=== PATIENT | male | born 1945 ===

== ENCOUNTER 2020-05-27 11:47 | Emergency (ER) | payer MEDICARE, SELFPAY ==
--- NOTE | 2020-05-27 | ECG_ITS ---
Test Reason : HEART PALPS Blood Pressure : / mmHG Vent. Rate : 062 BPM Atrial Rate : 062 BPM P-R Int : 156 ms QRS Dur : 086 ms QT Int : 406 ms P-R-T Axes : 056 -16 055 degrees QTc Int : 412 ms Normal sinus rhythm Normal ECG When compared with ECG of 31-JAN-2019 21:21, ST no longer depressed in Inferior leads Non-specific change in ST segment in Lateral leads Referred By: Eduardo Clifton Electronically Signed By:Erick Stallworth
--- NOTE | ~2020-05-27 | US_ITS ---
EXAMINATION: US VENOUS ULTRASOUND WITH DOPPLER LOWER EXTREMITY, BILATERAL CLINICAL INFORMATION: Bilateral lower extremity swelling COMPARISON: None TECHNIQUE: Ultrasound of the deep veins is performed from the hip to the calf with compression sonography and color and pulse Doppler assessment. Spectral analysis with color-flow imaging is performed. FINDINGS: RIGHT: There is normal venous compression and respiratory variation and augmented flow. The visualized common femoral vein, superficial femoral vein, profunda femoral vein, popliteal vein, and the trifurcation region shows no evidence of deep venous thrombosis. There is no significant popliteal fossa cyst. LEFT: There is normal venous compression and respiratory variation and augmented flow. The visualized common femoral vein, superficial femoral vein, profunda femoral vein, popliteal vein, and the trifurcation region shows no evidence of deep venous thrombosis. There is no significant popliteal fossa cyst. If the patient's symptoms persist, followup ultrasound in 5 days 7 days might be of value to exclude proximal propagation from a non-visualized calf vein. US/US venous duplex LE BI IMPRESSION: No DVT demonstrated in the bilateral lower extremity.
--- NOTE | ~2020-05-27 | XR_ITS ---
EXAMINATION: XR CHEST CLINICAL INFORMATION: Dyspnea COMPARISON: Previous chest x-ray January 2016 TECHNIQUE: 2 views of the chest were obtained. FINDINGS: The cardiac and mediastinal contours are stable. The lungs are clear. There is no pleural effusion or pneumothorax. There are degenerative changes of the spine. XR/XR chest 2V IMPRESSION: No evidence for acute disease in the chest.
[2020-05-27 11:50] VITALS: BP 218/101; PULSE 64; RESP 16; TEMP 36.5; O2SAT 98; BMI 37.8
[2020-05-27 11:53] VITALS: BP 213/98
--- NOTE | 2020-05-27 11:54 | PC.NURSE ---
pt has hypertension denies chest pain , has palpitations, took normal AM htn meds
[2020-05-27 12:41] VITALS: BP 172/87; PULSE 60; RESP 16; O2SAT 96
[2020-05-27 12:54] LABS: MANUAL DIFF FLAG NO
[2020-05-27 12:55] LABS: Basophils Percent Auto 0.5 % (0-2); Eosinophils Absolute Auto 0.3 X10*3/uL (0.0-0.4); Eosinophils Percent Auto 3.6 % (0-4); Hematocrit 38.8 % (42-52); Hemoglobin 12.8 g/dl (14.0-18.0); Imm Gran Abs Auto 0.04 X10*3/uL (0.00-0.03); Imm Gran Pct Auto 0.5 % (0.0-0.4); Lymphocytes Absolute Auto 2.4 X10*3/uL (1.2-4.9); Lymphocytes Percent Auto 27.7 % (20-40); Mean Corpuscular Hemoglobin 29.6 pg (27.0-33.0); Mean Corpuscular Volume 89.6 fL (80-98); Mean Platelet Volume 10.4 fL (9.4-12.4); Monocytes Absolute Auto 0.7 X10*3/uL (0.1-1.2); Monocytes Percent Auto 8.1 % (2-11); Neutrophils Absolute Auto 5.1 X10*3/uL (2.0-8.3); Neutrophils Percent Auto 59.6 % (45-73); Platelet Count 243 X10*3/uL (160-400); Red Blood Count 4.33 X10*6/uL (4.60-5.80); White Blood Count 8.5 X10*3/uL (4.8-10.8)
--- NOTE | 2020-05-27 12:58 | ED_ITS ---
HPI - General Adult General Chief complaint: Arrhythmia/Palpitations Stated complaint: PALPATIONS Time Seen by Provider: 05/27/20 12:06 Source: patient Mode of arrival: ambulatory Limitations: language barrier (Patient speaks Syriac but his 1st language is Greek, in room dining server was used) History of Present Illness HPI narrative: 75-year-old male who presents emergency department for evaluation chest pain, cough and bilateral lower extremity swelling x1 week. Patient states that he has been having intermittent, frequent episodes of right-sided chest pain. He describes the pain as a tight sensation which is worse with breathing and worse with movement. The pain is 6/10 at its worst. He also states he has had a cough which is productive of thin yellow phlegm x1 week. Patient has also noted bilateral lower extremity swelling which is gotten worse over the past week. He denied fever, chills, nausea, vomiting, abdominal pain, frequency, urgency or dysuria. The patient states that he got the [employer] COVID-19 vaccine 3 weeks ago these concerned that his symptoms may be related to the vaccination. Related Data Home Medications Medication Instructions Recorded Confirmed amlodipine 5 mg tablet 5 mg PO DAILY 11/26/19 03/28/20 aspirin 81 mg tablet,delayed 81 mg PO DAILY 11/26/19 03/28/20 release Previous Rx's Medication Instructions Recorded hydrochlorothiazide 25 mg tablet 25 mg PO QAM #90 tab 01/29/20 metformin 1,000 mg tablet 1,000 mg PO BID #180 tab 02/01/20 atenolol 50 mg tablet 50 mg PO DAILY #90 tab 02/03/20 insulin glargine 100 unit/mL (3 45 unit SUBCUT DAILY 30 Days #13.5 03/09/20 mL) subcutaneous pen ml lisinopril 40 mg tablet 40 mg PO DAILY #90 tab 03/10/20 atorvastatin 10 mg tablet 10 mg PO DAILY #90 tab 03/22/20 levothyroxine 88 mcg tablet 88 mcg PO QAM 90 Days #90 tab 04/01/20 furosemide [Lasix] 20 mg PO DAILY #30 tab 05/27/20 Allergies Allergy/AdvReac Type Severity Reaction Status Date / Time No Known Allergies Allergy Verified 03/28/20 13:32 Review of Systems Review of Systems: Yes all other systems are reviewed and are negative PMFSH Past Medical History PMFSH Narrative: The patient denies tobacco, alcohol and drug use. Source: unable to obtain Medical History (Updated 05/27/20 @ 15:18 by Eduardo Clifton MD) Abdominal aortic ectasia Diabetes mellitus High cholesterol Hypertension Hypothyroid Microalbuminuria Surgical History No pertinent past surgical history Family History Family History Father Medical history unknown Mother Diabetes Hypertension Paternal Grandmother Cancer Son No problems noted. Daughter No problems noted. Sister No problems noted. Brother No problems noted. Social History Social History Alcohol intake: never Smoking Status: Former smoker Tobacco Type: Cigarette Use of substances other than those prescribed or required for medical reasons: No Advance Directives: No Advance Directives Information Provided: Yes Physical Exam Vital Signs: Vital Signs: Last Vital Signs Temp 97.7 F 05/27/20 11:50 Pulse 60 05/27/20 12:41 Resp 16 05/27/20 12:41 BP 172/87 H 05/27/20 12:41 Pulse Ox 96 05/27/20 12:41 Body Mass Index 37.8 Const: General: cooperative and healthy appearing Orientation/consciousness: oriented to person and oriented to place Limitations: no limitations HENMT: Head: Yes normal to inspection, Yes normocephalic and Yes atraumatic Ears: external ears normal General nose exam: Normal external nose present Face and sinus: Yes normal facial exam Mouth: Normal oral and palatal mucosa present Throat: Yes posterior oropharynx normal Eyes: Periorbital: periorbital findings normal Eyelids: Yes eyelids normal Conjunctivae: conjunctivae normal Sclerae: sclerae normal Corneas: c orneas normal Pupils: Equal, round and reactive pupils present Direct Ophthalmoscopy: normal light reflex Neck: Neck: Yes full ROM, Yes no lymphadenopathy, Yes no meningeal signs, Yes trachea midline and Yes supple Chest: Chest palpation & inspection: normal inspection of the chest and tenderness (Right anterior chest) Resp: Effort & Inspection: normal respiratory effort and able to speak in complete sentences Auscultation: clear to auscultation bilaterally Cardio: Rate: regular rate Rhythm: regular rhythm Heart sounds: S1 normal heart sound present, S2 normal heart sound present and no murmurs GI: Inspection: Yes normal to inspection Palpation (GI): Soft to palpation, nontender, no guarding, not rigid and No hepatosplenomegaly present : General: Yes no CVA tenderness Back/Spine/Pelvis: Back: no CVA tenderness Cervical Spine: normal cervical lordosis Thoracic/Lumbar Spine: thoracic and lumbar spine normal to inspection Skin: Lesions: no lesions Rashes: no rashes Wounds: no wounds Neuro: General: oriented to person, oriented to place and no meningeal signs Cranial nerves: Yes Equal, round and reactive pupils present Cognition (Neuro): normal cognition Motor exam (neuro): 5/5 motor strength present throughout Extrem: General: Yes normal to inspection, Yes full ROM and Yes other (Bilaterally symmetric, trace to 1+ pitting edema) Psych: Appearance: well kempt Mental Status: mental status grossly normal Speech and movement: Normal speech and movement present Affect: normal affect Attitude: cooperative Thought process: Normal thought process present Thought content: Normal thought content present Course Course Course Narrative: 75-year-old male who presents emergency department for evaluation of intermittent chest pain, cough and leg swelling x1 week. Physical examination did reveal trace to 1+ pitting edema of his lower extremity which was symmetric. At this time I do not think this is related to the [employer] COVID-19 vaccine. I did order a cardiac workup on the patient, D-dimer and bilateral lower extremity ultrasounds. 1513: The patient's laboratory evaluation revealed a slight elevation in his potassium of 5.5. Patient does have an elevation is D-dimer 394 however age adjusted D-dimer would be normal. The patient's troponin was detectable at 6.9 but not elevated, I do not think that the patient has acute coronary syndrome is the cause of his symptoms. The patient's Doppler ultrasounds of his lower extremities were negative for DVT. The patient's chest x-ray revealed no evide nce of congestive heart failure pneumonia. Twelve EKG was unremarkable. The patient may be fluid overloaded this may explain his symptoms. The patient was started on Lasix 20 mg once a day for 1 week. I discussed the use of diuretics with the patient and the need to get into a negative fluid balance. Patient will need to follow-up with his PCP and return if he is worse in any way. Medical Decision Making Lab Data Result diagrams: 05/27/20 12:45 04/16/21 12:45 Labs: Lab Results 05/27/20 05/27/20 05/27/20 Range/Units 12:45 12:45 12:45 WBC 8.5 (4.8-10.8) X10*3/uL RBC 4.33 L (4.60-5.80) X10*6/uL Hgb 12.8 L (14.0-18.0) g/dl Hct 38.8 L (42-52) % MCV 89.6 (80-98) fL MCH 29.6 (27.0-33.0) pg MCHC 33.0 (31.0-36.0) g/dl RDW 13.0 (11.0-16.0) % Plt Count 243 (160-400) X10*3/uL MPV 10.4 (9.4-12.4) fL Immature Gran % (Auto) 0.5 H (0.0-0.4) % Neut % (Auto) 59.6 (45-73) % Lymph % (Auto) 27.7 (20-40) % [place] % (Auto) 8.1 (2-11) % Eos % (Auto) 3.6 (0-4) % Baso % (Auto) 0.5 (0-2) % Lymph # (Auto) 2.4 (1.2-4.9) X10*3/uL [place] # (Auto) 0.7 (0.1-1.2) X10*3/uL Eos # (Auto) 0.3 (0.0-0.4) X10*3/uL Baso # (Auto) 0.0 (0.0-0.2) X10*3/uL Abs Immat Gran (auto) 0.04 H (0.00-0.03) X10*3/uL Absolute Neuts (auto) 5.1 (2.0-8.3) X10*3/uL Absolute Nucleated RBC 0.000 (0.0-0.012) X10*3/uL Nucleated RBC % (auto) 0.0 (0.0-0.2) /100WBC PT (10.8-13.0) SEC INR (0.9-1.1) APTT 26.9 (24.1-38.0) SEC D-Dimer NG/ML Sodium 136 (135-145) mmol/L Potassium 5.5 H (3.3-5.1) mmol/L Chloride 104 (96-108) mmol/L Carbon Dioxide 21 L (22-29) mmol/L Anion Gap 17 (12-20) BUN 19 H (9-16) mg/dL Creatinine 1.52 H (0.5-1.4) mg/dL Estim Creat Clear Calc 46.1 Estimated GFR 45 Random Glucose 282 H (60-115) mg/dL Calcium 9.2 (8.4-10.2) mg/dL Total Bilirubin 0.4 (0.0-1.0) mg/dL AST 19 (5-37) U/L ALT 17 (0-40) U/L Alkaline Phosphatase 149 H (39-117) U/L Troponin I High Sens (<3.5-35.0) ng/L Total Protein 7.6 (6.5-8.0) g/dL Albumin 4.0 (3.5-5.0) g/dL COVID-19 ([facility]) (Negative) COVID-19 Clin Com 05/27/20 05/27/20 05/27/20 Range/Units 12:45 12:45 12:45 WBC (4.8-10.8) X10*3/uL RBC (4.60-5.80) X10*6/uL Hgb (14.0-18.0) g/dl Hct (42-52) % MCV (80-98) fL MCH (27.0-33.0) pg MCHC (31.0-36.0) g/dl RDW (11.0-16.0) % Plt Count (160-400) X10*3/uL MPV (9.4-12.4) fL Immature Gran % (Auto) (0.0-0.4) % Neut % (Auto) (45-73) % Lymph % (Auto) (20-40) % [place] % (Auto) (2-11) % Eos % (Auto) (0-4) % Baso % (Auto) (0-2) % Lymph # (Auto) (1.2-4.9) X10*3/uL [place] # (Auto) (0.1-1.2) X10*3/uL Eos # (Auto) (0.0-0.4) X10*3/uL Baso # (Auto) (0.0-0.2) X10*3/uL Abs Immat Gran (auto) (0.00-0.03) X10*3/uL Absolute Neuts (auto) (2.0-8.3) X10*3/uL Absolute Nucleated RBC (0.0-0.012) X10*3/uL Nucleated RBC % (auto) (0.0-0.2) /100WBC PT 12.1 (10.8-13.0) SEC INR 1.0 (0.9-1.1) APTT (24.1-38.0) SEC D-Dimer 394 NG/ML Sodium (135-145) mmol/L Potassium (3.3-5.1) mmol/L Chloride (96-108) mmol/L Carbon Dioxide (22-29) mmol/L Anion Gap (12-20) BUN (9-16) mg/dL Creatinine (0.5-1.4) mg/dL Estim Creat Clear Calc Estimated GFR Random Glucose (60-115) mg/dL Calcium (8.4-10.2) mg/dL Total Bilirubin (0.0-1.0) mg/dL AST (5-37) U/L ALT (0-40) U/L Alkaline Phosphatase (39-117) U/L Troponin I High Sens 6.9 (<3.5-35.0) ng/L Total Protein (6.5-8.0) g/dL Albumin (3.5-5.0) g/dL COVID-19 ([facility]) Negative (Negative) COVID-19 Clin Com See Note ECG Data Interpretation: 1208: Normal sinus rhythm the rate of 62, normal SD, QRS and QTC intervals, no ST segment elevation or depression, no T-wave abnormalities, t his is a normal EKG. Discharge Plan Discharge Clinical Impression: Edema, peripheral Chest pain Qualifiers: Chest pain type: unspecified Qualified Code(s): R07.9 - Chest pain, unspecified Patient Disposition: Home, Self-Care Instructions: Leg Edema (ED) Additional Instructions: Your blood work was unremarkable. Your chest x-ray was normal. EKG was unremarkable. I believe that you symptoms are caused by too much fluid in your body. I am starting you on a diuretic/water pill to help you urinate and get rid of the fluid in your body. Take Lasix 20 (furosemide) mg once a day in the morning. This medication will make you pee/urinary for 6-8 hours. While you are taking the Lasix (furosemide) you need to reduce the amount of fluid that you take to get into a negative fluid balance-you want pee more fluid out then you drink in. Follow-up with your doctor in 2 days. Please return to the emergency department if your symptoms get worse or if you develop any symptoms that are concerning to you. Prescriptions: New furosemide [Lasix] 20 mg tablet 20 mg PO DAILY Qty: 30 RF: 0 No Action hydrochlorothiazide 25 mg tablet 25 mg PO QAM Qty: 90 RF: 1 metformin 1,000 mg tablet 1,000 mg PO BID Qty: 180 RF: 5 atenolol 50 mg tablet 50 mg PO DAILY Qty: 90 RF: 1 insulin glargine 100 unit/mL (3 mL) insulin pen 45 unit subcut DAILY 30 Days Qty: 13.5 RF: 6 lisinopril 40 mg tablet 40 mg PO DAILY Qty: 90 RF: 1 atorvastatin 10 mg tablet 10 mg PO DAILY Qty: 90 RF: 3 levothyroxine 88 mcg tablet 88 mcg PO QAM 90 Days Qty: 90 RF: 1 flu vacc [id number] 6mos up(PF) 60 mcg (15 mcg x 4)/0.5 mL syringe 0.5 ml IM ONCE Qty: 0.5 RF: 0 amlodipine 5 mg tablet 5 mg PO DAILY RF: 0 aspirin 81 mg tablet,delayed release (DR/EC) 81 mg PO DAILY RF: 0
[2020-05-27 13:01] LABS: Prothrombin Time 12.1 SEC (10.8-13.0)
[2020-05-27 13:04] LABS: D Dimer 394 NG/ML; Partial Thromboplastin Time 26.9 SEC (24.1-38.0)
[2020-05-27 13:12] LABS: COVID-19 Test Negative (Negative); IDNOW Serial# 9DD0AD1C
[2020-05-27 13:18] LABS: Alanine Aminotransferase 17 U/L (0-40); Alkaline Phosphatase 149 U/L (39-117); Anion Gap 17 (12-20); Aspartate Amino Transferase 19 U/L (5-37); Bilirubin Total 0.4 mg/dL (0.0-1.0); Blood Urea Nitrogen 19 mg/dL (9-16); Calcium 9.2 mg/dL (8.4-10.2); Carbon Dioxide 21 mmol/L (22-29); Chloride 104 mmol/L (96-108); Creatinine Clr Calc Pharmacy 46.1; Estimated Glomerular Filt Rate 45; Glucose Random 282 mg/dL (60-115); Potassium 5.5 mmol/L (3.3-5.1); Sodium 136 mmol/L (135-145); Total Protein 7.6 g/dL (6.5-8.0)
[2020-05-27 13:24] LABS: Troponin-I High Sensitivity 6.9 ng/L (<3.5-35.0)
[2020-05-27 15:34] VITALS: BP 157/74; PULSE 80; RESP 16; O2SAT 98
== END 2020-05-27 15:36 | disposition home or self-care (01) ==
PROVIDERS: Emergency Provider Emergency Medicine Emergency Medical Services; PCP Internal Medicine
DX: R07.9 Chest pain, unspecified (principal); R60.0 Localized edema; R00.2 Palpitations; Z20.822 Contact with and (suspected) exposure to COVID-19; I10 Essential (primary) hypertension; E11.9 Type 2 diabetes mellitus without complications; Z87.891 Personal history of nicotine dependence
CPT/HCPCS: 36415; 71046; 80053; 84484; 85025; 85379; 85610; 85730; 87635; 93005; 93970; 99284; 99285

== ENCOUNTER 2020-09-09 08:43 | Outpatient (REF) | payer MEDICARE, SELFPAY ==
[2020-09-09 10:33] LABS: Creatinine Urine 160.67 mg/dL; Microalbum/Creatinine Ratio Ur 228.4 ug/mg cr
[2020-09-09 10:46] LABS: Anion Gap 16 (12-20); Blood Urea Nitrogen 24 mg/dL (9-16); Calcium 9.8 mg/dL (8.4-10.2); Carbon Dioxide 20 mmol/L (22-29); Chloride 108 mmol/L (96-108); Estimated Glomerular Filt Rate 50; Potassium 5.7 mmol/L (3.3-5.1); Sodium 138 mmol/L (135-145)
== END 2020-09-09 08:44 | disposition home or self-care (01) ==
LOC: HO.LAB 08:43
PROVIDERS: PCP Internal Medicine; Visit Provider Internal Medicine Hypertension Specialist
DX: I10 Essential (primary) hypertension (principal); E11.9 Type 2 diabetes mellitus without complications; R80.9 Proteinuria, unspecified
CPT/HCPCS: 36415; 80051; 82043; 82310; 82565; 84520

== ENCOUNTER 2020-10-14 07:28 | Outpatient (REF) | payer MEDICARE, SELFPAY ==
--- NOTE | ~2020-10-14 | US_ITS ---
EXAMINATION: US RETROPERITONEAL LIMITED (RENAL ONLY) CLINICAL INFORMATION: Chronic kidney disease stage 3. COMPARISON: Renals only ultrasound dated 07/16/2017. TECHNIQUE: Real-time imaging of the kidneys. FINDINGS: RIGHT KIDNEY: 10.6 x 6.0 x 5.3 cm (SAG x AP x TRV). The kidney is normal in size, contour, and echogenicity. Renal cortical thickness is normal. No calculi or focal parenchymal lesions. No hydronephrosis. LEFT KIDNEY: 10.7 x 5.4 x 5.5 cm (SAG x AP x TRV). The kidney is normal in size, contour, and echogenicity. Renal cortical thickness is normal. There is a 1.5 x 1.6 x 1.5 cm cyst in the midpole. This measured 1.5 x 1.6 x 1.3 cm on July 2017 exam. No renal calculi or hydronephrosis. US/US renal BI IMPRESSION: Small left renal cyst otherwise unremarkable exam.
== END 2020-10-14 07:29 | disposition home or self-care (01) ==
LOC: HO.US 07:28
PROVIDERS: Visit Provider Internal Medicine Hypertension Specialist
DX: N18.31 Chronic kidney disease, stage 3a (principal)
CPT/HCPCS: 76775

== ENCOUNTER 2020-10-28 07:58 | Outpatient (REF) | payer MEDICARE, SELFPAY ==
[2020-10-28 09:36] LABS: Creatinine Urine 72.62 mg/dL; Protein/Creatinine Ratio, Ur 1.24 (<0.2); Total Protein Urine Random 90 mg/dL (<12)
[2020-10-28 10:00] LABS: Anion Gap 12 (12-20); Blood Urea Nitrogen 14 mg/dL (9-16); Calcium 9.6 mg/dL (8.4-10.2); Carbon Dioxide 25 mmol/L (22-29); Chloride 106 mmol/L (96-108); Estimated Glomerular Filt Rate > 60; Potassium 4.3 mmol/L (3.3-5.1); Sodium 139 mmol/L (135-145)
== END 2020-10-28 07:59 | disposition home or self-care (01) ==
LOC: HO.LAB 07:58
PROVIDERS: PCP Internal Medicine; Visit Provider Internal Medicine Hypertension Specialist
DX: E11.22 Type 2 diabetes mellitus with diabetic chronic kidney disease (principal); N18.31 Chronic kidney disease, stage 3a; E11.21 Type 2 diabetes mellitus with diabetic nephropathy
CPT/HCPCS: 36415; 80051; 82310; 82565; 84156; 84520

== ENCOUNTER 2020-11-16 08:15 | Outpatient (REF) | payer MEDICARE, SELFPAY ==
[2020-11-16 08:40] LABS: MANUAL DIFF FLAG NO
[2020-11-16 09:25] LABS: Basophils Absolute Auto 0.1 X10*3/uL (0.0-0.2); Basophils Percent Auto 0.8 % (0-2); Eosinophils Absolute Auto 1.1 X10*3/uL (0.0-0.4); Eosinophils Percent Auto 12.4 % (0-4); Hematocrit 39.3 % (42-52); Imm Gran Abs Auto 0.03 X10*3/uL (0.00-0.03); Imm Gran Pct Auto 0.3 % (0.0-0.4); Lymphocytes Absolute Auto 2.8 X10*3/uL (1.2-4.9); Lymphocytes Percent Auto 30.1 % (20-40); Mean Corpuscular HGB Conc 33.1 g/dl (31.0-36.0); Mean Corpuscular Volume 87.7 fL (80-98); Mean Platelet Volume 10.8 fL (9.4-12.4); Monocytes Absolute Auto 0.9 X10*3/uL (0.1-1.2); Monocytes Percent Auto 9.3 % (2-11); Neutrophils Absolute Auto 4.3 X10*3/uL (2.0-8.3); Neutrophils Percent Auto 47.1 % (45-73); Platelet Count 289 X10*3/uL (160-400); Red Blood Count 4.48 X10*6/uL (4.60-5.80); Red Cell Distribution Width 13.6 % (11.0-16.0); White Blood Count 9.1 X10*3/uL (4.8-10.8)
[2020-11-16 09:52] LABS: Cholesterol 122 mg/dL; HDL Cholesterol 58 mg/dL; LDL Cholesterol Calculated 51 mg/dl; Triglycerides 65 mg/dL
[2020-11-16 10:39] LABS: Creatinine Urine 167.19 mg/dL
[2020-11-16 10:54] LABS: Microalbum/Creatinine Ratio Ur 909.7 ug/mg cr
[2020-11-21 13:02] LABS: Vitamin D 25-OH, D2 <4 ng/mL; Vitamin D 25-OH, D3 20 ng/mL; Vitamin D 25-OH, Total 20 ng/mL (30-100)
== END 2020-11-16 08:16 | disposition home or self-care (01) ==
LOC: HO.LAB 08:15
PROVIDERS: PCP Internal Medicine; Visit Provider Internal Medicine
DX: D64.9 Anemia, unspecified (principal); E78.5 Hyperlipidemia, unspecified; E11.9 Type 2 diabetes mellitus without complications; E55.9 Vitamin D deficiency, unspecified
CPT/HCPCS: 36415; 80061; 82043; 82306; 85025

== ENCOUNTER 2020-12-05 08:48 | Emergency (ER) | payer MEDICARE, SELFPAY ==
--- NOTE | ~2020-12-05 | US_ITS ---
EXAMINATION: US SCROTUM CLINICAL INFORMATION: Left-sided swelling. COMPARISON: None. TECHNIQUE: A sonogram of the scrotum was performed assessing rdoney-scale appearance and color Doppler flow. Spectral Doppler analysis of the arterial and venous flow were performed in the testes bilaterally. FINDINGS: RIGHT: Right testicle measures 4.3 x 2 x 3 cm, volume 13.5 mL. No focal testicular parenchymal lesions are visualized. Spectral Doppler analysis of the arterial and venous flow is normal in the right testis. There is a small right epididymal head cyst measuring 3 x 2 x 2 mm. There is a small right hydrocele. Right epididymal head is normal in size. No right varicocele is seen. Right epididymal Doppler flow is normal. LEFT: Left testicle measures 4.6 x 2.6 x 2.6 cm, volume 21 mL. No focal testicular parenchymal lesions are visualized. Spectral Doppler analysis of the arterial and venous flow is normal in the left testis. There is a large left hydrocele. The left epididymis is not well visualized. No left varicocele is seen. US/US scrotum doppler IMPRESSION: Large left hydrocele. The left epididymis is not well visualized. The left testicle is larger than the right. Small right hydrocele. Small right epididymal head cyst.
--- NOTE | ~2020-12-05 | US_ITS ---
EXAMINATION: US SCROTUM CLINICAL INFORMATION: Left-sided swelling. COMPARISON: None. TECHNIQUE: A sonogram of the scrotum was performed assessing rodney-scale appearance and color Doppler flow. Spectral Doppler analysis of the arterial and venous flow were performed in the testes bilaterally. FINDINGS: RIGHT: Right testicle measures 4.3 x 2 x 3 cm, volume 13.5 mL. No focal testicular parenchymal lesions are visualized. Spectral Doppler analysis of the arterial and venous flow is normal in the right testis. There is a small right epididymal head cyst measuring 3 x 2 x 2 mm. There is a small right hydrocele. Right epididymal head is normal in size. No right varicocele is seen. Right epididymal Doppler flow is normal. LEFT: Left testicle measures 4.6 x 2.6 x 2.6 cm, volume 21 mL. No focal testicular parenchymal lesions are visualized. Spectral Doppler analysis of the arterial and venous flow is normal in the left testis. There is a large left hydrocele. The left epididymis is not well visualized. No left varicocele is seen. US/US scrotum IMPRESSION: Large left hydrocele. The left epididymis is not well visualized. The left testicle is larger than the right. Small right hydrocele. Small right epididymal head cyst.
[2020-12-05 08:52] VITALS: BP 185/74; PULSE 75; RESP 18; TEMP 36.6; O2SAT 99; BMI 33.0
--- NOTE | 2020-12-05 09:27 | ED_ITS ---
HPI - Male Genitourinary General Chief complaint: Urogenital-Male Stated complaint: Genital pain Time Seen by Provider: 12/05/20 08:59 Source: patient Mode of arrival: ambulatory History of Present Illness HPI Narrative: 75-year-old male with a past medical history DM, HLD, HTN, hypothyroid, microalbuminuria, diabetic neuropathy, presenting to the ED complaining of left scrotal edema/swelling and pain x1 week. Denies fever, chills, dysuria, hematuria, flank pain, abdominal pain, nausea, vomiting MD Complaint: testicle pain and testicle swelling Related Data Previous Rx's Medication Instructions Recorded metformin 1,000 mg tablet 1,000 mg PO BID #180 tab 02/01/20 atorvastatin 10 mg tablet 10 mg PO DAILY #90 tab 03/22/20 aspirin 81 mg tablet,delayed 81 mg PO DAILY #90 tab 06/07/20 release pen needle, diabetic 31 gauge x #100 ea 06/22/2006/26 (BD Ultra-Fine Short Pen Needle) hydrochlorothiazide 25 mg tablet 25 mg PO QAM #90 tab 07/20/20 atenolol 50 mg tablet 50 mg PO DAILY 90 Days #90 tab 07/21/20 hydralazine 25 mg tablet 25 mg PO TID 90 Days #270 tab 07/21/20 levothyroxine 88 mcg tablet 88 mcg PO QAM 90 Days #90 tab 09/26/20 cholecalciferol (vitamin D3) 25 25 mcg PO DAILY 90 Days #90 cap 11/22/20 mcg (1,000 unit) capsule gabapentin 100 mg capsule 100 mg PO BEDTIME 90 Days #90 cap 11/22/20 insulin glargine 100 unit/mL (3 50 unit SUBCUT DAILY 30 Days #15 ml 11/22/20 mL) subcutaneous pen Allergies Allergy/AdvReac Type Severity Reaction Status Date / Time No Known Allergies Allergy Verified 11/22/20 08:48 Review of Systems Review of Systems: Constitutional: No Fever, No Chills, No Fatigue, No Malaise ENT/Mouth: No sore throat, No Rhinorrhea, No Swallowing Difficulty Eyes: No Eye Pain, No Redness, No Discharge Cardiovascular: No Chest Pain, No SOB, No Palpitations Respiratory: No Cough, No Dyspnea Gastrointestinal: No Nausea, No Vomiting, No Abdominal pain Genitourinary: No irregular bleeding, No Dysuria, No Urinary Frequency, No Hematuria, No Urgency, No Flank Pain, No Hesitancy, + scrotal pain and swelling Musculoskeletal: No joint pain, No Myalgias, No Joint Swelling Skin: No Skin Lesions, No rash Neuro: No Weakness, No Numbness, No Dizziness, No Headache Yes all other systems are reviewed and are negative [facility] Past Medical History Attestation statement: The following information was validated with the patient. Medical History (Updated 12/05/20 @ 12:47 by JOHN Dumont) Abdominal aortic ectasia Diabetes mellitus Diabetic neuropathy High cholesterol Hypertension Hypothyroid Microalbuminuria Surgical History No pertinent past surgical history Family History Family History Father Medical history unknown Mother Diabetes Hypertension Paternal Grandmother Cancer Son No problems noted. Daughter No problems noted. Sister No problems noted. Brother No problems noted. Social History Social History Housing: Apartment Alcohol intake: never Patient Tobacco Use Status: Former Tobacco user Tobacco use type: Cigarette e-Cigarette/Vaping Use: Never Used Second Hand Smoke Exposure: No Use of substances other than those prescribed or required for medical reasons: No Advance Directives: No Advance Directives Information Provided: No service: No Current occupational status: disabled Physical Exam Vital Signs: Vital Signs: Last Vital Signs Temp 98 F 12/05/20 08:52 Pulse 75 12/05/20 08:52 Resp 18 12/05/20 08:52 BP 185/74 H 12/05/20 08:52 Pulse Ox 99 12/05/20 08:52 Body Mass Index 33.0 Const: General: cooperative, healthy appearing and no acute distress Orientation/consciousness: patient oriented x3 Limitations: no limitations HENMT: Head: Yes normal to inspection Ears: hearing grossly normal bilaterally General nose exam: Normal external nose present Face and sinus: Yes normal facial exam Eyes: General: appearance normal, both eyes and all related structures EOM: EOMs intact bilaterally Neck: Neck: Yes normal visual inspection and Yes no meningeal signs Resp: Effort & Inspection: normal respiratory effort and no respiratory distress Cardio: Rate: regular rate Heart sounds: S1 normal heart sound present and S2 normal heart sound present GI: Inspection: Yes normal to inspection Palpation (GI): Soft to palpation, nontender, no guarding and not rigid : General: Yes no CVA tenderness Penis: normal penis Scrotum: edematous (Firm. No fluctuance/induration) on the left, not erythematous, no inguinal hernias and scrotal swelling (With tenderness) on the left Back/Spine/Pelvis: Back: no CVA tenderness Skin: Rashes: no rashes Wounds: no wounds Neuro: General: patient oriented x3 and no meningeal signs Gait exam (Neuro): Normal gait present Extrem: General: Yes normal to inspection Course Course Course Narrative: -no leukocytosis. H&H stable. Labs otherwise unremarkable. -UA with wbc's, patient does report urinary frequency > will treat with antibiotics US scrotum doppler IMPRESSION: Large left hydrocele. The left epididymis is not well visualized. The left testicle is larger than the right. Small right hydrocele. Small right epididymal head cyst. >> results discussed with patient with principal secretary including worrisome signs and symptoms, recommended scrotal support and Urology follow-up, he verbalized understanding feel safe for discharge home at this time MDM - Male Genitourinary MDM Narrative Medical decision making narrative: 75-year-old male with a past medical history DM, HLD, HTN, hypothyroid, microalbuminuria, diabetic neuropathy, presenting to the ED complaining of left scrotal edema/swelling and pain x1 week. On exam vital signs stable, and NAD, physical exam as above with notable left-sided scrotal edema and tenderness. Abdomen soft/nontender. Concern for hydrocele vs varicocele vs torsion. Lower concern for underlying abscess/cellulitis Plan: Labs, UA, CTNG, ultrasound Medical Records Attestation: I reviewed the patient's medical records. Lab Data Attestation: I reviewed the patient's lab results. Result diagrams: 12/05/20 09:34 12/05/20 09:34 Labs: Lab Results 12/05/20 12/05/20 12/05/20 Range/Units 09:34 09:34 09:34 WBC 9.0 (4.8-10.8) X10*3/uL RBC 4.11 L (4.60-5.80) X10*6/uL Hgb 12.2 L (14.0-18.0) g/dl Hct 37.1 L (42-52) % MCV 90.3 (80-98) fL MCH 29.7 (27.0-33.0) pg MCHC 32.9 (31.0-36.0) g/dl RDW 13.8 (11.0-16.0) % Plt Count 223 (160-400) X10*3/uL MPV 10.3 (9.4-12.4) fL Immature Gran % (Auto) 0.4 (0.0-0.4) % Neut % (Auto) 65.2 (45-73) % Lymph % (Auto) 20.3 (20-40) % [place] % (Auto) 8.1 (2-11) % Eos % (Auto) 5.2 H (0-4) % Baso % (Auto) 0.8 (0-2) % Lymph # (Auto) 1.8 (1.2-4.9) X10*3/uL [place] # (Auto) 0.7 (0.1-1.2) X10*3/uL Eos # (Auto) 0.5 H (0.0-0.4) X10*3/uL Baso # (Auto) 0.1 (0.0-0.2) X10*3/uL Abs Immat Gran (auto) 0.04 H (0.00-0.03) X10*3/uL Absolute Neuts (auto) 5.8 (2.0-8.3) X10*3/uL Absolute Nucleated RBC 0.000 (0.0-0.012) X10*3/uL Nucleated RBC % (auto) 0.0 (0.0-0.2) /100WBC Sodium 137 (135-145) mmol/L Potassium 4.2 (3.3-5.1) mmol/L Chloride 104 (96-108) mmol/L Carbon Dioxide 22 (22-29) mmol/L Anion Gap 15 (12-20) BUN 15 (9-16) mg/dL Creatinine 1.17 (0.5-1.4) mg/dL Estim Creat Clear Calc 48.2 Estimated GFR > 60 Random Glucose 208 H (60-115) mg/dL Calcium 9.7 (8.4-10.2) mg/dL Total Bilirubin 0.4 (0.0-1.0) mg/dL Direct Bilirubin 0.2 (0.0-0.5) mg/dL AST 20 (5-37) U/L ALT 18 (0-40) U/L Alkaline Phosphatase 118 H D (39-117) U/L Total Protein 7.5 (6.5-8.0) g/dL Albumin 4.0 (3.5-5.0) g/dL Urine Color YELLOW Urine Appearance HAZY Urine pH 5.5 (5.0-8.0) Ur Specific [place] >= 1.030 H (1.005-1.025) Urine Protein 3+ H (NEG-TRACE) MG/DL Urine Glucose (UA) NEG (NEG) MG/DL Urine Ketones 5 (NEG) MG/DL Urine Blood NEG (NEG) Urine Nitrite NEG (NEG) Ur Leukocyte Esterase NEG (NEG) Urine RBC 0-2 (0) /HPF Urine WBC 5-9 H (0-4) /HPF Ur Squamous Epith Cells 1+ /LPF Urine Bacteria TRACE /LPF Urine Mucus 1+ /LPF Ur Oval Fat Bodies NOTED (NONE) Discharge Plan Discharge Clinical Impression: Acute hydrocele Patient Disposition: Home, Self-Care Instructions: Hydrocele (ED) Additional Instructions: You have a large hydrocele, which is fluid around her testicle Practice scrotal support You need to follow-up with a urologist, this may need surgical intervention If scrotum keeps swelling, pain becomes unbearable, you have nausea/vomiting, or abdominal pain, or area begins to look infected, is red, or you have penile drainage return to the ED immediately Tiene un hidrocele raven, que es l?quido alrededor de wiley test?culo. Practica el soporte escrotal Debe hacer un seguimiento con un ur?logo, esto puede requerir colt intervenci?n quir?rgica. Si el escroto sigue hinch?ndose, el dolor se vuelve insoportable, tiene n?useas / v?mitos o dolor abdominal, o el ?mayur comienza a verse infectada, est? enrojecida o tiene drenaje del pene, regrese al servicio de urgencias de inmediato Prescriptions: No Action metformin 1,000 mg tablet 1,000 mg PO BID Qty: 180 RF: 5 atorvastatin 10 mg tablet 10 mg PO DAILY Qty: 90 RF: 3 aspirin 81 mg tablet,delayed release (DR/EC) 81 mg PO DAILY Qty: 90 RF: 3 (DME) pen needle, diabetic [BD Ultra-Fine Short Pen Needle] 31 gauge x 5/16 needle See Rx Instructions .ROUTE .MEDSUPPLY Qty: 100 RF: 3 hydrochlorothiazide 25 mg tablet 25 mg PO QAM Qty: 90 RF: 3 levothyroxine 88 mcg tablet 88 mcg PO QAM 90 Days Qty: 90 RF: 1 flu vacc [id number] 6mos up(PF) 60 mcg (15 mcg x 4)/0.5 mL syringe 0.5 ml IM ONCE Qty: 0.5 RF: 0 gabapentin 100 mg capsule 100 mg PO BEDTIME 90 Days Qty: 90 RF: 0 insulin glargine 100 unit/mL (3 mL) insulin pen 50 unit subcut DAILY 30 Days Qty: 15 RF: 6 cholecalciferol (vitamin D3) 25 mcg (1,000 unit) capsule 25 mcg PO DAILY 90 Days Qty: 90 RF: 2 hydralazine 25 mg tablet 25 mg PO TID 90 Days Qty: 270 RF: 3 atenolol 50 mg tablet 50 mg PO DAILY 90 Days Qty: 90 RF: 3 Referrals: Homer Tucker MD [Physician] - 2 days Print Language: Swedish
[2020-12-05 09:39] LABS: MANUAL DIFF FLAG NO
[2020-12-05 09:41] LABS: Basophils Absolute Auto 0.1 X10*3/uL (0.0-0.2); Basophils Percent Auto 0.8 % (0-2); Eosinophils Absolute Auto 0.5 X10*3/uL (0.0-0.4); Eosinophils Percent Auto 5.2 % (0-4); Hematocrit 37.1 % (42-52); Hemoglobin 12.2 g/dl (14.0-18.0); Imm Gran Abs Auto 0.04 X10*3/uL (0.00-0.03); Imm Gran Pct Auto 0.4 % (0.0-0.4); Lymphocytes Absolute Auto 1.8 X10*3/uL (1.2-4.9); Lymphocytes Percent Auto 20.3 % (20-40); Mean Corpuscular HGB Conc 32.9 g/dl (31.0-36.0); Mean Corpuscular Hemoglobin 29.7 pg (27.0-33.0); Mean Corpuscular Volume 90.3 fL (80-98); Mean Platelet Volume 10.3 fL (9.4-12.4); Monocytes Absolute Auto 0.7 X10*3/uL (0.1-1.2); Monocytes Percent Auto 8.1 % (2-11); Neutrophils Absolute Auto 5.8 X10*3/uL (2.0-8.3); Neutrophils Percent Auto 65.2 % (45-73); Platelet Count 223 X10*3/uL (160-400); Red Blood Count 4.11 X10*6/uL (4.60-5.80); Red Cell Distribution Width 13.8 % (11.0-16.0)
[2020-12-05 09:48] LABS: Appearance Urine HAZY; Color Urine YELLOW; Glucose Urine UA NEG (NEG); Leukocyte Esterase Urine NEG (NEG); Nitrite Urine NEG (NEG); PH 5.5 (5.0-8.0); Specific Gravity - Urine >= 1.030 (1.005-1.025); UACC Culture Trigger NO; Urine Blood NEG (NEG); Urine Ketones 5 MG/DL (NEG); Urine Protein 3+ MG/DL (NEG-TRACE)
[2020-12-05 09:59] LABS: Bacteria Urine TRACE /LPF; Mucus Urine 1+ /LPF; Oval Fat Bodies Urine NOTED; RBC Urine 0-2 /HPF (0); Squamous Epithelial Cell Urine 1+ /LPF; UACC CULT YES
[2020-12-05 10:08] LABS: Alanine Aminotransferase 18 U/L (0-40); Alkaline Phosphatase 118 U/L (39-117); Anion Gap 15 (12-20); Aspartate Amino Transferase 20 U/L (5-37); Bilirubin Direct 0.2 mg/dL (0.0-0.5); Bilirubin Total 0.4 mg/dL (0.0-1.0); Blood Urea Nitrogen 15 mg/dL (9-16); Calcium 9.7 mg/dL (8.4-10.2); Carbon Dioxide 22 mmol/L (22-29); Chloride 104 mmol/L (96-108); Creatinine Clr Calc Pharmacy 48.2; Estimated Glomerular Filt Rate > 60; Glucose Random 208 mg/dL (60-115); Potassium 4.2 mmol/L (3.3-5.1); Sodium 137 mmol/L (135-145); Total Protein 7.5 g/dL (6.5-8.0)
== END 2020-12-05 13:19 | disposition home or self-care (01) ==
PROVIDERS: Physician Assistant; Emergency Provider Emergency Medicine; PCP Internal Medicine
DX: N43.3 Hydrocele, unspecified (principal); I10 Essential (primary) hypertension; E11.9 Type 2 diabetes mellitus without complications
CPT/HCPCS: 36415; 76870; 80048; 80076; 81001; 85025; 87086; 93975; 99284

== ENCOUNTER → 2021-02-28 10:43 | Outpatient (BNVA) | payer OTHER, SELFPAY | PROVIDERS: PCP Internal Medicine; Visit Provider Urology | DX: N43.3 Hydrocele, unspecified (principal) | CPT/HCPCS: 99202 ==

== ENCOUNTER 2021-03-15 07:14 | Outpatient (REF) | payer OTHER, SELFPAY ==
[2021-03-15 08:35] LABS: Alanine Aminotransferase 20 U/L (0-40); Albumin Level 4.2 g/dL (3.5-5.0); Alkaline Phosphatase 102 U/L (39-117); Anion Gap 12 (12-20); Aspartate Amino Transferase 22 U/L (5-37); Bilirubin Total 0.6 mg/dL (0.0-1.0); Blood Urea Nitrogen 11 mg/dL (9-16); Calcium 9.7 mg/dL (8.4-10.2); Carbon Dioxide 28 mmol/L (22-29); Chloride 104 mmol/L (96-108); Cholesterol 137 mg/dL; Estimated Glomerular Filt Rate > 60; Glucose Fasting 95 mg/dL (60-99); HDL Cholesterol 65 mg/dL; LDL Cholesterol Calculated 59 mg/dl; Potassium 3.8 mmol/L (3.3-5.1); Sodium 140 mmol/L (135-145); Total Protein 7.7 g/dL (6.5-8.0); Triglycerides 69 mg/dL
[2021-03-15 08:59] LABS: Thyroid Stimulating Hormone 71.57 uIU/mL (0.32-4.0)
[2021-03-15 09:00] LABS: Creatinine Urine 133.16 mg/dL
[2021-03-15 09:55] LABS: Microalbum/Creatinine Ratio Ur 1186.5 ug/mg cr
[2021-03-19 16:06] LABS: Vitamin D 25-OH, D2 <4 ng/mL; Vitamin D 25-OH, D3 36 ng/mL; Vitamin D 25-OH, Total 36 ng/mL (30-100)
== END 2021-03-15 07:15 | disposition home or self-care (01) ==
LOC: HO.LAB 07:14
PROVIDERS: Absent Provider Internal Medicine Hypertension Specialist; PCP Internal Medicine; Visit Provider Internal Medicine
DX: I10 Essential (primary) hypertension (principal); E55.9 Vitamin D deficiency, unspecified; E03.9 Hypothyroidism, unspecified; E78.5 Hyperlipidemia, unspecified; E11.9 Type 2 diabetes mellitus without complications; Z79.4 Long term (current) use of insulin
CPT/HCPCS: 36415; 80053; 80061; 82043; 82306; 84443

== ENCOUNTER 2021-04-14 06:56 | Outpatient (REF) | payer MEDICARE, SELFPAY ==
[2021-04-14 07:52] LABS: Alanine Aminotransferase 15 U/L (0-40); Alkaline Phosphatase 92 U/L (39-117); Anion Gap 13 (12-20); Aspartate Amino Transferase 17 U/L (5-37); Bilirubin Total 0.7 mg/dL (0.0-1.0); Blood Urea Nitrogen 22 mg/dL (9-16); Calcium 10.3 mg/dL (8.4-10.2); Carbon Dioxide 28 mmol/L (22-29); Chloride 102 mmol/L (96-108); Cholesterol 106 mg/dL; Estimated Glomerular Filt Rate > 60; Glucose Fasting 175 mg/dL (60-99); HDL Cholesterol 46 mg/dL; LDL Cholesterol Calculated 39 mg/dl; Potassium 4.5 mmol/L (3.3-5.1); Sodium 138 mmol/L (135-145); Total Protein 7.5 g/dL (6.5-8.0); Triglycerides 107 mg/dL
[2021-04-14 08:15] LABS: TSH reflex Free T4 1.87 uIU/mL (0.32-4.0)
[2021-04-14 08:32] LABS: Creatinine Urine 97.13 mg/dL
[2021-04-14 08:51] LABS: Microalbum/Creatinine Ratio Ur 935.8 ug/mg cr
== END 2021-04-14 06:57 | disposition home or self-care (01) ==
LOC: HO.LAB 06:56
PROVIDERS: PCP Internal Medicine; Visit Provider Internal Medicine
DX: E03.9 Hypothyroidism, unspecified (principal); E11.9 Type 2 diabetes mellitus without complications; E78.00 Pure hypercholesterolemia, unspecified; E78.5 Hyperlipidemia, unspecified; Z79.4 Long term (current) use of insulin
CPT/HCPCS: 36415; 80053; 80061; 82043; 84443

== ENCOUNTER 2021-04-24 11:49 | Day surgery (SDC) | payer MEDICARE, SELFPAY ==
[2021-04-18 13:29] VITALS: BMI 33.4
--- NOTE | 2021-04-21 11:36 | P.CONAN_ITS ---
Documented by User: Madeleine Ruiz NP 04/21/21 11:37 HPI - Anesthesia Eval Consult details Narrative: 76yo M for Left Hydrocele Repair PMFSH Active Problems Active Problems: All Active Problems (Updated 04/20/21 @ 09:59 by Homer Tucker MD) Hydrocele in adult (Acute) Hyperlipidemia LDL goal <100 (Acute) Diabetic neuropathy (Acute) Microalbuminuria (Acute) Abdominal aortic ectasia (Acute) High cholesterol (Acute) Hypothyroid (Acute) Hypertension (Acute) Diabetes mellitus (Acute) Past Medical History Medical History (Updated 04/20/21 @ 09:59 by Homer Tucker MD) Abdominal aortic ectasia Diabetes mellitus Diabetic neuropathy Gout High cholesterol Hyperlipidemia LDL goal <100 Hypertension Hypothyroid Microalbuminuria DEVON (obstructive sleep apnea) Family History Family History Father Medical history unknown Mother Diabetes Hypertension Paternal Grandmother Cancer Son No problems noted. Daughter No problems noted. Sister No problems noted. Brother No problems noted. Surgical History Surgical History (Updated 04/18/21 @ 12:52 by Ana Morse RN) Hx of colonoscopy No pertinent past surgical history Social History Social History Housing: Apartment Are you a primary healthcare business analyst to a significant other at home: No Do you presently have visiting nurse or other home services: No Alcohol intake: never Patient Tobacco Use Status: Former Tobacco user Tobacco use type: Cigarette e-Cigarette/Vaping Use: Never Used Second Hand Smoke Exposure: No Use of substances other than those prescribed or required for medical reasons: No Are you DNR?: No Advance Directives: No Advance Directives Information Provided: No Advance Directives on File: No Recently lost weight without trying: No Eating poorly because of decreased appetite: No Nutrition Risks: No Nutritional Risk service: No Current occupational status: disabled Meds Allergies Allergy/AdvReac Type Severity Reaction Status Date / Time No Known Allergies Allergy Verified 04/24/21 13:17 Home Medications Medication Instructions Recorded Confirmed Last Taken Type cholecalciferol (vitamin D3) 25 25 mcg PO DAILY 02/28/21 04/18/21 Unknown History mcg (1,000 unit) tablet hydralazine 50 mg tablet 50 mg PO TID 02/28/21 04/18/21 Unknown History travoprost 0.004 % eye drops 0 drp OPHTHALMIC (EYE) 02/28/21 04/04/21 Unknown History insulin glargine 100 unit/mL (3 48 unit SUBCUT DAILY 04/18/21 04/18/21 Unknown History mL) subcutaneous pen (Lantus Solostar U-100 Insulin) Exam Exam Date and Time: April 21, 2021 1136 Height,Weight and Vital Signs: Height 5 ft Weight 77.564 kg Pertinent Lab Results Pertinent Lab Results: Laboratory Tests 12/05/20 04/14/21 09:34 07:14 WBC 9.0 Hgb 12.2 L Hct 37.1 L Plt Count 223 Sodium 138 Potassium 4.5 Chloride 102 Carbon Dioxide 28 BUN 22 H D Creatinine 1.12 Narrative Narrative: EKG 05/2020 Vent. Rate : 062 BPM ? ? Atrial Rate : 062 BPM ?? P-R Int : 156 ms? QRS Dur : 086 ms ? ? QT Int : 406 ms ? ? ? P-R-T Axes : 056 -16 055 degrees ?? QTc Int : 412 ms ? Normal sinus rhythm Normal ECG When compared with ECG of 31-JAN-2019 21:21, ST no longer depressed in Inferior leads Non-specific change in ST segment in Lateral leads Assessment and Plan Assessment Anesthesia Assessment: Chart Reviewed Documented by User: Kin Lockhart MD 04/24/21 14:44 [facility] Past Medical History Medical History (Updated 04/20/21 @ 09:59 by Homer Tucker MD) Abdominal aortic ectasia Diabetes mellitus Diabetic neuropathy Gout High cholesterol Hyperlipidemia LDL goal <100 Hypertension Hypothyroid Microalbuminuria DEVON (obstructive sleep apnea) Family History Family History Father Medical history unknown Mother Diabetes Hypertension Paternal Grandmother Cancer Son No problems noted. Daughter No problems noted. Sister No problems noted. Brother No problems noted. Family history of problems with anesthesia: No Surgical History Surgical History (Updated 04/18/21 @ 12:52 by Ana Morse RN) Hx of colonoscopy No pertinent past surgical history History of Problems with Anesthesia: No Social History Social History Housing: Apartment Are you a primary healthcare business analyst to a significant other at home: No Do you presently have visiting nurse or other home services: No Alcohol intake: never Patient Tobacco Use Status: Former Tobacco user Tobacco use type: Cigarette e-Cigarette/Vaping Use: Never Used Second Hand Smoke Exposure: No Use of substances other than those prescribed or required for medical reasons: No Are you DNR?: No Advance Directives: No Advance Directives Information Provided: No Advance Directives on File: No Recently lost weight without trying: No Eating poorly because of decreased appetite: No Nutrition Risks: No Nutritional Risk service: No Current occupational status: disabled Meds Allergies Allergy/AdvReac Type Severity Reaction Status Date / Time No Known Allergies Allergy Verified 04/24/21 13:17 Home Medications Medication Instructions Recorded Confirmed Last Taken Type cholecalciferol (vitamin D3) 25 25 mcg PO DAILY 02/28/21 04/18/21 Unknown History mcg (1,000 unit) tablet hydralazine 50 mg tablet 50 mg PO TID 02/28/21 04/18/21 Unknown History travoprost 0.004 % eye drops 0 drp OPHTHALMIC (EYE) 02/28/21 04/04/21 Unknown History insulin glargine 100 unit/mL (3 48 unit SUBCUT DAILY 04/18/21 04/18/21 Unknown History mL) subcutaneous pen (Lantus Solostar U-100 Insulin) Exam Airway Mallampati Class: III TM Dist: >3cm Neck ROM: Full Loose/Missing/Broken Teeth: Yes, Upper and Lower Assessment and Plan Assessment Anesthesia Assessment: Anesthesia Plan Discussed Final Anesthetic Review Family History of Problems with Anesthesia: No History of Problems with Anesthesia: No NPO: Yes ASA Class: III Final Preanesthetic Review: No Changes in Pt Med Stat, Meds/Allgs Chart Reviewed, Consent Obtained/Reviewed and Anes Risks/Benef Reviewed Patient Risk: Intermediate Procedure Risk: Low Anesthetic Plan Anesthetic Plan: GA Disposition: Standard PACU
[2021-04-24] VITALS (7 sets, daily range): BP systolic 140–170; BP diastolic 71–82; PULSE 58–68; RESP 14–18; TEMP 36.2–36.6; O2SAT 98–100
[2021-04-24 13:22] LABS: Glucose, Whole Blood 115 mg/dL (60-115)
[2021-04-24] MEDS: Lactated Ringers 1,000 ML 100 ML IVCONT (13:34)
--- NOTE | 2021-04-24 14:20 | MHC.SHP ---
Pre-Procedural Eval Section A Date of Service: 04/24/21 The patient is an INPATIENT: No Changes since office visit: No Cold of Flu in the past 2 weeks, No New Medical Problems, No Changes in Medication and No Patient answered all questions The History & Physical has been completed within 30 days and I have reviewed it.: No Section B Chief Complaint: hydrocele Details of Present Illness: left hydrocelectomy Relevant Family History (Specify if Yes): No Relevant Social History: None Present Medications: see Short Stay Collaborative assessment Medical History: No relevant PMH History of Previous Operations: No relevant previous surgery Allergies: Allergies Allergy/AdvReac Type Severity Reaction Status Date / Time No Known Allergies Allergy Verified 04/24/21 13:17 Review of Systems Sugical H&P ROS: Negative: Constitution, Cardiovascular, Respiratory, Neurological, Psychiatric, Hem-Onc, Allergic/Immunologic, Gastrointestinal, Genitourinary, Musculoskeletal, Integumentary, Endocrine and Eyes/Ears/Nose/Throat Exam Surgical H&P Exam: Normal: HEENT, Normal: Heart, Normal: Lungs, Normal: Extremities, Normal: Abdomen, Normal: Skin and Normal: Neurological Plan Diagnosis/Plan: Unchanged ( left hydrocelectomy) I have reviewed the history and physical and performed a pertinent physical examination on my patient. No changes have occurred unless specified.
--- NOTE | 2021-04-24 15:46 | W.PM.OPN ---
Operative Note Operative Note Date of Service: 04/24/21 Narrative: PreOperative Diagnosis: large left hydrocele hydrocele Post Operative Diagnosis: large left hydrocele Procedure: Hydrocelectomy Surgeon: Dr Homer Tucker Anesthesia: General Indications for procedure: large left hydrocele with persistent discomfort Procedure: After informed consent was verified the patient was brought to the operating room and placed in a supine position. Anesthesia was administered per protocol. Patient was appropriately shaved and genitals were prepped and draped in sterile fashion. Safety pause time-out was performed. Antibiotics being given. Local anesthetic was infiltrated under the skin in a horizontal fashion on the scrotum. Skin incision was made using a blade through the subdermal layer. The tunica around the testicle was elevated and dissected free from surrounding tissue. The testicle was delivered out of the scrotum and opened. Fluid was removed - over 250 cc The testicle sac was inverted and a bottle neck procedure was performed using a running 3-0 Vicryl suture. Skin edges of the tunica were cauterized carefully in order to try to minimize postprocedure hematoma. Small accessory appendices were removed from the head of epididymis. due to the size of the hydrocele a [place] drain was placed through the dependent skin of the scrotum and stone on to a fluff after excess skin had been trimmed on the edges and oozing fully controlled the testicle was placed back into a dependent portion of the scrotum. Overlying tissue layer was closed with a running 3-0 Vicryl suture. Skin was closed with interrupted 4-0 chromic sutures. Patient tolerated procedure well was extubated in operating room transferred in stable condition to the recovery area Pathology: Hydrocele sac Drains: Randee drain
== END 2021-04-24 16:55 | disposition home or self-care (01) ==
PROVIDERS: PCP Internal Medicine; Visit Provider Urology
PROC: (CPT 55060; principal; 2021-04-24 14:00)
DX: N43.3 Hydrocele, unspecified (principal); G47.33 Obstructive sleep apnea (adult) (pediatric); I10 Essential (primary) hypertension; E78.00 Pure hypercholesterolemia, unspecified; E03.9 Hypothyroidism, unspecified; E11.40 Type 2 diabetes mellitus with diabetic neuropathy, unspecified; Z79.4 Long term (current) use of insulin; Z87.891 Personal history of nicotine dependence; Z79.899 Other long term (current) drug therapy
CPT/HCPCS: 55040; 82947; 88302; J0690; J1100; J2250; J2405; J3010

== ENCOUNTER → 2021-05-23 10:37 | Outpatient (BNVA) | payer OTHER, SELFPAY | PROVIDERS: PCP Internal Medicine; Visit Provider Urology | DX: N43.3 Hydrocele, unspecified (principal) | CPT/HCPCS: 99212 ==

== ENCOUNTER 2021-08-21 07:09 | Outpatient (REF) | payer OTHER, SELFPAY ==
[2021-08-21 08:40] LABS: Alanine Aminotransferase 20 U/L (0-40); Albumin Level 4.3 g/dL (3.5-5.0); Alkaline Phosphatase 117 U/L (39-117); Anion Gap 12 (12-20); Aspartate Amino Transferase 19 U/L (5-37); Bilirubin Total 0.5 mg/dL (0.0-1.0); Blood Urea Nitrogen 24 mg/dL (9-16); Calcium 9.8 mg/dL (8.4-10.2); Carbon Dioxide 26 mmol/L (22-29); Chloride 104 mmol/L (96-108); Cholesterol 116 mg/dL; Estimated Glomerular Filt Rate > 60; Glucose Fasting 86 mg/dL (60-99); HDL Cholesterol 57 mg/dL; LDL Cholesterol Calculated 49 mg/dl; Potassium 4.2 mmol/L (3.3-5.1); Sodium 138 mmol/L (135-145); Total Protein 7.8 g/dL (6.5-8.0); Triglycerides 50 mg/dL
[2021-08-21 08:47] LABS: Thyroid Stimulating Hormone 0.22 uIU/mL (0.32-4.0)
[2021-08-21 09:02] LABS: Creatinine Urine 94.76 mg/dL
[2021-08-21 09:19] LABS: Microalbum/Creatinine Ratio Ur 545.5 ug/mg cr
== END 2021-08-21 07:10 | disposition home or self-care (01) ==
LOC: HO.LAB 07:09
PROVIDERS: PCP Internal Medicine; Visit Provider Internal Medicine
DX: E78.5 Hyperlipidemia, unspecified (principal); E11.9 Type 2 diabetes mellitus without complications; E03.9 Hypothyroidism, unspecified; Z79.4 Long term (current) use of insulin
CPT/HCPCS: 36415; 80053; 80061; 82043; 84443

== ENCOUNTER → 2021-08-29 12:08 | Outpatient (REF) | payer OTHER, SELFPAY ==
--- NOTE | 2021-08-29 12:14 | ECG_ITS ---
Test Reason : PRE OP Blood Pressure : / mmHG Vent. Rate : 061 BPM Atrial Rate : 061 BPM P-R Int : 170 ms QRS Dur : 092 ms QT Int : 402 ms P-R-T Axes : 051 -18 030 degrees QTc Int : 404 ms Normal sinus rhythm Normal ECG When compared to the previous EKG of No significant changes seen Referred By: Madeleine Alston Electronically Signed By:Erick Stallworth
== END ==
LOC: HO.CARD 12:08
PROVIDERS: PCP Internal Medicine; Visit Provider Nurse Practitioner Family
DX: Z01.818 Encounter for other preprocedural examination (principal)
CPT/HCPCS: 93005

== ENCOUNTER 2021-09-04 07:37 | Day surgery (SDC) | payer OTHER, SELFPAY ==
[2021-08-30 13:49] VITALS: BMI 32.0
--- NOTE | 2021-08-31 10:34 | MHC.SHP ---
Pre-Procedural Eval Section A Date of Service: 08/31/21 The patient is an INPATIENT: No Changes since office visit: No Cold of Flu in the past 2 weeks, No New Medical Problems, No Changes in Medication and No Patient answered all questions The History & Physical has been completed within 30 days and I have reviewed it.: Yes Section B Chief Complaint: Age-related nuclear cataract, left eye Allergies: Allergies Allergy/AdvReac Type Severity Reaction Status Date / Time No Known Allergies Allergy Verified 08/29/21 11:34 Plan Diagnosis/Plan: Unchanged I have reviewed the history and physical and performed a pertinent physical examination on my patient. No changes have occurred unless specified.
[2021-08-31 14:34] VITALS: BMI 32.0
--- NOTE | 2021-09-01 09:07 | P.CONAN_ITS ---
Documented by User: Madeleine Ruiz NP 09/01/21 09:08 HPI - Anesthesia Eval Consult details Narrative: 76yo M for Left Cataract Extraction IOL Insertion PCP cleared No prev cataract on record [facility] Active Problems Active Problems: All Active Problems (Updated 08/31/21 @ 14:34 by Jennifer Gerardo, JONO) Hydrocele in adult (Acute) Hyperlipidemia LDL goal <70 (Acute) Preoperative clearance (Acute) Cataract (Acute) Obesity (BMI 30.0-34.9) (Acute) Hyperlipidemia LDL goal <100 (Acute) Diabetic neuropathy (Acute) Microalbuminuria (Acute) Abdominal aortic ectasia (Acute) High cholesterol (Acute) Hypothyroid (Acute) Hypertension (Acute) Diabetes mellitus (Acute) Past Medical History Medical History Abdominal aortic ectasia Diabetes mellitus Diabetic neuropathy Gout High cholesterol Hyperlipidemia LDL goal <100 Hypertension Hypothyroid Microalbuminuria DEVON (obstructive sleep apnea) Family History Family History Father Medical history unknown Mother Diabetes Hypertension Paternal Grandmother Cancer Son No problems noted. Daughter No problems noted. Sister No problems noted. Brother No problems noted. Family history of problems with anesthesia: No Surgical History Surgical History History of hydrocelectomy Hx of colonoscopy History of Problems with Anesthesia: No Social History Social History Housing: Apartment Are you a primary chiropractic care to a significant other at home: No Do you presently have visiting nurse or other home services: No Alcohol intake: never Patient Tobacco Use Status: Never used Tobacco Tobacco use type: Cigarette e-Cigarette/Vaping Use: Never Used Second Hand Smoke Exposure: No Are you DNR?: No Advance Directives: No Advance Directives Information Provided: Yes Advance Directives on File: No Poor oral hygiene: No (no teeth) service: No Current occupational status: disabled Cognitive needs: Yes Hearing needs: No Vision needs: Yes Meds Allergies Allergy/AdvReac Type Severity Reaction Status Date / Time No Known Allergies Allergy Verified 08/29/21 11:34 Home Medications Medication Instructions Recorded Confirmed Last Taken Type cholecalciferol (vitamin D3) 25 25 mcg PO DAILY 02/28/21 08/29/21 Unknown History mcg (1,000 unit) tablet hydralazine 50 mg tablet 50 mg PO TID 02/28/21 08/29/21 09/04/21 History travoprost 0.004 % eye drops 0 drp ophthalmic (eye) 02/28/21 08/29/21 Unknown History insulin glargine 100 unit/mL (3 54 unit subcut DAILY 08/29/21 08/29/21 Unknown History mL) subcutaneous pen (Lantus Solostar U-100 Insulin) levothyroxine 112 mcg tablet 112 mcg PO DAILY 08/29/21 08/29/21 09/04/21 History Exam Exam Date and Time: September 01, 2021 0907 Height,Weight and Vital Signs: Height 5 ft Weight 74.389 kg Pertinent Lab Results Pertinent Lab Results: Laboratory Tests 12/05/20 08/21/21 09:34 07:27 WBC 9.0 Hgb 12.2 L Hct 37.1 L Plt Count 223 Sodium 138 Potassium 4.2 Chloride 104 Carbon Dioxide 26 BUN 24 H Creatinine 1.16 Assessment and Plan Assessment Anesthesia Assessment: Chart Reviewed Final Anesthetic Review Family History of Problems with Anesthesia: No History of Problems with Anesthesia: No Documented by User: Amara Lopez MD 09/04/21 08:34 [facility] Active Problems Active Problems: All Active Problems (Updated 08/31/21 @ 14:34 by Jennifer Gerardo, JONO) Hydrocele in adult (Acute) Hyperlipidemia LDL goal <70 (Acute) Preoperative clearance (Acute) Cataract (Acute) Obesity (BMI 30.0-34.9) (Acute) Hyperlipidemia LDL goal <100 (Acute) Diabetic neuropathy (Acute) Microalbuminuria (Acute) Abdominal aortic ectasia (Acute) High cholesterol (Acute) Hypothyroid (Acute) Hypertension (Acute) Diabetes mellitus (Acute) Remote h/o DEVON. Not using CPAP machine Past Medical History Medical History Abdominal aortic ectasia Diabetes mellitus Diabetic neuropathy Gout High cholesterol Hyperlipidemia LDL goal <100 Hypertension Hypothyroid Microalbuminuria DEVON (obstructive sleep apnea) Family History Family History Father Medical history unknown Mother Diabetes Hypertension Paternal Grandmother Cancer Son No problems noted. Daughter No problems noted. Sister No problems noted. Brother No problems noted. Surgical History Surgical History History of hydrocelectomy Hx of colonoscopy Social History Social History Housing: Apartment Are you a primary chiropractic care to a significant other at home: No Do you presently have visiting nurse or other home services: No Alcohol intake: never Patient Tobacco Use Status: Never used Tobacco Tobacco use type: Cigarette e-Cigarette/Vaping Use: Never Used Second Hand Smoke Exposure: No Are you DNR?: No Advance Directives: No Advance Directives Information Provided: Yes Advance Directives on File: No Poor oral hygiene: No (no teeth) service: No Current occupational status: disabled Cognitive needs: Yes Hearing needs: No Vision needs: Yes Meds Allergies Allergy/AdvReac Type Severity Reaction Status Date / Time No Known Allergies Allergy Verified 08/29/21 11:34 Home Medications Medication Instructions Recorded Confirmed Last Taken Type cholecalciferol (vitamin D3) 25 25 mcg PO DAILY 02/28/21 08/29/21 Unknown History mcg (1,000 unit) tablet hydralazine 50 mg tablet 50 mg PO TID 02/28/21 08/29/21 09/04/21 History travoprost 0.004 % eye drops 0 drp ophthalmic (eye) 02/28/21 08/29/21 Unknown History insulin glargine 100 unit/mL (3 54 unit subcut DAILY 08/29/21 08/29/21 Unknown History mL) subcutaneous pen (Lantus Solostar U-100 Insulin) levothyroxine 112 mcg tablet 112 mcg PO DAILY 08/29/21 08/29/21 09/04/21 History Exam Height,Weight and Vital Signs: Height 5 ft Weight 74.389 kg Vital Signs Temp Pulse Resp BP Pulse Ox O2 Del Method 09/04/21 08:17 96.6 F L 63 16 179/88 H 98 Room Air Pertinent Lab Results Pertinent Lab Results: Laboratory Tests 12/05/20 08/21/21 09:34 07:27 WBC 9.0 Hgb 12.2 L Hct 37.1 L Plt Count 223 Sodium 138 Potassium 4.2 Chloride 104 Carbon Dioxide 26 BUN 24 H Creatinine 1.16 Lab Results 09/04/21 Range/Units 08:20 POC Glucose 126 H (60-115) mg/dL Airway Mallampati Class: II TM Dist: >3cm Neck ROM: Full Loose/Missing/Broken Teeth: Yes (Edentulous) Heart: RRR Lungs: CTAB Assessment and Plan Assessment Anesthesia Assessment: Anesthesia Plan Discussed Final Anesthetic Review NPO: Yes ASA Class: III Final Preanesthetic Review: No Changes in Pt Med Stat, Meds/Allgs Chart Reviewed, Consent Obtained/Reviewed and Anes Risks/Benef Reviewed Patient Risk: Intermediate Procedure Risk: Low Assessment/Block/Sedation in SS: Assess/Block/Sedation-SS Anesthetic Plan Anesthetic Plan: MAC: Disposition: Standard PACU
[2021-09-04 08:17] VITALS: BP 179/88; PULSE 63; RESP 16; TEMP 35.9; O2SAT 98
[2021-09-04] MEDS: Lactated Ringers 500 ML 50 ML IV (08:22)
[2021-09-04 08:24] LABS: Glucose, Whole Blood 126 mg/dL (60-115)
[2021-09-04] MEDS: Tetracaine HCl/PF 0.5% Oph Sol 4 ML DROPS 1 DROP EYE-LEFT (08:27)
[2021-09-04] MEDS: Tropicamide 1 % Ophth Sol 3 ML BTL 1 DROP EYE-LEFT ×3 (08:28→08:38)
[2021-09-04] MEDS: Cyclopentolate 1 % Ophth Sol 2 ML DRPBTL 1 DROP EYE-LEFT ×3 (08:30→08:39)
[2021-09-04] MEDS: Phenylephrine HCL 2.5% Oph SoL 2 ML BOTTLE 1 DROP EYE-LEFT ×2 (08:32→08:37)
--- NOTE | 2021-09-04 09:34 | HO.PNOPHT ---
Ophthalmology Procedure Procedure Date of Service: 09/04/21 Ophthalmology Viscoelastic: Healon Duet Dual Pack Pro Ophthalmology Lenses: TECNIS [id number] (18.5) Procedure Notes: PREOPERATIVE DIAGNOSIS: Decreased visual acuity left eye secondary to cataract POSTOPERATIVE DIAGNOSIS: Same PROCEDURE: Left cataract extraction with intraocular lens insertion SURGEON: Raul Chan M.D. ANESTHESIA: Topical/MAC ESTIMATED BLOOD LOSS: None COMPLICATIONS: None After obtaining informed consent, the patient was brought to the operation room suite and placed in the supine position. After adequate sedation per anesthesia, topical drops of Tetracaine were given to the left eye. The eye was then prepped and draped in the usual sterile fashion. The operating room microscope was then positioned over the operative eye and a lid speculum placed. A paracentesis was created. Viscoelastic was then instilled into the anterior chamber. A three plane incision was then created temporally, utilizing a 2.85 mm keratome. Capsulotomy forceps were then utilized to create a circular tear capsulotomy. Hydrodissection and hydrodelineation were carried out until adequate mobilization of the nucleus occurred. Phacoemulsification was then utilized to remove the dense central nucleus followed by removal of the cortical material utilizing the automated aspiration irrigation unit. Viscoat elastic was instilled into the posterior capsular bag followed by placement of a posterior chamber intraocular lens without difficulty. The residual Viscoat elastic was then removed utilizing the automated IA machine. The wound was check and found to be watertight. The patient tolerated the procedure well and the lid speculum was removed. Intracameral injection of Vigamox 0.1 mL followed by a subtenon injection of Kenalog-40 0.2 mL were administered. The patient will be seen in the a.m.
[2021-09-04 10:01] VITALS: BP 165/81; PULSE 60; RESP 16; TEMP 36.6; O2SAT 97
== END 2021-09-04 10:11 | disposition home or self-care (01) ==
PROVIDERS: PCP Internal Medicine; Visit Provider Ophthalmology
PROC: (CPT 66985; principal; 2021-09-04 09:30)
DX: H25.12 Age-related nuclear cataract, left eye (principal); H54.7 Unspecified visual loss; H40.1132 Primary open-angle glaucoma, bilateral, moderate stage; Z83.511 Family history of glaucoma; I10 Essential (primary) hypertension; E03.9 Hypothyroidism, unspecified; G47.33 Obstructive sleep apnea (adult) (pediatric); J45.909 Unspecified asthma, uncomplicated; E11.9 Type 2 diabetes mellitus without complications; Z79.4 Long term (current) use of insulin; Z79.82 Long term (current) use of aspirin; Z79.899 Other long term (current) drug therapy; Z87.891 Personal history of nicotine dependence
CPT/HCPCS: 66984; 82947; J2250; J3010; J3300; V2632

== ENCOUNTER 2021-09-11 07:54 | Day surgery (SDC) | payer OTHER, SELFPAY ==
[2021-08-31 14:40] VITALS: BMI 32.0
--- NOTE | 2021-09-07 08:50 | MHC.SHP ---
Pre-Procedural Eval Section A Date of Service: 09/07/21 The patient is an INPATIENT: No Changes since office visit: No Cold of Flu in the past 2 weeks, No New Medical Problems, No Changes in Medication and No Patient answered all questions The History & Physical has been completed within 30 days and I have reviewed it.: Yes Section B Chief Complaint: Age-related nuclear cataract, right eye Allergies: Allergies Allergy/AdvReac Type Severity Reaction Status Date / Time No Known Allergies Allergy Verified 08/29/21 11:34 Plan Diagnosis/Plan: Unchanged I have reviewed the history and physical and performed a pertinent physical examination on my patient. No changes have occurred unless specified.
--- NOTE | 2021-09-08 10:03 | HO.ANESPROP2 ---
Documented by User: Madeleine Ruiz NP 09/08/21 10:04 HPI - Anesthesia Eval Consult details Narrative: Right Cataract Extraction IOL Insertion PCP cleared Left eye 09/04/21 with GA: Fent 50, Midaz 1 PMFSH Active Problems Active Problems: All Active Problems (Updated 08/31/21 @ 14:34 by Jennifer Gerardo RN) Hydrocele in adult (Acute) Hyperlipidemia LDL goal <70 (Acute) Preoperative clearance (Acute) Cataract (Acute) Obesity (BMI 30.0-34.9) (Acute) Hyperlipidemia LDL goal <100 (Acute) Diabetic neuropathy (Acute) Microalbuminuria (Acute) Abdominal aortic ectasia (Acute) High cholesterol (Acute) Hypothyroid (Acute) Hypertension (Acute) Diabetes mellitus (Acute) Past Medical History Medical History Abdominal aortic ectasia Diabetes mellitus Diabetic neuropathy Gout High cholesterol Hyperlipidemia LDL goal <100 Hypertension Hypothyroid Microalbuminuria DEVON (obstructive sleep apnea) Family History Family History Father Medical history unknown Mother Diabetes Hypertension Paternal Grandmother Cancer Son No problems noted. Daughter No problems noted. Sister No problems noted. Brother No problems noted. Family history of problems with anesthesia: No Surgical History Surgical History History of hydrocelectomy Hx of colonoscopy History of Problems with Anesthesia: No Social History Social History Housing: Apartment Are you a primary respiratory care technician to a significant other at home: No Do you presently have visiting nurse or other home services: No Alcohol intake: never Patient Tobacco Use Status: Never used Tobacco Tobacco use type: Cigarette e-Cigarette/Vaping Use: Never Used Second Hand Smoke Exposure: No Are you DNR?: No Advance Directives: No Advance Directives Information Provided: Yes Advance Directives on File: No Nutrition Risks: Difficulty chewing Poor oral hygiene: No (no teeth) service: No Current occupational status: disabled Cognitive needs: Yes Hearing needs: No Vision needs: Yes Meds Allergies Allergy/AdvReac Type Severity Reaction Status Date / Time No Known Allergies Allergy Verified 08/29/21 11:34 Home Medications Medication Instructions Recorded Confirmed Last Taken Type cholecalciferol (vitamin D3) 25 25 mcg PO DAILY 02/28/21 08/29/21 Unknown History mcg (1,000 unit) tablet hydralazine 50 mg tablet 50 mg PO TID 02/28/21 08/29/21 09/04/21 History travoprost 0.004 % eye drops 0 drp ophthalmic (eye) 02/28/21 08/29/21 Unknown History insulin glargine 100 unit/mL (3 54 unit subcut DAILY 08/29/21 08/29/21 Unknown History mL) subcutaneous pen (Lantus Solostar U-100 Insulin) levothyroxine 112 mcg tablet 112 mcg PO DAILY 08/29/21 08/29/21 09/04/21 History Exam Exam Date and Time: September 08, 2021 1003 Height,Weight and Vital Signs: Height 5 ft Weight 74.389 kg Assessment and Plan Assessment Anesthesia Assessment: Chart Reviewed Final Anesthetic Review Family History of Problems with Anesthesia: No History of Problems with Anesthesia: No Documented by User: Amara Lopez MD 09/11/21 10:06 HPI - Anesthesia Eval Consult details Narrative: Right Cataract Extraction IOL Insertion PCP cleared Left eye 09/04/21 with MAC: Fent 50, Midaz 1 PMFSH Past Medical History Medical History Abdominal aortic ectasia Diabetes mellitus Diabetic neuropathy Gout High cholesterol Hyperlipidemia LDL goal <100 Hypertension Hypothyroid Microalbuminuria DEVON (obstructive sleep apnea) Family History Family History Father Medical history unknown Mother Diabetes Hypertension Paternal Grandmother Cancer Son No problems noted. Daughter No problems noted. Sister No problems noted. Brother No problems noted. Surgical History Surgical History History of hydrocelectomy Hx of colonoscopy Social History Social History Housing: Apartment Are you a primary respiratory care technician to a significant other at home: No Do you presently have visiting nurse or other home services: No Alcohol intake: never Patient Tobacco Use Status: Never used Tobacco Tobacco use type: Cigarette e-Cigarette/Vaping Use: Never Used Second Hand Smoke Exposure: No Are you DNR?: No Advance Directives: No Advance Directives Information Provided: Yes Advance Directives on File: No Nutrition Risks: Difficulty chewing Poor oral hygiene: No (no teeth) service: No Current occupational status: disabled Cognitive needs: Yes Hearing needs: No Vision needs: Yes Meds Allergies Allergy/AdvReac Type Severity Reaction Status Date / Time No Known Allergies Allergy Verified 08/29/21 11:34 Home Medications Medication Instructions Recorded Confirmed Last Taken Type cholecalciferol (vitamin D3) 25 25 mcg PO DAILY 02/28/21 08/29/21 Unknown History mcg (1,000 unit) tablet hydralazine 50 mg tablet 50 mg PO TID 02/28/21 08/29/21 09/04/21 History travoprost 0.004 % eye drops 0 drp ophthalmic (eye) 02/28/21 08/29/21 Unknown History insulin glargine 100 unit/mL (3 54 unit subcut DAILY 08/29/21 08/29/21 Unknown History mL) subcutaneous pen (Lantus Solostar U-100 Insulin) levothyroxine 112 mcg tablet 112 mcg PO DAILY 08/29/21 08/29/21 09/04/21 History Exam Height,Weight and Vital Signs: Height 5 ft Weight 74.389 kg Vital Signs Temp Pulse Resp BP Pulse Ox O2 Del Method 09/11/21 08:47 54 150/87 H 09/11/21 08:34 97.0 F 63 16 203/89 H 99 Room Air Pertinent Lab Results Pertinent Lab Results: Lab Results 09/11/21 Range/Units 08:24 POC Glucose 67 (60-115) mg/dL Airway Mallampati Class: II TM Dist: >3cm Neck ROM: Full Loose/Missing/Broken Teeth: Yes (Edentulous) Heart: RRR Lungs: CTAB Assessment and Plan Assessment Anesthesia Assessment: Anesthesia Plan Discussed Final Anesthetic Review NPO: Yes ASA Class: III Final Preanesthetic Review: No Changes in Pt Med Stat, Meds/Allgs Chart Reviewed, Consent Obtained/Reviewed and Anes Risks/Benef Reviewed Patient Risk: Intermediate Procedure Risk: Low Assessment/Block/Sedation in SS: Assess/Block/Sedation-SS Anesthetic Plan Anesthetic Plan: MAC: Disposition: Standard PACU
[2021-09-11 08:28] LABS: Glucose, Whole Blood 67 mg/dL (60-115)
[2021-09-11 08:34] VITALS: BP 203/89; PULSE 63; RESP 16; TEMP 36.1; O2SAT 99
--- NOTE | 2021-09-11 08:35 | PC.NURSE ---
Anesthesia Dr Lopez aware of high BP - did not take any medications this morning.
[2021-09-11 08:47] VITALS: BP 150/87; PULSE 54
[2021-09-11] MEDS: Tetracaine HCl/PF 0.5% Oph Sol 4 ML DROPS 1 DROP EYE-RIGHT (08:48)
[2021-09-11] MEDS: Cyclopentolate 1 % Ophth Sol 2 ML DRPBTL 1 DROP EYE-RIGHT ×3 (08:49→09:00)
[2021-09-11] MEDS: Tropicamide 1 % Ophth Sol 3 ML BTL 1 DROP EYE-RIGHT ×3 (08:50→09:01)
[2021-09-11] MEDS: Phenylephrine HCL 2.5% Oph SoL 2 ML BOTTLE 1 DROP EYE-RIGHT ×3 (08:52→09:03)
[2021-09-11] MEDS: Lactated Ringers 500 ML 50 ML IV (09:10)
--- NOTE | 2021-09-11 10:22 | HO.PNOPHT ---
Ophthalmology Procedure Procedure Date of Service: 09/11/21 Ophthalmology Viscoelastic: Healcris Underwoodt Dual Pack Pro Ophthalmology Lenses: TECNIS [id number] (17.5) Procedure Notes: PREOPERATIVE DIAGNOSIS: Decreased visual acuity right eye secondary to cataract POSTOPERATIVE DIAGNOSIS: Same PROCEDURE: Right cataract extraction with intraocular lens insertion SURGEON: Raul Chan M.D. ANESTHESIA: Topical/MAC ESTIMATED BLOOD LOSS: None COMPLICATIONS: None After obtaining informed consent, the patient was brought to the operating room suite and placed in the supine position. After adequate sedation per anesthesia, topical drops of Tetracaine were given to the right eye. The eye was then prepped and draped in the usual sterile fashion. The operating room microscope was then positioned over the operative eye and a lid speculum placed. A paracentesis was created. Viscoelastic was then instilled into the anterior chamber. A three plane incision was then created temporally, utilizing a 2.85 mm keratome. Capsulotomy forceps were then utilized to create a circular tear capsulotomy. Hydrodissection and hydrodelineation were carried out until adequate mobilization of the nucleus occurred. Phacoemulsification was then utilized to remove the dense central nucleus followed by removal of the cortical material utilizing the automated aspiration irrigation unit. Viscoelastic was instilled into the posterior capsular bag followed by placement of a posterior chamber intraocular lens without difficulty. The residual Viscoelastic was then removed utilizing the automated IA machine. The wound was checked and found to be watertight. The patient tolerated the procedure well and the lid speculum was removed. Intracameral injection of Vigamox 0.1 mL followed by a subtenon injection of Kenalog-40 0.2 mL were administered. The patient will be seen in the a.m.
[2021-09-11 10:48] VITALS: BP 155/74; PULSE 52; RESP 16; TEMP 36.1; O2SAT 96
== END 2021-09-11 10:51 | disposition home or self-care (01) ==
PROVIDERS: PCP Internal Medicine; Visit Provider Ophthalmology
PROC: (CPT 66985; principal; 2021-09-11 10:10)
DX: H25.11 Age-related nuclear cataract, right eye (principal); H54.7 Unspecified visual loss; H40.1132 Primary open-angle glaucoma, bilateral, moderate stage; Z83.511 Family history of glaucoma; G47.33 Obstructive sleep apnea (adult) (pediatric); I10 Essential (primary) hypertension; M10.9 Gout, unspecified; J45.909 Unspecified asthma, uncomplicated; E03.9 Hypothyroidism, unspecified; E78.00 Pure hypercholesterolemia, unspecified; E11.40 Type 2 diabetes mellitus with diabetic neuropathy, unspecified; Z79.4 Long term (current) use of insulin; Z79.82 Long term (current) use of aspirin; Z79.899 Other long term (current) drug therapy; Z87.891 Personal history of nicotine dependence
CPT/HCPCS: 66984; 82947; J2250; J3010; J3300; V2632

== ENCOUNTER → 2021-11-16 15:31 | Outpatient (BNVA) | payer OTHER, SELFPAY | PROVIDERS: PCP Internal Medicine; Visit Provider Urology | DX: N43.3 Hydrocele, unspecified (principal) | CPT/HCPCS: 99212 ==

== ENCOUNTER 2021-12-28 07:32 | Outpatient (REF) | payer OTHER, SELFPAY ==
[2021-12-28 09:07] LABS: Thyroid Stimulating Hormone 0.88 uIU/mL (0.32-4.0)
== END 2021-12-28 07:33 | disposition home or self-care (01) ==
LOC: HO.LAB 07:32
PROVIDERS: PCP Internal Medicine; Visit Provider Internal Medicine
DX: E03.9 Hypothyroidism, unspecified (principal)
CPT/HCPCS: 36415; 84443

== ENCOUNTER 2022-05-02 07:25 | Outpatient (REF) | payer OTHER, SELFPAY ==
[2022-05-02 08:31] LABS: Thyroid Stimulating Hormone 0.59 uIU/mL (0.32-4.0); Vitamin D 25-OH Total 45.7 ng/mL (>30)
[2022-05-02 09:36] LABS: Alanine Aminotransferase 15 U/L (0-40); Alkaline Phosphatase 95 U/L (39-117); Anion Gap 12 (12-20); Aspartate Amino Transferase 18 U/L (5-37); Bilirubin Total 0.6 mg/dL (0.0-1.0); Blood Urea Nitrogen 18 mg/dL (9-16); Calcium 9.6 mg/dL (8.4-10.2); Carbon Dioxide 27 mmol/L (22-29); Chloride 108 mmol/L (96-108); Cholesterol 113 mg/dL; Estimated Glomerular Filt Rate > 60; Glucose Fasting 59 mg/dL (60-99); HDL Cholesterol 52 mg/dL; LDL Cholesterol Calculated 49 mg/dl; Potassium 4.2 mmol/L (3.3-5.1); Sodium 143 mmol/L (135-145); Total Protein 7.3 g/dL (6.5-8.0); Triglycerides 63 mg/dL
[2022-05-02 10:33] LABS: Creatinine Urine 69.41 mg/dL; Microalbum/Creatinine Ratio Ur 924.9 ug/mg cr
== END 2022-05-02 07:26 | disposition home or self-care (01) ==
LOC: HO.LAB 07:25
PROVIDERS: PCP Internal Medicine; Visit Provider Internal Medicine
DX: E03.9 Hypothyroidism, unspecified (principal); E11.9 Type 2 diabetes mellitus without complications; E78.5 Hyperlipidemia, unspecified; E55.9 Vitamin D deficiency, unspecified
CPT/HCPCS: 36415; 80053; 80061; 82043; 82306; 84443

== ENCOUNTER 2022-09-10 07:17 | Outpatient (REF) | payer OTHER, SELFPAY ==
[2022-09-10 07:35] LABS: MANUAL DIFF FLAG NO
[2022-09-10 08:11] LABS: Basophils Absolute Auto 0.1 X10*3/uL (0.0-0.2); Basophils Percent Auto 0.6 % (0-2); Eosinophils Absolute Auto 0.3 X10*3/uL (0.0-0.4); Eosinophils Percent Auto 3.2 % (0-4); Hematocrit 37.6 % (42.0-52.0); Hemoglobin 12.5 g/dl (14.0-18.0); Imm Gran Abs Auto 0.02 X10*3/uL (0.00-0.03); Imm Gran Pct Auto 0.2 % (0.0-0.4); Lymphocytes Absolute Auto 2.4 X10*3/uL (1.2-4.9); Lymphocytes Percent Auto 29.4 % (20-40); Mean Corpuscular HGB Conc 33.2 g/dl (31.0-36.0); Mean Corpuscular Hemoglobin 29.8 pg (27.0-33.0); Mean Corpuscular Volume 89.7 fL (80.0-98.0); Monocytes Absolute Auto 0.7 X10*3/uL (0.1-1.2); Monocytes Percent Auto 8.9 % (2-11); Neutrophils Absolute Auto 4.6 x10*3/uL (2.0-8.3); Neutrophils Percent Auto 57.7 % (45-73); Platelet Count 226 X10*3/uL (160-400); Red Blood Count 4.19 X10*6/uL (4.60-5.80); Red Cell Distribution Width 12.9 % (11.0-16.0); White Blood Count 8.1 X10*3/uL (4.8-10.8)
[2022-09-10 08:47] LABS: Alanine Aminotransferase 16 U/L (0-40); Albumin Level 4.1 g/dL (3.5-5.0); Alkaline Phosphatase 121 U/L (39-117); Anion Gap 17 (12-20); Aspartate Amino Transferase 14 U/L (5-37); Bilirubin Total 0.6 mg/dL (0.0-1.0); Blood Urea Nitrogen 22 mg/dL (9-16); Carbon Dioxide 23 mmol/L (22-29); Chloride 103 mmol/L (96-108); Cholesterol 100 mg/dL; Estimated Glomerular Filt Rate > 60; Glucose Fasting 261 mg/dL (60-99); HDL Cholesterol 46 mg/dL; Iron 91 mcg/dL (45-160); LDL Cholesterol Calculated 39 mg/dl; Percent Iron Saturation 37 % (15-50); Potassium 4.5 mmol/L (3.3-5.1); Sodium 138 mmol/L (135-145); Total Iron Binding Capacity 246 mcg/dL (228-428); Total Protein 7.8 g/dL (6.5-8.0); Triglycerides 78 mg/dL; Unsaturated Iron Binding 155 ug/dL
[2022-09-10 09:05] LABS: Thyroid Stimulating Hormone 0.19 uIU/mL (0.32-4.0); Vitamin D 25-OH Total 40.8 ng/mL (>30)
[2022-09-10 09:10] LABS: Folate 16.1 ng/mL (> or = 4.0); Vitamin B12 245 pg/mL (200-900)
[2022-09-10 09:30] LABS: Creatinine Urine 106.64 mg/dL
== END 2022-09-10 07:18 | disposition home or self-care (01) ==
LOC: HO.LAB 07:17
PROVIDERS: PCP Internal Medicine; Visit Provider Internal Medicine
DX: Z00.00 Encounter for general adult medical examination without abnormal findings (principal); E78.5 Hyperlipidemia, unspecified; D64.9 Anemia, unspecified; E11.9 Type 2 diabetes mellitus without complications; E03.9 Hypothyroidism, unspecified; E53.8 Deficiency of other specified B group vitamins; E55.9 Vitamin D deficiency, unspecified
CPT/HCPCS: 36415; 80053; 80061; 82043; 82306; 82607; 82746; 83540; 84443; 85025

== ENCOUNTER 2022-09-11 07:34 | Outpatient (AMB) | payer OTHER, SELFPAY ==
--- NOTE | 2022-09-11 07:50 | A.OFFPC_ITS ---
Vital Signs 09/11/22 07:51 09/11/22 08:59 Height 5 ft Weight 162 lb BMI 31.6 BP 162/70 H 160/70 H Blood Pressure Location Lt brachial Lt brachial Position Sitting Sitting Intake Visit Reasons: 4m FOLLOW UP Intake Note: Patient here for a 4 month follow up DM Key Ringer Required: No Accompanied by: Self / Same As Patient Allergies No Known Allergies Allergy (Verified 09/11/22 08:08) Medication List - Last Reconciled 09/11/22 by Hannah Goff MD acetaminophen (Pain Relief (acetaminophen)) 500 mg PO Q6H PRN 30 days aspirin 81 mg PO DAILY atenolol 50 mg PO DAILY 90 days atorvastatin 10 mg PO BEDTIME 90 days chlorthalidone 25 mg PO DAILY 90 days cholecalciferol (vitamin D3) 25 mcg PO DAILY 90 days gabapentin 100 mg PO BEDTIME 90 days hydralazine 50 mg PO TID 90 days insulin glargine (Lantus Solostar U-100 Insulin) 57 units (0.57 mL) subcut DAILY 90 days levothyroxine 112 mcg PO DAILY 90 days metformin 1,000 mg PO BID pen needle, diabetic, safety (True Comfort Safety Pen Needle) once at bedtime As directed travoprost 0.004% 0 drps ophthalmic (eye) Tobacco use date assessed: 05/08/22 Fall risk assessment: No Falls in past year Last assessed Fall Risk: 09/11/22 Dental Screening Dental Screen Date: 09/11/22 Did you have a dental visit in the last 12 months?: No Did you have a dental problem in the last 6 months where you did not have access to dental care?: No Was dental information given to patient?: Patient has dentist HPI HPI Comments History of Present Illness Details This is a 77-year-old male with diabetes mellitus type 2 on long-term current use of insulin, hypertension, hyperlipidemia and hypothyroidism that comes today for follow-up on his conditions. Blood glucose elevated and I will increase insulin. Blood pressure elevated and I will increase chlorthalidone. Blood pressure will be recheck by nurse navigator in 3 weeks. LDL within goal. TSH is low and this is why I will decrease levothyroxine from 112 mcg to 100 mcg. TSH will be repeated in 6 weeks. Denies any chest pain or shortness of breath. [facility] Medical History Abdominal aortic ectasia Diabetes mellitus Diabetic neuropathy Gout High cholesterol Hyperlipidemia LDL goal <100 Hypertension Hypothyroid Microalbuminuria DEVON (obstructive sleep apnea) Surgical History History of hydrocelectomy Hx of colonoscopy Family History Father Medical history unknown Mother Diabetes Hypertension Paternal Grandmother Cancer Son No problems noted. Daughter No problems noted. Sister No problems noted. Brother No problems noted. Social History Housing: Apartment Are you a primary critical care unit nurse to a significant other at home: No Do you presently have visiting nurse or other home services: Yes (AMBULATORY CARE COORDINATOR 2 x week) Alcohol intake: never Patient Tobacco Use Status: Never used Tobacco e-Cigarette/Vaping Use: Never Used Second Hand Smoke Exposure: No service: No Current occupational status: disabled Cognitive needs: Yes Hearing needs: No Vision needs: Yes Questionnaire Thrive Questionnaire Date Thrive assessed: 05/08/22 JACE-7 AMB Questionnaire JACE-7 Date JACE - 7 assessed: 05/08/22 Source: Developed by Drs. Dallin Talley, Fatimah Luke, Mango Self and colleagues, with an educational jeny from [employer]. Review of Systems Const All systems reviewed & are unremarkable except as noted in HPI and below Eyes Reports no additional complaints, Denies change in vision and Denies other visual disturbances Card Denies chest pain at rest, Denies chest pain with activity, Denies edema, Denies irregular heart rhythm, Denies claudication, Denies dyspnea, Denies dyspnea on exertion, Denies orthopnea, Denies paroxysmal nocturnal dyspnea and Denies slow heart rate Resp Denies cough, Denies dyspnea and Denies dyspnea on exertion GI Denies abdominal pain, Denies change in bowel habits, Denies excessive flatus, Denies nausea and Denies vomiting Denies urinary hesitancy, Denies urinary incontinence and Denies urinary urgency Musc Denies abnormal gait, Denies atrophy, Denies deformity and Denies limited range of motion Skin/Breast Denies bleeding lesions, Denies changing lesions and Denies rash Neuro Denies abnormal gait and Denies lack of coordination Physical exam (Primary Care) Vital Signs: Last Vital Signs BP 162/70 H 09/11/22 07:51 BMI result Body Mass Index 31.6 Tobacco/Smoking Status: Tobacco use Status Tobacco use date assessed 05/08/22 09/11/22 07:53 Patient Tobacco Use Status Never used Tobacco 09/11/22 07:53 Tobacco use type 05/08/22 08:01 e-Cigarette/Vaping Use Never Used 09/11/22 07:53 Thrive Assessment: Date of Thrive Assessment Date Thrive assessed 05/08/22 09/11/22 07:53 Eyes General: appearance normal, both eyes and all related structures Eyelids: Yes eyelids normal Conjunctivae: conjunctivae normal Neck Neck: Yes normal visual inspection and Yes supple Resp Effort & Inspection: normal respiratory effort Auscultation: clear to auscultation bilaterally Cardio Jugular venous distension: no JVD Rate: regular rate Rhythm: regular rhythm Heart sounds: S1 normal heart sound present and S2 normal heart sound present Extrem General: Yes full ROM Results AMB Hemoglobin A1c AMB Hemoglobin A1c 7.3 % Last Edit by IVONNE Carrasco on 09/11/22 08:0 7 Results Reviewed Results Reviewed: Laboratory Last Values Hgb A1c (Clinic) 7.3 % (4.0-6.0) H 09/11/22 08:06 Assessment and Plan Assessment & Plan (1) Diabetes mellitus: Code(s): E11.9 - Type 2 diabetes mellitus without complications Qualifiers: Diabetes mellitus type: type 2 Diabetes mellitus continuous churn buttermaker insulin use: with continuous churn buttermaker use Diabetes mellitus complication status: without complication Qualified Code(s): E11.9 - Type 2 diabetes mellitus without complications; Z79.4 - senior living (current) use of insulin Plan: Continue metformin. Increase insulin from 57 units once a day to 58 units once a day. A1c goal is equal or less than 7%. (2) Hypertension: Code(s): I10 - Essential (primary) hypertension Qualifiers: Hypertension type: renovascular hypertension Qualified Code(s): I15.0 - Renovascular hypertension Plan: Continue atenolol and hydralazine. Increase chlorthalidone to 50 mg once a day. Blood pressure goal is equal or less than 130/80. Recheck blood pressure with nurse navigator in 3 weeks. (3) Hypothyroid: Code(s): E03.9 - Hypothyroidism, unspecified Qualifiers: Hypothyroidism type: acquired Qualified Code(s): E03.9 - Hypothyroidism, unspecified Plan: Decrease levothyroxine from 112 mcg to 100 mcg. Repeat TSH in 6 weeks. (4) Hyperlipidemia LDL goal <70: Code(s): E78.5 - Hyperlipidemia, unspecified Plan: Continue atorvastatin. LDL goal is less than 70. Orders: Orders Comprehensive [place]. Panel Fast 4 Months E78.5 - Hyperlipidemia, unspecified Lipid Panel 4 Months E78.5 - Hyperlipidemia, unspecified Microalbumin, Random (w Creat) 4 Months E11.9 - Type 2 diabetes mellitus without complications Thyroid Stimulating Hormone 6 Weeks E03.9 - Hypothyroidism, unspecified Vitamin D 25-OH Total 4 Months E55.9 - Vitamin D deficiency, unspecified AMB Hemoglobin A1c Today E11.9 - Type 2 diabetes mellitus without complications Medications: New pen needle, diabetic, safety (True Comfort Safety Pen Needle) once at bedtime As directed 100 ea 3RF E11.9 - Type 2 diabetes mellitus without complications chlorthalidone 50 mg PO DAILY 90 tabs 1RF 90 days levothyroxine 100 mcg PO DAILY 90 tabs 1RF 90 days E03.9 - Hypothyroidism, unspecified Changed From insulin glargine (Lantus Solostar U-100 Insulin) 57 units (0.57 mL) subcut DAILY 90 days 51.3 mL 1RF E11.9 - Type 2 diabetes mellitus without complications To insulin glargine (Lantus Solostar U-100 Insulin) 58 units (0.58 mL) subcut DAILY 52.2 mL 1RF 90 days E11.9 - Type 2 diabetes mellitus without complications Discontinued chlorthalidone Discontinued Reason: Patient Completed Course 25 mg PO DAILY 90 days 90 tabs 1RF I10 - Essential (primary) hypertension levothyroxine Discontinued Reason: Patient Completed Course 112 mcg PO DAILY 90 days 90 tabs 1RF Coding Level of Care Code Est Pt Level 4 (24338) Diagnoses Diabetes mellitus E11.9; Z79.4 Diabetes mellitus type: type 2 Diabetes mellitus detention insulin use: with detention use Diabetes mellitus complication status: without complication Hypertension I15.0 Hypertension type: renovascular hypertension Hypothyroid E03.9 Hypothyroidism type: acquired Hyperlipidemia LDL goal <70 E78.5 Time Spent (min) 22
[2022-09-11 07:51] VITALS: BP 162/70; BMI 31.6
[2022-09-11 08:59] VITALS: BP 160/70
== END 2022-09-11 18:09 | disposition home or self-care (01) ==
PROVIDERS: Visit Provider Internal Medicine
DX: E11.9 Type 2 diabetes mellitus without complications (principal); Z79.4 Long term (current) use of insulin; I15.0 Renovascular hypertension; E03.9 Hypothyroidism, unspecified; E78.5 Hyperlipidemia, unspecified
CPT/HCPCS: 83036; 99214

== ENCOUNTER 2023-01-21 10:55 | Outpatient (AMB) | payer OTHER, SELFPAY ==
[2023-01-21 10:56] VITALS: BP 136/64; PULSE 61; O2SAT 98; BMI 32.4
--- NOTE | 2023-01-21 10:56 | HO.NEPHOV_ITS ---
HPI HPI Comments History of Present Illness Details Elderly man with a history of hypertension and diabetes mellitus with CKD. He is here for semiannual follow-up. Cell Phone Repair Technician service was used. Today has no specific complaints. Blood sugar seems to be better controlled. [facility] Medical History (Updated 01/21/23 @ 11:14 by Star Luis MD) CKD (chronic kidney disease) stage 3, GFR 30-59 ml/min DEVON (obstructive sleep apnea) Gout Hyperlipidemia LDL goal <100 Diabetic neuropathy Microalbuminuria Abdominal aortic ectasia High cholesterol Hypothyroid Hypertension Diabetes mellitus Surgical History History of hydrocelectomy Hx of colonoscopy Family History Father Medical history unknown Mother Diabetes Hypertension Paternal Grandmother Cancer Son No problems noted. Daughter No problems noted. Sister No problems noted. Brother No problems noted. Social History Housing: Apartment Are you a primary critical care specialist to a significant other at home: No Do you presently have visiting nurse or other home services: Yes (HEALTH UNIT SUPERVISOR 2 x week) Alcohol intake: never Patient Tobacco Use Status: Never used Tobacco e-Cigarette/Vaping Use: Never Used Second Hand Smoke Exposure: No service: No Current occupational status: disabled Cognitive needs: Yes Hearing needs: No Vision needs: Yes Vital Signs 01/21/23 10:56 Height 5 ft Weight 166 lb BMI 32.4 BP 136/64 Blood Pressure Location Lt brachial Position Sitting Pulse 61 Pulse Source Pulse Oximeter Pulse Oximetry (%) 98 Oxygen Delivery Method Room Air Physical Exam Vital Signs: Last Vital Signs Pulse 61 01/21/23 10:56 BP 136/64 01/21/23 10:56 Pulse Ox 98 01/21/23 10:56 Oxygen Delivery Method Room Air 01/21/23 10:56 BMI result Body Mass Index 32.4 Const General: comfortable Nutritional Appearance: well nourished Orientation/consciousness: patient oriented x3 HEENT Head: No normal to inspection Mouth: moist mucous membranes Neck Neck: Yes supple and Yes no JVD Resp Auscultation: clear to auscultation bilaterally, no rales and rub present Cardio Jugular venous distension: no JVD Palpation: no palpable S3 and no palpable S4 Heart sounds: no rubs GI Palpation (GI): Soft to palpation and nontender Percussion: No Fluid wave present General: Yes no CVA tenderness Back/Spine/Pelvis Back: no CVA tenderness Skin General skin exam: no rashes or lesions noted Neuro General: patient oriented x3 Extrem General: No clubbing and Yes edema (Trace edema) Assessment & Plan Assessment & Plan (1) CKD (chronic kidney disease) stage 2, GFR 60-89 ml/min: Code(s): N18.2 - Chronic kidney disease, stage 2 (mild) (2) Microalbuminuria: Code(s): R80.9 - Proteinuria, unspecified (3) Hypertension: Code(s): I10 - Essential (primary) hypertension Qualifiers: Hypertension type: renovascular hypertension Qualified Code(s): I15.0 - Renovascular hypertension Plan Elderly man with mild CKD in a setting of longstanding hypertension diabetes mellitus. Hypertension blood pressure is well controlled at this time. Discussed low-salt diet. No changes were made to his antihypertensive regimen. Diabetes mellitus goes maintain a hemoglobin A1c less than 7%. He will benefit from SGLT 2 inhibitor. As well renal insufficiency I will recheck his renal panel today. Recent creatinine is 1.14 with EGFR of more than 60 mL/minutes Encourage to increase fluid intake and to avoid nephrotoxic agents including NSAIDs. Will continue monitor renal function periodically. Orders: Orders Electrolytes Today N18.30 - Chronic kidney disease, stage 3 unspecified Blood Urea Nitrogen Today N18.30 - Chronic kidney disease, stage 3 unspecified Calcium Today N18.30 - Chronic kidney disease, stage 3 unspecified Creatinine Urine Today N18.30 - Chronic kidney disease, stage 3 unspecified UA and rflx microscopic Today N18.30 - Chronic kidney disease, stage 3 unspecified Creatinine Today N18.30 - Chronic kidney disease, stage 3 unspecified Total Protein Urine Random Today N18.30 - Chronic kidney disease, stage 3 unspecified Coding Level of Care Code Est Pt Level 3 (44822) Diagnoses CKD (chronic kidney disease) stage 2, GFR 60-89 ml/min N18.2 Microalbuminuria R80.9 Renovascular hypertension I15.0 Hypertension type: renovascular hypertension Results Reviewed Nephrology Results: Hgb 12.5 g/dl (14.0-18.0) L 09/10/22 WBC 8.1 X10*3/uL (4.8-10.8) 09/10/22 Plt Count 226 X10*3/uL (160-400) 09/10/22 Sodium 138 mmol/L (135-145) 09/10/22 Potassium 4.5 mmol/L (3.3-5.1) 09/10/22 Chloride 103 mmol/L (96-108) 09/10/22 Carbon Dioxide 23 mmol/L (22-29) 09/10/22 BUN 22 mg/dL (9-16) H 09/10/22 Creatinine 1.14 mg/dL (0.5-1.4) 09/10/22 Calcium 10.0 mg/dL (8.4-10.2) 09/10/22 Urine Creatinine 106.64 mg/dL 09/10/22
== END 2023-01-21 11:15 | disposition home or self-care (01) ==
PROVIDERS: PCP Internal Medicine; Visit Provider Internal Medicine Hypertension Specialist
DX: N18.2 Chronic kidney disease, stage 2 (mild) (principal); R80.9 Proteinuria, unspecified; I15.0 Renovascular hypertension
CPT/HCPCS: 99213

== ENCOUNTER → 2023-01-21 10:55 | Outpatient (BNVA) | payer OTHER, SELFPAY | PROVIDERS: PCP Internal Medicine; Visit Provider Internal Medicine Hypertension Specialist | DX: I15.0 Renovascular hypertension (principal); N18.2 Chronic kidney disease, stage 2 (mild); R80.9 Proteinuria, unspecified | CPT/HCPCS: 99212 ==

== ENCOUNTER 2023-05-08 07:24 | Outpatient (REF) | payer OTHER, SELFPAY ==
[2023-05-08 08:24] LABS: Albumin Level 4.1 g/dL (3.5-5.0); Alkaline Phosphatase 111 U/L (39-117); Anion Gap 12 (12-20); Aspartate Amino Transferase 16 U/L (5-37); Bilirubin Total 0.6 mg/dL (0.0-1.0); Blood Urea Nitrogen 20 mg/dL (9-16); Calcium 9.7 mg/dL (8.4-10.2); Carbon Dioxide 23 mmol/L (22-29); Chloride 109 mmol/L (96-108); Cholesterol 112 mg/dL (<200); Estimated Glomerular Filt Rate > 60; Glucose Fasting 83 mg/dL (60-99); HDL Cholesterol 60 mg/dL (>40); LDL Cholesterol Calculated 40 mg/dL (<100); Potassium 3.8 mmol/L (3.3-5.1); Sodium 140 mmol/L (135-145); Total Protein 7.6 g/dL (6.5-8.0); Triglycerides 60 mg/dL (<150)
[2023-05-08 08:36] LABS: Alanine Aminotransferase 15 U/L (0-40); Thyroid Stimulating Hormone 0.44 uIU/mL (0.32-4.0)
[2023-05-08 08:51] LABS: Appearance Urine Clear; Color Urine Yellow; Glucose Urine UA Negative (Negative); Leukocyte Esterase Urine Negative (Negative); Nitrite Urine Negative (Negative); UMIC TRIGGER UA YES; Urine Blood Negative (Negative); Urine Ketones Negative (Negative); Urine Protein 100 (2+) mg/dL (Neg-Trace)
[2023-05-08 08:53] LABS: Bacteria Urine None Seen (None Seen); Hyaline Casts Urine 0-2 /LPF (0-2); RBC Urine 0-2 /HPF (0-2); Squamous Epithelial Cell Urine 0-2 /HPF (0-2); WBC Urine 0-5 /HPF (0-5)
[2023-05-08 09:41] LABS: Creatinine Urine 125.18 mg/dL; Microalbum/Creatinine Ratio Ur 347.4 ug/mg cr (<30)
[2023-05-08 09:42] LABS: Creatinine Urine 123.49 mg/dL; Total Protein Urine Random 67 mg/dL (<12)
== END 2023-05-08 07:25 | disposition home or self-care (01) ==
LOC: HO.LAB 07:24
PROVIDERS: Absent Provider Internal Medicine; PCP Internal Medicine; Visit Provider Internal Medicine Hypertension Specialist
DX: N18.30 Chronic kidney disease, stage 3 unspecified (principal); E03.9 Hypothyroidism, unspecified; E11.9 Type 2 diabetes mellitus without complications; E78.5 Hyperlipidemia, unspecified
CPT/HCPCS: 36415; 80053; 80061; 81001; 82043; 82306; 82570; 84156; 84443

== ENCOUNTER 2023-05-13 07:12 | Outpatient (AMB) | payer OTHER, SELFPAY ==
--- NOTE | 2023-05-13 07:35 | MHC.PC.OV ---
Vital Signs 05/13/23 07:37 Height 5 ft Weight 166 lb BMI 32.4 BP 132/70 Blood Pressure Location Lt brachial Position Sitting Intake Visit Reasons: PE Intake Note: Patient here for a physical exam Access Control Specialist Required: No Accompanied by: Self / Same As Patient Allergies No Known Allergies Allergy (Verified 05/13/23 07:50) Medication List - Last Reconciled 05/13/23 by Hannah Goff MD acetaminophen (Pain Relief (acetaminophen)) 500 mg PO Q6H PRN 30 days aspirin 81 mg PO DAILY atenolol 50 mg PO DAILY 90 days atorvastatin 10 mg PO BEDTIME 90 days chlorthalidone 50 mg PO DAILY 90 days cholecalciferol (vitamin D3) 25 mcg PO DAILY 90 days gabapentin 100 mg PO BEDTIME 90 days hydralazine 50 mg PO TID 90 days insulin glargine (Lantus Solostar U-100 Insulin) 58 units (0.58 mL) subcut DAILY 90 days levothyroxine 100 mcg PO DAILY 90 days metformin 1,000 mg PO BID pen needle, diabetic, safety (True Comfort Safety Pen Needle) once at bedtime As directed travoprost 0.004% 0 drps ophthalmic (eye) Tobacco use date assessed: 05/13/23 Fall risk assessment: No Falls in past year Last assessed Fall Risk: 05/13/23 Dental Screening Dental Screen Date: 05/13/23 Did you have a dental visit in the last 12 months?: No Did you have a dental problem in the last 6 months where you did not have access to dental care?: No Was dental information given to patient?: Patient has dentist HPI HPI Comments History of Present Illness Details This is a 78-year-old male with diabetes mellitus type 2 that comes for his physical exam. A1c within goal. LDL within goal. Diabetic eye exam done yearly. Last colonoscopy was 2019 showing tubular adenoma and will be refer through open access. No chest pain or shortness of breath. [facility] Medical History (Updated 05/13/23 @ 08:03 by Hannah Goff MD) CKD (chronic kidney disease) stage 3, GFR 30-59 ml/min DEVON (obstructive sleep apnea) Gout Hyperlipidemia LDL goal <100 Diabetic neuropathy Microalbuminuria Abdominal aortic ectasia High cholesterol Hypothyroid Hypertension Diabetes mellitus Surgical History (Updated 05/13/23 @ 07:56 by Hannah Goff MD) History of cataract extraction History of hydrocelectomy Hx of colonoscopy Family History Father Medical history unknown Mother Diabetes Hypertension Paternal Grandmother Cancer Son No problems noted. Daughter No problems noted. Sister No problems noted. Brother No problems noted. Social History Housing: Apartment Are you a primary healthcare recruiter to a significant other at home: No Do you presently have visiting nurse or other home services: Yes (SECURITY GUARD 2 x week) Alcohol intake: never Patient Tobacco Use Status: Never used Tobacco e-Cigarette/Vaping Use: Never Used Second Hand Smoke Exposure: No service: No Current occupational status: disabled Cognitive needs: Yes Hearing needs: No Vision needs: Yes Questionnaire PHQ-9 Over the last 2 weeks, how often have you been bothered by any of the following problems? 1. Little interest or pleasure in doing things: not at all 2. Feeling down, depressed, or hopeless: not at all 3. Trouble falling or staying asleep, or sleeping too much: not at all 4. Feeling tired or having little energy: not at all 5. Poor appetite or overeating: not at all 6. Feeling bad about yourself - or that you are a failure or have let yourself or your family down: not at all 7. Trouble concentrating on things, such as reading the newspaper or watching television: not at all 8. Moving or speaking so slowly that other people could have noticed. Or the opposite - being so fidgety or restless that you have been moving around a lot more than usual: not at all 9. Thoughts that you would be better off or of hurting yourself in some way: not at all Total score: 0 Depression Screening Interpretation: Negative Depression Screening Done: Yes 43257 - PHQ-9 Billing: Yes Source: Developed by Drs. Dallin Talley, Fatimah Luke, Mango Self and colleagues, with an educational jeny from [employer]. Thrive Questionnaire Date Thrive assessed: 05/13/23 I am a: Patient What is your living situation today?: I have a steady place to live Within the past 12 months, did the food you bought not last and you didn't have the money to get more?: Never true Within the past 12 months, did you worry whether your food would run out before you got money to buy more?: Never true Do you have trouble paying for medicines?: No Do you have trouble getting transportation to medical appointments?: No Do you have trouble paying your heating and electricity bill?: No Do you have trouble taking care of your child, family member or friend?: No Do you have trouble with day-to-day activities such as bathing, preparing meals, shopping, managing finances, etc.?: No Are you currently unemployed and looking for a job?: No Are you interested in more education?: No Please select the resources that you would like help with: None Currently or been in a relationship where the following occur: no concerns reported THRIVE Score: 0 AUDIT C Alcohol Use Questionnaire (AUDIT-C) 1. How often do you have a drink containing alcohol?: Never Total Score: 0 Score Reviewed/Action Taken: No JACE-7 AMB Questionnaire JACE-7 Date JACE - 7 assessed: 05/13/23 Feeling nervous, anxious, or on edge: 0 = Not at all Not being able to stop or control worryin = Not at all Worrying too much about different things: 0 = Not at all Trouble relaxin = Not at all Being so restless that it is hard to sit still: 0 = Not at all Becoming easily annoyed or irritable: 0 = Not at all Feeling afraid as if something awful might happen: 0 = Not at all Total JACE-7 score (0-4 normal; 5-9 mild; 10-14 moderate; 15-21 severe): 0 Source: Developed by Drs. Dallni Talley, Fatimah Luke, Mango Self and colleagues, with an educational jeny from [employer]. JACE-7 Assessment Billing JACE-7 Assessment Tool: JACE-7 Assessment 86062 Review of Systems Const All systems reviewed & are unremarkable except as noted in HPI and below Eyes Reports no additional complaints, Denies change in vision and Denies other visual disturbances Card Denies chest pain at rest, Denies chest pain with activity, Denies edema, Denies irregular heart rhythm, Denies claudication, Denies dyspnea, Denies dyspnea on exertion, Denies orthopnea, Denies paroxysmal nocturnal dyspnea and Denies slow heart rate Resp Denies cough, Denies dyspnea and Denies dyspnea on exertion GI Denies abdominal pain, Denies change in bowel habits, Denies excessive flatus, Denies nausea and Denies vomiting Denies urinary hesitancy, Denies urinary incontinence and Denies urinary urgency Physical exam (Primary Care) Vital Signs: Last Vital Signs BP 132/70 05/13/23 07:37 BMI result Body Mass Index 32.4 Tobacco/Smoking Status: Tobacco use Status Tobacco use date assessed 05/13/23 05/13/23 07:46 Patient Tobacco Use Status Never used Tobacco 05/13/23 07:46 Tobacco use type 05/08/22 08:01 e-Cigarette/Vaping Use Never Used 05/13/23 07:46 PHQ-9: PHQ-9 Score PHQ-9: Total score 0 05/13/23 07:46 Depression Screening Interpretation: Negative Thrive Assessment: Date of Thrive Assessment Date Thrive assessed 05/13/23 05/13/23 07:46 Currently or been in a relationship where the following occur: no concerns reported Const Orientation/consciousness: patient oriented x3 [facility] Head: Yes normal to inspection, Yes normocephalic and Yes atraumatic Ears: external ears normal Eyes General: appearance normal, both eyes and all related structures Eyelids: Yes eyelids normal Conjunctivae: conjunctivae normal Neck Neck: Yes normal visual inspection and Yes supple Resp Effort & Inspection: normal respiratory effort Auscultation: clear to auscultation bilaterally Cardio Jugular venous distension: no JVD Rate: regular rate Rhythm: regular rhythm Heart sounds: S1 normal heart sound present and S2 normal heart sound present GI Inspection: Yes normal to inspection Palpation (GI): Soft to palpation and nontender Auscultation: normal bowel sounds Skin General skin exam: no rashes or lesions noted Neuro General: patient oriented x3 and no focal motor deficits Extrem General: Yes full ROM Psych Appearance: grossly normal Results AMB Hemoglobin A1c AMB Hemoglobin A1c 6.6 % Last Edit by IVONNE Carrasco on 05/13/23 07:50 Assessment and Plan Assessment & Plan (1) Physical exam: Code(s): Z00.00 - Encounter for general adult medical examination without abnormal findings Plan: Repeat in a year. (2) Diabetes mellitus: Code(s): E11.9 - Type 2 diabetes mellitus without complications Qualifiers: Diabetes mellitus type: type 2 Diabetes mellitus superintendent terminal insulin use: with superintendent terminal use Diabetes mellitus complication status: without complication Qualified Code(s): E11.9 - Type 2 diabetes mellitus without complications; Z79.4 - terminologist (current) use of insulin Plan: Continue insulin. A1c goal is equal or less than 7 %. Orders: Orders Complete Blood Count Auto Diff 4 Months D64.9 - Anemia, unspecified Vitamin B12 and Folate 4 Months E53.8 - Deficiency of other specified B group vitamins Comprehensive [place]. Panel Fast 4 Months N18.2 - Chronic kidney disease, stage 2 (mild) AMB Hemoglobin A1c Today E11.9 - Type 2 diabetes mellitus without complications Lipid Panel 4 Months E78.5 - Hyperlipidemia, unspecified Microalbumin, Random (w Creat) 4 Months E11.9 - Type 2 diabetes mellitus without complications IRON PROFILE 4 Months D64.9 - Anemia, unspecified Thyroid Stimulating Hormone 4 Months E03.9 - Hypothyroidism, unspecified Referrals Open Access Screening Colonoscopy Referral Z12.11 - Encounter for screening for malignant neoplasm of colon Coding Level of Care Code Est Pt Prev Care >65y(87477) Diagnoses Physical exam Z00.00 Type 2 diabetes mellitus without complication, with long-term current use of insulin E11.9; Z79.4 Diabetes mellitus type: type 2 Diabetes mellitus superintendent terminal insulin use: with usp use Diabetes mellitus complication status: without complication Additional Codes JACE-7 Assessment Billing - JACE-7 Assessment Tool: JACE-7 Assessment [id number] ([id number]) Time Spent (min) 35
[2023-05-13 07:37] VITALS: BP 132/70; BMI 32.4
== END 2023-05-13 08:00 | disposition home or self-care (01) ==
PROVIDERS: Visit Provider Internal Medicine
DX: Z00.00 Encounter for general adult medical examination without abnormal findings (principal); E11.9 Type 2 diabetes mellitus without complications; Z79.4 Long term (current) use of insulin
CPT/HCPCS: 83036; 99397

== ENCOUNTER 2023-05-23 10:45 | Outpatient (AMB) | payer OTHER, SELFPAY ==
[2023-05-23 11:00] VITALS: BP 142/60; PULSE 65; O2SAT 98; BMI 33.0
--- NOTE | 2023-05-23 11:00 | HO.NEPHOV ---
HPI HPI Comments History of Present Illness Details Elderly man with a history of hypertension and diabetes mellitus with CKD. He is here for semiannual follow-up. Software Development Test Engineer service was used. Today has no specific complaints. Blood sugar seems to be better controlled. [facility] Medical History (Updated 05/13/23 @ 08:03 by Hannah Goff MD) CKD (chronic kidney disease) stage 3, GFR 30-59 ml/min DEVON (obstructive sleep apnea) Gout Hyperlipidemia LDL goal <100 Diabetic neuropathy Microalbuminuria Abdominal aortic ectasia High cholesterol Hypothyroid Hypertension Diabetes mellitus Surgical History History of cataract extraction History of hydrocelectomy Hx of colonoscopy Family History Father Medical history unknown Mother Diabetes Hypertension Paternal Grandmother Cancer Son No problems noted. Daughter No problems noted. Sister No problems noted. Brother No problems noted. Social History Housing: Apartment Are you a primary pharmacy care coordinator to a significant other at home: No Do you presently have visiting nurse or other home services: Yes (CHIEF INTERNAL AUDITOR 2 x week) Alcohol intake: never Patient Tobacco Use Status: Never used Tobacco e-Cigarette/Vaping Use: Never Used Second Hand Smoke Exposure: No service: No Current occupational status: disabled Cognitive needs: Yes Hearing needs: No Vision needs: Yes Vital Signs 05/23/23 11:00 Height 5 ft Weight 169 lb BMI 33.0 BP 142/60 H Blood Pressure Location Lt brachial Position Sitting Pulse 65 Pulse Source Pulse Oximeter Pulse Oximetry (%) 98 Oxygen Delivery Method Room Air Physical Exam Vital Signs: Last Vital Signs Pulse 65 05/23/23 11:00 BP 142/60 H 05/23/23 11:00 Pulse Ox 98 05/23/23 11:00 Oxygen Delivery Method Room Air 05/23/23 11:00 BMI result Body Mass Index 33.0 Const General: comfortable Nutritional Appearance: well nourished Orientation/consciousness: patient oriented x3 HEENT Head: No normal to inspection Mouth: moist mucous membranes Neck Neck: Yes supple and Yes no JVD Resp Auscultation: clear to auscultation bilaterally, no rales and rub present Cardio Jugular venous distension: no JVD Palpation: no palpable S3 and no palpable S4 Heart sounds: no rubs GI Palpation (GI): Soft to palpation and nontender Percussion: No Fluid wave present General: Yes no CVA tenderness Back/Spine/Pelvis Back: no CVA tenderness Skin General skin exam: no rashes or lesions noted Neuro General: patient oriented x3 Extrem General: No clubbing and Yes edema (Trace edema) Assessment & Plan Assessment & Plan (1) CKD (chronic kidney disease) stage 2, GFR 60-89 ml/min: Code(s): N18.2 - Chronic kidney disease, stage 2 (mild) (2) Microalbuminuria: Code(s): R80.9 - Proteinuria, unspecified (3) Hypertension: Code(s): I10 - Essential (primary) hypertension Qualifiers: Hypertension type: renovascular hypertension Qualified Code(s): I15.0 - Renovascular hypertension Plan Elderly man with mild CKD in a setting of longstanding hypertension diabetes mellitus. Hypertension blood pressure is suboptimal Shall ADD LOSARTAN 50 mg daily . Discussed low-salt diet. Diabetes mellitus goes maintain a hemoglobin A1c less than 7%. He will benefit from SGLT 2 inhibitor. Recent creatinine is 1.14 with EGFR of more than 60 mL/minutes Encourage to increase fluid intake and to avoid nephrotoxic agents including NSAIDs. Will continue monitor renal function periodically. Orders: Orders Basic Metabolic Panel 2 Months N18.2 - Chronic kidney disease, stage 2 (mild) Medications: New losartan 50 mg PO DAILY 30 tabs 4RF Coding Level of Care Code Est Pt Level 4 (95246) Diagnoses CKD (chronic kidney disease) stage 2, GFR 60-89 ml/min N18.2 Microalbuminuria R80.9 Renovascular hypertension I15.0 Hypertension type: renovascular hypertension Results Reviewed Nephrology Results: Hgb 12.5 g/dl (14.0-18.0) L 09/10/22 WBC 8.1 X10*3/uL (4.8-10.8) 09/10/22 Plt Count 226 X10*3/uL (160-400) 09/10/22 Sodium 140 mmol/L (135-145) 05/08/23 Potassium 3.8 mmol/L (3.3-5.1) 05/08/23 Chloride 109 mmol/L (96-108) H 05/08/23 Carbon Dioxide 23 mmol/L (22-29) 05/08/23 BUN 20 mg/dL (9-16) H 05/08/23 Creatinine 0.93 mg/dL (0.5-1.4) 05/08/23 Calcium 9.7 mg/dL (8.4-10.2) 05/08/23 Urine Protein 100 (2+) mg/dL (Neg-Trace) H 05/08/23 Urine Creatinine 123.49 mg/dL 05/08/23
== END 2023-05-23 11:16 | disposition home or self-care (01) ==
PROVIDERS: PCP Internal Medicine; Visit Provider Internal Medicine Hypertension Specialist
DX: N18.2 Chronic kidney disease, stage 2 (mild) (principal); R80.9 Proteinuria, unspecified; I15.0 Renovascular hypertension
CPT/HCPCS: 99214

== ENCOUNTER → 2023-05-23 10:45 | Outpatient (BNVA) | payer OTHER, SELFPAY | PROVIDERS: PCP Internal Medicine; Visit Provider Internal Medicine Hypertension Specialist | DX: I15.0 Renovascular hypertension (principal); N18.2 Chronic kidney disease, stage 2 (mild); R80.9 Proteinuria, unspecified | CPT/HCPCS: 99212 ==

== ENCOUNTER 2023-08-02 07:10 | Outpatient (REF) | payer OTHER, SELFPAY ==
[2023-08-02 08:25] LABS: Anion Gap 13 (12-20); Blood Urea Nitrogen 15 mg/dL (9-16); Calcium 9.8 mg/dL (8.4-10.2); Carbon Dioxide 22 mmol/L (22-29); Chloride 111 mmol/L (96-108); Estimated Glomerular Filt Rate > 60; Glucose Random 60 mg/dL (60-115); Sodium 142 mmol/L (135-145)
[2023-08-02 09:07] LABS: Appearance Urine Clear; Color Urine Yellow; Glucose Urine UA Negative (Negative); Leukocyte Esterase Urine Negative (Negative); Nitrite Urine Negative (Negative); UMIC TRIGGER UA YES; Urine Blood Negative (Negative); Urine Ketones Negative (Negative); Urine Protein 30 (1+) mg/dL (Neg-Trace)
[2023-08-02 09:11] LABS: Bacteria Urine None Seen (None Seen); Hyaline Casts Urine 0-2 /LPF (0-2); RBC Urine 0-2 /HPF (0-2); Squamous Epithelial Cell Urine 0-2 /HPF (0-2); WBC Urine 0-5 /HPF (0-5)
== END 2023-08-02 07:11 | disposition home or self-care (01) ==
LOC: HO.LAB 07:10
PROVIDERS: PCP Internal Medicine; Visit Provider Internal Medicine Hypertension Specialist
DX: N18.30 Chronic kidney disease, stage 3 unspecified (principal)
CPT/HCPCS: 36415; 80048; 81001; 81003

== ENCOUNTER 2023-08-08 10:10 | Outpatient (AMB) | payer OTHER, SELFPAY ==
[2023-08-08 10:13] VITALS: BP 150/62; PULSE 69; O2SAT 98; BMI 32.6
--- NOTE | 2023-08-08 10:13 | HO.NEPHOV_ITS ---
Vital Signs 08/08/23 10:13 08/08/23 10:20 Height 5 ft Weight 167 lb BMI 32.6 BP 150/62 H 140/70 H Blood Pressure Location Lt brachial Lt brachial Position Sitting Sitting Pulse 69 Pulse Source Pulse Oximeter Pulse Oximetry (%) 98 Oxygen Delivery Method Room Air Intake Visit Reasons: CKD/ 8 Weeks FU/ Conf Environmental Remediation Consultant Required: Yes Environmental Remediation Consultant Name: Adilia [id number] Accompanied by: Self / Same As Patient Allergies No Known Allergies Allergy (Verified 08/08/23 10:14) Medication List - Last Reconciled 08/08/23 by Star Luis MD acetaminophen (Pain Relief (acetaminophen)) 500 mg PO Q6H PRN 30 days aspirin 81 mg PO DAILY atenolol 50 mg PO DAILY 90 days atorvastatin 10 mg PO BEDTIME 90 days chlorthalidone 50 mg PO DAILY 90 days cholecalciferol (vitamin D3) 25 mcg PO DAILY 90 days hydralazine 50 mg PO TID 90 days insulin glargine (Lantus Solostar U-100 Insulin) 58 units (0.58 mL) subcut DAILY 90 days levothyroxine 100 mcg PO DAILY 90 days losartan 50 mg PO DAILY metformin 1,000 mg PO BID pen needle, diabetic, safety (True Comfort Safety Pen Needle) once at bedtime As directed travoprost 0.004% 0 drps ophthalmic (eye) HPI Comments Details: Elderly man with a history of hypertension and diabetes mellitus with CKD. He is here for semiannual follow-up. Environmental Remediation Consultant service was used. Today has no specific complaints. Blood sugar seems to be better controlled. [facility] Medical History (Updated 05/13/23 @ 08:03 by Hannah Goff MD) CKD (chronic kidney disease) stage 3, GFR 30-59 ml/min DEVON (obstructive sleep apnea) Gout Hyperlipidemia LDL goal <100 Diabetic neuropathy Microalbuminuria Abdominal aortic ectasia High cholesterol Hypothyroid Hypertension Diabetes mellitus Surgical History History of cataract extraction History of hydrocelectomy Hx of colonoscopy Family History Father Medical history unknown Mother Diabetes Hypertension Paternal Grandmother Cancer Son No problems noted. Daughter No problems noted. Sister No problems noted. Brother No problems noted. Social History Housing: Apartment Are you a primary day care home mother to a significant other at home: No Do you presently have visiting nurse or other home services: Yes (CAREER CONSULTANT 2 x week) Alcohol intake: never Patient Tobacco Use Status: Never used Tobacco e-Cigarette/Vaping Use: Never Used Second Hand Smoke Exposure: No service: No Current occupational status: disabled Cognitive needs: Yes Hearing needs: No Vision needs: Yes Physical Exam Vital Signs: Last Vital Signs Pulse 69 08/08/23 10:13 BP 150/62 H 08/08/23 10:13 Pulse Ox 98 08/08/23 10:13 Oxygen Delivery Method Room Air 08/08/23 10:13 BMI result Body Mass Index 32.6 Const General: comfortable; No acute distress Orientation/consciousness: patient oriented x3 Eyes General: appearance normal, both eyes and all related structures Visual Ponce: normal visual ponce by confrontation Neck Neck: Yes supple and Yes no JVD Resp Effort & Inspection: normal respiratory effort and respiratory effort not decreased Auscultation: rhonchi Cardio Palpation: no palpable S3 and no palpable S4 Heart sounds: no rubs GI Inspection: Yes normal to inspection Palpation (GI): Soft to palpation Percussion: Yes normal to percussion Auscultation: normal bowel sounds General: Yes no CVA tenderness Back/Spine/Pelvis Back: no CVA tenderness Skin General skin exam: no petechiae and no purpura Neuro General: patient oriented x3 and no focal motor deficits Extrem General: No clubbing and No edema Results Reviewed Nephrology Results: Hgb 12.5 g/dl (14.0-18.0) L 09/10/22 WBC 8.1 X10*3/uL (4.8-10.8) 09/10/22 Plt Count 226 X10*3/uL (160-400) 09/10/22 Sodium 142 mmol/L (135-145) 08/02/23 Potassium 4.0 mmol/L (3.3-5.1) 08/02/23 Chloride 111 mmol/L (96-108) H 08/02/23 Carbon Dioxide 22 mmol/L (22-29) 08/02/23 BUN 15 mg/dL (9-16) 08/02/23 Creatinine 0.86 mg/dL (0.5-1.4) 08/02/23 Calcium 9.8 mg/dL (8.4-10.2) 08/02/23 Urine Protein 30 (1+) mg/dL (Neg-Trace) H 08/02/23 Urine Creatinine 123.49 mg/dL 05/08/23 Assessment & Plan Assessment & Plan (1) CKD (chronic kidney disease) stage 2, GFR 60-89 ml/min: Code(s): N18.2 - Chronic kidney disease, stage 2 (mild) Category: Medical (2) Microalbuminuria: Code(s): R80.9 - Proteinuria, unspecified Category: Medical Plan Elderly man with mild CKD in a setting of longstanding hypertension diabetes mellitus. Hypertension blood pressure was suboptimal ADDED LOSARTAN 50 mg daily on 05/26/23 BP is better now . Discussed low-salt diet. Diabetes mellitus goes maintain a hemoglobin A1c less than 7%. He will benefit from SGLT 2 inhibitor. creatinine was 1.14 with EGFR of more than 60 mL/minutes Repeat is 0.86 Encourage to increase fluid intake and to avoid nephrotoxic agents including NSAIDs. Will continue monitor renal function periodically. Coding Level of Care Code Est Pt Level 4 (06497) Diagnoses CKD (chronic kidney disease) stage 2, GFR 60-89 ml/min N18.2 Microalbuminuria R80.9
[2023-08-08 10:20] VITALS: BP 140/70
== END 2023-08-08 10:25 | disposition home or self-care (01) ==
LOC: HO.HKA 10:10
PROVIDERS: PCP Internal Medicine; Visit Provider Internal Medicine Hypertension Specialist
DX: N18.2 Chronic kidney disease, stage 2 (mild) (principal); R80.9 Proteinuria, unspecified
CPT/HCPCS: 99214

== ENCOUNTER → 2023-08-08 10:10 | Outpatient (BNVA) | payer OTHER, SELFPAY | PROVIDERS: PCP Internal Medicine; Visit Provider Internal Medicine Hypertension Specialist | DX: I12.9 Hypertensive chronic kidney disease with stage 1 through stage 4 chronic kidney disease, or unspecified chronic kidney disease (principal); E11.22 Type 2 diabetes mellitus with diabetic chronic kidney disease; N18.2 Chronic kidney disease, stage 2 (mild); R80.9 Proteinuria, unspecified | CPT/HCPCS: 99212 ==

== ENCOUNTER 2023-09-16 15:23 | Outpatient (AMB) | payer OTHER, SELFPAY ==
--- NOTE | 2023-09-16 15:28 | MHC.PC.OV ---
Vital Signs 09/16/23 15:29 Height 5 ft Weight 166 lb BMI 32.4 BP 128/70 Blood Pressure Location Lt brachial Position Sitting Intake Visit Reasons: DM Intake Note: Patient here for a follow up DM Laboratory Assistant Required: No Accompanied by: Self / Same As Patient Allergies No Known Allergies Allergy (Verified 09/16/23 15:39) Medication List - Last Reconciled 09/16/23 by Hannah Goff MD acetaminophen (Pain Relief (acetaminophen)) 500 mg PO Q6H PRN 30 days aspirin 81 mg PO DAILY atenolol 50 mg PO DAILY 90 days atorvastatin 10 mg PO BEDTIME 90 days chlorthalidone 50 mg PO DAILY 90 days cholecalciferol (vitamin D3) 25 mcg PO DAILY 90 days hydralazine 50 mg PO TID 90 days insulin glargine (Lantus Solostar U-100 Insulin) 58 units (0.58 mL) subcut DAILY 90 days levothyroxine 100 mcg PO DAILY 90 days losartan 50 mg PO DAILY metformin 1,000 mg PO BID pen needle, diabetic, safety (True Comfort Safety Pen Needle) once at bedtime As directed travoprost 0.004% 0 drps ophthalmic (eye) Tobacco use date assessed: 05/13/23 Fall risk assessment: No Falls in past year Last assessed Fall Risk: 09/16/23 Dental Screening Dental Screen Date: 05/13/23 HPI HPI Comments History of Present Illness Details This is a 78-year-old male with diabetes mellitus type 2 on long-term current use of insulin, hypertension, hyperlipidemia, hypothyroidism and abdominal aortic ectasia that comes today for follow-up on his conditions. A1c slightly more elevated than last time and I will increase Lantus from 58 units to 63 units. A1c goal is less than 7%. Blood pressure stable. Lipid panel and thyroid function test will be order for next office visit. His LDL goal should be less than 70. Ultrasound will be order to check abdominal aortic ectasia. Denies any chest pain or shortness on breath. [facility] Medical History (Updated 09/16/23 @ 15:48 by Hannah Goff MD) DEVON (obstructive sleep apnea) Gout Hyperlipidemia LDL goal <100 Diabetic neuropathy Microalbuminuria Abdominal aortic ectasia High cholesterol Hypothyroid Hypertension Diabetes mellitus Surgical History History of cataract extraction History of hydrocelectomy Hx of colonoscopy Family History Father Medical history unknown Mother Diabetes Hypertension Paternal Grandmother Cancer Son No problems noted. Daughter No problems noted. Sister No problems noted. Brother No problems noted. Social History (Updated 09/16/23 @ 15:42 by Hannah Goff MD) Housing: Apartment Are you a primary career services representative to a significant other at home: No Do you presently have visiting nurse or other home services: Yes (POLITICAL SCIENCE CHAIR 2 x week) Alcohol intake: never Patient Tobacco Use Status: Former Tobacco user Tobacco use type: Cigarette e-Cigarette/Vaping Use: Never Used Second Hand Smoke Exposure: No service: No Current occupational status: disabled Cognitive needs: Yes Hearing needs: No Vision needs: Yes Questionnaire Thrive Questionnaire Date Thrive assessed: 05/13/23 JACE-7 AMB Questionnaire JACE-7 Date JACE - 7 assessed: 05/13/23 Source: Developed by Drs. Dallin Talley, Fatimah Luke, Mango Self and colleagues, with an educational jeyn from [employer]. Review of Systems Const All systems reviewed & are unremarkable except as noted in HPI and below Card Denies chest pain at rest, Denies chest pain with activity, Denies edema, Denies irregular heart rhythm, Denies claudication, Denies dyspnea, Denies dyspnea on exertion, Denies orthopnea, Denies paroxysmal nocturnal dyspnea and Denies slow heart rate Resp Denies cough, Denies dyspnea and Denies dyspnea on exertion Physical exam (Primary Care) Vital Signs: Last Vital Signs BP 128/70 09/16/23 15:29 BMI result Body Mass Index 32.4 Tobacco/Smoking Status: Tobacco use Status Tobacco use date assessed 05/13/23 09/16/23 15:30 Patient Tobacco Use Status Never used Tobacco 09/16/23 15:30 Tobacco use type 05/08/22 08:01 e-Cigarette/Vaping Use Never Used 09/16/23 15:30 Thrive Assessment: Date of Thrive Assessment Date Thrive assessed 05/13/23 09/16/23 15:30 Resp Effort & Inspection: normal respiratory effort Auscultation: clear to auscultation bilaterally Cardio Jugular venous distension: no JVD Rate: regular rate Rhythm: regular rhythm Heart sounds: S1 normal heart sound present and S2 normal heart sound present Extrem General: Yes full ROM Results AMB Hemoglobin A1c AMB Hemoglobin A1c 7.4 % Last Edit by IVONNE Carrasco on 09/16/23 15:38 Results Reviewed Results Reviewed: Laboratory Last Values Hgb A1c (Clinic) 7.4 % (4.0-6.0) H 09/16/23 15:32 Assessment and Plan Assessment & Plan (1) Diabetes mellitus: Code(s): E11.9 - Type 2 diabetes mellitus without complications Qualifiers: Diabetes mellitus type: type 2 Diabetes mellitus ferry terminal agent insulin use: with ferry terminal agent use Diabetes mellitus complication status: without complication Qualified Code(s): E11.9 - Type 2 diabetes mellitus without complications; Z79.4 - adjunct faculty for medical terminology (current) use of insulin Plan: Continue metformin. Increase insulin to 63 units. A1c goal is equal or less than 7%. (2) Hypertension: Code(s): I10 - Essential (primary) hypertension Qualifiers: Hypertension type: renovascular hypertension Qualified Code(s): I15.0 - Renovascular hypertension Plan: Continue chlorthalidone and losartan. Continue hydralazine. Blood pressure goal is equal or less than 130/80. (3) Hypothyroid: Code(s): E03.9 - Hypothyroidism, unspecified Qualifiers: Hypothyroidism type: acquired Qualified Code(s): E03.9 - Hypothyroidism, unspecified Plan: Continue levothyroxine. Monitor TSH. (4) Hyperlipidemia LDL goal <70: Code(s): E78.5 - Hyperlipidemia, unspecified Plan: Continue statins. Repeat lipid panel. LDL goal is less than 70. (5) Abdominal aortic ectasia: Comment: Needs f/u US in 2022 Code(s): I77.811 - Abdominal aortic ectasia Plan: Ultrasound abdomen order. Orders: Orders IRON PROFILE 4 Months D64.9 - Anemia, unspecified Vitamin D 25-OH Total 4 Months E55.9 - Vitamin D deficiency, unspecified US abdominal aortic aneurysm Today I77.811 - Abdominal aortic ectasia AMB Hemoglobin A1c Today E11.9 - Type 2 diabetes mellitus without complications, Z79.4 - adjunct faculty for medical terminology (current) use of insulin Lipid Panel 4 Months E78.5 - Hyperlipidemia, unspecified Microalbumin, Random (w Creat) 4 Months E11.9 - Type 2 diabetes mellitus without complications Complete Blood Count Auto Diff 4 Months D64.9 - Anemia, unspecified Vitamin B12 and Folate 4 Months E53.8 - Deficiency of other specified B group vitamins Comprehensive [place]. Panel Fast 4 Months N18.2 - Chronic kidney disease, stage 2 (mild) Thyroid Stimulating Hormone 4 Months E03.9 - Hypothyroidism, unspecified Coding Level of Care Code Est Pt Level 4 (60301) Complex EM visit Add On [id number] Diagnoses Type 2 diabetes mellitus without complication, with long-term current use of insulin E11.9; Z79.4 Diabetes mellitus type: type 2 Diabetes mellitus ferry terminal agent insulin use: with chcf use Diabetes mellitus complication status: without complication Renovascular hypertension I15.0 Hypertension type: renovascular hypertension Acquired hypothyroidism E03.9 Hypothyroidism type: acquired Hyperlipidemia LDL goal <70 E78.5 Abdominal aortic ectasia I77.811 Time Spent (min) 21
[2023-09-16 15:29] VITALS: BP 128/70; BMI 32.4
== END 2023-09-16 15:46 | disposition home or self-care (01) ==
PROVIDERS: PCP Internal Medicine; Visit Provider Internal Medicine
DX: E11.9 Type 2 diabetes mellitus without complications (principal); Z79.4 Long term (current) use of insulin; E03.9 Hypothyroidism, unspecified; I77.811 Abdominal aortic ectasia; E78.5 Hyperlipidemia, unspecified
CPT/HCPCS: 83036; 99214; G2211

== ENCOUNTER 2023-11-06 17:31 | Emergency (ER) | payer OTHER, SELFPAY ==
--- NOTE | ~2023-11-06 | CT_ITS ---
EXAMINATION: CT HEAD WITHOUT IV CONTRAST CLINICAL INFORMATION: change in mental status COMPARISON: CT head without contrast 01/31/2019 TECHNIQUE: Contiguous axial imaging was performed from the skull base to vertex without intravenous contrast. Sagittal and coronal reformatted images were obtained. This CT examination was performed using dose optimization techniques as appropriate, variously including the following: * Automated exposure control * Adjustment of mA and/or kV according to patient size (this includes techniques or standardized protocols for targeted exams where dose is matched to indication/reason for exam; i.e. extremities or head) Use of iterative reconstruction technique DLP: 696 mGy-cm FINDINGS: No acute osseous or soft tissue abnormality. Chronic scarring in the right occipital scalp. The mastoid air cells and visualized portions of the paranasal sinuses are well aerated. There is no evidence of acute intracranial hemorrhage or territorial infarction. No abnormal mass effect or midline shift is seen. Eason to white matter differentiation is well preserved. No extra-axial fluid collections are identified. No hydrocephalus. Proportional prominence of the ventricles and sulcal spaces related to volume loss. Patchy periventricular and deep white matter hypoattenuation is consistent with mild small vessel ischemic changes. CT/CT head/brain wo IV con IMPRESSION: No acute intracranial abnormality including hemorrhage, mass effect, hydrocephalus, or acute territorial edematous infarction. Electronically signed by: Ammon Resendiz MD 11/06/2023 07:31 PM EDT
[2023-11-06 17:44] VITALS: BP 192/81; PULSE 70; O2SAT 97
[2023-11-06 17:44] LABS: Glucose, Whole Blood 89 mg/dL (60-115)
[2023-11-06 17:47] VITALS: BP 195/87; PULSE 66; RESP 18; TEMP 36.9; O2SAT 99
[2023-11-06 17:49] VITALS: BP 195/87; PULSE 66; RESP 18; TEMP 36.9; O2SAT 99; BMI 33.3
--- NOTE | 2023-11-06 17:53 | PC.NURSE ---
Pt KEYUR from home, EMS reports sister went to his house when he wasn't answering phone, fire had to break entry. Pt found to be altered and BGL 44, EMS gave IM glucagon and oral glucose, improved to 69. Pt is now alert and oriented, breathing even and unlabored. automotive parts interpreter utilized. Reports he is unsure if he took his meds today
--- NOTE | 2023-11-06 18:31 | ED.GENADULT ---
HPI - General Adult General Chief complaint: General Medical Stated complaint: ams, bgl of 44, 1mg glucagon given w/ improvement Time Seen by Provider: 11/06/23 18:29 Source: patient Mode of arrival: EMS Limitations: no limitations History of Present Illness HPI narrative: This is a 78-year-old man with a past medical history of insulin-dependent diabetes mellitus, hypertension, hyperlipidemia, hypothyroidism, abdominal aortic ectasia who is brought in by EMS for evaluation of hypoglycemia. Patient's ex- and daughter are present at the bedside. The patient is offered formal/professional [place]ian interpretation, but patient declines and requests that his daughter provides interpretation. Daughter states that he received his COVID-19 influenza vaccine yesterday. She states that he went to bed last night and slept most of the day today. She states that he was found incontinent of urine. He states that he did not eat or drink today. He states they he does not recall taking his insulin today and he is unsure whether or not he took it last night. He states he did not fall or hit his head. He states that he was lying in bed most of the day. They state that he takes insulin and metformin for diabetes medications. EMS reports hyperglycemia with blood glucose of 44 and providing IM glucagon and oral glucose. He states no headache, neck pain, cough, congestion chest pain, difficulty breathing, back pain, extremity weakness, paresthesias, abdominal pain, nausea, vomiting, diarrhea, dysuria or urinary frequency/urgency. Related Data Home Medications ?Medication ?Instructions ?Recorded ?Confirmed travoprost 0.004 % eye drops 0 drp ophthalmic (eye) 02/28/21 09/16/23 Previous Rx's ?Medication ?Instructions ?Recorded acetaminophen 500 mg tablet (Pain 500 mg PO Q6H PRN fever 30 days 02/26/22 Relief (acetaminophen)) #120 tabs pen needle, diabetic, safety 31 #100 ea 09/11/22 gauge x 1/4 (True Comfort Safety Pen Needle) hydralazine 50 mg tablet 50 mg PO TID 90 days #270 tabs 12/28/22 levothyroxine 100 mcg tablet 100 mcg PO DAILY 90 days #90 tabs 03/23/23 losartan 50 mg tablet 50 mg PO DAILY #30 tabs 05/23/23 aspirin 81 mg tablet,delayed 81 mg PO DAILY #90 tabs 09/06/23 release atenolol 50 mg tablet 50 mg PO DAILY 90 days #90 tabs 09/06/23 atorvastatin 10 mg tablet 10 mg PO BEDTIME 90 days #90 tabs 09/06/23 chlorthalidone 50 mg tablet 50 mg PO DAILY 90 days #90 tabs 09/06/23 insulin glargine 100 unit/mL (3 63 unit (0.63 mL) subcut DAILY 90 09/16/23 mL) subcutaneous pen (Lantus days #56.7 mL Solostar U-100 Insulin) cholecalciferol (vitamin D3) 25 25 mcg PO DAILY 90 days #90 tabs 10/02/23 mcg (1,000 unit) tablet metformin 1,000 mg tablet 1,000 mg PO BID #180 tabs 10/31/23 Allergies Allergy/AdvReac Type Severity Reaction Status Date / Time No Known Allergies Allergy Verified 11/06/23 17:51 Review of Systems Review of Systems: ROS as per HPI [facility] Past Medical History Medical History (Updated 11/06/23 @ 20:30 by Markie Oconnell MD) DEVON (obstructive sleep apnea) Gout Hyperlipidemia LDL goal <100 Diabetic neuropathy Microalbuminuria Abdominal aortic ectasia High cholesterol Hypothyroid Hypertension Diabetes mellitus Surgical History History of cataract extraction History of hydrocelectomy Hx of colonoscopy Family History Family History Father Medical history unknown Mother Diabetes Hypertension Paternal Grandmother Cancer Son No problems noted. Daughter No problems noted. Sister No problems noted. Brother No problems noted. Social History Social History (Updated 09/16/23 @ 15:42 by Hannah Goff MD) Housing: Apartment Are you a primary pharmacist critical care to a significant other at home: No Do you presently have visiting nurse or other home services: Yes ([employer] 2 x week) Alcohol intake: never Patient Tobacco Use Status: Former Tobacco user Tobacco use type: Cigarette Smoked in Last 30 Days: No e-Cigarette/Vaping Use: Never Used Second Hand Smoke Exposure: No Use of substances other than those prescribed or required for medical reasons: No Advance Directives: No Advance Directives Information Provided: No service: No Current occupational status: disabled Cognitive needs: Yes Hearing needs: No Vision needs: Yes Physical Exam ED Vital Signs: Vital Signs - 24 hr 11/06/23 17:47 11/06/23 17:49 Temperature 98.4 F 98.4 F Pulse Rate 66 66 Respiratory Rate 18 18 Blood Pressure 195/87 H 195/87 H Pulse Oximetry 99 99 Oxygen Delivery Method Room Air Room Air BMI result Body Mass Index 33.3 Gen: NAD, AOx3 HEENT: NCAT, EOMI, normal conjunctiva, no postauricular or periorbital ecchymosis CV: RRR Pulm: CTAB, no increased work of breathing GI: Soft, NTND, no rebound, guarding or rigidity MSK: No extremity deformity, no midline vertebral tenderness to palpation, full active range of motion with neck flexion/extension and lateral 45 degree rotation Neuro: Grossly non focal, sensation intact to light touch in bilateral upper extremity dermatomes C6-C8, 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 Patient is afebrile and hemodynamically stable on room air. Exam is benign and reassuring. I considered CT imaging of the cervical spine, but there is no clear history of trauma to suggest a severe mechanism of injury, patient is sitting, patient states no neck pain, he has no midline vertebral tenderness to palpation and he has active range motion with neck flexion/extension and lateral 45 degree rotation. For these reasons, although CT imaging of the cervical spine is considered it is not obtained given very low clinical suspicion for any clinically significant cervical spine fracture/dislocation. Exam otherwise as above is very reassuring the patient has no neurological deficits. I reviewed and interpreted labs as below Diagnostic imaging studies are unremarkable for any acute findings. On re-examination, patient is well-appearing and in no acute distress. ?Patient states symptoms have resolved. He is tolerating po intake and his blood glucose is 160 prior to discharge. Patient is not on any sulfonylurea that woud otherwise require prolonged perior of observation for refractory hypoglycemia. I have discussed importance of regular meals and checking his blood glucose at least three times daily with the patient and his family.?There is no indication for further emergent evaluation in this otherwise well-appearing patient as above. ?Patient is provided written and verbal instructions, educational materials, recommendations for outpatient follow-up, strict return precautions and teach back is performed. ?Patient and family state understanding and agreement with plan of care. ?Patient is discharged home in stable and improved condition. Admission/Observation Consideration of admission/observation: Escalation of care including admission/observation considered Lab Data MDM Lab Attestation statement: I reviewed the patient's lab results. I independently reviewed and interpreted patient's labs, which demonstrates leukocytosis at 12.3 (likely reactive secondary to episode of hypoglycemia), stable chronic anemia with hemoglobin of 12.0, metabolic panel is notable for mild hypomagnesemia of 1.5 (which is repleted), urinalysis unremarkable. Patient has negative for COVID-19, influenza and RSV. 11/06/23 18:37 11/06/23 18:37 Labs: Lab Results 11/06/23 11/06/23 11/06/23 Range/Units 17:40 18:37 19:10 WBC 12.3 H (4.8-10.8) X10*3/uL RBC 3.95 L (4.60-5.80) X10*6/uL Hgb 12.0 L (14.0-18.0) g/dl Hct 35.2 L (42.0-52.0) % MCV 89.1 (80.0-98.0) fL MCH 30.4 (27.0-33.0) pg MCHC 34.1 (31.0-36.0) g/dl RDW 13.2 (11.0-16.0) % Plt Count 216 (160-400) X10*3/uL MPV 10.3 (9.4-12.4) fL Immature Gran % (Auto) 0.4 (0.0-0.4) % Neut % (Auto) 87.1 H (45-73) % Lymph % (Auto) 5.6 L (20-40) % [place] % (Auto) 6.5 (2-11) % Eos % (Auto) 0.2 (0-4) % Baso % (Auto) 0.2 (0-2) % Lymph # (Auto) 0.7 L (1.2-4.9) X10*3/uL [place] # (Auto) 0.8 (0.1-1.2) X10*3/uL Eos # (Auto) 0.0 (0.0-0.4) X10*3/uL Baso # (Auto) 0.0 (0.0-0.2) X10*3/uL Abs Immat Gran (auto) 0.05 H (0.00-0.03) X10*3/uL Absolute Neuts (auto) 10.7 H (2.0-8.3) x10*3/uL Absolute Nucleated RBC 0.000 (0.0-0.012) X10*3/uL Nucleated RBC % (auto) 0.0 (0.0-0.2) /100WBC Sodium 138 (135-145) mmol/L Potassium 4.4 (3.3-5.1) mmol/L Chloride 104 (96-108) mmol/L Carbon Dioxide 24 (22-29) mmol/L Anion Gap 14 (12-20) BUN 20 H (9-16) mg/dL Creatinine 1.14 (0.5-1.4) mg/dL Estim Creat Clear Calc 47.5 Estimated GFR > 60 POC Glucose 89 (60-115) mg/dL Random Glucose 138 H (60-115) mg/dL Calcium 10.3 H (8.4-10.2) mg/dL Magnesium 1.5 L (1.6-2.6) mg/dL Total Bilirubin 0.7 (0.0-1.0) mg/dL AST 20 (5-37) U/L ALT 15 (0-40) U/L Alkaline Phosphatase 115 (39-117) U/L Total Protein 7.8 (6.5-8.0) g/dL Albumin 4.1 (3.5-5.0) g/dL Urine Color Yellow Urine Appearance Clear Urine pH 7.5 (5.0-9.0) Ur Specific [place] 1.015 (1.005-1.025) Urine Protein 300 (3+) H (Neg-Trace) mg/dL Urine Glucose (UA) Negative (Negative) mg/dL Urine Ketones Negative (Negative) mg/dL Urine Blood Negative (Negative) Urine Nitrite Negative (Negative) Ur Leukocyte Esterase Negative (Negative) Urine RBC 0-2 (0-2) /HPF Urine WBC 0-5 (0-5) /HPF Ur Squamous Epith Cells 0-2 (0-2) /HPF Urine Bacteria None Seen (None Seen) Hyaline Casts 0-2 (0-2) /LPF Influenza Type A (PCR) NEGATIVE (Negative) Influenza Type B (PCR) NEGATIVE (Negative) RSV RNA Qual (PCR) NEGATIVE (Negative) SARS-CoV-2 RNA (RT-PCR) NEGATIVE (Negative) Independent Interpretation I performed an independent interpretation of an: CT Scan Interpretation: I independently reviewed and interpreted patient's CT scan of the head, which demonstrated no acute intracranial hemorrhage Independent Historian Clinical information obtained from an independent historian. History obtained from or confirmed by: Other (Family) Discharge Plan Discharge Clinical Impression: Hypoglycemia, Hypomagnesemia Patient Disposition: Home, Self-Care Instructions: Hypomagnesemia (ED), What to Do if Your Blood Sugar is Low (ED) Additional Instructions: Ariel was evaluated in the emergency for low blood sugar. His sugar level returned to normal and he was eating. His blood work otherwise showed mildly low magnesium for which he was given a magnesium pill. Please call his primary care doctor tomorrow to schedule a follow up appointment and repeat blood work in the next 5-7 days. His blood pressure was high in the emergency and he should also discuss this with his primary care doctor. The computerized tomography scan of his head was normal. Please return to the emergency room with any new concerning symptoms including, elevated to change in mental status, vomiting, chest pain, inability to eat/drink or vomiting. Ariel fue evaluado de emergencia por bajo nivel de az?car en joaquin. Osman nivel de az?car volvi? a la normalidad y estaba comiendo. Por lo dem?s, gato an?lisis de joaquin mostraron niveles levemente bajos de magnesio, por lo que le dieron colt pastilla de magnesio. Llame a osman m?dico de atenci?n primaria ma?hannah para programar colt hugh de seguimiento y repetir los an?lisis de joaquin en los pr?ximos 5 a 7 d?as. Osman presi?n arterial estaba emanuel en la emergencia y tambi?n deber?a comentarlo con osman m?dico de atenci?n primaria. La tomograf?a computarizada de osman hesham fue normal. Regrese a la anand de emergencias si presenta cualquier s?ntoma nuevo que le preocupe, incluidos cambios elevados en el estado mental, v?mitos, dolor en el pecho, incapacidad para comer/beber o v?mitos. Prescriptions: No Action acetaminophen [Pain Relief (acetaminophen)] 500 mg tablet 500 mg PO Q6H PRN (Reason: fever) 30 Days Qty: 120 1RF hydralazine 50 mg tablet 50 mg PO TID 90 Days Qty: 270 3RF levothyroxine 100 mcg tablet 100 mcg PO DAILY 90 Days Qty: 90 1RF aspirin 81 mg tablet,delayed release (DR/EC) 81 mg PO DAILY Qty: 90 0RF atenolol 50 mg tablet 50 mg PO DAILY 90 Days Qty: 90 0RF chlorthalidone 50 mg tablet 50 mg PO DAILY 90 Days Qty: 90 0RF atorvastatin 10 mg tablet 10 mg PO BEDTIME 90 Days Qty: 90 0RF cholecalciferol (vitamin D3) 25 mcg (1,000 unit) tablet 25 mcg PO DAILY 90 Days Qty: 90 0RF metformin 1,000 mg tablet 1,000 mg PO BID Qty: 180 3RF insulin glargine [Lantus Solostar U-100 Insulin] 100 unit/mL (3 mL) insulin pen 63 unit subcut DAILY 90 Days Qty: 56.7 1RF (DME) True Comfort Safety Pen Needle 31 gauge x 1/4 needle See Rx Instructions .Route Qty: 100 3RF Rx Instructions: once at bedtime As directed travoprost 0.004 % drops 0 drp ophthalmic (eye) losartan 50 mg tablet 50 mg PO DAILY Qty: 30 4RF Print Language: Ghanaian
--- NOTE | 2023-11-06 18:41 | PC.NURSE ---
Pt given food per provider order.
[2023-11-06 18:42] LABS: MANUAL DIFF FLAG NO
[2023-11-06 18:43] LABS: Basophils Percent Auto 0.2 % (0-2); Eosinophils Percent Auto 0.2 % (0-4); Hematocrit 35.2 % (42.0-52.0); Imm Gran Abs Auto 0.05 X10*3/uL (0.00-0.03); Imm Gran Pct Auto 0.4 % (0.0-0.4); Lymphocytes Absolute Auto 0.7 X10*3/uL (1.2-4.9); Lymphocytes Percent Auto 5.6 % (20-40); Mean Corpuscular HGB Conc 34.1 g/dl (31.0-36.0); Mean Corpuscular Hemoglobin 30.4 pg (27.0-33.0); Mean Corpuscular Volume 89.1 fL (80.0-98.0); Mean Platelet Volume 10.3 fL (9.4-12.4); Monocytes Absolute Auto 0.8 X10*3/uL (0.1-1.2); Monocytes Percent Auto 6.5 % (2-11); Neutrophils Absolute Auto 10.7 x10*3/uL (2.0-8.3); Neutrophils Percent Auto 87.1 % (45-73); Platelet Count 216 X10*3/uL (160-400); Red Blood Count 3.95 X10*6/uL (4.60-5.80); Red Cell Distribution Width 13.2 % (11.0-16.0); White Blood Count 12.3 X10*3/uL (4.8-10.8)
[2023-11-06 19:00] LABS: Alanine Aminotransferase 15 U/L (0-40); Albumin Level 4.1 g/dL (3.5-5.0); Alkaline Phosphatase 115 U/L (39-117); Anion Gap 14 (12-20); Aspartate Amino Transferase 20 U/L (5-37); Bilirubin Total 0.7 mg/dL (0.0-1.0); Blood Urea Nitrogen 20 mg/dL (9-16); Calcium 10.3 mg/dL (8.4-10.2); Carbon Dioxide 24 mmol/L (22-29); Chloride 104 mmol/L (96-108); Creatinine Clr Calc Pharmacy 47.5; Estimated Glomerular Filt Rate > 60; Glucose Random 138 mg/dL (60-115); Magnesium 1.5 mg/dL (1.6-2.6); Potassium 4.4 mmol/L (3.3-5.1); Sodium 138 mmol/L (135-145); Total Protein 7.8 g/dL (6.5-8.0)
[2023-11-06 19:23] LABS: Appearance Urine Clear; Color Urine Yellow; Glucose Urine UA Negative (Negative); Leukocyte Esterase Urine Negative (Negative); Nitrite Urine Negative (Negative); PH 7.5 (5.0-9.0); Specific Gravity - Urine 1.015 (1.005-1.025); UMIC TRIGGER UACC YES; Urine Blood Negative (Negative); Urine Ketones Negative (Negative); Urine Protein 300 (3+) mg/dL (Neg-Trace)
[2023-11-06 19:29] LABS: Bacteria Urine None Seen (None Seen); Hyaline Casts Urine 0-2 /LPF (0-2); RBC Urine 0-2 /HPF (0-2); Squamous Epithelial Cell Urine 0-2 /HPF (0-2); WBC Urine 0-5 /HPF (0-5)
[2023-11-06 19:30] LABS: Influenza A PCR NEGATIVE (Negative); Influenza B PCR NEGATIVE (Negative); Resp Syncy Virus RNA Qual PCR NEGATIVE (Negative); SARS COV2 PCR INHOUSE NEGATIVE (Negative)
[2023-11-06 20:23] LABS: Glucose, Whole Blood 160 mg/dL (60-115)
[2023-11-06 20:24] VITALS: BP 195/83; PULSE 67; RESP 18; TEMP 37.2; O2SAT 98
[2023-11-06] MEDS: Magnesium Oxide 400 MG TABLET PO (21:06)
[2023-11-06 21:29] VITALS: BP 195/83; PULSE 67; RESP 18; TEMP 37.2; O2SAT 98
== END 2023-11-06 21:15 | disposition home or self-care (01) ==
PROVIDERS: Physician Assistant Medical; Emergency Provider Emergency Medicine
DX: E11.649 Type 2 diabetes mellitus with hypoglycemia without coma (principal); E83.42 Hypomagnesemia; Z03.818 Encounter for observation for suspected exposure to other biological agents ruled out; I10 Essential (primary) hypertension; E78.5 Hyperlipidemia, unspecified; E03.9 Hypothyroidism, unspecified; Z87.891 Personal history of nicotine dependence; Z79.4 Long term (current) use of insulin; Z79.84 Long term (current) use of oral hypoglycemic drugs; Z79.02 Long term (current) use of antithrombotics/antiplatelets; Z79.899 Other long term (current) drug therapy
CPT/HCPCS: 0241U; 70450; 80053; 81001; 82947; 83735; 85025; 99284

== ENCOUNTER 2023-11-07 14:46 | Emergency (ER) | payer OTHER, SELFPAY ==
[2023-11-07 15:03] VITALS: BP 166/72; PULSE 58; O2SAT 99
[2023-11-07 15:40] VITALS: BP 186/71; PULSE 49; RESP 16; TEMP 37; O2SAT 98; BMI 31.6
--- NOTE | 2023-11-07 15:56 | ECG_ITS ---
Test Reason : BRADYCARDIA Blood Pressure : / mmHG Vent. Rate : 048 BPM Atrial Rate : 048 BPM P-R Int : 154 ms QRS Dur : 086 ms QT Int : 436 ms P-R-T Axes : -11 -16 025 degrees QTc Int : 389 ms Sinus bradycardia Otherwise normal ECG When compared with ECG of 29-AUG-2021 12:16, Heart rate has decreased Referred By: Nicanor Juan Electronically Signed By:SEBASTIEN HEWITT
--- NOTE | 2023-11-07 15:58 | ED.GENADULT ---
HPI - General Adult General Chief complaint: Recheck/Abnormal Lab/Rx Stated complaint: LOW BS T-1,HIGH BP 166/75,SEEN RECENTLY PER EMS Time Seen by Provider: 11/07/23 20:03 Source: patient Limitations: language barrier History of Present Illness ED Provider: Qi Schwartz PA-C HPI narrative: 78-year-old male with history of hypertension, hyperlipidemia, diabetes and hypothyroidism presents for repeat labs. Patient states he was seen in the emergency department yesterday, for hypoglycemia. He was medically cleared and sent home. Patient returns today because he did not have supplies at home; the patient states he has a pharmacy that delivers his medications and supplies, he should have the ability to check his point of care sugar by tomorrow. Related Data Home Medications ?Medication ?Instructions ?Recorded ?Confirmed travoprost 0.004 % eye drops 0 drp ophthalmic (eye) 02/28/21 09/16/23 Previous Rx's ?Medication ?Instructions ?Recorded acetaminophen 500 mg tablet (Pain 500 mg PO Q6H PRN fever 30 days 02/26/22 Relief (acetaminophen)) #120 tabs pen needle, diabetic, safety 31 #100 ea 09/11/22 gauge x 1/4 (True Comfort Safety Pen Needle) hydralazine 50 mg tablet 50 mg PO TID 90 days #270 tabs 12/28/22 levothyroxine 100 mcg tablet 100 mcg PO DAILY 90 days #90 tabs 03/23/23 losartan 50 mg tablet 50 mg PO DAILY #30 tabs 05/23/23 aspirin 81 mg tablet,delayed 81 mg PO DAILY #90 tabs 09/06/23 release atenolol 50 mg tablet 50 mg PO DAILY 90 days #90 tabs 09/06/23 atorvastatin 10 mg tablet 10 mg PO BEDTIME 90 days #90 tabs 09/06/23 chlorthalidone 50 mg tablet 50 mg PO DAILY 90 days #90 tabs 09/06/23 cholecalciferol (vitamin D3) 25 25 mcg PO DAILY 90 days #90 tabs 10/02/23 mcg (1,000 unit) tablet metformin 1,000 mg tablet 1,000 mg PO BID #180 tabs 10/31/23 blood sugar diagnostic (FreeStyle #100 ea 11/07/23 Test strips) blood-glucose meter (FreeStyle #1 ea 11/07/23 Lite Meter kit) insulin glargine 100 unit/mL (3 55 unit (0.55 mL) subcut DAILY 90 11/07/23 mL) subcutaneous pen (Lantus days #49.5 mL Solostar U-100 Insulin) lancets 28 gauge (FreeStyle #100 ea 11/07/23 Lancets) Allergies Allergy/AdvReac Type Severity Reaction Status Date / Time No Known Allergies Allergy Verified 11/07/23 15:41 Review of Systems Review of Systems: Yes all other systems are reviewed and are negative Constitutional: Constitutional: Denies fatigue, Denies fever(s) and Denies weakness ENT: Denies dizziness Cardiovascular: Cardiovascular: Denies chest pain, Denies syncope and Denies dyspnea Respiratory: Respiratory: Denies dyspnea Neurologic: Denies dizziness, Denies syncope and Denies weakness Endocrine: Endocrine: Denies fatigue PMFSH Past Medical History Attestation statement: The following information was validated with the patient. Medical History (Updated 11/08/23 @ 00:00 by Paty Damarquis) DEVON (obstructive sleep apnea) Gout Hyperlipidemia LDL goal <100 Diabetic neuropathy Microalbuminuria Abdominal aortic ectasia High cholesterol Hypothyroid Hypertension Diabetes mellitus Surgical History History of cataract extraction History of hydrocelectomy Hx of colonoscopy Family History Family History Father Medical history unknown Mother Diabetes Hypertension Paternal Grandmother Cancer Son No problems noted. Daughter No problems noted. Sister No problems noted. Brother No problems noted. Social History Social History (Updated 09/16/23 @ 15:42 by Hannah Goff MD) Housing: Apartment Are you a primary child care worker to a significant other at home: No Do you presently have visiting nurse or other home services: Yes ([employer] SUPERINTENDENT 2 x week) Alcohol intake: never Patient Tobacco Use Status: Former Tobacco user Tobacco use type: Cigarette Smoked in Last 30 Days: No e-Cigarette/Vaping Use: Never Used Second Hand Smoke Exposure: No Use of substances other than those prescribed or required for medical reasons: No Advance Directives: No Advance Directives Information Provided: No Do you have a plan to hurt others: No Plan service: No Current occupational status: disabled Cognitive needs: Yes Hearing needs: No Vision needs: Yes Physical Exam ED Vital Signs: Vital Signs - 24 hr 11/07/23 15:40 11/07/23 20:37 11/07/23 21:10 Temperature 98.6 F 97.6 F 97.6 F Pulse Rate 49 L 57 57 Respiratory Rate 16 16 16 Blood Pressure 186/71 H 171/71 H 171/71 H Pulse Oximetry 98 99 99 Oxygen Delivery Method Room Air Room Air Room Air BMI result Body Mass Index 31.6 Const Other: Alert well in appearance Orientation/consciousness: patient oriented x3 Resp Effort & Inspection: normal respiratory effort Cardio Other: Normal peripheral perfusion Skin Other: Warm dry no rash Neuro General: patient oriented x3, no focal motor deficits and CN's II-XI intact bilaterally Extrem Other: Strength 5/5 bilateral upper and lower extremities, patient walks with a normal steady gait Psych Other: Calm cooperative Course Course Course Narrative: RME: DOne by JOHN Juan. 78-year-old male sent to the ED for re-evaluation of labs. Patient was seen here yesterday for hypoglycemia with glucose of 40. Today EMS states glucose 188. Patient came to ED to be evaluated his glucose. Patient is asymptomatic. Patient heart rate 49. Will order EKG make sure just sinus. Labs ordered. Reevaluation(s) Time: 20:31 Medical Decision Making Medical Decision Making MDM Narrative: 78-year-old male with history of hypertension, hyperlipidemia, diabetes and hypothyroidism presents for repeat labs. Patient states he was seen in the emergency department yesterday, for hypoglycemia. He was medically cleared and sent home. Patient returns today because he did not have supplies at home; the patient states he has a pharmacy that delivers his medications and supplies, he should have the ability to check his point of care sugar by tomorrow. Problem: Diabetes History: Per patient I have considered the following differential diagnoses: Insulin reaction, hypoglycemia, beta-leon toxicity Plan: The patient is simply here because he did not have adequate supplies at home. His sugars have been stable, we have repeated again prior to discharge. He should have supplies by tomorrow. He can follow up with primary care. To note , the patient is assessment began out inRME I have independently reviewed the following tests: Labs: No leukocytosis, not anemic, no electrolyte abnormality, 1st sugar 126, the 2nd 195 the time of discharge Lab Data 11/07/23 16:15 11/07/23 16:15 Labs: Lab Results 11/07/23 11/07/23 11/07/23 Range/Units 16:15 17:50 20:32 WBC 6.7 (4.8-10.8) X10*3/uL RBC 3.93 L (4.60-5.80) X10*6/uL Hgb 11.9 L (14.0-18.0) g/dl Hct 35.2 L (42.0-52.0) % MCV 89.6 (80.0-98.0) fL MCH 30.3 (27.0-33.0) pg MCHC 33.8 (31.0-36.0) g/dl RDW 13.1 (11.0-16.0) % Plt Count 217 (160-400) X10*3/uL MPV 10.5 (9.4-12.4) fL Immature Gran % (Auto) 0.3 (0.0-0.4) % Neut % (Auto) 52.5 (45-73) % Lymph % (Auto) 30.2 (20-40) % [place] % (Auto) 13.8 H (2-11) % Eos % (Auto) 2.4 (0-4) % Baso % (Auto) 0.8 (0-2) % Lymph # (Auto) 2.0 (1.2-4.9) X10*3/uL [place] # (Auto) 0.9 (0.1-1.2) X10*3/uL Eos # (Auto) 0.2 (0.0-0.4) X10*3/uL Baso # (Auto) 0.1 (0.0-0.2) X10*3/uL Abs Immat Gran (auto) 0.02 (0.00-0.03) X10*3/uL Absolute Neuts (auto) 3.5 (2.0-8.3) x10*3/uL Absolute Nucleated RBC 0.000 (0.0-0.012) X10*3/uL Nucleated RBC % (auto) 0.0 (0.0-0.2) /100WBC PT 11.4 (10.9-12.4) SEC INR 1.0 (0.9-1.1) APTT 31.1 (26.0-36.8) SEC Sodium 137 (135-145) mmol/L Potassium 4.4 (3.3-5.1) mmol/L Chloride 105 (96-108) mmol/L Carbon Dioxide 24 (22-29) mmol/L Anion Gap 12 (12-20) BUN 23 H (9-16) mg/dL Creatinine 1.38 (0.5-1.4) mg/dL Estim Creat Clear Calc 38.2 Estimated GFR 50 POC Glucose 195 H (60-115) mg/dL Random Glucose 126 H (60-115) mg/dL Calcium 10.3 H (8.4-10.2) mg/dL Total Bilirubin 0.5 (0.0-1.0) mg/dL AST 19 (5-37) U/L ALT 16 (0-40) U/L Alkaline Phosphatase 113 (39-117) U/L Troponin I High Sens 24.2 (<3.5-35.0) ng/L Total Protein 7.9 (6.5-8.0) g/dL Albumin 4.3 (3.5-5.0) g/dL Discharge Plan Discharge Clinical Impression: Abnormal laboratory test, Hypoglycemia associated with diabetes Patient Disposition: Home, Self-Care Instructions: What to Do if Your Blood Sugar is Low (ED) Additional Instructions: All of your labs were normal today, the last blood sugar that we checked was 195. See home care instructions if your sugar becomes low at home. Follow up with your primary care provider, call tomorrow for a follow up appointment. Be sure to monitor your blood sugar at home, checking between meals and before bedtime. Prescriptions: No Action acetaminophen [Pain Relief (acetaminophen)] 500 mg tablet 500 mg PO Q6H PRN (Reason: fever) 30 Days Qty: 120 1RF hydralazine 50 mg tablet 50 mg PO TID 90 Days Qty: 270 3RF levothyroxine 100 mcg tablet 100 mcg PO DAILY 90 Days Qty: 90 1RF aspirin 81 mg tablet,delayed release (DR/EC) 81 mg PO DAILY Qty: 90 0RF atenolol 50 mg tablet 50 mg PO DAILY 90 Days Qty: 90 0RF chlorthalidone 50 mg tablet 50 mg PO DAILY 90 Days Qty: 90 0RF atorvastatin 10 mg tablet 10 mg PO BEDTIME 90 Days Qty: 90 0RF cholecalciferol (vitamin D3) 25 mcg (1,000 unit) tablet 25 mcg PO DAILY 90 Days Qty: 90 0RF metformin 1,000 mg tablet 1,000 mg PO BID Qty: 180 3RF insulin glargine [Lantus Solostar U-100 Insulin] 100 unit/mL (3 mL) insulin pen 55 unit subcut DAILY 90 Days Qty: 49.5 1RF (DME) blood-glucose meter [FreeStyle Lite Meter] Kit See Rx Instructions .Route Qty: 1 0RF Rx Instructions: As directed (DME) lancets [FreeStyle Lancets] 28 gauge misc See Rx Instructions .Route Qty: 100 2RF Rx Instructions: As directed three times per day (DME) FreeStyle Test Strip See Rx Instructions .Route Qty: 100 2RF Rx Instructions: As directed 3 times per day (DME) True Comfort Safety Pen Needle 31 gauge x 1/4 needle See Rx Instructions .Route Qty: 100 3RF Rx Instructions: once at bedtime As directed travoprost 0.004 % drops 0 drp ophthalmic (eye) losartan 50 mg tablet 50 mg PO DAILY Qty: 30 4RF Interventions: ED Discharge Assessment Last Done: 11/07/23 21:10 Discharge Date/Time: 11/07/23 21:11 Print Language: Slovenian
[2023-11-07 16:25] LABS: MANUAL DIFF FLAG NO
[2023-11-07 16:29] LABS: Basophils Absolute Auto 0.1 X10*3/uL (0.0-0.2); Basophils Percent Auto 0.8 % (0-2); Eosinophils Absolute Auto 0.2 X10*3/uL (0.0-0.4); Eosinophils Percent Auto 2.4 % (0-4); Hematocrit 35.2 % (42.0-52.0); Hemoglobin 11.9 g/dl (14.0-18.0); Imm Gran Abs Auto 0.02 X10*3/uL (0.00-0.03); Imm Gran Pct Auto 0.3 % (0.0-0.4); Lymphocytes Percent Auto 30.2 % (20-40); Mean Corpuscular HGB Conc 33.8 g/dl (31.0-36.0); Mean Corpuscular Hemoglobin 30.3 pg (27.0-33.0); Mean Corpuscular Volume 89.6 fL (80.0-98.0); Mean Platelet Volume 10.5 fL (9.4-12.4); Monocytes Absolute Auto 0.9 X10*3/uL (0.1-1.2); Monocytes Percent Auto 13.8 % (2-11); Neutrophils Absolute Auto 3.5 x10*3/uL (2.0-8.3); Neutrophils Percent Auto 52.5 % (45-73); Platelet Count 217 X10*3/uL (160-400); Red Blood Count 3.93 X10*6/uL (4.60-5.80); Red Cell Distribution Width 13.1 % (11.0-16.0); White Blood Count 6.7 X10*3/uL (4.8-10.8)
[2023-11-07 16:45] LABS: Alanine Aminotransferase 16 U/L (0-40); Albumin Level 4.3 g/dL (3.5-5.0); Alkaline Phosphatase 113 U/L (39-117); Anion Gap 12 (12-20); Aspartate Amino Transferase 19 U/L (5-37); Bilirubin Total 0.5 mg/dL (0.0-1.0); Blood Urea Nitrogen 23 mg/dL (9-16); Calcium 10.3 mg/dL (8.4-10.2); Carbon Dioxide 24 mmol/L (22-29); Chloride 105 mmol/L (96-108); Creatinine Clr Calc Pharmacy 38.2; Estimated Glomerular Filt Rate 50; Glucose Random 126 mg/dL (60-115); Potassium 4.4 mmol/L (3.3-5.1); Sodium 137 mmol/L (135-145); Total Protein 7.9 g/dL (6.5-8.0)
[2023-11-07 16:52] LABS: Troponin-I High Sensitivity 24.2 ng/L (<3.5-35.0)
[2023-11-07 18:11] LABS: Prothrombin Time 11.4 SEC (10.9-12.4)
[2023-11-07 18:14] LABS: Partial Thromboplastin Time 31.1 SEC (26.0-36.8)
--- NOTE | 2023-11-07 20:03 | PC.NURSE ---
pt from lobby, assume care of pt at this time
[2023-11-07 20:37] VITALS: BP 171/71; PULSE 57; RESP 16; TEMP 36.4; O2SAT 99
[2023-11-07 20:50] LABS: Glucose, Whole Blood 195 mg/dL (60-115)
[2023-11-07 21:10] VITALS: BP 171/71; PULSE 57; RESP 16; TEMP 36.4; O2SAT 99
== END 2023-11-07 21:11 | disposition home or self-care (01) ==
PROVIDERS: Physician Assistant; Emergency Provider Internal Medicine
DX: E11.649 Type 2 diabetes mellitus with hypoglycemia without coma (principal); R00.1 Bradycardia, unspecified; I10 Essential (primary) hypertension; Z87.891 Personal history of nicotine dependence; Z79.899 Other long term (current) drug therapy; Z51.81 Encounter for therapeutic drug level monitoring; Z79.4 Long term (current) use of insulin
CPT/HCPCS: 36415; 80053; 82947; 84484; 85025; 85610; 85730; 93005; 99283; 99284

== ENCOUNTER 2023-12-06 06:59 | Outpatient (REF) | payer OTHER, SELFPAY ==
[2023-12-06 07:22] LABS: MANUAL DIFF FLAG NO
[2023-12-06 07:47] LABS: Appearance Urine Clear; Color Urine Yellow; Glucose Urine UA 100 mg/dL (Negative); Leukocyte Esterase Urine Negative (Negative); Nitrite Urine Negative (Negative); Specific Gravity - Urine 1.015 (1.005-1.025); UMIC TRIGGER UA YES; Urine Blood Negative (Negative); Urine Ketones Negative (Negative); Urine Protein 300 (3+) mg/dL (Neg-Trace)
[2023-12-06 07:52] LABS: Bacteria Urine None Seen (None Seen); Hyaline Casts Urine 0-2 /LPF (0-2); RBC Urine 0-2 /HPF (0-2); Squamous Epithelial Cell Urine 0-2 /HPF (0-2); WBC Urine 0-5 /HPF (0-5)
[2023-12-06 07:52] LABS: Basophils Absolute Auto 0.1 X10*3/uL (0.0-0.2); Basophils Percent Auto 0.8 % (0-2); Eosinophils Absolute Auto 0.4 X10*3/uL (0.0-0.4); Eosinophils Percent Auto 4.9 % (0-4); Hematocrit 34.2 % (42.0-52.0); Hemoglobin 11.6 g/dl (14.0-18.0); Imm Gran Abs Auto 0.02 X10*3/uL (0.00-0.03); Imm Gran Pct Auto 0.3 % (0.0-0.4); Lymphocytes Absolute Auto 2.4 X10*3/uL (1.2-4.9); Lymphocytes Percent Auto 30.2 % (20-40); Mean Corpuscular HGB Conc 33.9 g/dl (31.0-36.0); Mean Corpuscular Hemoglobin 29.9 pg (27.0-33.0); Mean Corpuscular Volume 88.1 fL (80.0-98.0); Mean Platelet Volume 10.7 fL (9.4-12.4); Monocytes Absolute Auto 0.7 X10*3/uL (0.1-1.2); Monocytes Percent Auto 8.9 % (2-11); Neutrophils Absolute Auto 4.4 x10*3/uL (2.0-8.3); Neutrophils Percent Auto 54.9 % (45-73); Platelet Count 208 X10*3/uL (160-400); Red Blood Count 3.88 X10*6/uL (4.60-5.80); Red Cell Distribution Width 12.7 % (11.0-16.0); White Blood Count 7.9 X10*3/uL (4.8-10.8)
[2023-12-06 08:17] LABS: Alanine Aminotransferase 13 U/L (0-40); Alkaline Phosphatase 117 U/L (39-117); Anion Gap 13 (12-20); Aspartate Amino Transferase 20 U/L (5-37); Bilirubin Total 0.5 mg/dL (0.0-1.0); Blood Urea Nitrogen 20 mg/dL (9-16); Calcium 10.2 mg/dL (8.4-10.2); Carbon Dioxide 25 mmol/L (22-29); Chloride 105 mmol/L (96-108); Cholesterol 107 mg/dL (<200); Estimated Glomerular Filt Rate 53; Glucose Fasting 263 mg/dL (60-99); HDL Cholesterol 48 mg/dL (>40); Iron 41 mcg/dL (45-160); LDL Cholesterol Calculated 40 mg/dL (<100); Percent Iron Saturation 19 % (15-50); Potassium 4.1 mmol/L (3.3-5.1); Sodium 139 mmol/L (135-145); Total Iron Binding Capacity 215 mcg/dL (228-428); Total Protein 7.5 g/dL (6.5-8.0); Triglycerides 97 mg/dL (<150); Unsaturated Iron Binding 174 ug/dL
[2023-12-06 08:18] LABS: Creatinine Urine 107.83 mg/dL
[2023-12-06 08:27] LABS: Microalbum/Creatinine Ratio Ur 1554.2 ug/mg cr (<30)
[2023-12-06 08:39] LABS: Thyroid Stimulating Hormone 1.47 uIU/mL (0.32-4.0)
[2023-12-06 08:52] LABS: Folate 11.4 ng/mL (> or = 4.0)
[2023-12-06 09:38] LABS: Vitamin B12 232 pg/mL (200-900)
== END 2023-12-06 07:00 | disposition home or self-care (01) ==
LOC: HO.LAB 06:59
PROVIDERS: Internal Medicine; PCP Family Medicine; Visit Provider Internal Medicine Hypertension Specialist
DX: D64.9 Anemia, unspecified (principal); N18.2 Chronic kidney disease, stage 2 (mild); E53.8 Deficiency of other specified B group vitamins; E11.22 Type 2 diabetes mellitus with diabetic chronic kidney disease; E78.5 Hyperlipidemia, unspecified; E03.9 Hypothyroidism, unspecified
CPT/HCPCS: 36415; 80053; 80061; 81001; 82043; 82570; 82607; 82746; 83540; 84443; 85025

== ENCOUNTER 2023-12-10 09:30 | Outpatient (AMB) | payer OTHER, SELFPAY ==
[2023-12-10 09:32] VITALS: BP 140/60; PULSE 57; O2SAT 97; BMI 31.8
--- NOTE | 2023-12-10 09:32 | HO.NEPHOV_ITS ---
Vital Signs 12/10/23 09:32 Height 5 ft Weight 163 lb BMI 31.8 BP 140/60 H Blood Pressure Location Rt brachial Position Sitting Pulse 57 Pulse Source Pulse Oximeter Pulse Oximetry (%) 97 Oxygen Delivery Method Room Air Intake Visit Reasons: CKD/ Conf Intake Note: Frieda [id number] System Development Engineer Required: Yes Accompanied by: Self / Same As Patient Allergies No Known Allergies Allergy (Verified 12/10/23 09:34) HPI Comments Details: Elderly man with a history of hypertension and diabetes mellitus with CKD. He is here for semiannual follow-up. System Development Engineer service was used. Today has no specific complaints. Blood sugar seems to be better controlled. [facility], [facility] Medical History (Updated 11/08/23 @ 00:00 by PresenceLearningmarquis) DEVON (obstructive sleep apnea) Gout Hyperlipidemia LDL goal <100 Diabetic neuropathy Microalbuminuria Abdominal aortic ectasia High cholesterol Hypothyroid Hypertension Diabetes mellitus Surgical History History of cataract extraction History of hydrocelectomy Hx of colonoscopy Family History Father Medical history unknown Mother Diabetes Hypertension Paternal Grandmother Cancer Son No problems noted. Daughter No problems noted. Sister No problems noted. Brother No problems noted. Social History Housing: Apartment Are you a primary care manager to a significant other at home: No Do you presently have visiting nurse or other home services: Yes ([employer] AUT[employer] 2 x week) Alcohol intake: never Patient Tobacco Use Status: Former Tobacco user Tobacco use type: Cigarette e-Cigarette/Vaping Use: Never Used Second Hand Smoke Exposure: No service: No Current occupational status: disabled Cognitive needs: Yes Hearing needs: No Vision needs: Yes Physical Exam Vital Signs: BMI result Body Mass Index 31.8 Const General: comfortable; No acute distress Orientation/consciousness: patient oriented x3 Eyes General: appearance normal, both eyes and all related structures Visual Bush: normal visual bush by confrontation Neck Neck: Yes supple and Yes no JVD Resp Effort & Inspection: normal respiratory effort and respiratory effort not decreased Auscultation: rhonchi Cardio Palpation: no palpable S3 and no palpable S4 Heart sounds: no rubs GI Inspection: Yes normal to inspection Palpation (GI): Soft to palpation Percussion: Yes normal to percussion Auscultation: normal bowel sounds General: Yes no CVA tenderness Back/Spine/Pelvis Back: no CVA tenderness Skin General skin exam: no petechiae and no purpura Neuro General: patient oriented x3 and no focal motor deficits Extrem General: No clubbing and No edema Results Reviewed Nephrology Results: Hgb 11.6 g/dl (14.0-18.0) L 12/06/23 WBC 7.9 X10*3/uL (4.8-10.8) 12/06/23 Plt Count 208 X10*3/uL (160-400) 12/06/23 Sodium 139 mmol/L (135-145) 12/06/23 Potassium 4.1 mmol/L (3.3-5.1) 12/06/23 Chloride 105 mmol/L (96-108) 12/06/23 Carbon Dioxide 25 mmol/L (22-29) 12/06/23 BUN 20 mg/dL (9-16) H 12/06/23 Creatinine 1.32 mg/dL (0.5-1.4) 12/06/23 Calcium 10.2 mg/dL (8.4-10.2) 12/06/23 Urine Protein 300 (3+) mg/dL (Neg-Trace) H 12/06/23 Urine Creatinine 107.83 mg/dL 12/06/23 Assessment & Plan Assessment & Plan (1) CKD (chronic kidney disease) stage 2, GFR 60-89 ml/min: Code(s): N18.2 - Chronic kidney disease, stage 2 (mild) Category: Medical (2) Microalbuminuria: Code(s): R80.9 - Proteinuria, unspecified Category: Medical (3) Hypertension: Code(s): I10 - Essential (primary) hypertension Category: Medical Qualifiers: Hypertension type: renovascular hypertension Qualified Code(s): I15.0 - Renovascular hypertension Plan Elderly man with mild CKD in a setting of longstanding hypertension diabetes mellitus. Hypertension blood pressure was suboptimal ADDED LOSARTAN 50 mg daily on 05/26/23 BP is better now . Discussed low-salt diet. Diabetes mellitus goes maintain a hemoglobin A1c less than 7%. He will benefit from SGLT 2 inhibitor. creatinine was 1.3 with EGFR of more than 53 mL/minutes Probably new baseline Encourage to increase fluid intake and to avoid nephrotoxic agents including NSAIDs. Will continue monitor renal function periodically. Orders: Orders Complete Blood Count no Diff 6 Months I15.0 - Renovascular hypertension, R80.9 - Proteinuria, unspecified Basic Metabolic Panel 6 Months I15.0 - Renovascular hypertension, R80.9 - Proteinuria, unspecified Coding Level of Care Code Est Pt Level 4 (03748) Diagnoses CKD (chronic kidney disease) stage 2, GFR 60-89 ml/min N18.2 Microalbuminuria R80.9 Renovascular hypertension I15.0 Hypertension type: renovascular hypertension
== END 2023-12-10 09:44 | disposition home or self-care (01) ==
LOC: HO.HKA 09:31
PROVIDERS: PCP Internal Medicine; Visit Provider Internal Medicine Hypertension Specialist
DX: I12.9 Hypertensive chronic kidney disease with stage 1 through stage 4 chronic kidney disease, or unspecified chronic kidney disease (principal); E11.22 Type 2 diabetes mellitus with diabetic chronic kidney disease; N18.2 Chronic kidney disease, stage 2 (mild); R80.9 Proteinuria, unspecified
CPT/HCPCS: 99214

== ENCOUNTER → 2023-12-10 09:30 | Outpatient (BNVA) | payer OTHER, SELFPAY | PROVIDERS: PCP Internal Medicine; Visit Provider Internal Medicine Hypertension Specialist | DX: I15.0 Renovascular hypertension (principal); N18.2 Chronic kidney disease, stage 2 (mild); R80.9 Proteinuria, unspecified | CPT/HCPCS: 99212 ==

== ENCOUNTER 2024-03-10 09:40 | Outpatient (AMB) | payer OTHER, SELFPAY ==
[2024-03-10 09:39] VITALS: BP 116/60; PULSE 73; O2SAT 96; BMI 28.9
--- NOTE | 2024-03-10 09:39 | HO.NEPHOV_ITS ---
Vital Signs 03/10/24 09:39 Height 5 ft Weight 148 lb BMI 28.9 BP 116/60 Blood Pressure Location Rt brachial Position Sitting Pulse 73 Pulse Source Pulse Oximeter Pulse Oximetry (%) 96 Oxygen Delivery Method Room Air Intake Visit Reasons: Elevated blood pressure/ Conf Composing Room Machinist Apprentice Required: No Composing Room Machinist Apprentice Services: Composing Room Machinist Apprentice Offered & Declined (Daughter will translate) Accompanied by: Daughter Allergies No Known Allergies Allergy (Verified 03/10/24 09:41) Medication List - Last Reconciled 03/10/24 by Star Luis MD acetaminophen (Pain Relief (acetaminophen)) 500 mg PO Q6H PRN 30 days amlodipine 2.5 mg PO DAILY aspirin 81 mg PO DAILY atenolol 50 mg PO DAILY 90 days atorvastatin 10 mg PO BEDTIME 90 days blood sugar diagnostic (FreeStyle Test strips) As directed 3 times per day blood-glucose meter (FreeStyle Lite Meter kit) As directed cholecalciferol (vitamin D3) 25 mcg PO DAILY 90 days hydralazine 50 mg PO TID 90 days insulin glargine (Lantus Solostar U-100 Insulin) 12 units subcut DAILY lancets (FreeStyle Lancets) As directed three times per day levothyroxine 100 mcg PO DAILY 90 days losartan 100 mg PO DAILY mirtazapine 7.5 mg PO DAILY mirtazapine 15 mg PO DAILY pen needle, diabetic, safety (True Comfort Safety Pen Needle) once at bedtime As directed tirzepatide (Mounjaro) 7.5 mg subcut QWEEK travoprost 0.004% 0 drps ophthalmic (eye) HPI Comments Details: Elderly man with a history of hypertension and diabetes mellitus with CKD. He is here for semiannual follow-up. Composing Room Machinist Apprentice service was used. Today has no specific complaints. Blood sugar seems to be better controlled. 03/10/24 Accompanied by daughter Lost about 20 lbs Mounjaro has been added Losartan increased to 100 mg a month ago Amlodipine added few days ago because previous sBP was in 140s PENDING SALE TO [facility] Medical History (Updated 03/10/24 @ 10:04 by Star Luis MD) DEVON (obstructive sleep apnea) Gout Hyperlipidemia LDL goal <100 Diabetic neuropathy Microalbuminuria Abdominal aortic ectasia High cholesterol Hypothyroid Hypertension Diabetes mellitus Surgical History History of cataract extraction History of hydrocelectomy Hx of colonoscopy Family History Father Medical history unknown Mother Diabetes Hypertension Paternal Grandmother Cancer Son No problems noted. Daughter No problems noted. Sister No problems noted. Brother No problems noted. Social History Housing: Apartment Are you a primary neurocritical care physician to a significant other at home: No Do you presently have visiting nurse or other home services: Yes (RN CLINICIAN 2 x week) Alcohol intake: never Patient Tobacco Use Status: Former Tobacco user Tobacco use type: Cigarette e-Cigarette/Vaping Use: Never Used Second Hand Smoke Exposure: No service: No Current occupational status: disabled Cognitive needs: Yes Hearing needs: No Vision needs: Yes Physical Exam Vital Signs: Last Vital Signs Pulse 73 03/10/24 09:39 BP 116/60 03/10/24 09:39 Pulse Ox 96 03/10/24 09:39 Oxygen Delivery Method Room Air 03/10/24 09:39 BMI result Body Mass Index 28.9 Comfortable Neck supple no JVD. Lungs entry equal no rales. Heart S1-S2 heard no gallop or rub. Abdomen soft nontender. Neuro alert awake oriented. No asterixis. Extremities no edema. Results Reviewed Results Reviewed: BUN 21 Cr 1.51 on 01/22/24 Nephrology Results: Hgb 11.6 g/dl (14.0-18.0) L 12/06/23 WBC 7.9 X10*3/uL (4.8-10.8) 12/06/23 Plt Count 208 X10*3/uL (160-400) 12/06/23 Sodium 139 mmol/L (135-145) 12/06/23 Potassium 4.1 mmol/L (3.3-5.1) 12/06/23 Chloride 105 mmol/L (96-108) 12/06/23 Carbon Dioxide 25 mmol/L (22-29) 12/06/23 BUN 20 mg/dL (9-16) H 12/06/23 Creatinine 1.32 mg/dL (0.5-1.4) 12/06/23 Calcium 10.2 mg/dL (8.4-10.2) 12/06/23 Urine Protein 300 (3+) mg/dL (Neg-Trace) H 12/06/23 Urine Creatinine 107.83 mg/dL 12/06/23 Assessment & Plan Assessment & Plan (1) CKD (chronic kidney disease) stage 2, GFR 60-89 ml/min: Code(s): N18.2 - Chronic kidney disease, stage 2 (mild) Category: Medical (2) Microalbuminuria: Code(s): R80.9 - Proteinuria, unspecified Category: Medical (3) Hypertension: Code(s): I10 - Essential (primary) hypertension Category: Medical Qualifiers: Hypertension type: renovascular hypertension Qualified Code(s): I15.0 - Renovascular hypertension Plan Elderly man with mild CKD in a setting of longstanding hypertension diabetes mellitus. Hypertension blood pressure is better controlled Infact few readings are low With expected weight loss with Mounjaro, BP might drop further Watcgth BP at home . Discussed low-salt diet. Diabetes mellitus Goal is to maintain a hemoglobin A1c less than 7%. creatinine was 1.3 with EGFR of more than 53 mL/minutes Bumped up to 1.51 DDX- hypoperfusion/Vol depletion vs natural progression REcheck in 4 weeks IF cr increases further or if SBP < 110, would decrease Losartan by 50% Encourage to increase fluid intake and to avoid nephrotoxic agents including NSAIDs. Will continue monitor renal function periodically. Mild anemia due to CKD Shall watch Orders: Orders Basic Metabolic Panel 4 Weeks Star Luis MD N18.9 - Chronic kidney disease, unspecified Medications: Changed From insulin glargine (Lantus Solostar U-100 Insulin) 60 units (0.6 mL) subcut DAILY 90 days 54 mL 1RF E11.9 - Type 2 diabetes mellitus without complications To insulin glargine (Lantus Solostar U-100 Insulin) 12 units subcut DAILY E11.9 - Type 2 diabetes mellitus without complications Hannah Goff MD Coding Level of Care Code Est Pt Level 4 (71170) Diagnoses CKD (chronic kidney disease) stage 2, GFR 60-89 ml/min N18.2 Microalbuminuria R80.9 Renovascular hypertension I15.0 Hypertension type: renovascular hypertension
--- OUTSIDE RECORDS SUMMARY | 2024-03-10 10:16 | XMS_ITS | Data Portability ---
Author Organization [facility], Main Office Address [address] [place] [address] Care Team Providers Care Chuck Wagon Cook Name Role Phone MITUL CLIFTON Primary Care Provider FABI TRINH Referring Provider STEFANY RICHARD Factory Focus Technician [facility] Factory Focus Technician [phone] CORAL RG Dry Curer KATHRYN RUIZ Performance Improvement Analyst [facility] Trouble Clerk [phone] Assessment Encounter Date Assessment Date Assessment LastModified by Organization Details LastModified Time 12/04/2023 12/04/2023 I have spent 45 minutes on this encounter. The time documented represents time spent on the day of the encounter preparing for and completing the visit. Time spent performing a physical exam, obtaining history from the patient, counseling/edu cating the patient in possible diagnosis and treatment options. This time is independent of any additional procedures/shameka gnostic testing/interp retations. damari Not available 12/04/2023 07:56:39 Plan of Treatment Reminders Order Date Submit Date Provider Last Modified By Organization Details Last Modified Time Details Appointments Follow Up DM 30 2024 01:00P Chriss Clifton MD Not available Not available Not available AWV30 2024 10:00A Chriss Clifton MD Not available Not available Not available Lab magnes ium, serum or plasma 2023 024 JENNY [facility], [address], [place], [address], 02/03/2024 14:06:03 vitami n B12, serum 2023 [facility], [address] [place], [address], 12/04/2023 11:54:44 trepon sheron pallid um IgG + IgM Ab, QL, IA, serum 2023 [facility], [address] [address], [place], [address], 02/03/2024 14:06:03 CBC w/ auto diff 2023 [facility], [address] [place], [address], 02/03/2024 14:05:55 CMP, serum or plasma 2023 JENNY [facility], [address], [address] [address], [place], [address], 02/03/2024 14:05:56 PSA, serum or plasma 2023 024 [facility], [address], [address] [address], [place], [address], 02/03/2024 14:06:01 urinal ysis comple te, reflex cultur e 2023 [place] [facility], [address], [address] [address], [place], [address], 02/03/2024 14:05:57 inflam mation panel, serum or plasma 2023 024 [place] [facility], [address] , [facility] [address], [place], [address], 02/03/2024 14:06:00 vitami n B12 + folate , serum or blood 2023 024 [facility], [address], [facility] [address], [place], [address], 02/03/2024 14:05:54 lipid panel, serum 2023 024 [facility], [address], [place], [address], 02/03/2024 14:05:58 hemogl obin A1C, finger stick 2023 024 JENNY In-Office Order, Internal Use Only DO Not Attach Compendium DO Not Attach Compendium, Do Not Delete/merge, [id number] 12/04/2023 12:13:48 microa lbumin /creat inine, mass ratio, urine 2023 024 JENNY [facility], [address], [address] [address], [place], [address], 02/03/2024 14:05:59 vitami n D, 25-hyd josé miguel, total, serum 2023 024 JENNY [facility], [address], [address] [address], [place], [address], 02/03/2024 14:06:02 Hepati tis C IgG Ab, qual, serum 2023 024 JENNY [facility], [address], [address] [address], [place], [address], 02/03/2024 14:06:00 TSH + free T4, serum 2023 024 JENNY [facility], [address], [address] [address], [place], [address], 02/03/2024 14:05:54 BMP, serum or plasma 2024 025 JENNY [facility], [address], [address] [address], [place], [address], 03/03/2024 16:59:47 hemogl obin A1C, finger stick 2024 025 [facility] Order, Internal Use Only DO Not Attach Compendium DO Not Attach Compendium, Do Not Delete/merge, [id number] 03/03/2024 16:59:41 microa lbumin /creat inine, mass ratio, urine 2024 [place] [facility], [address], [facility] [address], [place], [address], 03/03/2024 16:59:47 Referral sleep medici ne referr al 2023 024 [facility], [address] [place], [address], 01/01/2024 09:46:46 dermat ologis t referr al - SPANIS H-SPEA KING joe t; jeb s [facility] locati on 2023 [facility], [address], [place], [address], 12/11/2023 14:07:26 Procedures None record ed. Surgeries None record ed. Imaging US, abdomi nal aorta 2023 [facility] (Ultrasound), [address], [place], [address], 02/06/2024 09:39:26 Medication Orders Mounja ro 2.5 mg/0.5 mL subcut aneous pen inject or 2023 024 [facility], [address], [facility] [address], [place], [id number], 01/07/2024 17:07:46 losart an 100 mg tablet 2023 025 bolivar [facility], [address], [facility] [address], [place], [id number], 02/13/2024 20:50:54 mirtaz apine 7.5 mg tablet 2023 025 [facility], [address], [facility] [address], [place], [id number], 03/04/2024 07:58:13 amlodi pine 2.5 mg tablet 2024 025 [facility], [address], [id number], 03/03/2024 17:02:57 mirtaz apine 15 mg tablet 2024 025 [facility], [address], [id number], 03/09/2024 14:54:13 Patient TargetsNo targets recorded. Patient Instructions Encounter Date Encounter Id Patient Instructions Last Modified By Organization Details Last Modified Time 12/04/2023 [id number] Cuando desea bajar de peso: Instrucciones de cuidado - [When You Want to Lose Weight: Care Instructions] damari Not available 12/04/2023 11:55:03 apnea del stevo? ? ?o: instrucciones de cuidado - [sleep apnea: care instructions] damari Not available 12/04/2023 11:54:21 high cholesterol: care instructions devkar Not available 12/04/2023 11:54:20 hypothyroidism: care instructions [facility] 12/04/2023 11:54:21 starting a weight loss plan: care instructions [facility] 12/04/2023 11:55:03 lesiones cut? ? ?neas: instrucciones de cuidado - [skin lesions: care instructions] [facility] available 12/04/2023 11:54:20 01/27/2024 [id number] C? ? ?mo evitar la recurrencia de la depresi? ? ?n: Instrucciones de cuidado - [Preventing Depression From Coming Back: Care Instructions] damari Not available 01/27/2024 11:05:50 decisi? ? ?n sobre suspender wiley antidepresivo - [deciding about stopping your antidepressant] devkar Not available 01/27/2024 11:05:50 la depresi? ? ?n y las enfermedades cr? ? ?nicas: instrucciones de cuidado - [depression and chronic disease: care instructions] damari Not available 01/27/2024 11:05:49 pensamientos suicidas en un miembro de la nelli: instrucciones de cuidado - [suicidal thoughts in a family member: care instructions] ckokar Not available 01/27/2024 11:05:50 recuperaci? ? ?n de la depresi? ? ?n: instrucciones de cuidado - [recovering from depression: care instructions] ckokar Not available 01/27/2024 11:05:50 trastorno afectivo estacional: instrucciones de cuidado - [seasonal affective disorder: care instructions] ckokar Not available 01/27/2024 11:05:50 tratamiento para la depresi? ? ?n: instrucciones de cuidado - [depression treatment: care instructions] ckokar Not available 01/27/2024 11:05:50 anorexia: instrucciones de cuidado - [anorexia: care instructions] ckokar Not available 01/27/2024 11:05:50 apnea del stevo? ? ?o: instrucciones de cuidado - [sleep apnea: care instructions] ckokar Not available 01/27/2024 11:05:50 03/03/2024 [id number] C? ? ?mo evitar la recurrencia de la depresi? ? ?n: Instrucciones de cuidado - [Preventing Depression From Coming Back: Care Instructions] ckokar Not available 03/03/2024 16:59:42 decisi? ? ?n sobre suspender wiley antidepresivo - [deciding about stopping your antidepressant] ckokar Not available 03/03/2024 16:59:42 la depresi? ? ?n y las enfermedades cr? ? ?nicas: instrucciones de cuidado - [depression and chronic disease: care instructions] ckokar Not available 03/03/2024 16:59:42 pensamientos suicidas en un miembro de la nelli: instrucciones de cuidado - [suicidal thoughts in a family member: care instructions] ckokar Not available 03/03/2024 16:59:42 recuperaci? ? ?n de la depresi? ? ?n: instrucciones de cuidado - [recovering from depression: care instructions] ckokar Not available 03/03/2024 16:59:42 trastorno afectivo estacional: instrucciones de cuidado - [seasonal affective disorder: care instructions] ckokar Not available 03/03/2024 16:59:42 tratamiento para la depresi? ? ?n: instrucciones de cuidado - [depression treatment: care instructions] ckokar Not available 03/03/2024 16:59:42 hipotiroidismo: instrucciones de cuidado - [hypothyroidism: care instructions] ckokar Not available 03/03/2024 16:59:42 Medications (OTC, herbal therapies, supplements) reviewed and reconciled with patient and or caregiver, including potential side effects, drug interactions, instructions, and the consequences of not taking medication. Reviewed potential barriers to medication adherence, such as side effects from medication or cost of medication. [email or web address] Not available 03/03/2024 16:00:20 Reason for Referral Trouble Clerk Referral for S kin lesion skin lesions on right cheek PASHTO-SPEAKING patient; prefers [place] location Referring Physician: Mitul Clifton [facility], Encounter Date: 12/04/2023 Sleep Medicine Referral for Obstructive sleep apnea syndrome Referring Physician: Mitul Clifton [facility], Encounter Date: 12/04/2023 Results Created Date Observation Date Name Description Value Unit Range Abnormal Flag Note LastModifiedBy Organization Detail LastModifiedTime 12/04/19 24 12/04/2023 hemog lobin A1C, finge rstic k A1C 7.9 % 4-6 abnormal Not Available In-Office Order Internal Use Only DO Not Attach Compendium DO Not Attach Compendium, Do Not Delete/merge, [id number] 12/04/2023 07:52:59 01/22/2001/25/2024 MITOC HONDR IAL (M2) ANTIB KURT mitochondria l (M2) antibody <20.0 units 0.0-20 .0 Negat jhonny 0.0 - 20.0 Equiv ocal 20.1 - 24.9 Posit jhonny >24.9 Mitoc hondr ial (M2) Antib odies are found in 90-96 % of patie nts with prima ry bilia ry cirrh osis. Not Available [facility] ([facility]) [address], [place], [address], 01/25/2024 20:06:01 01/22/20 24 01/25/2024 GGT GGT 34 IU/L 0-65 normal Not Available [facility] ([facility]) [address], [place], [address], 01/25/2024 20:06:02 01/22/20 24 01/24/2024 WRITT EN AUTHO RIZAT ION written authorizatio n Amada t Neris en Autho rizat ion Recei luiza. Autho rizat ion recei luiza from [facility] CHARLIE CLITFON for Link Reque st on 01-23 Logge d by Gay Garnett Not Available [facility] ([facility]) [address], [place], [address], 01/25/2024 20:06:02 01/22/20 24 01/24/2024 VITAM IN B12+F OLATE vitamin B12 304 pg/mL 232-12 45 normal Not Available [facility] ([facility]) [address], [place], [address], 02/03/2024 14:05:54 01/22/20 24 01/24/2024 VITAM IN B12+F OLATE folate (folic acid), serum 15.1 NG/mL >3.0 normal A serum folat e spike ntrat ion of less than 3.1 ng/mL is consi dered to repre sent clini ravi defic iency . Not Available [facility] ([facility]) [address], [place], [address], 02/03/2024 14:05:54 01/22/20 24 01/27/2024 VITAM IN B12+F OLATE homocyst(E)i ne 39.5 umol/ L 0.0-19 .2 above high normal Not Available [facility] ([facility]) [address], [place], [address], 02/03/2024 14:05:54 01/22/20 24 02/03/2024 VITAM IN B12+F OLATE methylmaloni c acid, serum 795 nmol/ L 0-378 above high normal Not Available [facility] ([facility]) [address], [place], [address], 02/03/2024 14:05:54 01/22/20 24 01/23/2024 TSH+F REE T4 TSH 0.398 uIU/m L 0.450- 4.500 below low normal Not Available [facility] ([facility]) [address] [place], [address], 02/03/2024 14:05:54 01/22/20 24 01/23/2024 TSH+F REE T4 T4,free(dire ct) 1.69 NG/dL 0.82-1 .77 normal Not Available [facility] ([facility]) [address] [place], [address], 02/03/2024 14:05:54 01/22/20 24 01/22/2024 CBC WITH DIFFE RENTI AL/PL ATELE T WBC 8.8 x10e3 /uL 3.4-10 .8 normal Not Available [facility] ([facility]) [address] [place], [address], 02/03/2024 14:05:55 01/22/20 24 01/22/2024 CBC WITH DIFFE RENTI AL/PL ATELE T RBC 4.17 x10e6 /uL 4.14-5 .80 normal Not Available [facility] ([facility]) [address] [place], [address], 02/03/2024 14:05:55 01/22/20 24 01/22/2024 CBC WITH DIFFE RENTI AL/PL ATELE T hemoglobin 12.4 g/dL 13.0-1 7.7 below low normal Not Available [facility] ([facility]) [address], [place], [address], 02/03/2024 14:05:55 01/22/20 24 01/22/2024 CBC WITH DIFFE RENTI AL/PL ATELE T hematocrit 38.2 % 37.5-5 1.0 normal Not Available [facility] ([facility]) [address], [place], [address], 02/03/2024 14:05:55 01/22/20 24 01/22/2024 CBC WITH DIFFE RENTI AL/PL ATELE T MCV 92 fL 79-97 normal Not Available [facility] ([facility]) [address], [place], [address], 02/03/2024 14:05:55 01/22/20 24 01/22/2024 CBC WITH DIFFE RENTI AL/PL ATELE T MCH 29.7 pg 26.6-3 3.0 normal Not Available [facility] ([facility]) [address] [place], [address], 02/03/2024 14:05:55 01/22/20 24 01/22/2024 CBC WITH DIFFE RENTI AL/PL ATELE T MCHC 32.5 g/dL 31.5-3 5.7 normal Not Available [facility] ([facility]) [address] [place], [address], 02/03/2024 14:05:55 01/22/20 24 01/22/2024 CBC WITH DIFFE RENTI AL/PL ATELE T RDW 12.4 % 11.6-1 5.4 Not Available [facility] ([facility]) [address] [place], [address], 02/03/2024 14:05:55 01/22/20 24 01/22/2024 CBC WITH DIFFE RENTI AL/PL ATELE T platelets 277 x10e3 /uL 150-45 0 normal Not Available [facility] ([facility]) [address], [place], [address], 02/03/2024 14:05:55 01/22/20 24 01/22/2024 CBC WITH DIFFE RENTI AL/PL ATELE T neutrophils 61 % not estab. normal Not Available [facility] ([facility]) [address], [place], [address], 02/03/2024 14:05:55 01/22/20 24 01/22/2024 CBC WITH DIFFE RENTI AL/PL ATELE T lymphs 25 % not estab. normal Not Available [facility] ([facility]) [address], [place], [address], 02/03/2024 14:05:55 01/22/20 24 01/22/2024 CBC WITH DIFFE RENTI AL/PL ATELE T monocytes 9 % not estab. normal Not Available [facility] ([facility]) [address], [place], [address], 02/03/2024 14:05:55 01/22/20 24 01/22/2024 CBC WITH DIFFE RENTI AL/PL ATELE T eos 4 % not estab. normal Not Available [facility] ([facility]) [address], [place], [address], 02/03/2024 14:05:55 01/22/20 24 01/22/2024 CBC WITH DIFFE RENTI AL/PL ATELE T basos 1 % not estab. normal Not Available [facility] ([facility]) [address], [place], [address], 02/03/2024 14:05:55 01/22/20 24 01/22/2024 CBC WITH DIFFE RENTI AL/PL ATELE T immature cells TARIFF COMPILER Not Available [facility] ([facility]) [address], [place], [address], 02/03/2024 14:05:55 01/22/20 24 01/22/2024 CBC WITH DIFFE RENTI AL/PL ATELE T neutrophils (absolute) 5.4 x10e3 /uL 1.4-7. 0 normal Not Available [facility] ([facility]) [address], [place], [address], 02/03/2024 14:05:55 01/22/20 24 01/22/2024 CBC WITH DIFFE RENTI AL/PL ATELE T lymphs (absolute) 2.2 x10e3 /uL 0.7-3. 1 normal Not Available [facility] ([facility]) [address] [place], [address], 02/03/2024 14:05:55 01/22/20 24 01/22/2024 CBC WITH DIFFE RENTI AL/PL ATELE T monocytes(ab solute) 0.8 x10e3 /uL 0.1-0. 9 normal Not Available [facility] ([facility]) [address] [place], [address], 02/03/2024 14:05:55 01/22/20 24 01/22/2024 CBC WITH DIFFE RENTI AL/PL ATELE T eos (absolute) 0.4 x10e3 /uL 0.0-0. 4 normal Not Available [facility] ([facility]) [address] [place], [address], 02/03/2024 14:05:55 01/22/20 24 01/22/2024 CBC WITH DIFFE RENTI AL/PL ATELE T baso (absolute) 0.1 x10e3 /uL 0.0-0. 2 normal Not Available [facility] ([facility]) [address] [place], [address], 02/03/2024 14:05:55 01/22/20 24 01/22/2024 CBC WITH DIFFE RENTI AL/PL ATELE T immature granulocytes 0 % not estab. Not Available [facility] ([facility]) [address], [place], [address], 02/03/2024 14:05:55 01/22/20 24 01/22/2024 CBC WITH DIFFE RENTI AL/PL ATELE T immature grans (abs) 0.0 x10e3 /uL 0.0-0. 1 Not Available [facility] ([facility]) [address], [place], [address], 02/03/2024 14:05:55 01/22/20 24 01/22/2024 CBC WITH DIFFE RENTI AL/PL ATELE T NRBC TARIFF COMPILER Not Available [facility] ([facility]) [address], [place], [address], 02/03/2024 14:05:55 01/22/20 24 01/22/2024 CBC WITH DIFFE RENTI AL/PL ATELE T hematology comments: TARIFF COMPILER Not Available [facility] ([facility]) [address], [place], [address], 02/03/2024 14:05:55 01/22/20 24 01/23/2024 COMP. METAB OLIC PANEL (14) glucose 361 mg/dL 70-99 above high normal Not Available [facility] ([facility]) [address], [place], [address], 02/03/2024 14:05:56 01/22/20 24 01/23/2024 COMP. METAB OLIC PANEL (14) BUN 27 mg/dL 8-27 normal Not Available [facility] ([facility]) [address], [place], [address], 02/03/2024 14:05:56 01/22/20 24 01/23/2024 COMP. METAB OLIC PANEL (14) creatinine 1.51 mg/dL 0.76-1 .27 above high normal Not Available [facility] ([facility]) [address], [place], [address], 02/03/2024 14:05:56 01/22/20 24 01/23/2024 COMP. METAB OLIC PANEL (14) eGFR 47 mL/mi n/1.7 3 >59 below low normal Not Available [facility] ([facility]) [address], [place], [address], 02/03/2024 14:05:56 01/22/20 24 01/23/2024 COMP. METAB OLIC PANEL (14) BUN/creatini ne ratio 18 10-24 normal Not Available [facility] ([facility]) [address], [place], [address], 02/03/2024 14:05:56 01/22/20 24 01/23/2024 COMP. METAB OLIC PANEL (14) sodium 133 mmol/ L 134-14 4 below low normal Not Available [facility] ([facility]) [address], [place], [address], 02/03/2024 14:05:56 01/22/20 24 01/23/2024 COMP. METAB OLIC PANEL (14) potassium 4.3 mmol/ L 3.5-5. 2 normal Not Available [facility] ([facility]) [address], [place], [address], 02/03/2024 14:05:56 01/22/20 24 01/23/2024 COMP. METAB OLIC PANEL (14) chloride 97 mmol/ L 96-106 normal Not Available [facility] ([facility]) [address], [place], [address], 02/03/2024 14:05:56 01/22/20 24 01/23/2024 COMP. METAB OLIC PANEL (14) carbon dioxide, total 19 mmol/ L 20-29 below low normal Not Available [facility] ([facility]) [address], [place], [address], 02/03/2024 14:05:56 01/22/20 24 01/23/2024 COMP. METAB OLIC PANEL (14) calcium 9.9 mg/dL 8.6-10 .2 normal Not Available [facility] ([facility]) [address], [place], [address], 02/03/2024 14:05:56 01/22/20 24 01/23/2024 COMP. METAB OLIC PANEL (14) protein, total 7.7 g/dL 6.0-8. 5 normal Not Available [facility] ([facility]) [address], [place], [address], 02/03/2024 14:05:56 01/22/20 24 01/23/2024 COMP. METAB OLIC PANEL (14) albumin 4.3 g/dL 3.8-4. 8 normal Not Available [facility] ([facility]) [address], [place], [address], 02/03/2024 14:05:56 01/22/20 24 01/23/2024 COMP. METAB OLIC PANEL (14) globulin, total 3.4 g/dL 1.5-4. 5 Not Available [facility] ([facility]) [address], [place], [address], 02/03/2024 14:05:56 01/22/20 24 01/23/2024 COMP. METAB OLIC PANEL (14) bilirubin, total 0.5 mg/dL 0.0-1. 2 normal Not Available [facility] ([facility]) [address], [place], [address], 02/03/2024 14:05:56 01/22/20 24 01/23/2024 COMP. METAB OLIC PANEL (14) alkaline phosphatase 152 IU/L 44-121 above high normal Not Available [facility] ([facility]) [address], [place], [address], 02/03/2024 14:05:56 01/22/20 24 01/23/2024 COMP. METAB OLIC PANEL (14) AST (SGOT) 18 IU/L 0-40 normal Not Available [facility] ([facility]) [address], [place], [address], 02/03/2024 14:05:56 01/22/20 24 01/23/2024 COMP. METAB OLIC PANEL (14) ALT (SGPT) 16 IU/L 0-44 normal Not Available [facility] ([facility]) [address], [place], [address], 02/03/2024 14:05:56 01/22/20 24 01/23/2024 UA/M W/RFL X CULTU RE, COMP specific gravity 1.024 1.005- 1.030 normal Not Available [facility] ([facility]) [address], [place], [address], 02/03/2024 14:05:57 01/22/20 24 01/23/2024 UA/M W/RFL X CULTU RE, COMP pH 5.5 5.0-7. 5 normal Not Available [facility] ([facility]) [address], [place], [address], 02/03/2024 14:05:57 01/22/20 24 01/23/2024 UA/M W/RFL X CULTU RE, COMP urine-color Yellow yellow Not Available [facility] ([facility]) [address], [place], [address], 02/03/2024 14:05:57 01/22/20 24 01/23/2024 UA/M W/RFL X CULTU RE, COMP appearance Cloudy clear abnormal Not Available [facility] ([facility]) [address], [place], [address], 02/03/2024 14:05:57 01/22/20 24 01/23/2024 UA/M W/RFL X CULTU RE, COMP WBC esterase 1+ negati ve abnormal Not Available [facility] ([facility]) [address], [place], [address], 02/03/2024 14:05:57 01/22/20 24 01/23/2024 UA/M W/RFL X CULTU RE, COMP protein 3+ negati ve/tra ce abnormal Not Available [facility] ([facility]) [address], [place], [address], 02/03/2024 14:05:57 01/22/20 24 01/23/2024 UA/M W/RFL X CULTU RE, COMP glucose 2+ negati ve abnormal Not Available [facility] ([facility]) [address], [place], [address], 02/03/2024 14:05:57 01/22/20 24 01/23/2024 UA/M W/RFL X CULTU RE, COMP ketones Trace negati ve abnormal Not Available [facility] ([facility]) [address], [place], [address], 02/03/2024 14:05:57 01/22/20 24 01/23/2024 UA/M W/RFL X CULTU RE, COMP occult blood Negati ve negati ve Not Available [facility] ([facility]) [address] [facility], [place], [address], 02/03/2024 14:05:57 01/22/20 24 01/23/2024 UA/M W/RFL X CULTU RE, COMP bilirubin Negati ve negati ve Not Available [facility] ([facility]) [address] [place], [address], 02/03/2024 14:05:57 01/22/20 24 01/23/2024 UA/M W/RFL X CULTU RE, COMP urobilinogen ,semi-qn 1.0 mg/dL 0.2-1. 0 normal Not Available [facility] ([facility]) [address] [place], [address], 02/03/2024 14:05:57 01/22/20 24 01/23/2024 UA/M W/RFL X CULTU RE, COMP nitrite, urine Negati ve negati ve Not Available [facility] ([facility]) [address] [facility], [place], [address], 02/03/2024 14:05:57 01/22/20 24 01/23/2024 UA/M W/RFL X CULTU RE, COMP microscopic examination See below: Micro scopi c was indic ated and was perfo rmed. Not Available [facility] ([facility]) [address] [facility], [place], [address], 02/03/2024 14:05:57 01/22/20 24 01/23/2024 UA/M W/RFL X CULTU RE, COMP WBC 6-10 /hpf 0 - 5 abnormal Not Available [facility] ([facility]) [address] [facility], [place], [address], 02/03/2024 14:05:57 01/22/20 24 01/23/2024 UA/M W/RFL X CULTU RE, COMP RBC None seen /hpf 0 - 2 Not Available [facility] ([facility]) [address] [facility], [place], [address], 02/03/2024 14:05:57 01/22/20 24 01/23/2024 UA/M W/RFL X CULTU RE, COMP epithelial cells (non renal) 0-10 /hpf 0 - 10 Not Available [facility] ([facility]) [address] [place], [address], 02/03/2024 14:05:57 01/22/20 24 01/23/2024 UA/M W/RFL X CULTU RE, COMP epithelial cells (renal) TARIFF COMPILER Not Available [facility] ([facility]) [address] [place], [address], 02/03/2024 14:05:57 01/22/20 24 01/23/2024 UA/M W/RFL X CULTU RE, COMP casts None seen /lpf none seen Not Available [facility] ([facility]) [address], [place], [address], 02/03/2024 14:05:57 01/22/20 24 01/23/2024 UA/M W/RFL X CULTU RE, COMP cast type TARIFF COMPILER Not Available [facility] ([facility]) [address], [place], [address], 02/03/2024 14:05:57 01/22/20 24 01/23/2024 UA/M W/RFL X CULTU RE, COMP crystals TARIFF COMPILER Not Available [facility] ([facility]) [address] [facility], [place], [address], 02/03/2024 14:05:57 01/22/20 24 01/23/2024 UA/M W/RFL X CULTU RE, COMP crystal type TARIFF COMPILER Not Available [facility] ([facility]) [address], [place], [address], 02/03/2024 14:05:57 01/22/20 24 01/23/2024 UA/M W/RFL X CULTU RE, COMP mucus threads TARIFF COMPILER Not Available [facility] ([facility]) [address] [facility], [place], [address], 02/03/2024 14:05:57 01/22/20 24 01/23/2024 UA/M W/RFL X CULTU RE, COMP bacteria None seen none seen/f ew Not Available [facility] ([facility]) [address] [facility], [place], [address], 02/03/2024 14:05:57 01/22/20 24 01/23/2024 UA/M W/RFL X CULTU RE, COMP yeast TARIFF COMPILER Not Available [facility] ([facility]) [address] [facility], [place], [address], 02/03/2024 14:05:57 01/22/20 24 01/23/2024 UA/M W/RFL X CULTU RE, COMP trichomonas TARIFF COMPILER Not Available [facility] ([facility]) [address] [facility], [place], [address], 02/03/2024 14:05:57 01/22/20 24 01/23/2024 UA/M W/RFL X CULTU RE, COMP comment TARIFF COMPILER Not Available [facility] ([facility]) [address] [facility], [place], [address], 02/03/2024 14:05:57 01/22/20 24 01/23/2024 UA/M W/RFL X CULTU RE, COMP microscopic examination TARIFF COMPILER Not Available [facility] ([facility]) [address] [facility], [place], [address], 02/03/2024 14:05:57 01/22/20 24 01/23/2024 UA/M W/RFL X CULTU RE, COMP urinalysis reflex Commen t This speci men has refle xed to a Urine Cultu re. Not Available [facility] ([facility]) [address] [facility], [place], [address], 02/03/2024 14:05:57 01/22/20 24 01/25/2024 UA/M W/RFL X CULTU RE, COMP urine culture,comp rehensive Final report Not Available [facility] ([facility]) [address] [facility], [place], [address], 02/03/2024 14:05:57 01/22/20 24 01/25/2024 UA/M W/RFL X CULTU RE, COMP result 1 COMMEN T Mixed uroge nital dhruv 25,00 0-50, 000 colon y formi ng units per mL Not Available [facility] ([facility]) [address] [facility], [place], [address], 02/03/2024 14:05:57 01/22/20 24 01/23/2024 LIPID PANEL cholesterol, total 86 mg/dL 100-19 9 below low normal Not Available [facility] ([facility]) [address] [facility], [place], [address], 02/03/2024 14:05:58 01/22/20 24 01/23/2024 LIPID PANEL triglyceride s 107 mg/dL 0-149 normal Not Available [facility] ([facility]) [address] [place], [address], 02/03/2024 14:05:58 01/22/20 24 01/23/2024 LIPID PANEL HDL cholesterol 43 mg/dL >39 normal Not Available [facility] ([facility]) [address] [place], [address], 02/03/2024 14:05:58 01/22/20 24 01/23/2024 LIPID PANEL VLDL cholesterol ravi 20 mg/dL 5-40 Not Available [facility] ([facility]) [address] [place], [address], 02/03/2024 14:05:58 01/22/20 24 01/23/2024 LIPID PANEL LDL chol calc ([facility]) 23 mg/dL 0-99 Not Available [facility] ([facility]) [address] [place], [address], 02/03/2024 14:05:58 01/22/20 24 01/23/2024 LIPID PANEL LDL calc comment: TARIFF COMPILER Not Available [facility] ([facility]) [address] [place], [address], 02/03/2024 14:05:58 01/22/20 24 01/23/2024 ALBUM IN/CR EAT RATIO , RANDO M UR creatinine, urine 291.5 mg/dL not estab. normal Not Available [facility] ([facility]) [address] [facility] [place], [address], 02/03/2024 14:05:59 01/22/20 24 01/23/2024 ALBUM IN/CR EAT RATIO , RANDO M UR albumin, urine 1189.5 ug/mL not estab. Resul ts confi rmed on dilut ion. Not Available [facility] ([facility]) [address] [facility], [place], [address], 02/03/2024 14:05:59 01/22/20 24 01/23/2024 ALBUM IN/CR EAT RATIO , RANDO M UR alb/creat ratio 408 mg/g_ creat 0-29 above high normal Trudy l: 0 - 29 Moder ately incre ased: 30 - 300 Sever phoebe incre ased: >300 Not Available [facility] ([facility]) [address] [facility], [place], [address], 02/03/2024 14:05:59 01/22/20 24 01/23/2024 HCV ANTIB KURT RFX TO QUANT PCR HCV Ab Non Reacti ve non reacti ve Not Available [facility] ([facility]) [address] [facility], [place], [address], 02/03/2024 14:05:59 01/22/20 24 01/23/2024 HCV ANTIB KURT RFX TO QUANT PCR interpretati on: Commen t Not infec janna with HCV unles s early or acute infec tion is suspe cted (whic h may be delay ed in an immun ocomp romis ed indiv idual ), or other evide nce exist s to indic ate HCV infec tion. Not Available [facility] ([facility]) [address] [facility], [place], [address], 02/03/2024 14:05:59 01/22/20 24 01/23/2024 ESR-W ES+CR P sedimentatio n rate-westerg anne 66 mm/HR 0-30 above high normal Not Available [facility] ([facility]) [address] [facility], [place], [address], 02/03/2024 14:06:00 01/22/20 24 01/23/2024 ESR-W ES+CR P C-reactive protein, quant 2 mg/L 0-10 normal Not Available [facility] ([facility]) [address] [facility], [place], [address], 02/03/2024 14:06:00 01/22/20 24 01/22/2024 PSA TOTAL (REFL EX TO FREE) reflex criteria Commen t The perce nt free PSA is perfo rmed on a refle x basis only when the total PSA is betwe en 4.0 and 10.0 ng/mL . Not Available [facility] ([facility]) [address] [facility], [place], [address], 02/03/2024 14:06:01 01/22/20 24 01/23/2024 PSA TOTAL (REFL EX TO FREE) prostate specific Ag 0.4 NG/mL 0.0-4. 0 normal Melissa ECLIA metho dolog y. Accor ding to the Ameri can Urolo gical Assoc iatio n, Serum PSA shoul d decre ase and remai n at undet ectab le level s after radic al prost atect charlene. The AUA defin es bioch emica l recur rence as an initi al PSA value 0.2 ng/mL or great er follo wed by a subse quent confi rmato ry PSA value 0.2 ng/mL or great er. Value s obtai humaira with diffe rent assay metho ds or kits canno t be used inter pedroza eably . Resul ts canno t be inter prete d as absol johanne evide nce of the prese nce or absen ce of greg carrasquillo se. Not Available [facility] ([facility]) [address] [facility], [place], [address], 02/03/2024 14:06:01 01/22/20 24 01/23/2024 VITAM IN D, 25-HY DROXY vitamin D, 25-hydroxy 47.3 NG/mL 30.0-1 00.0 Vitam in D defic iency has been defin ed by the Insti tute of Medic ine and an Endoc rine Socie ty pract ice guide line as a level of serum 25-OH vitam in D less than 20 ng/mL (1,2) . The Endoc rine Socie ty went on to furth er defin e vitam in D insuf ficie ncy as a level betwe en 21 and 29 ng/mL (2). 1. IOM (Inst itute of Medic ine). 2010. Dieta ry refer ence intak es for calci um and D. Kimmie celestin [place]: The [facility] . 2. Cyndy fraser MF, Delfina pastrana [place], Ross off-F veronique i LUNSFORD, et al. Evalu ation , treat ment, and preve ntion of vitam in D defic iency : an Endoc rine Socie ty clini ravi pract ice guide line. JCEM. 2010; 96(7) :1911 -30. Not Available [facility] ([facility]) [address] [place], [address], 02/03/2024 14:06:02 01/22/20 24 01/23/2024 T PALLI DUM SCREE MATTHEW CASCA DE T pallidum antibodies Non Reacti ve non reacti ve Not Available [facility] ([facility]) [address] [place], [address], 02/03/2024 14:06:03 01/22/20 24 01/23/2024 MAGNE SIUM magnesium 2.0 mg/dL 1.6-2. 3 normal Not Available [facility] ([facility]) [address] [place], [address], 02/03/2024 14:06:03 03/03/19 25 03/03/2024 hemog lobin A1C, finge rstic k A1C 8.3 % 4-6 abnormal Not Available In-Office Order Internal Use Only DO Not Attach Compendium DO Not Attach Compendium, Do Not Delete/merge, [id number] 02/28/2024 12:53:49 01/07/20 24 01/07/2024 US abdom en aorti c aneur yschriss ugarte See Note [facility] , a member of [employer] [facility] t Name: ARIEL MOSQUEDA Date of : 1944 Reason for Exam: AAA Exam Date: 2023 [id number] EST Report Status : Final Orderi ng Provid er: ELIZABETH CLIFTON PCP: ELIZABETH CLIFTON Histor y: Screen ing for abdomi nal aortic aneury sm. Compar mirtha: No compar mirtha imagin g at this instit ution. Findin gs: High resolu tion real-t nelli imagin g of the abdome n, limite d to the aorta, was perfor med. The aorta is normal in calibe r, measur ing 2.2 cm AP proxim ally, 2.1 cm in the midpor tion, and 1.8 cm distal ly. The aortic lumen is patent . No periao rtic fluid collec tions are seen. The aortic bifurc ation is normal . Mild ectasi a of the common iliac arteri es is seen, measur ing up to 1.2 cm in diamet er on the right and 1.1 cm on the left. IMPRES GULSHAN: Impres gulshan: No abdomi nal aortic aneury sm is identi fied. ------ -- FINAL REPORT ------ -- Dictat ed By: Anuj Muir Dictat ed Date: 2023 12:35 ET Assign ed Physic sivan: Anuj Muir Review ed and Electr onical ly Signed By: Anuj Muir Signed Date: 2023 12:37 ET [facility]st [id number] Transc ribed By: Self Edit Transc ribed Date: 2023 12:[address], [address], 01/07/2024 17:00:06 Result Notes None recorded. Problems Name Problem SNOMED Code Status Onset Date Resolution Date Notes Provider Name and Address Organization Details Recorded Time Prieto l hyperten gulshan 07310968 Completed 202312/04/2023 Mitul Clifton MD [address] [facility] [address], [place], [address], [facility] 4 07:41:23 Hypothyr oidism 37968563 Active 2023 Mitul Clifton MD [address] [facility] [address], [place], [address], [facility] 4 07:37:39 Renal disorder due to type 2 diabetes mellitus 081956677 Active 2023 Mitul Clifton MD [address] [facility] [address], [place], [address], [facility] 4 07:41:01 Chronic kidney disease stage 3A 276823220 Active 2023 Mitul Clifton MD [address] [facility] [address], [place], [address], [facility] 4 07:44:02 Microalb uminuric diabetic nephropa thy 302091161 Active 2023 Mitul Clifton MD [address] [facility] [address], [place], [address], [facility] 4 07:44:25 Hyperlip idemia 40740151 Active 2023 Mitul Clifton MD [address] [facility] [address], [place], [address], [facility] 4 07:47:26 Abdomina l aortic ectasia 00463976034 9101 Active 2023 Mitul Clifton MD [address] [facility] [address], [place], [address], [facility] 4 07:47:41 Vitamin D deficien cy 97583788 Completed 202302/28/2024 Mitul Clifton MD [address], [place], [address], [facility] 5 12:54:14 Ex-smoke r 0585679 Active 2023 Mitul Clifton MD [address], [place], [address], [facility] 4 11:30:41 Obstruct jhonny sleep apnea syndrome 26871103 Active 2023 Mitul Clifton MD [address], [place], [address], [facility] 4 11:37:02 Obesity 501589254 Active 2023 Mitul Clifton MD [address], [place], [address], [facility] 4 11:54:49 Neuropat hy due to diabetes mellitus 063233965 Active 2023 Mitul Clifton MD [address], [place], [address], [facility] 4 11:57:37 Gout 24509994 Active SHENG Berg, [facility] 4 17:54:10 Glaucoma 63986610 Active SHENG Berg, [facility] 4 17:54:18 Loss of appetite 63096860 Active 2023 since hypoglyc emic episode caused loss of consciou sness Suri cardozo [place] null, [facility] 4 16:49:59 Generali zed anxiety disorder 22886503 Active 2023 Mitul Clifton MD [address], [place], [address], [facility] 4 11:06:38 Moderate recurren t major depressi on 58977420 Active 2023 Mitul Clifton MD [address], [place], [address], [facility] 4 11:06:40 Memory impairme nt 628075919 Active 2023 Mitul Clifton MD [address], [place], [address], [facility] 4 11:07:56 Hyperten sive renal disease 22894856 Active 2024 Mitul Clifton MD [address], [place], [address], [facility] 5 12:53:25 Problem Notes None recorded. Procedures Surgical History Date Name Laterality Status Provider Name and Address Organization Details Recorded Time Diabetic Foot Exam (Monofilament) completed Mitul Clifton MD [address], [place], [address], [facility] 12/04/2023 11:50:41 excision of hydrocele completed Little Farley MA [facility] 12/04/2023 11:21:18 Imaging Results Imaging Date Name Status LastModified by Organiz ation Details LastModified Time 01/07/2024 US abdomen aortic aneurysm screening completed [address], [address], 01/07/2024 17:00:06 Procedure Notes None recorded. Medical Equipment None Reported. Allergies Allergen ID Allergen Name Allergen Category Reaction Reaction Severity Criticality Documentation Date Start Date Code Code System Note Provider Name and Address Organization Details Recorded Time 80023 allopurin ol medicatio n other Not available Not available 12/04/2023 519 RxNorm cause d [facility] 17:[facility]42 Medications Name Sig Start Date Stop Date Status Note LastModified by Organization Details LastModified Time comfrt touch pad alc prep active Not Available Not Available Not Available losartan 50 mg tablet Take 1 tablet every day by oral route. 03/03 completed Not Available Not Available Not Available Colace 100 mg capsule Take 2 capsules every day by oral route at bedtime for 28 days, for constipa tion. 2024 active 03/05/24 if this doesn't help, add senna or change to senna-do c Not Available Not Available Not Available atorvasta tin 10 mg tablet Take 1 tablet every day by oral route. active Not Available Not Available No t Available travopros t 0.004 % eye drops INSTILL 1 DROP INTO AFFECTED EYE(S) BY OPHTHALM IC ROUTE ONCE DAILY INTHE EVENING active Not Available Not Available No t Available amlodipin e 2.5 mg tablet Take 1 tablet every day by oral route for 84 days. 2024 active Not Available Not Available Not Avai lable chlorthal idone 50 mg tablet Take 1 tablet every day by oral route. active Not Available Not Available No t Available aspirin 81 mg tablet,de layed release Take 1 tablet every day by oral route. active Not Available Not Available No t Available levothyro xine 100 mcg tablet Take 1 tablet every day by oral route. active Not Available Not Available No t Available metformin 1,000 mg tablet Take 1 tablet twice a day by oral route. 01/29 completed 01/27/24 patient will resume this medicati on until [facility] is delivere d to his home. Not Available Not Available Not Available hydralazi ne 50 mg tablet Take 1 tablet 3 times a day by oral route as directed for 28 days, for blood pressure . active Not Available Not Available No t Available mirtazapi ne 15 mg tablet Take 1 tablet every day by oral route at bedtime for 84 days. 2024 active Not Available Not Available Not Avai lable ferrous sulfate 325 mg (65 mg iron) tablet,de layed release active on hold Not Available Not Available Not Available losartan 100 mg tablet Take 1 tablet every day by oral route for 90 days. active Not Available Not Available No t Available atenolol 50 mg tablet Take 1 tablet every day by oral route. active Not Available Not Available No t Available mirtazapi ne 7.5 mg tablet Take 1 tablet every day by oral route at bedtime for 90 days. 03/04 completed Not Available Not Available Not Available cholecalc iferol (vitamin D3) 25 mcg (1,000 unit) tablet Take 1 tablet every day by oral route. active Not Available Not Available No t Available FreeStyle Lite Meter kit active Not Available Not Available No t Available FreeStyle Lite Strips Take 1 strip 3 times a day by miscell. route before meal(s) for 25 days. active use this if CGM sensor not working or not availabl e Not Available Not Available Not Available Lantus Solostar U-100 Insulin 100 unit/mL (3 mL) subcutane ous pen Inject 55 units every day by subcutan eous route in the evening. 12/19 completed Not Available Not Available Not Available Easy Touch Alcohol Prep Pads active Not Available Not Available No t Available Glucerna Advance oral liquid Take 240 mL twice a day by oral route as directed for 30 days, for decrease d appetite in diabetic . 2023 active Not Available Not Available Not Avai lable Tresiba FlexTouch U-100 insulin 100 unit/mL (3 mL) subcutane ous pen Inject 10 units every day by subcutan eous route in the morning for 28 days, for DM2. active 03/06/24 increase by 2 units due to hypergly cemia (12 units daily) Not Available Not Available Not Available Pure Comfort Safety Lancets 30 gauge active Not Available Not Available Not Available Comfort Touch Pen Needle 31 gauge x 3/16 active Not Available Not Available Not Available Mounjaro 7.5 mg/0.5 mL subcutane ous pen injector Inject 0.5 mL every week by subcutan eous route as directed for 28 days, for DM2. active Not Available Not Available No t Available Mounjaro 5 mg/0.5 mL subcutane ous pen injector Inject 0.5 mL every week by subcutan eous route as directed for 28 days, for DM2. 02/10 completed Not Available Not Available Not Available Mounjaro 2.5 mg/0.5 mL subcutane ous pen injector Inject 2.5 mg every week by subcutan eous route for 28 days. 01/06 completed started this on 12/19/23 ; next fill go to 5 mg weekly Not Available Not Available Not Available FreeStyle Fozia 3 Sensor device active Not Available Not Available Not Available Vitals Date Recorded Body height Body mass index (BMI) Body weight Body weight Heart rate Oxygen saturation Oxygen saturation in Arterial blood by Pulse oximetry Body temperature Systolic blood pressure Diastolic blood pressure Provider Name and Address Organization Details Last Updated DateTime 4 152.4 cm 31.8 kg/m2 26910.5 6 g 30314.3 7 g 75 /min 97 % 97 % 97.8 [degF] 162 mm[Hg] 64 mm[Hg] Little fairbanks [place] [facility] 4 11:10:49 Date Recorded Systolic blood pressure Diastolic blood pressure Provider Name and Address Organization Details Last Updated DateTime 12/04/2023 166 mm[Hg] 60 mm[Hg] Mitul Clifton MD [address], [address], [facility] 12/04/2023 11:59:49 Date Recorded Body height Body mass index (BMI) Body weight Heart rate Oxygen saturation Oxygen saturation in Arterial blood by Pulse oximetry Body temperature Systolic blood pressure Diastolic blood pressure Provider Name and Address Organization Details Last Updated DateTime 4 152.4 cm 29.5 kg/m2 09469.4 5 g 68 /min 98 % 98 % 97.7 [degF] 156 mm[Hg] 76 mm[Hg] Suri cardozo MA [facility] 4 10:34:16 Date Recorded Body height Body mass index (BMI) Body weight Heart rate Oxygen saturation Oxygen saturation in Arterial blood by Pulse oximetry Body temperature Systolic blood pressure Diastolic blood pressure Provider Name and Address Organization Details Last Updated DateTime 5 152.4 cm 28.3 kg/m2 43677.8 9 g 62 /min 98 % 98 % 97.4 [degF] 158 mm[Hg] 74 mm[Hg] Suri cardozo MA [facility] 5 16:01:16 Date Recorded Systolic blood pressure Diastolic blood pressure Provider Name and Address Organization Details Last Updated DateTime 01/30/2024 147 mm[Hg] 76 mm[Hg] Suri patel MA [facility] 01/30/2024 17:07:19 Social History Question Answer Notes LastModified by Organizat ion Details LastModified Time Tobacco Smoking Status Former Smoker SHENG Gurrola [facility] 12/04/2023 11:03:01 Do You Have An Advance Directive? No Information not available 03/03/2024 What Is Your Level Of Alcohol Consumption? None Information not available 12/04/2023 Is Blood Transfusion Acceptable In An Emergency? Yes Information not available 03/03/2024 Are You Currently Employed? Yes Retired Information not available 12/04/2023 What Type Of Diet Are You Following? REGULAR Information not available 12/04/2023 What Is Your Occupation? Former [employer] Information not available 12/04/2023 When Did You Quit Smoking? 16+yearssin celastciraysa ette Information not available 12/04/2023 Do You Take Precautions To Prevent Distracted Driving? Yes Information not available 03/03/2024 How Often Do You Need To Have Someone Help You When You Read Instructions, Pamphlets, Or Other Written Material From Your Doctor Or Pharmacy? Always Due To Language Barrier Information not available 03/03/2024 Have You Served In The ? No Information not available 03/03/2024 *[facility] ONLY* Are You Presently Prescribed Opioid Medication By PCP Or Specialist? If YES -Provider Assess The Benefit For Other, Non-opioid Pain Therapies Instead, Even If The Patient Does Not Have OUD But Is Possibly At Risk. No Information not available 03/03/2024 How Many Children Do You Have? 2 Dylan And Suri Information not available 12/04/2023 What Is Your Current Pack Years? 20-31paantonia sepulveda Information not available 03/03/2024 Are You Sexually Active? No Information not available 03/03/2024 At What Age Did You Start Smoking Tobacco? 19 Quit At 42 Information not available 03/03/2024 Are You Passively Exposed To Smoke? No Information not available 12/04/2023 How Much Tobacco Do You Smoke? 1 PPD Up To 1-1/2 PPD Information not available 12/04/2023 Do You Use Any Illicit Or Recreational Drugs? No Information not available 12/04/2023 How Many Years Have You Smoked Tobacco? 23 Information not available 12/04/2023 Do You Or Have You Ever Used Any Other Forms Of Tobacco Or Nicotine? No Information not available 12/04/2023 Sex: Unknown Functional Status Question Answer Note LastModified by Organizat ion Details LastModified Time Are you able to walk? YESASSIST cane on occasion Information not available 12/04/2023 What is your exercise level? Occasional walking Information not available 12/04/2023 Mental Status None recorded. Family History Relationship Description Onset Age of this Age Resolved Age Notes LastModified by Organization Details LastModified Time Mother Type 2 diabetes mellitus [email or web address] Not available 2023 11:30:03 Daughter Type 2 diabetes mellitus [email or web address] Not available 2023 11:30:13 Son Type 2 diabetes mellitus [email or web address] Not available 2023 11:30:24 Medical History No medical history recorded. Immunizations Vaccine Type Date Status Note Provider Nam e and Address Organization Details Recorded Time influenza, unspecified formulation 0 completed Marleny jones, [facility] 11/18/2023 13:25:22 influenza, unspecified formulation 7 completed Marleny Obregon null, [facility] 11/18/2023 13:25:34 influenza, unspecified formulation 8 completed Marleny Obregon null, [facility] 11/18/2023 13:26:00 influenza, unspecified formulation 9 completed Marleny jones, [facility] 11/18/2023 13:26:09 pneumococcal, unspecified formulation 4 completed Marleny jones [facility] 11/18/2023 13:26:44 Tdap 2 completed Marleny jones, [facility] 11/18/2023 13:26:50 Influenza, high-dose, quadrivalent, PF 2 completed SHENG Gurrola, [facility] 12/04/2023 10:52:42 Influenza, adjuvanted, quadrivalent, PF 3 completed SHENG Gurrola, [facility] 12/04/2023 10:52:42 COVID-19, mRNA, LNP-S, bivalent, PF, 30 mcg/0.3 mL dose 2 completed SHENG Gurrola, [facility] 12/04/2023 10:52:42 Tdap 4 completed Aby jones, [facility] 01/27/2024 15:22:21 influenza, unspecified formulation 4 completed Abynando jones, [facility] 01/27/2024 15:21:40 SARS-COV-2 (COVID-19) vaccine, UNSPECIFIED 4 completed Aby jones, [facility] 01/27/2024 15:22:01 Tdap 4 completed SHENG Mcgee, [facility] 03/03/2024 16:00:52 Td (adult), 2 Lf tetanus toxoid, preservative free, adsorbed 6 completed Not Available [facility] 08/25/2013 13:59:04 pneumococcal polysaccharide PPV23 6 completed Not Available [facility] 08/25/2013 13:59:05 Past Encounters Encounter ID Performer Location Encounter Start Date Encounter Closed Date Diagnosis/Indication Diagnosis SNOMED-CT Code Diagnosis ICD10 Code Diagnosis Note [id number] Mitul Clifton MD Main Office [address] [facility] [place] [id number] 12/04/2023 10:35:20 12/04/2023 12:10:15 Renal disorder due to type 2 diabetes mellitus 003373332 E11.21 HBA1C [id number] done/ labs orderedOn ARBCont metformin for now, will start mounjaro he was on insulin his sugars are very labile and was admitted for hypoglycem ia. With his age this is not safe so I think mounjaro is best for him. Side effects discussed. For the same reason and compliance I think CGM will be best for him. Fozia ordered.He also bares metformin but notes to GI discomfort .Cont. Aspirin EC 81 mg po qdailyFeet examined today, advised to use own clippers. Follows operator supply .Yearly Ophthalmol ogy advised.John chow renalLipid profile ordered, on statin.Cou nselled about regular physical activityCo unselled on dietVaccin es discussedD ental exam discussed. Microalbum inuric diabetic nephropathy 112058493 E11.21 Hypertensi ve nephrosclerosis 028781092 N18.31 bp elevated, he is otherwise asymptomat ic, He follows renal for this and advised close follow up. My MA will call pharm to see if he has ever tried CCB. Chronic ki dney disease stage 3A 164817005 N18.31 Hyperlipidemia 82749835 E78.5 Abdominal aortic ectasia [id number] 79488 I77.811 Patient ne w to provider [id number] 40742 Z76.89 Patient was counseled on healthy diet, exercise and nutrition due to Body mass index is ... kg/m? ? ?. Last PSADate:Re sult:Plan: past age for screening Last Colonoscop y:Date:Res ult:Plan: past age for screening Vaccines:T dAP: script givenZoste r rec: script [id number] : script givenInflu rosa: 11/05/23RSV : Script givenCovid : 11/05/23Adv ised to seperate each vaccine every 2 weeks. Routine labs today Immunizati on status reviewed. Will screen based on risk factors. Regular dental and ophtho care advised as well as seat belt and sunscreen use. Distracted driving discussed. Medication reconciled . Advance directives discussed. Varicella vaccination 68 776715 Z23 Administra tion of viral vaccine 40267929 Z29.11 Fatigue 59229126 R53.83 Z00.00 Hypothyroidism 39617574 E03.9 Administra tion of diphtheria, pertussis, and tetanus vaccine 636837509 Z23 Administra tion of pneumococcal vaccine 94287183 Z23 Long-term drug therapy 308463652 Z79.84 Metformin Use Memory impairment 258825 006 R41.3 Venereal d isease screening 562561225 Z11.3 Z72.89 F03.90 Vitamin D deficiency 347 97733 E55.9 Skin lesion 54852492 L98 .9 Right side of cheeks. Hepatitis C screening 41 7110647 Z11.59 Obstructiv e sleep apnea syndrome 28449068 G47.33 Urinary incontinence 165 664672 R32 Will get urine test first and PSA, then refer to urologist. Body mass index 30+ - obesity 586598537 Z68.30 E66.9 - Diet and exercise discussed- Patient made aware of risks of obesity- Encouraged to loose weight.- Avoid starchy and fatty food- Encouraged use of green vegetables and fruits Obesity 628935187 E66.9 [id number] Lilliam Patterson Main Office [address] [facility] [address] [facility] [id number] 01/27/2024 10:09:24 01/27/2024 11:19:21 Loss of appetite 03083601 R63.0 Likely related to depression .Will start remeron follow up 1 mo. Obstructiv e sleep apnea syndrome 98882792 G47.33 Could not tolerate cpap.Decli chas further sleep eval. understand s risk. Chronic ki dney disease stage 3A 978776991 N18.31 Moderate r ecurrent major depression 48591374 F33.1 He is depressed, has low apatite will start remeron qhs.Follow up in 6 weeks.Esequiel es thoughts of self harm or harming others.Psy chotherapy encouragem ind fullness encouraged . Generalize d anxiety disorder 05447350 F41.1 Memory impairment 207757 006 R41.3 likely pseudodeme ntia will tx depression first. Hypertensi ve renal disease 30676298 I12.9 bp elevated, he is otherwise asymptomat ic, He follows renal for this and advised close follow up.BP still elevated will increase losartan 100mg follow up 1 mo to get bmp. [id number] Mitul Clifton MD Main Office [address] [facility] [address] [facility] [address] 03/03/2024 15:22:56 03/03/2024 17:09:12 Hypothyroidism 78211507 E03.9 Will repeat TSH Renal diso rder due to type 2 diabetes mellitus 650813397 E11.21 E11.65 HBA1C [id number] doneOn ARBCont. mounabdirashid 7.5, insulin was added Tresiba for better glucose control and he has not had lows with better glucose control.Co nt. CGM.Cont. Aspirin EC 81 mg po qdailyRegu lar self feet exam advised. Also advised to use own clippers. 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 Advised regarding risks/sign s/symptoms of hypoglycem ia. Counseled to carry a snack in case of emergencie s Microalbum inuric diabetic nephropathy 167599783 E11.21 Chronic ki dney disease stage 3A 509144728 N18.31 advised regular follow up with renal. Generalize d anxiety disorder 11015383 F41.1 Hypertensi ve renal disease 45007466 I12.9 bp still elevated, will add amlodipine , advised close follow up with renal. Abdominal aortic ectasia [id number] 65984 I77.811 will consider monitoring in 2-3 yrs as it is mild.BP control enforced and glucose control.Re gular exercise encouraged . Memory impairment 143665 006 R41.3 likely pseudodeme ntia will tx depression first. Moderate r ecurrent major depression 74780218 F33.1 He is depressed, has low apatite will start increase remeron qhs.Follow up in 3 mo.Denies thoughts of self harm or harming others.Psy chotherapy encouragem ind fullness encouraged . Health Concerns Section Related Observation LastModified by Organization Detai ls LastModified Time None Recorded Concern Status LastModified by Organization Details LastModified Time None Recorded Advance Directives Directive N: Payers Encounter Date Sequence Insurance Name Policy Number Policy Lyle Covered Member ID Lyle Member ID Guarantor Name 12/04/2023 1 [facility] - DOS ON OR AFTER 2022 - ONE CARE (MEDICARE REPLACEMENT/AD VANTAGE - HMO) Ariel Koromaillo [id number] Ariel Alanisquillo 01/27/2024 1 [facility] - DOS ON OR AFTER 2022 - ONE CARE (MEDICARE REPLACEMENT/AD VANTAGE - HMO) Ariel Gupta [id number] Ariel Alanisquillo 03/03/2024 1 [facility] - DOS ON OR AFTER 2022 - ONE CARE (MEDICARE REPLACEMENT/AD VANTAGE - HMO) Ariel Alanisquillo [id number] Ariel Alanisquillo Notes Date Note Type Note Provider Name and Address Organization Details Recorded Time 12/04/2023 text/html Diabetes F/URepo rted bypatient.Context:see[facility] regularly; checking feet regularly; taking aspirin daily;home blood sugar range high Associated Symptoms:no dizziness; no sweats; no headaches; no confusion; no increased thirst; no increased appetite; no increased urination; no blurred vision; no numbness of feet; no calluses on feetHypertension F/UReported bypatient.Associated Symptoms:no dizziness; no lightheadedness; no chest pain; no shortness of breath; no palpitations; no edema; no calf pain with exertion Lifestyle:limiting/avoi ding salt;not exercising regularly Medications:taking medications as directed; no side effects from medicationNotes:Follows renal for BP.ThyroidReported bypatient.Onset/Timing: still present Context:normal thyroid levels; no history of head or neck radiation during childhood; no history of hyperthyroidism; no excess iron exposure;history of thyroid disease;history of hypothyroidism Exerciseno exercise Associated Symptoms:no cold intolerance; no heat intolerance; no double vision; no difficulty swallowing; no neck masses; no fast heart rate; no increased blood pressure; no palpitations; no chest pain; no chest tightess or pressure; no constipation; no diarrhea; no vomiting; no decreased appetite; no loose stools; no tremorNotes:Stable with thyroid replacement. Patient present for new adult visit Is using ASA. OTC/Herbal supplements use: Vit D, MV Sex hx: DeniesSTI: DeniesDrug use: DeniesEtoh use: Not drinking.tobacco use: ex smoker stopped age 42, started 19yo, 1.5 ppd.spf/derm: Encourage spf use, Notes new mole. Dental: Follows every 6mo up to date.Eye: Follows regularly, up to date.Diet: No restrictions.Activity: 2x week, walking. Mitul Clifton MD [address], [phone], [facility] 12/04/2023 12:02:05 01/27/2024 text/html AnemiaReported bypatient.Severity:Norm ocytic 80Associated Symptoms:no shortness of breath; no chest pain; no abdominal pain; no nausea; no vomiting; no melena; no blood in stool; no excessive sweating; normal nails; tolerant of cold; no nonfood cravings; no symptoms of peripheral neuropathy; normal balance; no jaundice; no pallor;fatigue;palpitat ions(with anxiety.);behavioral problems;involuntary weight loss lbs.Anxiety/DepressionR eported bypatient.Quality:mood worse Severity:denies suicidal ideations; able to maintain relationships; does not interfere with activities of daily living Duration:> 6 weeks. Context:major life stressors(triggered to hospital experiance.) Associated Symptoms:weight loss ( lbs);eating less;emotional lability;high irritability;depression ;loneliness;restlessnes s/agitation;sleep disturbances;anhedonia; feeling guilty;sleeping more (hypersomnia);low self-esteem;pessimism;d espair/hopelessness;soc ial withdrawal;trembling or shaking (tremor);urinary frequency;shortness of breathHypertension F/UReported bypatient.Associated Symptoms:no dizziness; no lightheadedness; no chest pain; no shortness of breath; no palpitations; no edema; no calf pain with exertion Lifestyle:limiting/avoi ding salt;not exercising regularly Lilliam jones [facility] 02/13/2024 20:50:57 03/03/2024 text/html The patient pres ents today with his daughter to review multiple chronic health issues, including diabetes, hypertension, and mental health concerns. Since starting mirtazapine, he reports some improvement in his symptoms, though he feels there is still room for further progress with regards to his mental health. He continues to lose weight, attributed to Mounjaro use, but notes that his blood sugar levels have significantly improved? f rom being consistently in the 300-400 mg/dL range to now averaging in the 100s. We also discussed his thyroid medication regimen. It was noted that he had not been taking it on an empty stomach first thing in the morning, as recommended. Instead, he had been taking it with his other medications and meals. Proper administration was reviewed with the patient and his daughter. He has pending lab work scheduled for March, which will include a complete blood count to monitor his anemia, thyroid function tests, sedimentation rate (previously low), FABI, renal function, and an whfgxdy-ib-lbvnnybuzt ratio. Additionally, he was due for an A1c test today, as it had been three months since his last test. His A1c showed a slight increase, likely due to recent medication adjustments. I explained to the patient and his family that this is expected to improve in the coming months as his blood sugar levels continue to stabilize with recent improvements. Mitul Clifton MD [address], [phone], [facility] 03/04/2024 08:02:05 03/03/2024 text/html AnemiaReported bypatient.Severity:Norm ocytic 80Associated Symptoms:no shortness of breath; no chest pain; no abdominal pain; no nausea; no vomiting; no melena; no blood in stool; no excessive sweating; normal nails; tolerant of cold; no nonfood cravings; no symptoms of peripheral neuropathy; normal balance; no jaundice; no pallor;fatigue;palpitat ions(with anxiety.);behavioral problems;involuntary weight loss lbs.Anxiety/DepressionR eported bypatient.Quality:sympt oms improved Severity:denies suicidal ideations; able to maintain relationships; does not interfere with activities of daily living Duration:> 6 weeks. Context:major life stressors(triggered to hospital experiance.) Associated Symptoms:weight loss ( lbs);eating less;emotional lability;high irritability;depression ;loneliness;restlessnes s/agitation;sleep disturbances;anhedonia; feeling guilty;sleeping more (hypersomnia);low self-esteem;pessimism;d espair/hopelessness;soc ial withdrawal;trembling or shaking (tremor);urinary frequency;shortness of breathDiabetes F/UReported bypatient.Context:seein g eye doctor regularly; checking feet regularly; taking aspirin daily;home blood sugar range high Associated Symptoms:no dizziness; no sweats; no headaches; no confusion; no increased thirst; no increased appetite; no increased urination; no blurred vision; no numbness of feet; no calluses on feetHypertension F/UReported bypatient.Associated Symptoms:no dizziness; no lightheadedness; no chest pain; no shortness of breath; no palpitations; no edema; no calf pain with exertion Lifestyle:limiting/avoi ding salt;not exercising regularly Medications:taking medications as directed; no side effects from medicationNotes:Follows renal for BP.Psych Medication ManagementReported bypatient.Medications:t aking medications as directed; no side effects from medication Associated Symptoms:no dizziness; no rash; no chest pain; no shortness of breath; no edema; no lightheadedness; no sensory disturbances; no palpitations; no motor disturbances Lifestyle habits:no regular exercise Mitul Clifton MD [address], [phone], [facility] 03/04/2024 08:02:05
--- OUTSIDE RECORDS SUMMARY | 2024-03-10 10:16 | XMS_ITS | Continuity of Care Document ---
Author Organization [facility], Main Office Address [address] [place] [address] Care Team Providers Care Instrumental Musician Name Role Phone BASIL CLIFTON Primary Care Provider FABI TRINH Referring Provider STEFANY RICHARD Ed Special Education Teacher [facility] Ed Special Education Teacher CORAL RG Windows 7 Deployment Lead KATHRYN RUIZ Transmitter Operator [phone] [facility] Rf Microwave Engineer [phone] Assessment No assessment recorded. Plan of Treatment Reminders Order Date Submit Date Provider Last Modified By Organization Details Last Modified Time Details Appointments Follow Up DM 30 2024 01:00P Carrol Clifton MD Not available Not available Not available AWV30 2024 10:00A Carrol Clifton MD Not available Not available Not available Lab BMP, serum or plasma 2024 025 JENNY [facility], [address] [facility] [facility] [address], [place], [address], 03/03/2024 16:59:47 hemoglobi n A1C, fingersti ck 2024 025 damari In-Office Order, Internal Use Only DO Not Attach Compendium DO Not Attach Compendium, Do Not Delete/merge, [id number] 03/03/2024 16:59:41 microalbu min/creat inine, mass ratio, urine 2024 025 JENNY [facility], [address] [facility] [address], [place], [address], 03/03/2024 16:59:47 Referral None recorded. Procedures None recorded. Surgeries None recorded. Imaging None recorded. Medication Orders amlodipin e 2.5 mg tablet 2024 025 [facility], [address] [facility], [facility] [address], [place], [place], [id number], 03/03/2024 17:02:57 mirtazapi ne 15 mg tablet 2024 025 [facility], [address] [facility] [address], [place], [place], [id number], 03/09/2024 14:54:13 Patient TargetsNo targets recorded. Patient Instructions Encounter Date Encounter Id Patient Instructions Last Modified By Organization Details Last Modified Time 03/03/2024 [id number] C? ? ?mo evitar la recurrencia de [...] de cuidado - [depression treatment: care instructions] damari Not available 03/03/2024 16:59:42 hipotiroidismo: instrucciones de cuidado - [hypothyroidism: care instructions] damari Not available 03/03/2024 16:59:42 Medications (OTC, herbal therapies, supplements) reviewed and reconciled with patient and or caregiver, including potential side effects, drug interactions, instructions, and the consequences of not taking medication. Reviewed potential barriers to medication adherence, such as side effects from medication or cost of medication. [email or web address] Not available 03/03/2024 16:00:20 Reason for Referral None Reported. Results Created Date Observation Date Name Description Value Unit Range Abnormal Flag Note LastModifiedBy Organization Detail LastModifiedTime 03/03/1903/03/2024 hemog lobin A1C, finge rstic k A1C 8.3 % 4-6 abnormal Not Available In-Office Order Internal Use Only DO Not Attach Compendium DO Not Attach Compendium, Do Not Delete/merge, [id number] 02/28/2024 12:53:49 Result Notes None recorded. Problems Name Problem SNOMED Code Status Onset Date Resolution Date Notes Provider Name and Address Organization Details Recorded Time Prieto parker hyperten gulshan 77782323 Completed 202312/04/2023 Basil Clifton MD [address] [address], [place], [address], [facility] 4 07:41:23 Hypothyr oidism 59246572 Active 2023 Basil Clifton MD [address] [address], [place], [address], [facility] 4 07:37:39 Renal disorder due to type 2 diabetes mellitus 722884761 Active 2023 Basil Clifton MD [address] [address], [place], [address], [facility] 4 07:41:01 Chronic kidney disease stage 3A 479962252 Active 2023 Basil Clifton MD [address], [place], [address], [facility] 4 07:44:02 Microalb uminuric diabetic nephropa thy 381207926 Active 2023 Basil Clifton MD [address], [place], [address], [facility] 4 07:44:25 Hyperlip idemia 74435559 Active 2023 Basil Clifton MD [address], [place], [address], [facility] 4 07:47:26 Abdomina l aortic ectasia 99545928685 9101 Active 2023 Basil Clifton MD [address], [place], [address], [facility] 4 07:47:41 Vitamin D deficien cy 14891476 Completed 202302/28/2024 Basil Clifton MD [address], [place], [address], [facility] 5 12:54:14 Ex-smoke r 2293712 Active 2023 Basil Clifton MD [address], [place], [address], [facility] 4 11:30:41 Obstruct jhonny sleep apnea syndrome 81075792 Active 2023 Basil Clifton MD [address], [place], [address], [facility] 4 11:37:02 Obesity 127130398 Active 2023 Basil Clifton MD [address], [place], [address], [facility] 4 11:54:49 Neuropat hy due to diabetes mellitus 778809427 Active 2023 Basil Clifton MD [address] [facility] [address], [place], [address], [facility] 4 11:57:37 Gout 12058079 Active SHENG Berg, [facility] 4 17:54:10 Glaucoma 96083271 Active SHENG Berg, [facility] 4 17:54:18 Loss of appetite 90350473 Active 2023 since hypoglyc emic episode caused loss of consciou sness SHENG Berg, [facility] 4 16:49:59 Generali zed anxiety disorder 97279606 Active 2023 Basil Clifton MD [address] [address], [place], [address], [facility] 4 11:06:38 Moderate recurren t major depressi on 71768850 Active 2023 Basil Clifton MD [address] [address], [place], [address], [facility] 4 11:06:40 Memory impairme nt 696694249 Active 2023 Basil Clifton MD [address] [address], [place], [address], [facility] 4 11:07:56 Hyperten sive renal disease 39290939 Active 2024 Basil Clifton MD [address] [address], [place], [address], [facility] 5 12:53:25 Problem Notes None recorded. Procedures Surgical History Date Name Laterality Status Provider Name and Address Organization Details Recorded Time 4 Diabetic Foot Exam (Monofilament) completed Basil Clifton MD [address] [address], [place], [address], [facility] 12/04/2023 11:50:41 excision of hydrocele completed Little Far[place] [facility] 12/04/2023 11:21:18 Imaging Results None recorded. Procedure Notes None recorded. Medical Equipment None Reported. Allergies Allergen ID Allergen Name Allergen Category Reaction Reaction Severity Criticality Documentation Date Start Date Code Code System Note Provider Name and Address Organization Details Recorded Time 38102 allopurin ol medicatio n other Not available Not available 12/04/2023 519 RxNorm cause d pancr eatit is SHENG Berg, [facility] 17:54:42 Medications Name Sig Start Date Stop [...] patient will resume this medicati on until [facility] pen is delivere d to his home. 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 16+yearssin lit garber Information not available 12/04/2023 Do You Take [...] 12/04/2023 What Is Your Current Pack Years? 20-29packye ars Information not available 03/03/2024 Are You Sexually [...] Time influenza, unspecified formulation 0 completed Marleny Obregon null, [facility] 11/18/2023 13:25:22 influenza, unspecified formulation 7 completed Marleny Obregon null, [facility] 11/18/2023 13:25:34 influenza, unspecified formulation 8 completed Marleny jones, [facility] 11/18/2023 13:26:00 influenza, unspecified formulation 9 completed Marleny Obregon null, [facility] 11/18/2023 13:26:09 pneumococcal, unspecified formulation 4 completed Marleny jones, [facility] 11/18/2023 13:26:44 Tdap 2 completed Marleny jones, [facility] 11/18/2023 13:26:50 Influenza, high-dose, quadrivalent, PF 2 completed SHENG Gurrola, [facility] 12/04/2023 10:52:42 Influenza, adjuvanted, quadrivalent, PF 3 completed SHENG Gurrola, [facility] 12/04/2023 10:52:42 COVID-19, mRNA, LNP-S, bivalent, PF, 30 mcg/0.3 mL dose 2 completed SHENG Gurrola, [facility] 12/04/2023 10:52:42 Tdap 4 completed Aby jones, [facility] 01/27/2024 15:22:21 influenza, unspecified formulation 4 completed Aby jones, [facility] 01/27/2024 15:21:40 SARS-COV-2 (COVID-19) vaccine, UNSPECIFIED 4 completed Aby jones, [facility] 01/27/2024 15:22:01 Tdap 4 completed SHENG Mcgee, [facility] 03/03/2024 16:00:52 Td (adult), 2 Lf tetanus toxoid, preservative free, adsorbed 6 completed Not Available [facility] 08/25/2013 13:59:04 pneumococcal polysaccharide PPV23 6 completed Not Available [facility] 08/25/2013 13:59:05 Past Encounters Encounter ID Performer Location Encounter Start Date Encounter Closed Date Diagnosis/Indication Diagnosis SNOMED-CT Code Diagnosis ICD10 Code Diagnosis Note [id number] Basil Clifton MD Main Office [address] [place] [address] 03/03/2024 15:22:56 03/03/2024 17:09:12 Hypothyroidism 74244342 E03.9 Will repeat TSH Renal diso rder due to type 2 diabetes mellitus 533640983 E11.21 E11.65 HBA1C w0spdtyu doneOn ARBCont. mounjaro 7.5, insulin was added Tresiba for better glucose control and he has not had lows with better glucose control.Co nt. CGM.Cont. Aspirin EC 81 mg po qdailyRegu lar self feet exam advised. Also advised to use own clippers. 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 Advised regarding risks/sign s/symptoms of hypoglycem ia. Counseled to carry a snack in case of emergencie s Microalbum inuric diabetic nephropathy 847781550 E11.21 Chronic ki dney disease stage 3A 419891261 N18.31 advised regular follow up with renal. Generalize d anxiety disorder 10123585 F41.1 Hypertensi ve renal disease 32685066 I12.9 bp still elevated, will add amlodipine , advised close follow up with renal. Abdominal aortic ectasia 1648153005 65606 I77.811 will consider monitoring in 2-3 yrs as it is mild.BP control enforced and glucose control.Re gular exercise encouraged . Memory impairment 439360 006 R41.3 likely pseudodeme ntia will tx depression first. Moderate r ecurrent major depression 51605990 F33.1 He is depressed, has low apatite will start increase remeron qhs.Follow up in 3 mo.Denies thoughts of self harm or harming others.Psy chotherapy encouragem ind fullness encouraged . Health Concerns Section Related Observation LastModified by Organization Detai ls LastModified Time None Recorded Concern Status LastModified by Organization Details LastModified Time None Recorded Payers Encounter Date Sequence Insurance Name Policy Number Policy Lyle Covered Member ID Lyle Member ID Guarantor Name 03/03/2024 1 [facility] - DOS ON OR AFTER 2022 - ONE CARE (MEDICARE REPLACEMENT/AD VANTAGE - HMO) Ariel Gupta [id number] Ariel Gupta Notes Date Note Type Note Provider Name and Address Organization Details Recorded Time 03/03/2024 text/html The patient pres ents today [...] (previously low), FABI, renal function, and an ihdtnde-ku-jobrqyyuyb ratio. Additionally, he was due for an A1c test today, as it had been three months since his last test. His A1c showed a slight increase, likely due to recent medication adjustments. I explained to the patient and his family that this is expected to improve in the coming months as his blood sugar levels continue to stabilize with recent improvements. Basil Clifton MD [address], [address], [facility] 03/04/2024 08:02:05 03/03/2024 text/html AnemiaReported bypatient.Severity:Norm ocytic [...] shaking (tremor);urinary frequency;shortness of breathDiabetes F/UReported bypatient.Context:seein [facility] regularly; checking feet [...] no motor disturbances Lifestyle habits:no regular exercise Basil Clifton MD [address], [address], [facility] 03/04/2024 08:02:05
--- OUTSIDE RECORDS SUMMARY | 2024-03-10 10:17 | XMS_ITS | Clinical Summary ---
Author Organization [facility] Address [address] [place] [address] Phone Care Team Providers Care Occupational Therapist Rehab Manager Name Role Phone Basil Najera MD Primary Care Provider [phone] Encounters Date Type Department Care Team Description 01/07/2024 8:35 AM EST - 01/07/2024 11:59 PM EST Hospital Encounter [facility] Ultrasound [address] [place] [address] Abdominal aortic ectasia (CMS/HCC) Discharge Disposition: Home or Self Care from Last 3 Months Social History Tobacco Use Types Packs/Day Years Used Date Smoking Tobacco: Never Assessed Sex and Gender Information Value Date Recorded Sex Assigned at Not on file Gender Identity Not on file Sexual Orientation Not on file Job Start Date Occupation Industry Not on file Not on file Not on file Plan of Treatment Health Maintenance Due Date Last Done Comments Diabetes: Annual GFR (Glomerular Filtration Rate) 1947 Diabetes: Annual Foot Exam 1957 Diabetes: Annual Retina Eye Exam 1957 Zoster Vaccines (1 of 2) 1997 RSV Immunization Patients 60 + Years Old (1 - 1-dose 75+ series) 2022 COVID-19 Vaccine (2023-2 5 season) 2023 Influenza Vaccine (#1) 2023 2, 10/17/2016, 11/14/2015 Cholesterol Screening (Lipid Panel) 12/27/2023 Depression Screening 12/27/2023 Diabetes: Annual Urine Albumin-Creatinine Ratio (uACR) 12/27/2023 Diabetes: Blood Sugar Contro l Test (HGBA1C) 12/27/2023 Falls Risk Assessment 12/27/2023 Hepatitis C Screening 12/27/2023 Hypertension/CHF/CAD Annual BMP Blood Test 12/27/2023 Social Influencers of Health Screening 12/27/2023 DTaP,Tdap,and Td Vaccines (2 - Td or Tdap) 07/04/2025 07/05/2015 Pneumococcal Vaccine: 65+ Years Completed 02/17/2016, 02/17/2015 HIB Vaccines Aged Out No longer eligi ble based on patient's age to complete this topic HPV Vaccines Aged Out No longer eligi ble based on patient's age to complete this topic Hepatitis A Vaccines Aged Out No long er eligible based on patient's age to complete this topic Hepatitis B Vaccines Aged Out No long er eligible based on patient's age to complete this topic IPV Vaccines Aged Out No longer eligi ble based on patient's age to complete this topic MMR Vaccines Aged Out No longer eligi ble based on patient's age to complete this topic Meningococcal ACWY Vaccine Aged Out N o longer eligible based on patient's age to complete this topic RSV Immunization Patients Under 20 months Aged Out No longer eligible b ased on patient's age to complete this topic Varicella Vaccines Aged Out No longer eligible based on patient's age to complete this topic Procedures Procedure Name Priority Date/Time Associated Diagnosis Comments US ABDOMEN AORTIC ANEURYSM SCREENING Routine 01/07/2024 9:05 AM EST Abdominal aortic ectasia (CMS/HCC) from Last 3 Months Results * US Abdomen Aortic Aneurysm Screening (01/07/2024 9:05 AM EST) Anatomical Region Laterality Modality Abdominal aorta Ultrasound 01/07/2024 12:3 5 PM EST Impressions 01/07/2024 12:37 PM EST Impression: No abdominal aortic aneurysm is identified. -------- FINAL REPORT -------- Dictated By: Janice Luke Dictated Date: 01/07/2024 12:35 ET Assigned Physician: Janice Luke Reviewed and Electronically Signed By: Janice Luke Signed Date: 01/07/2024 12:37 ET Workstation ID: [id number] Transcribed By: Self Edit Transcribed Date: 01/07/2024 12:35 ET Narrative 01/07/2024 12:37 PM EST History: Screening for abdominal aortic aneurysm. Comparison: No comparison imaging at this institution. Findings: High resolution real-time imaging of the abdomen, limited to the aorta, was performed. The aorta is normal in caliber, measuring 2.2 cm AP proximally, 2.1 cm in the midportion, and 1.8 cm distally. The aortic lumen is patent. No periaortic fluid collections are seen. The aortic bifurcation is normal. 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 Procedure Note Janice Luke MD - 01/07/2024 History: Screening for abdominal aortic aneurysm. Comparison: No comparison imaging at this institution. Findings: High resolution real-time imaging of the abdomen, limited to the aorta,was performed. The aorta is normal in caliber, measuring 2.2 cm AP proximally, 2.1 cm inthe midportion, and 1.8 cm distally. The aortic lumen is patent. Noperiaortic fluid collections are seen. The aortic bifurcation is normal. Mild ectasia of the common iliacarteries is seen, measuring up to 1.2 cm in diameter on the right and 1.1cm on the left. IMPRESSION: Impression: No abdominal aortic aneurysm is identified. -------- FINAL REPORT -------- Dictated By: Janice Luke Dictated Date: 01/07/2024 12:35 ET Assigned Physician: Janice Luke Reviewed and Electronically Signed By: Janice Luke Signed Date: 01/07/2024 12:37 ET Workstation ID: [id number] Transcribed By: Self Edit Transcribed Date: 01/07/2024 12:35 ET Basil Najera MD IMG US PROCEDURES from Last 3 Months Care Teams Occupational Therapist Rehab Manager Relationship Specialty Start Date End Date Basil Najera MD [address] [facility] [address] [place] [address] PCP - General Family Medicine 12/27/23
--- OUTSIDE RECORDS SUMMARY | 2024-03-10 10:17 | XMS_ITS | Clinical Summary ---
Author Organization [facility] Address [address] [place] [address] Phone Care Team Providers Care Secret Service Agent Name Role Phone Hannah Patten MD Primary Care Provider [phone] Allergies Active Allergy Reactions Criticality Noted Date Comments Losartan 02/17/2015 Hyperkalemia Medications aspirin (ST LEIDY) 81 MG EC tablet Take 81 mg by mouth 1 (one) time each day 8 Active atenolol (TENORMIN) 50 MG tablet Take 1 tablet by mouth 1 (one) time each day 8 Active atorvastatin (LIPITOR) 10 MG tablet Take 10 mg by mouth 1 (one) time each day 1 Active hydroCHLOROthia zide 25 MG tablet Take 25 mg by mouth 1 (one) time each day 1 Active insulin glargine (Lantus SoloStar) 100 UNIT/ML injection Inject 50 Units under the skin every night 8 Active metFORMIN (FORTAMET) 1000 MG 24 hr tablet Take 1 tablet by mouth 2 (two) times a day Active Travoprost, ANDRA Free, 0.004 % solution Administer into affected eye(s) Active gabapentin (NEURONTIN) 100 MG capsule Take 100 mg by mouth at bed time 1 Active cholecalciferol (VITAMIN D-3) 25 MCG (1000 UT) tablet 1 Active levothyroxine sodium (TIROSINT) 125 MCG capsule Take 125 mcg by mouth 1 (one) time each day Active hydrALAZINE 50 MG tablet Take 1 tablet (50 mg total) by mouth in the morning and 1 tablet (50 mg total) in the evening and 1 tablet (50 mg total) before bedtime. 90 tablet 2 2 Active Active Problems Problem Noted Date Diagnosed Date Microalbuminuria 08/25/2014 Hypertensive disorder 08/13/2014 Resolved Problems Problem Noted Date Diagnosed Date Resolved Date Obesity 05/18/2016 10/31/2020 Glaucoma 08/25/2014 10/31/2020 Gout 08/25/2014 10/31/2020 Overview (10/31/2020): Episode acute pancreatitis thought to be caused by Allopurinol Episode acute pancreatitis thought to be caused by Allopurinol Hypercholesterolemia 08/25/2014 021 Hypothyroidism 08/13/2014 10/31/2020 Type 2 diabetes mellitus 08/13/2014 Immunizations Name Administration Dates Next Due Influenza Split High Dose Preservative Free IM 0 10/17/2016,11/14/2015 Pneumococcal Conjugate 13-Valent 02/17/2016 Pneumococcal Polysaccharide 02/17/2015 Tdap 07/05/2015 Family History Medical History Relation Comments Cancer Mother grandmother Diabetes Mother Heart disease Mother Hypertension Mother Relation Status Comments Father Unknown Mother Unknown Social History Tobacco Use Types Packs/Day Years Used Date Smoking Tobacco: Former Smokeless Tobacco: Former Tobacco Cessation:Counseling Given: Not Answered Comments:Smoking History Info:Every day Alcohol Use Standard Drinks/Week Comments No 0 (1 standard drink = 0.6 oz pur e alcohol) Sex and Gender Information Value Date Recorded Sex Assigned at Not on file Legal Sex Male 4:51 PM EST Gender Identity Not on file Sexual Orientation Not on file Last Filed Vital Signs Vital Sign Reading Time Taken Comments Blood Pressure 180/70 12/14/2021 3:27 PM EDT Pulse 62 12/14/2021 3:27 PM EDT Temperature - - Respiratory Rate - - Oxygen Saturation 96% 12/14/2021 3:27 PM EDT Inhaled Oxygen Concentration - - Weight 76.8 kg (169 lb 6.4 oz) 12/14/2021 3:27 P M EDT Height 152.4 cm (5') 03/17/2020 12:00 PM EST Body Mass Index 33.08 03/17/2020 12:00 PM EST Plan of Treatment Health Maintenance Due Date Last Done Comments Influenza Vaccine (#1) 2023 7, 11/14/2015 Pneumococcal Vaccine: 65+ Years Completed 02/17/2016, 02/17/2015 Hepatitis B Vaccine Aged Out No longe r eligible based on patient's age to complete this topic Insurance (A2793) (A2793) Care Teams Secret Service Agent Relationship Specialty Start Date End Date Hannah Patten MD [address] [place] [address] PCP - General 02/22/20
== END 2024-03-10 10:09 | disposition home or self-care (01) ==
PROVIDERS: PCP Family Medicine; Visit Provider Internal Medicine Hypertension Specialist
DX: I12.9 Hypertensive chronic kidney disease with stage 1 through stage 4 chronic kidney disease, or unspecified chronic kidney disease (principal); E11.22 Type 2 diabetes mellitus with diabetic chronic kidney disease; N18.2 Chronic kidney disease, stage 2 (mild); R80.9 Proteinuria, unspecified
CPT/HCPCS: 99214

== ENCOUNTER → 2024-03-10 09:40 | Outpatient (BNVA) | payer OTHER, SELFPAY | PROVIDERS: PCP Family Medicine; Visit Provider Internal Medicine Hypertension Specialist | DX: I15.0 Renovascular hypertension (principal); N18.2 Chronic kidney disease, stage 2 (mild); R80.9 Proteinuria, unspecified | CPT/HCPCS: 99212 ==

== ENCOUNTER 2024-04-17 08:42 | Outpatient (REF) | payer OTHER, SELFPAY ==
--- OUTSIDE RECORDS SUMMARY | 2024-04-17 09:18 | XMS_ITS | Clinical Summary ---
Author Organization [facility] Address [address] [place] [address] Phone Care Team Providers Care Lone Lead Lineman Name Role Phone Hannah Patten MD Primary Care Provider [phone] Allergies Active Allergy Reactions Criticality Noted Date [...] this topic Insurance (A2793) ([id number]) Care Teams Lone Lead Lineman Relationship Specialty Start Date End Date Hannah Patten MD [address] [place] [address] PCP - General 02/22/20
--- OUTSIDE RECORDS SUMMARY | 2024-04-17 09:18 | XMS_ITS | Clinical Summary ---
Author Organization [facility] Address [address] [place] [address] Phone Care Team Providers Care Government Documents Librarian Name Role Phone Basil Najera MD Primary Care Provider [phone] Social History Tobacco Use Types Packs/Day Years Used Date Smoking Tobacco: Never Assessed Sex and Gender Information Value Date Recorded Sex Assigned at Not on file Legal Sex Male 7:02 AM EST Gender Identity Not on file Sexual Orientation Not on file Plan of Treatment Health Maintenance Due Date Last Done Comments Diabetes: Annual GFR (Glomerular Filtration Rate) 1947 Diabetes: Annual Foot Exam 1957 Diabetes: Annual Retina Eye Exam 1957 Zoster Vaccines (1 of 2) 1997 RSV Immunization Patients 60 + Years Old (1 - 1-dose 75+ series) 2022 COVID-19 Vaccine ( - 2023-2 5 season) 2023 Influenza Vaccine (#1) 2023 , 10/17/2016, 11/14/2015 Cholesterol Screening (Lipid Panel) 12/27/2023 Depression Screening 12/27/2023 Diabetes: Annual Urine Albumin-Creatinine Ratio (uACR) 12/27/2023 Diabetes: Blood Sugar Contro l Test (HGBA1C) 12/27/2023 Falls Risk Assessment 12/27/2023 Hepatitis C Screening 12/27/2023 Hypertension/CHF/CAD Annual BMP Blood Test 12/27/2023 Social Influencers of Health Screening 12/27/2023 DTaP,Tdap,and Td Vaccines (2 - Td or Tdap) 07/04/2025 07/05/2015 Pneumococcal Vaccine: 50+ Years Completed 02/17/2016, 02/17/2015 HIB Vaccines Aged [...] patient's age to complete this topic Meningococcal B Vacine Aged Out No lo nger eligible based on patient's age to complete this topic RSV Immunization Patients Under 20 months Aged Out No longer eligible b ased on patient's age to complete this topic Varicella Vaccines Aged Out No longer eligible based on patient's age to complete this topic Insurance [address] [place] [address] [facility] Member Subscriber Plan / Payer (Ef fective 2019-Present) Name:Ariel Gupta Relation to Subscriber:Self Name:Ariel Gupta Payer ID:[id number] Group ID:[id number] Type:Not on file Address: [place] [address] [address] [phone] Care Teams Government Documents Librarian Relationship Specialty Start Date End Date Basil Najera MD [address] [phone] PCP - General Family Medicine 12/27/23
--- OUTSIDE RECORDS SUMMARY | 2024-04-17 09:18 | XMS_ITS | Data Portability ---
Author Organization [facility] [employer] [place] [facility] Address [address] [place] [id number] Care Team Providers Care Washing Machine Loader Name Role Phone HIM CCA OTHER Assessment No assessment recorded. Plan of Treatment Reminders Order Date Submit Date Provider Last Modified By Organization Details Last Modified Time Details Appointments None recorded. Lab None recorded. Referral None recorded. Procedures None recorded. Surgeries None recorded. [facility] i[facility] [address] [place] [address], [id number], 14:24:13 Medication Orders None recorded. Patient TargetsNo targets recorded. Patient Instructions Encounter Date Encounter Id Patient Instructions Last Modified By Organization Details Last Modified Time 11/07/2023 [id number] orthostatic vitals* gbaci Not available 11/07/2023 13:54:45 Reason for Referral None Reported. Results Created Date Observation Date Name Description Value Unit Range Abnormal Flag Note LastModifiedBy Organization Detail LastModifiedTime 11/07/1911/07/2023 elect tao veegr am No observ ation record ed. [employer] [address], [phone], 11/07/2023 14:24:11 Result Notes None recorded. Procedures Surgical History None recorded. Imaging Results Imaging Date Name Status LastModified by Organization Details LastModified Time 11/07/2023 electrocardiogram completed [facility], [id number], 11/07/2023 14:24:11 Procedure Notes None recorded. Medical Equipment None Reported. Allergies No known drug allergies Medications Name Sig Start Date Stop Date Status Note LastModified by Organization Details LastModified Time med sync [place] active Not Available Not Available Not Available losartan 50 mg tablet active Not Available Not Available Not Available atorvastatin 10 mg tablet active Not Available Not Available No t Available travoprost 0.004 % eye drops active Not Available Not Available Not Available chlorthalidone 50 mg tablet active Not Available Not Available No t Available aspirin 81 mg tablet,delayed release active Not Available Not Available Not Available levothyroxine 100 mcg tablet active Not Available Not Available N ot Available metformin 1,000 mg tablet active Not Available Not Available No t Available hydralazine 50 mg tablet active Not Available Not Available Not Available atenolol 50 mg tablet active Not Available Not Available Not Available levothyroxine 112 mcg tablet active Not Available Not Available N ot Available cholecalciferol (vitamin D3) 25 mcg (1,000 unit) tablet active Not Available Not Available Not Available Lantus Solostar U-100 Insulin 100 unit/mL (3 mL) subcutaneous pen active Not Available Not Avail able Not Available Comfort Touch Pen Needle 31 gauge x 3/16 active Not Available Not Available Not Available Vitals Date Recorded Oxygen saturation Oxygen saturation in Arterial blood by Pulse oximetry Heart rate Respiratory rate Body temperature Respiratory rate Heart rate Oxygen saturation Oxygen saturation in Arterial blood by Pulse oximetry Systolic blood pressure Diastolic blood pressure Systolic blood pressure Diastolic blood pressure Provider Name and Address Organization Details Last Updated DateTime 4 97 % 97 % 65 /min 18 /min 98.2 [degF] 18 /min 58 /min 97 % 97 % 130 mm[Hg] 78 mm[Hg] 106 mm[Hg] 66 mm[Hg] Not Available [facility] - production 4 13:49:31 Social History None recorded. Functional Status None recorded. Mental Status None recorded. Family History Nothing Reported. Medical History No medical history recorded. Past Encounters Encounter ID Performer Location Encounter Start Date Encounter Closed Date Diagnosis/Indication Diagnosis SNOMED-CT Code Diagnosis ICD10 Code Diagnosis Note [id number] NINA ELLIOTT MD [facility] - [facility] [address] [place] [address] 11/07/2023 13:41:42 11/07/2023 23:19:52 Lightheadedness [id number] R42 Evaluation in the field was performed by my forward air controller/air officer colleague, as noted above, I provided real-time direction and supervisio n for this visit. The evaluation revealed a 78-year-ol d male with a history of Type 2 diabetes mellitus who was found unresponsi ve on the floor with a blood sugar of 40 yesterday by the paramedics . He was taken to the ED, where he was treated and subsequent ly released from the hospital. Today, the patient reports dizziness when standing from a sitting position. He is compliant with his medication s He was advised in the ED to decrease lantus dose from 63 Ui to 55 UI daily and follow up with his PCP , but he has been unable to reach him. The patient denies any other symptoms, including chest pain, shortness of breath, fever, nausea, vomiting, or diarrhea but feels more sleepy than usual . His blood glucose was 219 when checked by the forward air controller/air officer. Family was given him sugary drink and lollipop since he looked sleepyMedi cations: ASA,. Atenolol 50 mg daily, Chlorthali done 25 mg qd, Hydralazin e 50 mg TID, losartan 50 mg daily, Levothyrox ine, Metformin 1000 mg BID, Lantus 63 UI daily qHS Vital signs with mildly soft BP 106/66, HR 58BG 219Positiv e orthostati c VS with SBP drop by 20 points with standing.E CG with sinus bradicardi a, no AV block, no acute ST-T changes.Pa ramedic unable to establish an IV or draw labsPt lethargic . Impression :Orthostat ic hypotensio n, lethargy Plan:Pt lethargic, orthostati c. Unable to receive IVF from us due to lack of IV access. Family agrees for him to go back to ER for IVF and further eval. Expect was called at [facility], considerpr escribing glucometer since he doesn't have one while taking large dose of lantus. His lantus dose should be divided in BID dosing if >50 UI. Please consider decreasing dose of antihypert ensive meds given his age Dispositio n: [facility] ED . Expect was called. Health Concerns Section Related Observation LastModified by Organization Detai ls LastModified Time None Recorded Concern Status LastModified by Organization Details LastModified Time None Recorded Advance Directives Directive None Recorded Payers Encounter Date Sequence Insurance Name Policy Number Policy Lyle Covered Member ID Lyle Member ID Guarantor Name 11/07/2023 1 [facility] - DOS ON OR AFTER 2022 - DUAL ELIGIBLE - [employer] OPT[employer] AND ONE C[employer] (MEDICARE REPLACEMENT/AD VANTAGE - HMO) Ariel Koromaillo [id number] Ariel MarinoCandy Notes Date Note Type Note Provider Name and Address Organization Details Recorded Time 11/07/2023 text/html E Casting Machine Operator [employer] Organization Information for [facility] Business Legal Name: [employer]? Address: [address] [place] [address], Package Sorter: Neil KLINE No.: [id number] Casting Machine Operator [employer] POC Test Results from [facility] EKG (13:53:44) EKG test performed. Attachments uploaded as part of this test result can be found under Documents section. .................. .................. .................. .................. .................. .................. .................. ............... Casting Machine Operator Automatic Note From [facility]: Dispatched to above address for dizziness. On arrival patient 78 y/o M, found sitting on chair, AOX4, airway patent, speaking in full sentences, good color, in no apparent distress, lethargic poor affect, Maori speaking only. Patients sister on scene translating. Patients sister reports he was LKW Saturday afternoon, had a welfare check yesterday and found unresponsive hypoglycemic, seen in the ER and discharged yesterday, today is feeling dizzy. Patients vital signs checked. Patients BGL checked, 219mg/dl. Secondary assessment, pupils PERRL, airway patent, no JVD, trachea midline, equal chest rise and fall, lungs clear all bush, abdomen soft non tender, no signs of trauma, good radial pulse, skin pink warm and dry. [facility] contacted, spoke with Dr. Elliott, advised of patient complaints and exam findings. [facility] ordered 12 lead EKG, orthostatic vital signs, IV and ISTAT check. 12 lead EKG showed sinus bradycardia. Orthostatic vital signs checked, positive. IV access attempted but unsuccessful. [facility] contacted, advised of test results. [facility] recommends transport to ER for further evaluation. Patient agrees with this. 911 contacted. [facility] responded. Verbal report given to [facility] Casting Machine Operator [employer]. [facility] forward air controller/air officer took over patient care, transporting to [facility]. SC8 clear. EOR. .................. .................. .................. .................. .................. .................. .................. ............... Disposition: Fulfilled NINA ELLIOTT MD [address] [place] [address],[address], [place], [address], [employer] - [employer] PrimeMARILEE BENDER 11/07/2023 15:55:13
--- OUTSIDE RECORDS SUMMARY | 2024-04-17 09:18 | XMS_ITS | Data Portability ---
Author Organization [facility], Main Office Address [address] [facility] [address] [place] [address] Care Team Providers Care Shipping Track Supervisor Name Role Phone MITUL CLIFTON Primary Care Provider FABI TRINH Referring Provider STEFANY RICHARD Rn Forensic RONALD REAGAN [facility] Rn Forensic CORAL RG [employer] Controller KATHRYN RUIZ Physicist Nuclear [phone] [facility] Insurance Marketing Rep [phone] Assessment Encounter Date Assessment Date Assessment LastModified [...] Not available Lab BMP, serum or plasma 03/03/2 025 JENNY [facility] (Centralized Electronic Ordering - All Locations), Patient Can Go To The Location Of Their Choice, [id number] 03/19/2024 16:06:36 hemogl obin A1C, finger stick 2024 025 [facility] In-Office Order, Internal Use Only DO Not Attach Compendium DO Not Attach Compendium, Do Not Delete/merge, [id number] 03/03/2024 16:59:41 microa lbumin /creat inine, mass ratio, urine 2024 025 JENNY [facility] (Centralized Electronic Ordering - All Locations), Patient Can Go To The Location Of Their Choice, 03/19/2024 16:06:37 magnes ium, serum or plasma 2023 024 JENNY [facility] (Centralized Electronic Ordering - All Locations), Patient Can Go To The Location Of Their Choice, 02/03/2024 14:06:03 vitami n B12, serum 2023 JENNY [facility], [address] [place], [address], 12/04/2023 11:54:44 trepon sheron pallid um IgG + IgM Ab, QL, IA, serum 2023 024 JENNY [facility] (Centralized Electronic Ordering - All Locations), Patient Can Go To The Location Of Their Choice, 02/03/2024 14:06:03 CBC w/ auto diff 2023 JENNY [facility], [address] [facility], [place], [address], 02/03/2024 14:05:55 CMP, serum or plasma 2023 024 JENNY [facility] (Centralized Electronic Ordering - All Locations), Patient Can Go To The Location Of Their Choice, 02/03/2024 14:05:56 PSA, serum or plasma 2023 024 JENNY [facility] (Centralized Electronic Ordering - All Locations), Patient Can Go To The Location Of Their Choice, 02/03/2024 14:06:01 urinal ysis comple te, reflex cultur e 2023 024 JENNY [facility] (Centralized Electronic Ordering - All Locations), Patient Can Go To The Location Of Their Choice, 02/03/2024 14:05:57 inflam mation panel, serum or plasma 2023 JENNY [facility] (Centralized Electronic Ordering - All Locations), Patient Can Go To The Location Of Their Choice, 02/03/2024 14:06:00 vitami n B12 + folate , serum or blood 2023 JENNY [facility] (Centralized Electronic Ordering - All Locations), Patient Can Go To The Location Of Their Choice, 02/03/2024 14:05:54 lipid panel, serum 2023 JENNY [facility], [address], [place], [address], 02/03/2024 14:05:58 hemogl obin A1C, finger stick 2023 JENNY In-Office Order, Internal Use Only DO Not Attach Compendium DO Not Attach Compendium, Do Not Delete/merge, [id number] 12/04/2023 12:13:48 microa lbumin /creat inine, mass ratio, urine 2023 JENNY [facility] (Centralized Electronic Ordering - All Locations), Patient Can Go To The Location Of Their Choice, 02/03/2024 14:05:59 vitami n D, 25-hyd josé miguel, total, serum 2023 JENNY [facility] (Centralized Electronic Ordering - All Locations), Patient Can Go To The Location Of Their Choice, 02/03/2024 14:06:02 Hepati tis C IgG Ab, qual, serum 2023 JENNY [facility] (Centralized Electronic Ordering - All Locations), Patient Can Go To The Location Of Their Choice, 02/03/2024 14:06:00 TSH + free T4, serum 2023 JNENY [facility] (Centralized Electronic Ordering - All Locations), Patient Can Go To The Location Of Their Choice, 02/03/2024 14:05:54 Referral sleep medici ne referr al 2023 024 [facility], [address] [place], [address], 01/01/2024 09:46:46 dermat ologis t referr papo Oh-JOSEF diaz t; jeb s [facility] locati on 2023 024 [facility], [address], [address], [place], [address], 12/11/2023 14:07:26 Procedures None record ed. Surgeries None record ed. Imaging US, abdomi nal aorta 2023 024 [facility] (Ultrasound), [address], [place], [address], 02/06/2024 09:39:26 Medication Orders amlodi pine 2.5 mg tablet 2024 025 [facility], [address] [place] [address], [address], [id number], 03/10/2024 14:21:37 mirtaz apine 15 mg tablet 2024 025 [facility], [address] [place] [address], [address], [id number], 04/08/2024 15:46:56 losart an 100 mg tablet 2023 025 [facility], [address] [place] [address], [address], [id number], 04/08/2024 15:46:57 mirtaz apine 7.5 mg tablet 2023 025 [facility], [address] [place] [address], [address], [id number], 03/04/2024 07:58:13 Mounja ro 2.5 mg/0.5 mL subcut aneous pen inject or 2023 024 [facility], [address] [address], [place], [place], [id number], 01/07/2024 17:07:46 Patient TargetsNo targets recorded. Patient Instructions Encounter Date Encounter Id Patient Instructions Last Modified By Organization Details Last Modified Time 12/04/2023 [id number] Cuando desea bajar de peso: Instrucciones de cuidado - [When You Want to Lose Weight: Care Instructions] damari Not available 12/04/2023 11:55:03 apnea del stevo? ? ?o: instrucciones de cuidado - [sleep apnea: care instructions] damari Not available 12/04/2023 11:54:21 high cholesterol: care instructions damari Not available 12/04/2023 11:54:20 hypothyroidism: care instructions damari Not available 12/04/2023 11:54:21 starting a weight loss plan: care instructions damari Not available 12/04/2023 11:55:03 lesiones cut? ? ?neas: instrucciones de cuidado - [skin lesions: care instructions] damari Not available 12/04/2023 11:54:20 01/27/2024 [id number] C? ? ?mo evitar la recurrencia de la depresi? ? ?n: Instrucciones de cuidado - [Preventing Depression From Coming Back: Care Instructions] damari Not available 01/27/2024 11:05:50 decisi? ? ?n sobre suspender wiley antidepresivo - [deciding about stopping your antidepressant] admari Not available 01/27/2024 11:05:50 la depresi? ? ?n y las enfermedades cr? ? ?nicas: instrucciones de cuidado - [depression and chronic disease: care instructions] damari Not available 01/27/2024 11:05:49 pensamientos suicidas en un miembro de la nelli: instrucciones de cuidado - [suicidal thoughts in a family member: care instructions] damari Not available 01/27/2024 11:05:50 recuperaci? ? ?n [...] instructions] ckokar Not available 01/27/2024 11:05:50 03/03/2024 [id number] C? ? ?mo evitar la recurrencia de [...] pensamientos suicidas en un miembro de la nleli: instrucciones de cuidado - [suicidal thoughts in [...] Not available 03/03/2024 16:00:20 Reason for Referral Insurance Marketing Rep Referral for S kin lesion skin lesions on right cheek SYRIAN-SPEAKING patient; prefers [place] location Referring Physician: Mitul Clifton, Family Medicine, Encounter Date: 12/04/2023 Sleep Medicine Referral for Obstructive sleep apnea syndrome Referring Physician: Mitul Clifton Family Medicine, Encounter Date: 12/04/2023 Results Created Date Observation Date Name Description Value Unit Range Abnormal Flag Note LastModifiedBy Organization Detail LastModifiedTime 12/04/19 24 12/04/2023 hemog lobin A1C, finge rstic k A1C 7.9 % 4-6 abnormal Not Available In-Office Order Internal Use Only DO Not Attach Compendium DO Not Attach Compendium, Do Not Delete/merge, [id number] 12/04/2023 07:52:59 01/22/20 24 01/25/2024 MITOC HONDR IAL (M2) ANTIB KURT mitochondria l (M2) antibody <20.0 units 0.0-20 .0 Negat jhonny 0.0 - 20.0 Equiv ocal 20.1 - 24.9 Posit jhonny >24.9 Mitoc hondr ial (M2) Antib odies are found in 90-96 % of patie nts with prima ry bilia ry cirrh osis. Not Available [facility] ([facility]) [address] [facility], [place], [address], 01/25/2024 20:06:01 01/22/20 24 01/25/2024 GGT GGT 34 IU/L 0-65 normal Not Available [facility] ([facility]) [address] [facility], [place], [address], 01/25/2024 20:06:02 01/22/20 24 01/24/2024 LINN EN AUTHO RIZAT ION written authorizatio n Amada t Linn en Autho rizat ion Recei luiza. Autho rizat ion recei luiza from [facility] CHARLIE CLIFTON for Link Reque st on 01-23 Logge d by Gay Garnett Not Available [facility] ([facility]) [address] [facility], [place], [address], 01/25/2024 20:06:02 01/22/20 24 01/24/2024 VITAM IN B12+F OLATE vitamin B12 304 pg/mL 232-12 45 normal Not Available [facility] ([facility]) [address] [facility], [place], [address], 02/03/2024 14:05:54 01/22/20 24 01/24/2024 VITAM IN B12+F OLATE folate (folic acid), serum 15.1 NG/mL >3.0 normal A serum folat e spike ntrat ion of less than 3.1 ng/mL is consi dered to repre sent clini ravi defic iency . Not Available [facility] ([facility]) [address] [facility], [place], [address], 02/03/2024 14:05:54 01/22/20 24 01/27/2024 VITAM IN B12+F OLATE homocyst(E)i ne 39.5 umol/ L 0.0-19 .2 above high normal Not Available [facility] ([facility]) [address] [facility], [place], [address], 02/03/2024 14:05:54 01/22/20 24 02/03/2024 VITAM IN B12+F OLATE methylmaloni c acid, serum 795 nmol/ L 0-378 above high normal Not Available [facility] ([facility]) [address] [place], [address], 02/03/2024 14:05:54 01/22/20 24 01/23/2024 TSH+F REE T4 TSH 0.398 uIU/m L 0.450- 4.500 below low normal Not Available [facility] ([facility]) [address] [place], [address], 02/03/2024 14:05:54 01/22/20 24 01/23/2024 TSH+F REE T4 T4,free(dire ct) 1.69 NG/dL 0.82-1 .77 normal Not Available [facility] ([facility]) [address] [place], [address], 02/03/2024 14:05:54 01/22/20 24 01/22/2024 CBC WITH DIFFE RENTI AL/PL ATELE T WBC 8.8 x10e3 /uL 3.4-10 .8 normal Not Available [facility] ([facility]) [address] [place], [address], 02/03/2024 14:05:55 01/22/20 24 01/22/2024 CBC WITH DIFFE RENTI AL/PL ATELE T RBC 4.17 x10e6 /uL 4.14-5 .80 normal Not Available [facility] ([facility]) [address] [place], [address], 02/03/2024 14:05:55 01/22/20 24 01/22/2024 CBC WITH DIFFE RENTI AL/PL ATELE T hemoglobin 12.4 g/dL 13.0-1 7.7 below low normal Not Available [facility] ([facility]) [address] [place], [address], 02/03/2024 14:05:55 01/22/20 24 01/22/2024 CBC WITH DIFFE RENTI AL/PL ATELE T hematocrit 38.2 % 37.5-5 1.0 normal Not Available [facility] ([facility]) [address] [place], [address], 02/03/2024 14:05:55 01/22/20 24 01/22/2024 CBC WITH DIFFE RENTI AL/PL ATELE T MCV 92 fL 79-97 normal Not Available [facility] ([facility]) [address] [place], [address], 02/03/2024 14:05:55 01/22/20 24 01/22/2024 CBC WITH DIFFE RENTI AL/PL ATELE T MCH 29.7 pg 26.6-3 3.0 normal Not Available [facility] ([facility]) [address] [facility], [place], [address], 02/03/2024 14:05:55 01/22/20 24 01/22/2024 CBC WITH DIFFE RENTI AL/PL ATELE T MCHC 32.5 g/dL 31.5-3 5.7 normal Not Available [facility] ([facility]) [address] [place], [address], 02/03/2024 14:05:55 01/22/20 24 01/22/2024 CBC WITH DIFFE RENTI AL/PL ATELE T RDW 12.4 % 11.6-1 5.4 Not Available [facility] ([facility]) [address] [place], [address], 02/03/2024 14:05:55 01/22/20 24 01/22/2024 CBC WITH DIFFE RENTI AL/PL ATELE T platelets 277 x10e3 /uL 150-45 0 normal Not Available [facility] ([facility]) [address] [place], [address], 02/03/2024 14:05:55 01/22/20 24 01/22/2024 CBC WITH DIFFE RENTI AL/PL ATELE T neutrophils 61 % not estab. normal Not Available [facility] ([facility]) [address] [facility], [place], [address], 02/03/2024 14:05:55 01/22/20 24 01/22/2024 CBC WITH DIFFE RENTI AL/PL ATELE T lymphs 25 % not estab. normal Not Available [facility] ([facility]) [address] [facility], [place], [address], 02/03/2024 14:05:55 01/22/20 24 01/22/2024 CBC WITH DIFFE RENTI AL/PL ATELE T monocytes 9 % not estab. normal Not Available [facility] ([facility]) [address] [facility], [place], [address], 02/03/2024 14:05:55 01/22/20 24 01/22/2024 CBC WITH DIFFE RENTI AL/PL ATELE T eos 4 % not estab. normal Not Available [facility] ([facility]) [address] [facility], [place], [address], 02/03/2024 14:05:55 01/22/20 24 01/22/2024 CBC WITH DIFFE RENTI AL/PL ATELE T basos 1 % not estab. normal Not Available [facility] ([facility]) [address] [place], [address], 02/03/2024 14:05:55 01/22/20 24 01/22/2024 CBC WITH DIFFE RENTI AL/PL ATELE T immature cells SPEECH LANGUAGE THERAPIST Not Available [facility] ([facility]) [address] [place], [address], 02/03/2024 14:05:55 01/22/20 24 01/22/2024 CBC WITH DIFFE RENTI AL/PL ATELE T neutrophils (absolute) 5.4 x10e3 /uL 1.4-7. 0 normal Not Available [facility] ([facility]) [address] [place], [address], 02/03/2024 14:05:55 01/22/20 24 01/22/2024 CBC WITH DIFFE RENTI AL/PL ATELE T lymphs (absolute) 2.2 x10e3 /uL 0.7-3. 1 normal Not Available [facility] ([facility]) [address] [facility], [place], [address], 02/03/2024 14:05:55 01/22/20 24 01/22/2024 CBC WITH DIFFE RENTI AL/PL ATELE T monocytes(ab solute) 0.8 x10e3 /uL 0.1-0. 9 normal Not Available [facility] ([facility]) [address] [facility], [place], [address], 02/03/2024 14:05:55 01/22/20 24 01/22/2024 CBC WITH DIFFE RENTI AL/PL ATELE T eos (absolute) 0.4 x10e3 /uL 0.0-0. 4 normal Not Available [facility] ([facility]) [address] [facility], [place], [address], 02/03/2024 14:05:55 01/22/20 24 01/22/2024 CBC WITH DIFFE RENTI AL/PL ATELE T baso (absolute) 0.1 x10e3 /uL 0.0-0. 2 normal Not Available [facility] ([facility]) [address] [facility], [place], [address], 02/03/2024 14:05:55 01/22/20 24 01/22/2024 CBC WITH DIFFE RENTI AL/PL ATELE T immature granulocytes 0 % not estab. Not Available [facility] ([facility]) [address] [facility], [place], [address], 02/03/2024 14:05:55 01/22/20 24 01/22/2024 CBC WITH DIFFE RENTI AL/PL ATELE T immature grans (abs) 0.0 x10e3 /uL 0.0-0. 1 Not Available [facility] ([facility]) [address] [facility], [place], [address], 02/03/2024 14:05:55 01/22/20 24 01/22/2024 CBC WITH DIFFE RENTI AL/PL ATELE T NRBC SPEECH LANGUAGE THERAPIST Not Available [facility] ([facility]) [address], [place], [address], 02/03/2024 14:05:55 01/22/20 24 01/22/2024 CBC WITH DIFFE RENTI AL/PL ATELE T hematology comments: SPEECH LANGUAGE THERAPIST Not Available [facility] ([facility]) [address] [facility] [place], [address], 02/03/2024 14:05:55 01/22/20 24 01/23/2024 COMP. METAB OLIC PANEL (14) glucose 361 mg/dL 70-99 above high normal Not Available [facility] ([facility]) [address] [facility] [place], [address], 02/03/2024 14:05:56 01/22/20 24 01/23/2024 COMP. METAB OLIC PANEL (14) BUN 27 mg/dL 8-27 normal Not Available [facility] ([facility]) [address] [facility] [place], [address], 02/03/2024 14:05:56 01/22/20 24 01/23/2024 COMP. METAB OLIC PANEL (14) creatinine 1.51 mg/dL 0.76-1 .27 above high normal Not Available [facility] ([facility]) [address] [facility] [place], [address], 02/03/2024 14:05:56 01/22/20 24 01/23/2024 COMP. METAB OLIC PANEL (14) eGFR 47 mL/mi n/1.7 3 >59 below low normal Not Available [facility] ([facility]) [address] [facility] [place], [address], 02/03/2024 14:05:56 01/22/20 24 01/23/2024 COMP. METAB OLIC PANEL (14) BUN/creatini ne ratio 18 10-24 normal Not Available [facility] ([facility]) [address] [place], [address], 02/03/2024 14:05:56 01/22/20 24 01/23/2024 COMP. METAB OLIC PANEL (14) sodium 133 mmol/ L 134-14 4 below low normal Not Available [facility] ([facility]) [address] [facility] [place], [address], 02/03/2024 14:05:56 01/22/20 24 01/23/2024 COMP. METAB OLIC PANEL (14) potassium 4.3 mmol/ L 3.5-5. 2 normal Not Available [facility] ([facility]) [address] [facility] [place], [address], 02/03/2024 14:05:56 01/22/20 24 01/23/2024 COMP. METAB OLIC PANEL (14) chloride 97 mmol/ L 96-106 normal Not Available [facility] ([facility]) [address] [facility] [place], [address], 02/03/2024 14:05:56 01/22/20 24 01/23/2024 COMP. METAB OLIC PANEL (14) carbon dioxide, total 19 mmol/ L 20-29 below low normal Not Available [facility] ([facility]) [address] [facility] [place], [address], 02/03/2024 14:05:56 01/22/20 24 01/23/2024 COMP. METAB OLIC PANEL (14) calcium 9.9 mg/dL 8.6-10 .2 normal Not Available [facility] ([facility]) [address] [facility] [place], [address], 02/03/2024 14:05:56 01/22/20 24 01/23/2024 COMP. METAB OLIC PANEL (14) protein, total 7.7 g/dL 6.0-8. 5 normal Not Available [facility] ([place] [facility]) [address] [facility], [place], [address], 02/03/2024 14:05:56 01/22/20 24 01/23/2024 COMP. METAB OLIC PANEL (14) albumin 4.3 g/dL 3.8-4. 8 normal Not Available [facility] ([facility]) [address] [place], [address], 02/03/2024 14:05:56 01/22/20 24 01/23/2024 COMP. METAB OLIC PANEL (14) globulin, total 3.4 g/dL 1.5-4. 5 Not Available [facility] ([facility]) [address] [facility] [place], [address], 02/03/2024 14:05:56 01/22/20 24 01/23/2024 COMP. METAB OLIC PANEL (14) bilirubin, total 0.5 mg/dL 0.0-1. 2 normal Not Available [facility] ([facility]) [address] [facility], [place], [address], 02/03/2024 14:05:56 01/22/20 24 01/23/2024 COMP. METAB OLIC PANEL (14) alkaline phosphatase 152 IU/L 44-121 above high normal Not Available [facility] ([facility]) [address] [facility] [place], [address], 02/03/2024 14:05:56 01/22/20 24 01/23/2024 COMP. METAB OLIC PANEL (14) AST (SGOT) 18 IU/L 0-40 normal Not Available [facility] ([facility]) [address] [facility] [place], [address], 02/03/2024 14:05:56 01/22/20 24 01/23/2024 COMP. METAB OLIC PANEL (14) ALT (SGPT) 16 IU/L 0-44 normal Not Available [facility] ([facility]) [address] [facility], [place], [address], 02/03/2024 14:05:56 01/22/20 24 01/23/2024 UA/M W/RFL X CULTU RE, COMP specific gravity 1.024 1.005- 1.030 normal Not Available [facility] ([facility]) [address] [facility], [place], [address], 02/03/2024 14:05:57 01/22/20 24 01/23/2024 UA/M W/RFL X CULTU RE, COMP pH 5.5 5.0-7. 5 normal Not Available [facility] ([facility]) [address] [facility], [place], [address], 02/03/2024 14:05:57 01/22/20 24 01/23/2024 UA/M W/RFL X CULTU RE, COMP urine-color Yellow yellow Not Available [facility] ([facility]) [address] [facility], [place], [address], 02/03/2024 14:05:57 01/22/20 24 01/23/2024 UA/M W/RFL X CULTU RE, COMP appearance Cloudy clear abnormal Not Available [facility] ([facility]) [address] [place], [address], 02/03/2024 14:05:57 01/22/20 24 01/23/2024 UA/M W/RFL X CULTU RE, COMP WBC esterase 1+ negati ve abnormal Not Available [facility] ([facility]) [address] [facility], [place], [address], 02/03/2024 14:05:57 01/22/20 24 01/23/2024 UA/M W/RFL X CULTU RE, COMP protein 3+ negati ve/tra ce abnormal Not Available [facility] ([facility]) [address] [facility], [place], [address], 02/03/2024 14:05:57 01/22/20 24 01/23/2024 UA/M W/RFL X CULTU RE, COMP glucose 2+ negati ve abnormal Not Available [facility] ([facility]) [address] [facility], [place], [address], 02/03/2024 14:05:57 01/22/20 24 01/23/2024 UA/M W/RFL X CULTU RE, COMP ketones Trace negati ve abnormal Not Available [facility] ([facility]) [address] [facility], [place], [address], 02/03/2024 14:05:57 01/22/20 24 01/23/2024 UA/M W/RFL X CULTU RE, COMP occult blood Negati ve negati ve Not Available [facility] ([facility]) [address] [facility], [place], [address], 02/03/2024 14:05:57 01/22/20 24 01/23/2024 UA/M W/RFL X CULTU RE, COMP bilirubin Negati ve negati ve Not Available [facility] ([facility]) [address] [facility], [place], [address], 02/03/2024 14:05:57 01/22/20 24 01/23/2024 UA/M W/RFL X CULTU RE, COMP urobilinogen ,semi-qn 1.0 mg/dL 0.2-1. 0 normal Not Available [facility] ([facility]) [address] [place], [address], 02/03/2024 14:05:57 01/22/20 24 01/23/2024 UA/M W/RFL X CULTU RE, COMP nitrite, urine Negati ve negati ve Not Available [facility] ([facility]) [address] [facility], [place], [address], 02/03/2024 14:05:57 01/22/20 24 01/23/2024 UA/M W/RFL X CULTU RE, COMP microscopic examination See below: Micro scopi c was indic ated and was perfo rmed. Not Available [facility] ([facility]) [address] [facility], [place], [address], 02/03/2024 14:05:57 01/22/20 24 01/23/2024 UA/M W/RFL X CULTU RE, COMP WBC 6-10 /hpf 0 - 5 abnormal Not Available [facility] ([facility]) [address] [facility], [place], [address], 02/03/2024 14:05:57 01/22/20 24 01/23/2024 UA/M W/RFL X CULTU RE, COMP RBC None seen /hpf 0 - 2 Not Available [facility] ([facility]) [address] [facility], [place], [address], 02/03/2024 14:05:57 01/22/20 24 01/23/2024 UA/M W/RFL X CULTU RE, COMP epithelial cells (non renal) 0-10 /hpf 0 - 10 Not Available [facility] ([facility]) [address] [facility], [place], [address], 02/03/2024 14:05:57 01/22/20 24 01/23/2024 UA/M W/RFL X CULTU RE, COMP epithelial cells (renal) SPEECH LANGUAGE THERAPIST Not Available [facility] ([facility]) [address] [facility], [place], [address], 02/03/2024 14:05:57 01/22/20 24 01/23/2024 UA/M W/RFL X CULTU RE, COMP casts None seen /lpf none seen Not Available [facility] ([facility]) [address] [facility], [place], [address], 02/03/2024 14:05:57 01/22/20 24 01/23/2024 UA/M W/RFL X CULTU RE, COMP cast type SPEECH LANGUAGE THERAPIST Not Available [facility] ([facility]) [address] [facility], [place], [address], 02/03/2024 14:05:57 01/22/20 24 01/23/2024 UA/M W/RFL X CULTU RE, COMP crystals SPEECH LANGUAGE THERAPIST Not Available [facility] ([facility]) [address] [facility], [place], [address], 02/03/2024 14:05:57 01/22/20 24 01/23/2024 UA/M W/RFL X CULTU RE, COMP crystal type SPEECH LANGUAGE THERAPIST Not Available [facility] ([facility]) [address] [facility], [place], [address], 02/03/2024 14:05:57 01/22/20 24 01/23/2024 UA/M W/RFL X CULTU RE, COMP mucus threads SPEECH LANGUAGE THERAPIST Not Available [facility] ([facility]) [address] [facility], [place], [address], 02/03/2024 14:05:57 01/22/20 24 01/23/2024 UA/M W/RFL X CULTU RE, COMP bacteria None seen none seen/f ew Not Available [facility] ([facility]) [address] [facility], [place], [address], 02/03/2024 14:05:57 01/22/20 24 01/23/2024 UA/M W/RFL X CULTU RE, COMP yeast SPEECH LANGUAGE THERAPIST Not Available [facility] ([facility]) [address] [facility], [place], [address], 02/03/2024 14:05:57 01/22/20 24 01/23/2024 UA/M W/RFL X CULTU RE, COMP trichomonas SPEECH LANGUAGE THERAPIST Not Available [facility] ([facility]) [address] [facility], [place], [address], 02/03/2024 14:05:57 01/22/20 24 01/23/2024 UA/M W/RFL X CULTU RE, COMP comment SPEECH LANGUAGE THERAPIST Not Available [facility] ([facility]) [address] [facility], [place], [address], 02/03/2024 14:05:57 01/22/20 24 01/23/2024 UA/M W/RFL X CULTU RE, COMP microscopic examination SPEECH LANGUAGE THERAPIST Not Available [facility] ([facility]) [address] [facility], [place], [address], 02/03/2024 14:05:57 01/22/20 24 01/23/2024 UA/M W/RFL X CULTU RE, COMP urinalysis reflex Commen t This speci men has refle xed to a Urine Cultu re. Not Available [facility] ([facility]) [address] [facility], [place], [address], 02/03/2024 14:05:57 01/22/20 24 01/25/2024 UA/M W/RFL X CULTU RE, COMP urine culture,comp rehensive Final report Not Available [facility] ([facility]) [address] [facility], [place], [address], 02/03/2024 14:05:57 01/22/20 24 01/25/2024 UA/M W/RFL X CULTU RE, COMP result 1 COMMEN T Mixed uroge nital dhruv 25,00 0-50, 000 colon y formi ng units per mL Not Available [facility] ([facility]) [address] [place], [address], 02/03/2024 14:05:57 01/22/20 24 01/23/2024 LIPID PANEL cholesterol, total 86 mg/dL 100-19 9 below low normal Not Available [facility] ([facility]) [address] [place], [address], 02/03/2024 14:05:58 01/22/20 24 01/23/2024 LIPID PANEL triglyceride s 107 mg/dL 0-149 normal Not Available [facility] ([facility]) [address] [facility], [place], [address], 02/03/2024 14:05:58 01/22/20 24 01/23/2024 LIPID PANEL HDL cholesterol 43 mg/dL >39 normal Not Available [facility] ([facility]) [address] [facility], [place], [address], 02/03/2024 14:05:58 01/22/20 24 01/23/2024 LIPID PANEL VLDL cholesterol ravi 20 mg/dL 5-40 Not Available [facility] ([facility]) [address] [facility], [place], [address], 02/03/2024 14:05:58 01/22/20 24 01/23/2024 LIPID PANEL LDL chol calc ([facility]) 23 mg/dL 0-99 Not Available [facility] ([facility]) [address] [facility], [place], [address], 02/03/2024 14:05:58 01/22/20 24 01/23/2024 LIPID PANEL LDL calc comment: SPEECH 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 normal Not Available [facility] ([facility]) [address] [place], [address], 02/03/2024 14:05:59 01/22/20 24 01/23/2024 ALBUM IN/CR EAT RATIO , RANDO M UR albumin, urine 1189.5 ug/mL not estab. Resul ts confi rmed on dilut ion. Not Available [facility] ([facility]) [address] [facility], [place], [address], 02/03/2024 14:05:59 01/22/20 24 01/23/2024 ALBUM IN/CR EAT RATIO , RANDO M UR alb/creat ratio 408 mg/g_ creat 0-29 above high normal Trudy l: 0 - 29 Moder ately incre ased: 30 - 300 Sever phoebe incre ased: >300 Not Available [facility] ([facility]) [address] [facility], [place], [address], 02/03/2024 14:05:59 01/22/20 24 01/23/2024 HCV ANTIB KURT RFX TO QUANT PCR HCV Ab Non Reacti ve non reacti ve Not Available [facility] ([facility]) [address] [facility], [place], [address], 02/03/2024 14:05:59 01/22/20 24 01/23/2024 HCV ANTIB KURT RFX TO QUANT PCR interpretati on: Commen t Not infec janna with HCV unles s early or acute infec tion is suspe cted (whic h may be delay ed in an immun ocomp romis ed indiv idual ), or other evide nce exist s to indic ate HCV infec tion. Not Available [facility] ([facility]) [address] [facility], [place], [address], 02/03/2024 14:05:59 01/22/20 24 01/23/2024 ESR-W ES+CR P sedimentatio n rate-westerg anne 66 mm/HR 0-30 above high normal Not Available [facility] ([facility]) [address] [facility], [place], [address], 02/03/2024 14:06:00 01/22/20 24 01/23/2024 ESR-W ES+CR P C-reactive protein, quant 2 mg/L 0-10 normal Not Available [facility] ([facility]) [address] [facility], [place], [address], 02/03/2024 14:06:00 01/22/20 24 01/22/2024 PSA TOTAL (REFL EX TO FREE) reflex criteria Commen t The perce nt free PSA is perfo rmed on a refle x basis only when the total PSA is betwe en 4.0 and 10.0 ng/mL . Not Available [facility] ([facility]) [address] [facility], [place], [address], 02/03/2024 14:06:01 01/22/20 24 01/23/2024 PSA TOTAL [...] of greg carrasquillo se. Not Available [facility] ([facility]) [address] [facility], [place], [address], 02/03/2024 14:06:01 01/22/20 24 01/23/2024 VITAM IN [...] um and D. Kimmie celestin [place]: The [facility] . 2. Cyndy fraser MF, Delfina pastrana [place], Ross off-F errar i LUNSFORD, et al. Evalu ation , treat ment, and preve ntion of vitam in D defic iency : an Endoc rine Socie ty clini ravi pract ice guide line. JCEM. 2010; 96(7) :1911 -30. Not Available [facility] ([facility]) [address] [place], [address], 02/03/2024 14:06:02 01/22/20 24 01/23/2024 T PALLI DUM SCREE MATTHEW CASCA DE T pallidum antibodies Non Reacti ve non reacti ve Not Available [facility] ([facility]) [address] [place], [address], 02/03/2024 14:06:03 01/22/20 24 01/23/2024 MAGNE SIUM magnesium 2.0 mg/dL 1.6-2. 3 normal Not Available [facility] ([facility]) [address] [place], [address], 02/03/2024 14:06:03 03/03/19 25 03/03/2024 hemog lobin A1C, finge rstic k A1C 8.3 % 4-6 abnormal Not Available In-Office Order Internal Use Only DO Not Attach Compendium DO Not Attach Compendium, Do Not Delete/merge, [id number] 02/28/2024 12:53:49 03/18/19 25 03/19/2024 TSH+F REE T4 TSH 8.350 uIU/m L 0.450- 4.500 above high normal Not Available [facility] ([facility]) [address] [place], [address], 03/19/2024 06:08:21 03/18/19 25 03/19/2024 TSH+F REE T4 T4,free(dire ct) 0.59 NG/dL 0.82-1 .77 below low normal Not Available [facility] ([facility]) [address] [place], [address], 03/19/2024 06:08:21 03/18/19 25 03/19/2024 BASIC METAB OLIC PANEL (8) glucose 139 mg/dL 70-99 above high normal Not Available [facility] ([facility]) [address] [place], [address], 03/19/2024 16:06:36 03/18/19 25 03/19/2024 BASIC METAB OLIC PANEL (8) BUN 18 mg/dL 8-27 normal Not Available [facility] ([facility]) [address] [place], [address], 03/19/2024 16:06:36 03/18/19 25 03/19/2024 BASIC METAB OLIC PANEL (8) creatinine 1.05 mg/dL 0.76-1 .27 normal Not Available [facility] ([facility]) [address] [place], [address], 03/19/2024 16:06:36 03/18/19 25 03/19/2024 BASIC METAB OLIC PANEL (8) eGFR 73 mL/mi n/1.7 3 >59 normal Not Available [facility] ([facility]) [address] [place], [address], 03/19/2024 16:06:36 03/18/19 25 03/19/2024 BASIC METAB OLIC PANEL (8) BUN/creatini ne ratio 17 10-24 normal Not Available [facility] ([facility]) [address] [place], [address], 03/19/2024 16:06:36 03/18/19 25 03/19/2024 BASIC METAB OLIC PANEL (8) sodium 139 mmol/ L 134-14 4 normal Not Available [facility] ([facility]) [address] [facility] [place], [address], 03/19/2024 16:06:36 03/18/19 25 03/19/2024 BASIC METAB OLIC PANEL (8) potassium 5.4 mmol/ L 3.5-5. 2 above high normal Not Available [facility] ([facility]) [address] [facility] [place], [address], 03/19/2024 16:06:36 03/18/19 25 03/19/2024 BASIC METAB OLIC PANEL (8) chloride 102 mmol/ L 96-106 normal Not Available [facility] ([facility]) [address] [facility] [place], [address], 03/19/2024 16:06:36 03/18/19 25 03/19/2024 BASIC METAB OLIC PANEL (8) carbon dioxide, total 21 mmol/ L 20-29 normal Not Available [facility] ([facility]) [address] [place], [address], 03/19/2024 16:06:36 03/18/19 25 03/19/2024 BASIC METAB OLIC PANEL (8) calcium 10.3 mg/dL 8.6-10 .2 above high normal Not Available [facility] ([facility]) [address] [place], [address], 03/19/2024 16:06:36 03/18/19 25 03/19/2024 ALBUM IN/CR EAT RATIO , RANDO M UR creatinine, urine 115.0 mg/dL not estab. normal Not Available [facility] ([facility]) [address] [place], [address], 03/19/2024 16:06:37 03/18/19 25 03/19/2024 ALBUM IN/CR EAT RATIO , RANDO M UR albumin, urine 463.8 ug/mL not estab. Resul ts confi rmed on dilut ion. Not Available [facility] ([facility]) [address] [place], [address], 03/19/2024 16:06:37 03/18/19 25 03/19/2024 ALBUM IN/CR EAT RATIO , RANDO M UR alb/creat ratio 403 mg/g_ creat 0-29 above high normal Trudy l: 0 - 29 Moder ately incre ased: 30 - 300 Sever phoebe incre ased: >300 Not Available [facility] ([facility]) [address] [place], [address], 03/19/2024 16:06:37 03/18/19 25 03/19/2024 CBC WITH DIFFE RENTI AL/PL ATELE T WBC 7.7 x10e3 /uL 3.4-10 .8 normal Not Available [facility] ([facility]) [address] [place], [address], 03/20/2024 08:07:57 03/18/19 25 03/19/2024 CBC WITH DIFFE RENTI AL/PL ATELE T RBC 4.05 x10e6 /uL 4.14-5 .80 below low normal Not Available [facility] ([facility]) [address] [place], [address], 03/20/2024 08:07:57 03/18/19 25 03/19/2024 CBC WITH DIFFE RENTI AL/PL ATELE T hemoglobin 12.0 g/dL 13.0-1 7.7 below low normal Not Available [facility] ([facility]) [address] [place], [address], 03/20/2024 08:07:57 03/18/19 25 03/19/2024 CBC WITH DIFFE RENTI AL/PL ATELE T hematocrit 37.6 % 37.5-5 1.0 normal Not Available [facility] ([facility]) [address] [place], [address], 03/20/2024 08:07:57 03/18/19 25 03/19/2024 CBC WITH DIFFE RENTI AL/PL ATELE T MCV 93 fL 79-97 normal Not Available [facility] ([facility]) [address] [facility], [place], [address], 03/20/2024 08:07:57 03/18/19 25 03/19/2024 CBC WITH DIFFE RENTI AL/PL ATELE T MCH 29.6 pg 26.6-3 3.0 normal Not Available [facility] ([facility]) [address] [facility], [place], [address], 03/20/2024 08:07:57 03/18/19 25 03/19/2024 CBC WITH DIFFE RENTI AL/PL ATELE T MCHC 31.9 g/dL 31.5-3 5.7 normal Not Available [facility] ([facility]) [address] [place], [address], 03/20/2024 08:07:57 03/18/19 25 03/19/2024 CBC WITH DIFFE RENTI AL/PL ATELE T RDW 12.7 % 11.6-1 5.4 Not Available [facility] ([facility]) [address] [place], [address], 03/20/2024 08:07:57 03/18/19 25 03/19/2024 CBC WITH DIFFE RENTI AL/PL ATELE T platelets 255 x10e3 /uL 150-45 0 normal Not Available [facility] ([facility]) [address] [place], [address], 03/20/2024 08:07:57 03/18/19 25 03/19/2024 CBC WITH DIFFE RENTI AL/PL ATELE T neutrophils 40 % not estab. normal Not Available [facility] ([facility]) [address] [facility], [place], [address], 03/20/2024 08:07:57 03/18/19 25 03/19/2024 CBC WITH DIFFE RENTI AL/PL ATELE T lymphs 44 % not estab. normal Not Available [facility] ([facility]) [address] [place], [address], 03/20/2024 08:07:57 03/18/19 25 03/19/2024 CBC WITH DIFFE RENTI AL/PL ATELE T monocytes 8 % not estab. normal Not Available [facility] ([facility]) [address] [facility], [place], [address], 03/20/2024 08:07:57 03/18/19 25 03/19/2024 CBC WITH DIFFE RENTI AL/PL ATELE T eos 7 % not estab. normal Not Available [facility] ([facility]) [address] [facility], [place], [address], 03/20/2024 08:07:57 03/18/19 25 03/19/2024 CBC WITH DIFFE RENTI AL/PL ATELE T basos 1 % not estab. normal Not Available [facility] ([facility]) [address] [facility], [place], [address], 03/20/2024 08:07:57 03/18/19 25 03/19/2024 CBC WITH DIFFE RENTI AL/PL ATELE T immature cells SPEECH LANGUAGE THERAPIST Not Available [facility] ([facility]) [address] [facility], [place], [address], 03/20/2024 08:07:57 03/18/19 25 03/19/2024 CBC WITH DIFFE RENTI AL/PL ATELE T neutrophils (absolute) 3.1 x10e3 /uL 1.4-7. 0 normal Not Available [facility] ([facility]) [address] [place], [address], 03/20/2024 08:07:57 03/18/19 25 03/19/2024 CBC WITH DIFFE RENTI AL/PL ATELE T lymphs (absolute) 3.4 x10e3 /uL 0.7-3. 1 above high normal Not Available [facility] ([facility]) [address] [facility], [place], [address], 03/20/2024 08:07:57 03/18/19 25 03/19/2024 CBC WITH DIFFE RENTI AL/PL ATELE T monocytes(ab solute) 0.6 x10e3 /uL 0.1-0. 9 normal Not Available [facility] ([facility]) [address] [place], [address], 03/20/2024 08:07:57 03/18/19 25 03/19/2024 CBC WITH DIFFE RENTI AL/PL ATELE T eos (absolute) 0.5 x10e3 /uL 0.0-0. 4 above high normal Not Available [facility] ([facility]) [address] [place], [address], 03/20/2024 08:07:57 03/18/19 25 03/19/2024 CBC WITH DIFFE RENTI AL/PL ATELE T baso (absolute) 0.1 x10e3 /uL 0.0-0. 2 normal Not Available [facility] ([facility]) [address] [place], [address], 03/20/2024 08:07:57 03/18/19 25 03/19/2024 CBC WITH DIFFE RENTI AL/PL ATELE T immature granulocytes 0 % not estab. Not Available [facility] ([facility]) [address] [place], [address], 03/20/2024 08:07:57 03/18/19 25 03/19/2024 CBC WITH DIFFE RENTI AL/PL ATELE T immature grans (abs) 0.0 x10e3 /uL 0.0-0. 1 Not Available [facility] ([facility]) [address] [facility], [place], [address], 03/20/2024 08:07:57 03/18/19 25 03/19/2024 CBC WITH DIFFE RENTI AL/PL ATELE T NRBC SPEECH LANGUAGE THERAPIST Not Available [facility] ([facility]) [address] [facility], [place], [address], 03/20/2024 08:07:57 03/18/19 25 03/19/2024 CBC WITH DIFFE RENTI AL/PL ATELE T hematology comments: SPEECH LANGUAGE THERAPIST Not Available [facility] ([facility]) [address] [facility], [place], [address], 03/20/2024 08:07:57 03/18/19 25 03/19/2024 IRON AND TIBC iron bind.cap.(TI BC) 249 ug/dL 250-45 0 below low normal Not Available [facility] ([facility]) [address] [facility], [place], [address], 03/20/2024 08:07:58 03/18/19 25 03/19/2024 IRON AND TIBC UIBC 137 ug/dL 111-34 3 normal Not Available [facility] ([facility]) [address] [facility], [place], [address], 03/20/2024 08:07:58 03/18/19 25 03/19/2024 IRON AND TIBC iron 112 ug/dL 38-169 normal Not Available [facility] ([facility]) [address] [facility], [place], [address], 03/20/2024 08:07:58 03/18/19 25 03/19/2024 IRON AND TIBC iron saturation 45 % 15-55 normal Not Available [facility] ([facility]) [address] [facility], [place], [address], 03/20/2024 08:07:58 03/18/19 25 03/20/2024 SOLUB LE TRANS YANELY N CARE REP TOR soluble transferrin receptor 12.1 nmol/ L 12.2-2 7.3 below low normal Not Available [facility] ([facility]) [address] [facility], [place], [address], 03/20/2024 08:07:58 03/18/19 25 03/19/2024 SEDIM ENTAT ION RATE- WESTE RGREN sedimentatio n rate-westerg anne 28 mm/HR 0-30 normal Not Available [facility] ([facility]) [address] [facility], [place], [address], 03/20/2024 08:07:59 03/18/19 25 03/19/2024 YANELY TIN ferritin 104 NG/mL 30-400 normal Not Available [facility] ([facility]) [address] [facility], [place], [address], 03/20/2024 08:08:00 03/18/19 25 03/19/2024 RETIC ULOCY TE COUNT reticulocyte count 1.6 % 0.6-2. 6 Not Available [facility] ([facility]) [address] [place], [address], 03/20/2024 08:08:01 03/18/19 25 03/19/2024 FABI BY IFA RFX TITER /ROBERT LETHA FABI by ifa rfx titer/patter n Positi ve abnormal Negat jhonny <1:80 Borde rline 1:80 Posit jhonny >1:80 Not Available [facility] ([facility]) [address] [place], [address], 03/20/2024 08:08:02 03/18/19 25 03/19/2024 FABI BY IFA RFX TITER /ROBERT LETHA homogeneous pattern 1:320 above high normal ICAP nomen pedrotu re: AC-1 Not Available [facility] ([facility]) [address] [place], [address], 03/20/2024 08:08:02 03/18/19 25 03/19/2024 FABI BY IFA RFX TITER /ROBERT LETHA nucleolar pattern SPEECH LANGUAGE THERAPIST Not Available [facility] ([facility]) [address] [place], [address], 03/20/2024 08:08:02 03/18/19 25 03/19/2024 FABI BY IFA RFX TITER /ROBERT LETHA speckled pattern SPEECH LANGUAGE THERAPIST Not Available [facility] ([facility]) [address] [place], [address], 03/20/2024 08:08:02 03/18/19 25 03/19/2024 FABI BY IFA RFX TITER /ROBERT LETHA centromere pattern SPEECH LANGUAGE THERAPIST Not Available [facility] ([facility]) [address] [place], [address], 03/20/2024 08:08:02 03/18/19 25 03/19/2024 FABI BY IFA RFX TITER /ROBERT LETHA spindle apparatus pattern SPEECH LANGUAGE THERAPIST Not Available [facility] ([facility]) [address] [place], [address], 03/20/2024 08:08:02 03/18/19 25 03/19/2024 FABI BY IFA RFX TITER /ROBERT LETHA nuclear membrane pattern SPEECH LANGUAGE THERAPIST Not Available [facility] ([facility]) [address] [place], [address], 03/20/2024 08:08:02 03/18/19 25 03/19/2024 FABI BY IFA RFX TITER /ROBERT LETHA midbody pattern SPEECH LANGUAGE THERAPIST Not Available [facility] ([facility]) [address] [place], [address], 03/20/2024 08:08:02 03/18/19 25 03/19/2024 FABI BY IFA RFX TITER /ROBERT LETHA nuclear dot pattern SPEECH LANGUAGE THERAPIST Not Available [facility] ([facility]) [address] [place], [address], 03/20/2024 08:08:02 03/18/19 25 03/19/2024 FABI BY IFA RFX TITER /ROBERT LETHA pcna pattern SPEECH LANGUAGE THERAPIST Not Available [facility] ([facility]) [address] [facility], [place], [address], 03/20/2024 08:08:02 03/18/19 25 03/19/2024 FABI BY IFA RFX TITER /ROBERT LETHA centriole pattern SPEECH LANGUAGE THERAPIST Not Available [facility] ([facility]) [address] [facility], [place], [address], 03/20/2024 08:08:02 03/18/19 25 03/19/2024 FABI BY IFA RFX TITER /ROBERT LETHA note: Amada gandhi Disea se Assoc iatio n ----- ----- --- ----- ----- ----- ----- ----- ----- ----- ----- ----- Homog eneou s Syste ratna Lupus Eryth emato gato, Drug Induc ed Syste ratna Lupus Eryth emato gato, Chron ic Autoi mmune hepat itis, Armand ile Idiop athic Arthr itis ----- ----- --- ----- ----- ----- ----- ----- ----- ----- ----- ----- Speck led Sjogr en Syndr ome, Syste ratna Lupus Eryth emato gato, Subac johanne Cutan eous Lupus , Neona zara Lupus , Conge nital Heart Block , Mixed Conne ctive Tissu e Disea se, Scler oderm a-dif fuse, Scler oderm a-Aut oimmu ne Myosi tis Overl ap Syndr ome, Syste ratna Lupus Eryth emato gato-S clero derma -Auto immun e Myosi tis Overl ap Syndr ome, Syste ratna Autoi mmune Rheum atic Disea se, Undif kala perez Conne ctive Tissu e Disea se ----- ----- --- ----- ----- ----- ----- ----- ----- ----- ----- ----- Nucle olar Syste ratna Scler osis, Scler oderm a-Aut oimmu ne Myosi tis Overl ap Syndr ome, Sjogr en Syndr ome, Nanette ud pheno claudio , Pulmo nary Arter ial Hyper tensi on, Syste ratna Autoi mmune Rheum atic Disea se, Cance r ----- ----- --- ----- ----- ----- ----- ----- ----- ----- ----- ----- Centr omere Scler oderm a-CRE ST, Limit ed Cutan eous SSc, Nanette ud's Pheno claudio , Prima ry Bilia ry Chola ngiti s ----- ----- --- ----- ----- ----- ----- ----- ----- ----- ----- ----- Nucle ar Dot Prima ry Bilia ry Chola ngiti s ----- ----- --- ----- ----- ----- ----- ----- ----- ----- ----- ----- Nucle ar Prima ry Bilia ry Chola ngiti s, Autoi mmune Membr ane Hepat itis/ Liver disea se, Syste ratna Autoi mmune Rheum atic Disea se, Autoi mmune Cytop enias , Linea r Scler oderm a, Antip hosph olipi d Syndr ome ----- ----- --- ----- ----- ----- ----- ----- ----- ----- ----- ----- Not Available [facility]) [address] [facility], [place], [address], 03/20/2024 08:08:02 03/18/19 25 03/24/2024 ANTIH ISTON E ANTIB ODIES anti-histone abs 1.3 units 0.0-0. 9 above high normal Negat jhonny <1.0 Weak Posit jhonny 1.0 - 1.5 Moder ate Posit jhonny 1.6 - 2.5 Stron g Posit jhonny >2.5 Not Available [facility] ([facility]) [address] [facility], [place], [address], 03/24/2024 14:06:33 03/18/19 25 03/21/2024 ANTIC HROMA TIN ANTIB ODIES antichromati n antibodies <0.2 ai 0.0-0. 9 Not Available [facility] ([facility]) [address] [facility], [place], [address], 03/24/2024 14:06:33 03/18/19 25 03/21/2024 ANTI- DSDNA ANTIB ODIES anti-DNA (ds) Ab qn 1 IU/mL 0-9 Negat jhonny <5 Equiv ocal 5 - 9 Posit jhonny >9 Not Available [facility] ([facility]) [address] [facility], [place], [address], 03/24/2024 14:06:34 03/18/19 25 03/20/2024 LINN EN AUTHO RIZAT ION written authorizatio n Commlinnea t Linn en Autho rizat ion Recei luiza. Autho rizat ion recei luiza from [facility] CHARLIE CLIFTON for Link Reque st on 03-20 Logge d by Pako Palacios Not Available [facility] ([facility]) [address] [facility], [place], [address], 03/24/2024 14:06:34 03/31/19 25 04/01/2024 POTAS SIUM, HEPAR IN PLASM A potassium, heparin plasma 4.6 mmol/ L 3.5-5. 2 Not Available [facility] ([facility]) [address], [place], [address], 04/01/2024 14:06:30 03/31/19 25 04/01/2024 MAGNE SIUM magnesium 1.8 mg/dL 1.6-2. 3 normal Not Available [facility] ([facility]) [address], [place], [address], 04/01/2024 14:06:31 01/07/20 24 01/07/2024 US abdom en aorti c aneur ysm screrolando ugarte See Note [facility] , a member of [employer] [facility] Name: ARIEL MOSQUEDA Date of : 1944 Reason for Exam: AAA Exam Date: 2023 [id number] EST Report Status : Final Orderi ng [facility] er: ELIZABETH CLIFTON PCP: ELIZABETH CLIFTON Histor [...] Date: 2023 12:37 ET Workst ation ID: [id number] Transc ribed By: Self Edit Transc ribed Date: 2023 12:35 ET [address], [address], 01/07/2024 17:00:06 Result Notes None recorded. Problems Name Problem SNOMED Code Status Onset Date Resolution Date Notes Provider Name and Address Organization Details Recorded Time Prieto gaffney 48699145 Completed 202312/04/2023 Mitul Clifton MD [address], [place], [address] 4 07:41:23 Hypothyr oidism 24474464 Active 2023 Mitul Clifton MD [address], [place], [address], [facility] 4 07:37:39 Renal disorder due to type 2 diabetes mellitus 956299937 Active 2023 Mitul Clifton MD [address], [place], [address], [facility] 4 07:41:01 Chronic kidney disease stage 3A 043523858 Active 2023 Mitul Clifton MD [address], [place], [address], [facility] 4 07:44:02 Microalb uminuric diabetic nephropa thy 159017074 Active 2023 Mitul Clifton MD [address], [place], [address], [facility] 4 07:44:25 Hyperlip idemia 45307308 Active 2023 Mitul Clifton MD [address], [place], [address], [facility] 4 07:47:26 Abdomina l aortic ectasia 99279379216 9101 Active 2023 Mitul Clifton MD [address], [place], [address], [facility] 4 07:47:41 Vitamin D deficien cy 97902960 Completed 202302/28/2024 Mitul Clifton MD [address], [place], [address], [facility] 5 12:54:14 Ex-smoke r 4504351 Active 2023 Mitul Clifton MD [address] [facility] [address], [place], [address], [facility] 4 11:30:41 Obstruct jhonny sleep apnea syndrome 39552383 Active 2023 Mitul Clifton MD [address] [facility] [address], [place], [address], [facility] 4 11:37:02 Obesity 227100033 Active 2023 Mitul Clifton MD [address] [facility] [address], [place], [address], [facility] 4 11:54:49 Neuropat hy due to diabetes mellitus 384732896 Active 2023 Mitul Clifton MD [address] [facility] [address], [place], [address], [facility] 4 11:57:37 [facility] 76193456 [facility] Glaucoma 63671325 Active SHENG Berg, [facility] 4 17:54:18 Loss of appetite 73204061 Active 2023 since hypoglyc emic episode caused loss of consciou sness Suri cardozo, [place] null, [facility] 4 16:49:59 Generali zed anxiety disorder 93588411 Active 2023 Mitul Clifton MD [address] [facility] [address], [place], [address], [facility] 4 11:06:38 Moderate recurren t major depressi on [id number] Active 2023 Mitul Clifton MD [address] [facility] [address], [place], [address], [facility] 4 11:06:40 Memory impairme nt 423026356 Active 2023 Mitul Clifton MD [address] [facility] [address], [place], [address], [facility] 4 11:07:56 Hyperten sive renal disease 29541311 Active 2024 Mitul Clifton MD [address] [facility] [address], [place], [address], [facility] 5 12:53:25 Problem Notes None recorded. Procedures Surgical History Date Name Laterality Status Provider Name and Address Organization Details Recorded Time Diabetic Foot Exam (Monofilament) completed Mitul Clifton MD [address] [facility] [address] [facility], [place], [address], [facility] 12/04/2023 11:50:41 excision of hydrocele completed Little Farley [place] [facility] 12/04/2023 11:21:18 Imaging Results Imaging Date Name Status LastModified by Organiz ation Details LastModified Time 01/07/2024 US abdomen aortic aneurysm screening completed [address], [address], 01/07/2024 17:00:06 Procedure Notes None recorded. Medical Equipment None Reported. Allergies Allergen ID Allergen Name Allergen Category Reaction Reaction Severity Criticality Documentation Date Start Date Code Code System Note Provider Name and Address Organization Details Recorded Time 58554 allopurin ol medicatio n other Not available Not available 12/04/2023 519 RxNorm cause d pancr eatit is SHENG Berg [facility] 4 17:54:42 Medications Name Sig Start Date Stop Date Status Note LastModified by Organization Details LastModified Time comfrt touch pad alc prep active Not Available Not Available Not Available losartan 50 mg tablet Take 1 tablet every day by oral route. 03/03 completed Not Available Not Available Not Available atorvasta [...] day by oral route for 84 days. active Not Available Not Available No t Available chlorthal idone 50 mg tablet Take 1 [...] patient will resume this medicati on until [facility] is delivere d to his home. Not Available Not Available Not Available docusate sodium 100 mg capsule Take 2 capsules every day by oral route at bedtime for 28 days, for constipa tion. active Not Available Not Available No t Available hydralazi ne 50 mg tablet Take 1 tablet 3 times a day by oral route as directed for 28 days, for blood pressure . active Not Available Not Available No t Available mirtazapi ne 15 mg tablet Take 1 tablet every day by oral route at bedtime for 84 days. active Not Available Not Available No t Available ferrous sulfate 325 mg (65 mg iron) [...] Not Available No t Available levothyro xine 112 mcg tablet Take 1 tablet every day by oral route in the morning for 28 days. active Not Available Not Available No t Available mirtazapi ne 7.5 mg tablet Take 1 tablet every day by oral route at bedtime for 90 days. 03/04 completed Not Available Not Available Not Available BD Ultra-Fin e Mini Pen Needle 31 gauge x 3/16 active Not Available Not Available Not Available cholecalc iferol (vitamin D3) 25 mcg (1,000 unit) tablet Take 1 tablet every day by oral route. active Not Available Not Available No t Available FreeStyle Lite Meter kit active Not Available Not Available No t Available FreeStyle Lite Strips Take 1 strip 3 times a day by miscell. route before meal(s) for 25 days. active Not Available Not Available No t Available Lantus Solostar U-100 Insulin 100 unit/mL [...] Updated DateTime 4 152.4 cm 31.8 kg/m2 22158.5 6 g 58768.3 7 g 75 /min 97 % 97 % 97.8 [degF] 162 mm[Hg] 64 mm[Hg] Little fairbanks [facility] 4 11:10:49 Date Recorded Systolic blood pressure Diastolic blood pressure Provider Name and Address Organization Details Last Updated DateTime 12/04/2023 166 mm[Hg] 60 mm[Hg] Mitul Clifton MD [address] [facility] [address], [place], [address], [facility] 12/04/2023 11:59:49 Date Recorded Body height Body mass index (BMI) Body weight Heart rate Oxygen saturation Oxygen saturation in Arterial blood by Pulse oximetry Body temperature Systolic blood pressure Diastolic blood pressure Provider Name and Address Organization Details Last Updated DateTime 4 152.4 cm 29.5 kg/m2 46939.4 5 g 68 /min 98 % 98 % 97.7 [degF] 156 mm[Hg] 76 mm[Hg] Suri cardozo [facility] 4 10:34:16 Date Recorded Body height Body mass index (BMI) Body weight Heart rate Oxygen saturation Oxygen saturation in Arterial blood by Pulse oximetry Body temperature Systolic blood pressure Diastolic blood pressure Provider Name and Address Organization Details Last Updated DateTime 5 152.4 cm 28.3 kg/m2 88568.8 9 g 62 /min 98 % 98 % 97.4 [degF] 158 mm[Hg] 74 mm[Hg] Suri cardozo MA [facility] 16:01:16 Date Recorded Systolic blood pressure Diastolic blood pressure Provider Name and Address Organization Details Last Updated DateTime 01/30/2024 147 mm[Hg] 76 mm[Hg] Suri patel MA [facility] 01/30/2024 17:07:19 Social History Question Answer Notes LastModified by Organizat ion Details LastModified Time Tobacco Smoking Status Former Smoker SHENG Gurrola [facility] 12/04/2023 11:03:01 Do You Have An Advance [...] available 12/04/2023 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 Information not available 12/04/2023 When Did You [...] Time influenza, unspecified formulation 0 completed Marleny jones [facility] 11/18/2023 13:25:22 influenza, unspecified formulation 7 completed Marleny jones [facility] 11/18/2023 13:25:34 influenza, unspecified formulation 8 completed [facility] 11/18/2023 13:26:00 influenza, unspecified formulation 9 completed Marleny Obregon null, [facility] 11/18/2023 13:26:09 pneumococcal, unspecified formulation 4 completed Marleny Obregon null, [facility] 11/18/2023 13:26:44 Tdap 2 completed Marleny Obregon null, [facility] 11/18/2023 13:26:50 Influenza, high-dose, quadrivalent, PF 2 completed SHENG Gurrola, [facility] 12/04/2023 10:52:42 Influenza, adjuvanted, quadrivalent, PF 3 completed Little Farley MA null, [facility] 12/04/2023 10:52:42 COVID-19, mRNA, LNP-S, bivalent, PF, 30 mcg/0.3 mL dose 2 completed Little Farley [place] null, [facility] 12/04/2023 10:52:42 Tdap 4 completed Bayronak Russell null, [facility] 01/27/2024 15:22:21 influenza, unspecified formulation 4 completed Abynando Russell null, [facility] 01/27/2024 15:21:40 SARS-COV-2 (COVID-19) vaccine, UNSPECIFIED 4 completed Abynando Russell null, [facility] 01/27/2024 15:22:01 Tdap 4 completed SHENG Mcgee, [facility] 03/03/2024 16:00:52 Td (adult), 2 Lf tetanus toxoid, preservative free, adsorbed 6 completed Not Available [facility] 08/25/2013 13:59:04 pneumococcal polysaccharide PPV23 6 completed Not Available [facility] 08/25/2013 13:59:05 Past Encounters Encounter ID Performer Location Encounter Start Date Encounter Closed Date Diagnosis/Indication Diagnosis SNOMED-CT Code Diagnosis ICD10 Code Diagnosis Note [id number] Mitul Clifton MD Main Office [address] [facility] [address] [facility] [place] [address] 12/04/2023 10:35:20 12/04/2023 12:10:15 Renal disorder due to type 2 diabetes mellitus 568940197 E11.21 HBA1C [id number] done/ labs orderedOn ARBCont metformin for now, [...] today, advised to use own clippers. Follows precision farming coordinator .Yearly Ophthalmol ogy advised.John chow renalLipid profile ordered, on statin.Cou nselled about regular physical activityCo unselled on dietVaccin es discussedD ental exam discussed. Microalbum inuric diabetic nephropathy 850179543 E11.21 Hypertensi ve nephrosclerosis 869186885 N18.31 bp elevated, he is otherwise asymptomat ic, He follows renal for this and advised close follow up. My MA will call pharm to see if he has ever tried CCB. Chronic ki dney disease stage 3A 231297721 N18.31 Hyperlipidemia 72176549 E78.5 Abdominal aortic ectasia 2589699437 71809 I77.811 Patient ne w to provider [id number] 56389 Z76.89 Patient was counseled on healthy diet, exercise and nutrition due to Body mass index is ... kg/m? ? ?. Last PSADate:Re sult:Plan: past age for screening Last Colonoscop y:Date:Res ult:Plan: past age for screening Vaccines:T dAP: script givenZoste r rec: script [id number] : script givenInflu rosa: 11/05/23RSV : Script givenCovid : 11/05/23Adv ised to seperate each vaccine every 2 weeks. Routine labs today Immunizati on status reviewed. Will screen based on risk factors. Regular dental and ophtho care advised as well as seat belt and sunscreen use. Distracted driving discussed. Medication reconciled . Advance directives discussed. Varicella vaccination 68 947813 Z23 Administra tion of viral vaccine 80536303 Z29.11 Fatigue 65218540 R53.83 Z00.00 Hypothyroidism 64976702 E03.9 Administra tion of diphtheria, pertussis, and tetanus vaccine 927274752 Z23 Administra tion of pneumococcal vaccine 74247739 Z23 Long-term drug therapy 956838067 Z79.84 Metformin Use Memory impairment 406055 006 R41.3 Venereal d isease screening 856173060 Z11.3 Z72.89 F03.90 Vitamin D deficiency 347 52786 E55.9 Skin lesion 00950654 L98 .9 Right side of cheeks. Hepatitis C screening 41 4666862 Z11.59 Obstructiv e sleep apnea syndrome 69207532 G47.33 Urinary incontinence 165 124910 R32 Will get urine test first and PSA, then refer to urologist. Body mass index 30+ - obesity 540894285 Z68.30 E66.9 - Diet and exercise discussed- Patient made aware of risks of obesity- Encouraged to loose weight.- Avoid starchy and fatty food- Encouraged use of green vegetables and fruits Obesity 875752183 E66.9 [id number] Lilliam Patterson Main Office [address] [address] 01/27/2024 10:09:24 01/27/2024 11:19:21 Loss of appetite 36202679 R63.0 Likely related to depression .Will start remeron follow up 1 mo. Obstructiv e sleep apnea syndrome 48169829 G47.33 Could not tolerate cpap.Decli chas further sleep eval. understand s risk. Chronic ki dney disease stage 3A 379816866 N18.31 Moderate r ecurrent major depression 00910346 F33.1 He is depressed, has low apatite will start remeron qhs.Follow up in 6 weeks.Esequiel es thoughts of self harm or harming others.Psy chotherapy encouragem ind fullness encouraged . Generalize d anxiety disorder 05223508 F41.1 Memory impairment 804593 006 R41.3 likely pseudodeme ntia will tx depression first. Hypertensi ve renal disease 67450148 I12.9 bp elevated, he is otherwise asymptomat ic, He follows renal for this and advised close follow up.BP still elevated will increase losartan 100mg follow up 1 mo to get bmp. [id number] Mitul Clifton MD Main Office [address] [facility] [address] [facility] [place] [id number] 03/03/2024 15:22:56 03/03/2024 17:09:12 Hypothyroidism 22403826 E03.9 Will repeat TSH Renal diso rder due to type 2 diabetes mellitus 284033778 E11.21 E11.65 HBA1C [id number] doneOn ARBCont. mounjaro 7.5, insulin was added Tresiba for better glucose control and he has not had lows with better glucose control.Co nt. CGM.Cont. Aspirin EC 81 mg po qdailyRegu lar self feet exam advised. Also advised to use own clippers. Follows precision farming coordinator .Yearly Ophthalmol ogy advised.John chow renalLipid profile done, on statin.Cou nselled about regular physical activityCo unselled on dietVaccin es discussedD ental exam discussed. Advised regarding risks/sign s/symptoms of hypoglycem ia. Counseled to carry a snack in case of emergencie s Microalbum inuric diabetic nephropathy 913903459 E11.21 Chronic ki dney disease stage 3A 562653219 N18.31 advised regular follow up with renal. Generalize d anxiety disorder 64322078 F41.1 Hypertensi ve renal disease 27561155 I12.9 bp still elevated, will add amlodipine , advised close follow up with renal. Abdominal aortic ectasia 7924702522 96181 I77.811 will consider monitoring in 2-3 yrs as it is mild.BP control enforced and glucose control.Re gular exercise encouraged . Memory impairment 668754 006 R41.3 likely pseudodeme ntia will tx depression first. Moderate r ecurrent major depression 79933995 F33.1 He is depressed, has low apatite [...] Lyle Member ID Guarantor Name 12/04/2023 1 [facility] - DOS ON OR AFTER 2022 - ONE CARE (MEDICARE REPLACEMENT/AD VANTAGE - HMO) Ariel Gupta [id number] Ariel Gupta 01/27/2024 1 [facility] - DOS ON OR AFTER 2022 - ONE CARE (MEDICARE REPLACEMENT/AD VANTAGE - HMO) Ariel Gupta [id number] Ariel Gupta 03/03/2024 1 [facility] - DOS ON OR AFTER 2022 - ONE CARE (MEDICARE REPLACEMENT/AD VANTAGE - HMO) Ariel Gupta [id number] Ariel Gupta Notes Date Note Type Note Provider Name and Address Organization Details Recorded Time 12/04/2023 text/html Diabetes F/URepo rted bypatient.Context:seein g eye doctor regularly; checking feet [...] restrictions.Activity: 2x week, walking. Mitul Clifton MD [address], [address], [facility] 12/04/2023 12:02:05 01/27/2024 text/html AnemiaReported bypatient.Severity:Norm [...] Lifestyle:limiting/avoi ding salt;not exercising regularly Lilliam jones [facility] 02/13/2024 20:50:57 03/03/2024 text/html The patient [...] (previously low), FABI, renal function, and an frzfqod-ln-spdxwdwzzp ratio. Additionally, he was due for an [...] stabilize with recent improvements. Mitul Clifton MD [address], [address], [facility] 03/04/2024 08:02:05 03/03/2024 text/html AnemiaReported bypatient.Severity:Norm ocytic [...] Lifestyle habits:no regular exercise Mitul Clifton MD [address], [address], [facility] 03/04/2024 08:02:05
[2024-04-17 09:19] LABS: Hematocrit 33.7 % (42.0-52.0); Hemoglobin 11.3 g/dl (14.0-18.0); Mean Corpuscular HGB Conc 33.5 g/dl (31.0-36.0); Mean Corpuscular Hemoglobin 30.1 pg (27.0-33.0); Mean Corpuscular Volume 89.9 fL (80.0-98.0); Mean Platelet Volume 10.4 fL (9.4-12.4); Platelet Count 254 X10*3/uL (160-400); Red Blood Count 3.75 X10*6/uL (4.60-5.80); Red Cell Distribution Width 13.2 % (11.0-16.0); White Blood Count 7.4 X10*3/uL (4.8-10.8)
[2024-04-17 09:25] LABS: Appearance Urine Clear; Color Urine Yellow; Glucose Urine UA Negative (Negative); Leukocyte Esterase Urine Negative (Negative); Nitrite Urine Negative (Negative); PH 5.5 (5.0-9.0); Specific Gravity - Urine 1.015 (1.005-1.025); UMIC TRIGGER UA YES; Urine Blood Negative (Negative); Urine Ketones Negative (Negative); Urine Protein 30 (1+) mg/dL (Neg-Trace)
[2024-04-17 09:30] LABS: Bacteria Urine None Seen (None Seen); Hyaline Casts Urine 0-2 /LPF (0-2); RBC Urine 0-2 /HPF (0-2); Squamous Epithelial Cell Urine 0-2 /HPF (0-2); WBC Urine 0-5 /HPF (0-5)
[2024-04-17 10:07] LABS: Anion Gap 11 (12-20); Blood Urea Nitrogen 36 mg/dL (9-16); Calcium 9.6 mg/dL (8.4-10.2); Carbon Dioxide 23 mmol/L (22-29); Chloride 108 mmol/L (96-108); Estimated Glomerular Filt Rate > 60; Glucose Random 127 mg/dL (60-115); Potassium 3.9 mmol/L (3.3-5.1); Sodium 138 mmol/L (135-145)
== END 2024-04-17 08:43 | disposition home or self-care (01) ==
LOC: HO.LAB 08:42
PROVIDERS: PCP Family Medicine; Visit Provider Internal Medicine Hypertension Specialist
DX: I15.0 Renovascular hypertension (principal); R80.9 Proteinuria, unspecified
CPT/HCPCS: 36415; 80048; 81001; 85027

== ENCOUNTER 2024-04-21 10:24 | Outpatient (AMB) | payer OTHER, SELFPAY ==
--- NOTE | 2024-04-21 10:27 | HO.NEPHOV_ITS ---
Vital Signs 04/21/24 10:28 Height 5 ft Weight 145 lb BMI 28.3 BP 124/52 L Blood Pressure Location Lt brachial Position Sitting Pulse 71 Pulse Source Pulse Oximeter Pulse Oximetry (%) 96 Oxygen Delivery Method Room Air Intake Visit Reasons: CKD/ Conf Project Manager Senior Required: Yes Project Manager Senior Name: Alen [id number] Accompanied by: Self / Same As Patient Allergies No Known Allergies Allergy (Verified 04/21/24 10:31) Medication List - Last Reviewed 04/21/24 by IVONNE Pascual acetaminophen (Pain Relief (acetaminophen)) 500 mg PO Q6H PRN 30 days aspirin 81 mg PO DAILY atenolol 50 mg PO DAILY 90 days atorvastatin 10 mg PO BEDTIME 90 days blood sugar diagnostic (FreeStyle Test strips) As directed 3 times per day blood-glucose meter (FreeStyle Lite Meter kit) As directed cholecalciferol (vitamin D3) 25 mcg PO DAILY 90 days docusate sodium mg PO hydralazine 50 mg PO TID 90 days insulin glargine (Lantus Solostar U-100 Insulin) 12 units subcut DAILY lancets (FreeStyle Lancets) As directed three times per day levothyroxine 112 mcg PO DAILY losartan 100 mg PO DAILY mirtazapine 15 mg PO DAILY pen needle, diabetic, safety (True Comfort Safety Pen Needle) once at bedtime As directed tirzepatide (Mounjaro) 7.5 mg subcut QWEEK travoprost 0.004% 0 drps ophthalmic (eye) HPI Comments Details: Elderly man with a history of hypertension and diabetes mellitus with CKD. He is here for semiannual follow-up. Project Manager Senior service was used. Today has no specific complaints. Blood sugar seems to be better controlled. 03/10/24 Accompanied by daughter Lost about 20 lbs Mounjaro has been added Losartan increased to 100 mg a month ago Amlodipine added few days ago because previous sBP was in 140s [facility] Medical History (Updated 03/10/24 @ 10:04 by Star Luis MD) DEVON (obstructive sleep apnea) Gout Hyperlipidemia LDL goal <100 Diabetic neuropathy Microalbuminuria Abdominal aortic ectasia High cholesterol Hypothyroid Hypertension Diabetes mellitus Surgical History History of cataract extraction History of hydrocelectomy Hx of colonoscopy Family History Father Medical history unknown Mother Diabetes Hypertension Paternal Grandmother Cancer Son No problems noted. Daughter No problems noted. Sister No problems noted. Brother No problems noted. Social History Housing: Apartment Are you a primary respiratory care specialist to a significant other at home: No Do you presently have visiting nurse or other home services: Yes ([employer] 2 x week) Alcohol intake: never Patient Tobacco Use Status: Former Tobacco user Tobacco use type: Cigarette e-Cigarette/Vaping Use: Never Used Second Hand Smoke Exposure: No service: No Current occupational status: disabled Cognitive needs: Yes Hearing needs: No Vision needs: Yes Physical Exam Vital Signs: Last Vital Signs Pulse 71 04/21/24 10:28 BP 124/52 L 04/21/24 10:28 Pulse Ox 96 04/21/24 10:28 Oxygen Delivery Method Room Air 04/21/24 10:28 BMI result Body Mass Index 28.3 Comfortable Neck supple no JVD. Lungs entry equal no rales. Heart S1-S2 heard no gallop or rub. Abdomen soft nontender. Neuro alert awake oriented. No asterixis. Extremities no edema. Results Reviewed Nephrology Results: Hgb 11.3 g/dl (14.0-18.0) L 04/17/24 WBC 7.4 X10*3/uL (4.8-10.8) 04/17/24 Plt Count 254 X10*3/uL (160-400) 04/17/24 Sodium 138 mmol/L (135-145) 04/17/24 Potassium 3.9 mmol/L (3.3-5.1) 04/17/24 Chloride 108 mmol/L (96-108) 04/17/24 Carbon Dioxide 23 mmol/L (22-29) 04/17/24 BUN 36 mg/dL (9-16) H 04/17/24 Creatinine 1.15 mg/dL (0.5-1.4) 04/17/24 Calcium 9.6 mg/dL (8.4-10.2) 04/17/24 Urine Protein 30 (1+) mg/dL (Neg-Trace) H 04/17/24 Urine Creatinine 107.83 mg/dL 12/06/23 Assessment & Plan Assessment & Plan (1) Microalbuminuria: Code(s): R80.9 - Proteinuria, unspecified Category: Medical (2) Hypertension: Code(s): I10 - Essential (primary) hypertension Category: Medical Qualifiers: Hypertension type: renovascular hypertension Qualified Code(s): I15.0 - Renovascular hypertension Plan Elderly man with mild CKD in a setting of longstanding hypertension diabetes mellitus. Hypertension blood pressure is better controlled With expected weight loss with Mounjaro, BP might drop further Watch BP at home . Discussed low-salt diet. Diabetes mellitus Goal is to maintain a hemoglobin A1c less than 7%. creatinine was 1.3 with EGFR of more than 53 mL/minutes Down to 1.15 Encourage to increase fluid intake and to avoid nephrotoxic agents including NSAIDs. Will continue monitor renal function periodically. 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 According to his list, he is on Hydralazine 50 mg TID; Losartan 100mg QD and Atenolol 50 mg QD He is not on Amlodipine 2.5 mg and Chlorthalidone 50mg QD Called pharmacy and verified ( 04/21/24) Orders: Orders Basic Metabolic Panel 2 Months N18.9 - Chronic kidney disease, unspecified Coding Level of Care Code Est Pt Level 4 (22724) Diagnoses Microalbuminuria R80.9 Renovascular hypertension I15.0 Hypertension type: renovascular hypertension
[2024-04-21 10:28] VITALS: BP 124/52; PULSE 71; O2SAT 96; BMI 28.3
--- OUTSIDE RECORDS SUMMARY | 2024-04-21 12:26 | XMS_ITS | Data Portability ---
[facility] Organization [facility], Main Office Address [address] [facility] [address] [place] [address] Care Team Providers Care Construction Project Engineer Name Role Phone MITUL CLIFTON Primary Care Provider FABI TRINH Referring Provider STEFANY RICHARD Handbell Choir Director [facility] Handbell Choir Director CORAL [facility] Dental Ceramist KATHRYN RUIZ Level Vial Inside Grinder [facility] Insurance Sales Associate Assessment Encounter Date Assessment Date Assessment LastModified [...] Go To The Location Of Their Choice, [id number] 03/19/2024 16:06:36 hemogl obin A1C, finger stick 2024 025 devkar In-Office Order, Internal Use Only DO Not Attach Compendium DO Not Attach Compendium, Do Not Delete/merge, [id number] 03/03/2024 16:59:41 microa lbumin /creat inine, mass [...] B12, serum 2023 JENNY [facility], [address] [place], [address], 12/04/2023 11:54:44 trepon sheron pallid um IgG + IgM Ab, QL, IA, serum 2023 024 JENNY [facility] (Centralized Electronic Ordering - All Locations), Patient Can Go To The Location Of Their Choice, 02/03/2024 14:06:03 CBC w/ auto diff 2023 JENNY [facility], [address] [facility], [place], [address], 02/03/2024 14:05:55 CMP, serum or plasma 2023 [...] serum 2023 JENNY [facility], [address], [place], [address], 02/03/2024 14:05:58 hemogl obin A1C, finger stick 2023 JENNY In-Office Order, Internal Use Only DO Not Attach Compendium DO Not Attach Compendium, Do Not Delete/merge, [id number] 12/04/2023 12:13:48 microa lbumin /creat inine, mass [...] 14:06:00 TSH + free T4, serum 2023 JENNY [facility] (Centralized Electronic Ordering - All Locations), Patient Can Go To The Location Of Their Choice, 02/03/2024 14:05:54 Referral sleep medici ne referr al 2023 024 [facility], [address] [place], [address], 01/01/2024 09:46:46 dermat ologis t referr papo diaz t; jeb s [facility] locati on 2023 024 [facility], [address], [address], [place], [address], 12/11/2023 14:07:26 Procedures None record ed. Surgeries None record ed. Imaging US, abdomi nal aorta 2023 024 [facility] (Ultrasound), [address], [place], [address], 02/06/2024 09:39:26 Medication Orders amlodi pine 2.5 mg tablet 2024 025 [facility], [address] [place] [address], [address], [id number], 03/10/2024 14:21:37 mirtaz apine 15 mg tablet 2024 025 power [facility], [address] [place] [address], [address], [id number], 04/20/2024 15:41:57 losart an 100 mg tablet 2023 025 [facility], [address] [place] [address], [address], [id number], 04/08/2024 15:46:57 mirtaz apine 7.5 mg tablet 2023 025 [facility], [address] [place] [address], [address], [id number], 03/04/2024 07:58:13 Mounja ro 2.5 mg/0.5 mL subcut aneous pen inject or 2023 024 [facility], [address] [place] [address], [place], [id number], 01/07/2024 17:07:46 Patient TargetsNo targets recorded. Patient Instructions Encounter Date Encounter Id Patient Instructions Last Modified By Organization Details Last Modified Time 12/04/2023 [id number] Cuando desea bajar de peso: Instrucciones de [...] instructions] damari Not available 12/04/2023 11:54:20 01/27/2024 [id number] C? ? ?mo evitar la recurrencia de la depresi? ? ?n: Instrucciones de cuidado - [Preventing Depression From Coming Back: Care Instructions] damari Not available 01/27/2024 11:05:50 decisi? ? ?n sobre suspender wiley antidepresivo - [deciding about stopping your antidepressant] damari Not available 01/27/2024 11:05:50 la depresi? ? [...] instructions] ckokar Not available 01/27/2024 11:05:50 03/03/2024 [id number] C? ? ?mo evitar la recurrencia de [...] de cuidado - [depression treatment: care instructions] ckobarry Not available 03/03/2024 16:59:42 hipotiroidismo: instrucciones de [...] available 03/03/2024 16:00:20 Reason for Referral Insurance Sales Associate Referral for S kin lesion skin lesions on right cheek BENGALI-SPEAKING patient; prefers [place] location Referring Physician: Mitul Clifton, Family Medicine, [...] DO Not Attach Compendium, Do Not Delete/merge, [id number] 12/04/2023 07:52:59 01/22/20 24 01/25/2024 MITOC HONDR IAL (M2) ANTIB KURT mitochondria l (M2) antibody <20.0 units 0.0-20 .0 Negat jhonny 0.0 - 20.0 Equiv ocal 20.1 - 24.9 Posit jhonny >24.9 Mitoc hondr ial (M2) Antib odies are found in 90-96 % of patie nts with prima ry bilia ry cirrh osis. Not Available [facility] ([facility]) [address] [facility], [place], [address], 01/25/2024 20:06:01 12/11/01/25/2024 GGT GGT 34 IU/L 0-65 normal Not Available [facility] ([facility]) [address] [facility], [place], [address], 01/25/2024 20:06:02 01/22/20 24 01/24/2024 WRITT EN AUTHO RIZAT ION written authorizatio n Commen t Enmanuelitt en Autho rizat ion Recei luiza. Autho rizat ion recei luiza from [facility] CHARLIE ETIENNE for Link Reque st on 01-23 Logge d by Gay Garnett Not Available [facility] ([facility]) [address] [facility], [place], [address], 01/25/2024 20:06:02 01/22/20 24 01/24/2024 VITAM IN B12+F OLATE vitamin B12 304 pg/mL 232-12 45 normal Not Available [facility] ([facility]) [address] [facility], [place], [address], 02/03/2024 14:05:54 01/22/20 24 01/24/2024 VITAM IN B12+F OLATE folate (folic acid), serum 15.1 NG/mL >3.0 normal A serum folat e spike ntrat ion of less than 3.1 ng/mL is consi dered to repre sent clini ravi defic iency . Not Available [facility] ([facility]) [address] [facility], [place], [address], 02/03/2024 14:05:54 01/22/20 24 01/27/2024 VITAM IN B12+F OLATE homocyst(E)i ne 39.5 umol/ L 0.0-19 .2 above high normal Not Available [facility] ([facility]) [address] [facility], [place], [address], 02/03/2024 14:05:54 01/22/20 24 02/03/2024 VITAM IN B12+F OLATE methylmaloni c acid, serum 795 nmol/ L 0-378 above high normal Not Available [facility] ([facility]) [address] [place], [address], 02/03/2024 14:05:54 01/22/20 24 01/23/2024 TSH+F REE T4 TSH 0.398 uIU/m L 0.450- 4.500 below low normal Not Available [facility] ([facility]) [address] [facility], [place], [address], 02/03/2024 14:05:54 01/22/20 24 01/23/2024 TSH+F REE T4 T4,free(dire ct) 1.69 NG/dL 0.82-1 .77 normal Not Available [facility] ([facility]) [address] [facility], [place], [address], 02/03/2024 14:05:54 01/22/20 24 01/22/2024 CBC WITH DIFFE RENTI AL/PL ATELE T WBC 8.8 x10e3 /uL 3.4-10 .8 normal Not Available [facility] ([facility]) [address] [place], [address], 02/03/2024 14:05:55 01/22/20 24 01/22/2024 CBC WITH DIFFE RENTI AL/PL ATELE T RBC 4.17 x10e6 /uL 4.14-5 .80 normal Not Available [facility] ([facility]) [address] [place], [address], 02/03/2024 14:05:55 01/22/20 24 01/22/2024 CBC WITH DIFFE RENTI AL/PL ATELE T hemoglobin 12.4 g/dL 13.0-1 7.7 below low normal Not Available [facility] ([facility]) [address] [place], [address], 02/03/2024 14:05:55 01/22/20 24 01/22/2024 CBC WITH DIFFE RENTI AL/PL ATELE T hematocrit 38.2 % 37.5-5 1.0 normal Not Available [facility] ([facility]) [address] [place], [address], 02/03/2024 14:05:55 01/22/20 24 01/22/2024 CBC WITH DIFFE RENTI AL/PL ATELE T MCV 92 fL 79-97 normal Not Available [facility] ([facility]) [address] [place], [address], 02/03/2024 14:05:55 01/22/20 24 01/22/2024 CBC WITH DIFFE RENTI AL/PL ATELE T MCH 29.7 pg 26.6-3 3.0 normal Not Available [facility] ([facility]) [address] [place], [address], 02/03/2024 14:05:55 01/22/20 24 01/22/2024 CBC WITH DIFFE RENTI AL/PL ATELE T MCHC 32.5 g/dL 31.5-3 5.7 normal Not Available [facility] ([facility]) [address] [place], [address], 02/03/2024 14:05:55 01/22/20 24 01/22/2024 CBC WITH DIFFE RENTI AL/PL ATELE T RDW 12.4 % 11.6-1 5.4 Not Available [facility] ([facility]) [address] [place], [address], 02/03/2024 14:05:55 01/22/20 24 01/22/2024 CBC WITH DIFFE RENTI AL/PL ATELE T platelets 277 x10e3 /uL 150-45 0 normal Not Available [facility] ([facility]) [address] [place], [address], 02/03/2024 14:05:55 01/22/20 24 01/22/2024 CBC WITH DIFFE RENTI AL/PL ATELE T neutrophils 61 % not estab. normal Not Available [facility] ([facility]) [address] [facility], [place], [address], 02/03/2024 14:05:55 01/22/20 24 01/22/2024 CBC WITH DIFFE RENTI AL/PL ATELE T lymphs 25 % not estab. normal Not Available [facility] ([facility]) [address] [facility], [place], [address], 02/03/2024 14:05:55 01/22/20 24 01/22/2024 CBC WITH DIFFE RENTI AL/PL ATELE T monocytes 9 % not estab. normal Not Available [facility] ([facility]) [address] [facility], [place], [address], 02/03/2024 14:05:55 01/22/20 24 01/22/2024 CBC WITH DIFFE RENTI AL/PL ATELE T eos 4 % not estab. normal Not Available [facility] ([facility]) [address] [facility], [place], [address], 02/03/2024 14:05:55 01/22/20 24 01/22/2024 CBC WITH DIFFE RENTI AL/PL ATELE T basos 1 % not estab. normal Not Available [facility] ([facility]) [address] [facility], [place], [address], 02/03/2024 14:05:55 01/22/20 24 01/22/2024 CBC WITH DIFFE RENTI AL/PL ATELE T immature cells CAN STERILIZER Not Available [facility] ([facility]) [address] [facility], [place], [address], 02/03/2024 14:05:55 01/22/20 24 01/22/2024 CBC WITH DIFFE RENTI AL/PL ATELE T neutrophils (absolute) 5.4 x10e3 /uL 1.4-7. 0 normal Not Available [facility] ([facility]) [address] [facility], [place], [address], 02/03/2024 14:05:55 01/22/20 24 01/22/2024 CBC WITH DIFFE RENTI AL/PL ATELE T lymphs (absolute) 2.2 x10e3 /uL 0.7-3. 1 normal Not Available [facility] ([facility]) [address] [facility], [place], [address], 02/03/2024 14:05:55 01/22/20 24 01/22/2024 CBC WITH DIFFE RENTI AL/PL ATELE T monocytes(ab solute) 0.8 x10e3 /uL 0.1-0. 9 normal Not Available [facility] ([facility]) [address] [facility], [place], [address], 02/03/2024 14:05:55 01/22/20 24 01/22/2024 CBC WITH DIFFE RENTI AL/PL ATELE T eos (absolute) 0.4 x10e3 /uL 0.0-0. 4 normal Not Available [facility] ([facility]) [address] [facility], [place], [address], 02/03/2024 14:05:55 01/22/20 24 01/22/2024 CBC WITH DIFFE RENTI AL/PL ATELE T baso (absolute) 0.1 x10e3 /uL 0.0-0. 2 normal Not Available [facility] ([facility]) [address] [place], [address], 02/03/2024 14:05:55 01/22/20 24 01/22/2024 CBC WITH DIFFE RENTI AL/PL ATELE T immature granulocytes 0 % not estab. Not Available [facility] ([facility]) [address] [facility], [place], [address], 02/03/2024 14:05:55 01/22/20 24 01/22/2024 CBC WITH DIFFE RENTI AL/PL ATELE T immature grans (abs) 0.0 x10e3 /uL 0.0-0. 1 Not Available [facility] ([facility]) [address] [facility], [place], [address], 02/03/2024 14:05:55 01/22/20 24 01/22/2024 CBC WITH DIFFE RENTI AL/PL ATELE T NRBC CAN STERILIZER Not Available [facility] ([facility]) [address] [facility], [place], [address], 02/03/2024 14:05:55 01/22/20 24 01/22/2024 CBC WITH DIFFE RENTI AL/PL ATELE T hematology comments: CAN STERILIZER Not Available [facility] ([facility]) [address] [facility], [place], [address], 02/03/2024 14:05:55 01/22/20 24 01/23/2024 COMP. METAB OLIC PANEL (14) glucose 361 mg/dL 70-99 above high normal Not Available [facility] ([facility]) [address] [facility], [place], [address], 02/03/2024 14:05:56 01/22/20 24 01/23/2024 COMP. METAB OLIC PANEL (14) BUN 27 mg/dL 8-27 normal Not Available [facility] ([facility]) [address] [facility] [place], [address], 02/03/2024 14:05:56 01/22/20 24 01/23/2024 COMP. METAB OLIC PANEL (14) creatinine 1.51 mg/dL 0.76-1 .27 above high normal Not Available [facility] ([facility]) [address] [facility] [place], [address], 02/03/2024 14:05:56 01/22/20 24 01/23/2024 COMP. METAB OLIC PANEL (14) eGFR 47 mL/mi n/1.7 3 >59 below low normal Not Available [facility] ([facility]) [address] [place], [address], 02/03/2024 14:05:56 01/22/20 24 01/23/2024 COMP. METAB OLIC PANEL (14) BUN/creatini ne ratio 18 10-24 normal Not Available [facility] ([facility]) [address] [place], [address], 02/03/2024 14:05:56 01/22/20 24 01/23/2024 COMP. METAB OLIC PANEL (14) sodium 133 mmol/ L 134-14 4 below low normal Not Available [facility] ([facility]) [address] [place], [address], 02/03/2024 14:05:56 01/22/20 24 01/23/2024 COMP. METAB OLIC PANEL (14) potassium 4.3 mmol/ L 3.5-5. 2 normal Not Available [facility] ([facility]) [address] [facility], [place], [address], 02/03/2024 14:05:56 01/22/20 24 01/23/2024 COMP. METAB OLIC PANEL (14) chloride 97 mmol/ L 96-106 normal Not Available [facility] ([facility]) [address] [facility], [address], 02/03/2024 14:05:56 01/22/20 24 01/23/2024 COMP. METAB OLIC PANEL (14) carbon dioxide, total 19 mmol/ L 20-29 below low normal Not Available [facility] ([facility]) [address] [facility], [address], 02/03/2024 14:05:56 01/22/20 24 01/23/2024 COMP. METAB OLIC PANEL (14) calcium 9.9 mg/dL 8.6-10 .2 normal Not Available [facility] ([facility]) [address] [facility] [place], [address], 02/03/2024 14:05:56 01/22/20 24 01/23/2024 COMP. METAB OLIC PANEL (14) protein, total 7.7 g/dL 6.0-8. 5 normal Not Available [facility] ([facility]) [address] [place], [address], 02/03/2024 14:05:56 01/22/20 24 01/23/2024 COMP. METAB OLIC PANEL (14) albumin 4.3 g/dL 3.8-4. 8 normal Not Available [facility] ([facility]) [address] [place], [address], 02/03/2024 14:05:56 01/22/20 24 01/23/2024 COMP. METAB OLIC PANEL (14) globulin, total 3.4 g/dL 1.5-4. 5 Not Available [facility] ([facility]) [address] [place], [address], 02/03/2024 14:05:56 01/22/20 24 01/23/2024 COMP. METAB OLIC PANEL (14) bilirubin, total 0.5 mg/dL 0.0-1. 2 normal Not Available [facility] ([facility]) [address] [place], [address], 02/03/2024 14:05:56 01/22/20 24 01/23/2024 COMP. METAB OLIC PANEL (14) alkaline phosphatase 152 IU/L 44-121 above high normal Not Available [facility] ([facility]) [address] [place], [address], 02/03/2024 14:05:56 01/22/20 24 01/23/2024 COMP. METAB OLIC PANEL (14) AST (SGOT) 18 IU/L 0-40 normal Not Available [facility] ([facility]) [address] [place], [address], 02/03/2024 14:05:56 01/22/20 24 01/23/2024 COMP. METAB OLIC PANEL (14) ALT (SGPT) 16 IU/L 0-44 normal Not Available [facility] ([facility]) [address] [facility], [place], [address], 02/03/2024 14:05:56 01/22/20 24 01/23/2024 UA/M W/RFL X CULTU RE, COMP specific gravity 1.024 1.005- 1.030 normal Not Available [facility] ([facility]) [address] [facility], [place], [address], 02/03/2024 14:05:57 01/22/20 24 01/23/2024 UA/M W/RFL X CULTU RE, COMP pH 5.5 5.0-7. 5 normal Not Available [facility] ([facility]) [address] [facility], [place], [address], 02/03/2024 14:05:57 01/22/20 24 01/23/2024 UA/M W/RFL X CULTU RE, COMP urine-color Yellow yellow Not Available [facility] ([facility]) [address] [facility], [place], [address], 02/03/2024 14:05:57 01/22/20 24 01/23/2024 UA/M W/RFL X CULTU RE, COMP appearance Cloudy clear abnormal Not Available [facility] ([facility]) [address] [place], [address], 02/03/2024 14:05:57 01/22/20 24 01/23/2024 UA/M W/RFL X CULTU RE, COMP WBC esterase 1+ negati ve abnormal Not Available [facility] ([facility]) [address] [place], [address], 02/03/2024 14:05:57 01/22/20 24 01/23/2024 UA/M W/RFL X CULTU RE, COMP protein 3+ negati ve/tra ce abnormal Not Available [facility] ([facility]) [address] [facility], [place], [address], 02/03/2024 14:05:57 01/22/20 24 01/23/2024 UA/M W/RFL X CULTU RE, COMP glucose 2+ negati ve abnormal Not Available [facility] ([facility]) [address] [facility], [place], [address], 02/03/2024 14:05:57 01/22/20 24 01/23/2024 UA/M W/RFL X CULTU RE, COMP ketones Trace negati ve abnormal Not Available [facility] ([facility]) [address] [facility], [place], [address], 02/03/2024 14:05:57 01/22/20 24 01/23/2024 UA/M W/RFL X CULTU RE, COMP occult blood Negati ve negati ve Not Available [facility] ([facility]) [address] [facility], [place], [address], 02/03/2024 14:05:57 01/22/20 24 01/23/2024 UA/M W/RFL X CULTU RE, COMP bilirubin Negati ve negati ve Not Available [facility] ([facility]) [address] [facility], [place], [address], 02/03/2024 14:05:57 01/22/20 24 01/23/2024 UA/M W/RFL X CULTU RE, COMP urobilinogen ,semi-qn 1.0 mg/dL 0.2-1. 0 normal Not Available [facility] ([facility]) [address] [facility], [place], [address], 02/03/2024 14:05:57 01/22/20 24 01/23/2024 UA/M W/RFL X CULTU RE, COMP nitrite, urine Negati ve negati ve Not Available [facility] ([facility]) [address] [facility], [place], [address], 02/03/2024 14:05:57 01/22/20 24 01/23/2024 UA/M W/RFL X CULTU RE, COMP microscopic examination See below: Micro scopi c was indic ated and was perfo rmed. Not Available [facility] ([facility]) [address] [facility], [place], [address], 02/03/2024 14:05:57 01/22/20 24 01/23/2024 UA/M W/RFL X CULTU RE, COMP WBC 6-10 /hpf 0 - 5 abnormal Not Available [facility] ([facility]) [address] [facility], [place], [address], 02/03/2024 14:05:57 01/22/20 24 01/23/2024 UA/M W/RFL X CULTU RE, COMP RBC None seen /hpf 0 - 2 Not Available [facility] ([facility]) [address] [facility], [place], [address], 02/03/2024 14:05:57 01/22/20 24 01/23/2024 UA/M W/RFL X CULTU RE, COMP epithelial cells (non renal) 0-10 /hpf 0 - 10 Not Available [facility] ([facility]) [address] [place], [address], 02/03/2024 14:05:57 01/22/20 24 01/23/2024 UA/M W/RFL X CULTU RE, COMP epithelial cells (renal) CAN STERILIZER Not Available [facility] ([facility]) [address] [place], [address], 02/03/2024 14:05:57 01/22/20 24 01/23/2024 UA/M W/RFL X CULTU RE, COMP casts None seen /lpf none seen Not Available [facility] ([facility]) [address] [facility] [place], [address], 02/03/2024 14:05:57 01/22/20 24 01/23/2024 UA/M W/RFL X CULTU RE, COMP cast type CAN STERILIZER Not Available [facility] ([facility]) [address] [facility], [place], [address], 02/03/2024 14:05:57 01/22/20 24 01/23/2024 UA/M W/RFL X CULTU RE, COMP crystals CAN STERILIZER Not Available [facility] ([facility]) [address] [facility], [place], [address], 02/03/2024 14:05:57 01/22/20 24 01/23/2024 UA/M W/RFL X CULTU RE, COMP crystal type CAN STERILIZER Not Available [facility] ([facility]) [address] [facility], [place], [address], 02/03/2024 14:05:57 01/22/20 24 01/23/2024 UA/M W/RFL X CULTU RE, COMP mucus threads CAN STERILIZER Not Available [facility] ([facility]) [address] [facility], [place], [address], 02/03/2024 14:05:57 01/22/20 24 01/23/2024 UA/M W/RFL X CULTU RE, COMP bacteria None seen none seen/f ew Not Available [facility] ([facility]) [address] [facility], [place], [address], 02/03/2024 14:05:57 01/22/20 24 01/23/2024 UA/M W/RFL X CULTU RE, COMP yeast CAN STERILIZER Not Available [facility] ([facility]) [address] [facility], [place], [address], 02/03/2024 14:05:57 01/22/20 24 01/23/2024 UA/M W/RFL X CULTU RE, COMP trichomonas CAN STERILIZER Not Available [facility] ([facility]) [address] [facility], [place], [address], 02/03/2024 14:05:57 01/22/20 24 01/23/2024 UA/M W/RFL X CULTU RE, COMP comment CAN STERILIZER Not Available [facility] ([facility]) [address] [facility], [place], [address], 02/03/2024 14:05:57 01/22/20 24 01/23/2024 UA/M W/RFL X CULTU RE, COMP microscopic examination CAN STERILIZER Not Available [facility] ([facility]) [address] [facility], [place], [address], 02/03/2024 14:05:57 01/22/20 24 01/23/2024 UA/M W/RFL X CULTU RE, COMP urinalysis reflex Commen t This speci men has refle xed to a Urine Cultu re. Not Available [facility] ([facility]) [address] [facility], [place], [address], 02/03/2024 14:05:57 01/22/20 24 01/25/2024 UA/M W/RFL X CULTU RE, COMP urine culture,comp rehensive Final report Not Available [facility] ([facility]) [address] [facility], [place], [address], 02/03/2024 14:05:57 01/22/20 24 01/25/2024 UA/M W/RFL X CULTU RE, COMP result 1 COMMEN T Mixed uroge nital dhruv 25,00 0-50, 000 colon y formi ng units per mL Not Available [facility] ([facility]) [address] [facility], [place], [address], 02/03/2024 14:05:57 01/22/20 24 01/23/2024 LIPID PANEL cholesterol, total 86 mg/dL 100-19 9 below low normal Not Available [facility] ([facility]) [address] [facility], [place], [address], 02/03/2024 14:05:58 01/22/20 24 01/23/2024 LIPID PANEL triglyceride s 107 mg/dL 0-149 normal Not Available [facility] [facility]) [address] [facility], [place], [address], 02/03/2024 14:05:58 01/22/20 24 01/23/2024 LIPID PANEL HDL cholesterol 43 mg/dL >39 normal Not Available [facility] ([facility]) [address] [facility], [place], [address], 02/03/2024 14:05:58 01/22/20 24 01/23/2024 LIPID PANEL VLDL cholesterol ravi 20 mg/dL 5-40 Not Available [facility] ([facility]) [address] [facility], [place], [address], 02/03/2024 14:05:58 01/22/20 24 01/23/2024 LIPID PANEL LDL chol calc ([facility]) 23 mg/dL 0-99 Not Available [facility] ([facility]) [address] [facility], [place], [address], 02/03/2024 14:05:58 01/22/20 24 01/23/2024 LIPID PANEL LDL calc comment: CAN STERILIZER Not Available [facility] ([facility]) [address] [place], [address], 02/03/2024 14:05:58 01/22/20 24 01/23/2024 ALBUM IN/CR EAT RATIO , RANDO M UR creatinine, urine 291.5 mg/dL not estab. normal Not Available [facility] ([facility]) [address] [facility], [place], [address], 02/03/2024 14:05:59 01/22/20 24 01/23/2024 ALBUM IN/CR EAT RATIO , RANDO M UR albumin, urine 1189.5 ug/mL not estab. Resul ts confi rmed on dilut ion. Not Available [facility] ([facility]) [address] [facility], [place], [address], 02/03/2024 14:05:59 01/22/20 24 01/23/2024 ALBUM IN/CR EAT RATIO , RANDO M UR alb/creat ratio 408 mg/g_ creat 0-29 above high normal Trudy l: 0 - 29 Moder ately incre ased: 30 - 300 Sever phoebe incre ased: >300 Not Available [facility] ([facility]) [address] [facility], [place], [address], 02/03/2024 14:05:59 01/22/20 24 01/23/2024 HCV ANTIB KURT RFX TO QUANT PCR HCV Ab Non Reacti ve non reacti ve Not Available [facility] ([facility]) [address] [facility], [place], [address], 02/03/2024 14:05:59 01/22/20 24 01/23/2024 HCV ANTIB KURT RFX TO QUANT PCR interpretati on: Commen t Not infec janna with HCV unles s early or acute infec tion is suspe cted (whic h may be delay ed in an immun ocomp romis ed indiv idual ), or other evide nce exist s to indic ate HCV infec tion. Not Available [facility] ([facility]) [address] [facility], [place], [address], 02/03/2024 14:05:59 01/22/20 24 01/23/2024 ESR-W ES+CR P sedimentatio n rate-westerg anne 66 mm/HR 0-30 above high normal Not Available [facility] ([facility]) [address] [facility], [place], [address], 02/03/2024 14:06:00 01/22/20 24 01/23/2024 ESR-W ES+CR P C-reactive protein, quant 2 mg/L 0-10 normal Not Available [facility] ([facility]) [address] [facility], [place], [address], 02/03/2024 14:06:00 01/22/20 24 01/22/2024 PSA TOTAL (REFL EX TO FREE) reflex criteria Commen t The perce nt free PSA is perfo rmed on a refle x basis only when the total PSA is betwe en 4.0 and 10.0 ng/mL . Not Available [facility] ([facility]) [address] [facility], [place], [address], 02/03/2024 14:06:01 01/22/20 24 01/23/2024 PSA TOTAL [...] kits canno t be used inter pedroza [place] . Resul ts canno t be inter prete d as absol [place] evide nce of the prese nce or absen ce of greg gallegosa se. Not Available [facility] ([facility]) [address] [facility], [place], [address], 02/03/2024 14:06:01 01/22/20 24 01/23/2024 VITAM IN [...] um and D. Kimmie celestin [place]: The [facility] Press . 2. Cyndy fraser MF, Delfina pastrana [place], Ross off-F errar i LUNSFORD, et al. Evalu ation , treat ment, and preve ntion of vitam in D defic iency : an Endoc rine Socie ty clini ravi pract ice guide line. JCEM. 2010; 96(7) :1911 -30. Not Available [facility] ([facility]) [address] [place], [address], 02/03/2024 14:06:02 01/22/20 24 01/23/2024 T PALLI DUM SCREE MATTHEW CASCA DE T pallidum antibodies Non Reacti ve non reacti ve Not Available [facility] ([facility]) [address] [place], [address], 02/03/2024 14:06:03 01/22/20 24 01/23/2024 MAGNE SIUM magnesium 2.0 mg/dL 1.6-2. 3 normal Not Available [facility] ([facility]) [address] [place], [address], 02/03/2024 14:06:03 03/03/19 25 03/03/2024 hemog lobin A1C, finge rstic k A1C 8.3 % 4-6 abnormal Not Available In-Office Order Internal Use Only DO Not Attach Compendium DO Not Attach Compendium, Do Not Delete/merge, [id number] 02/28/2024 12:53:49 03/18/19 25 03/19/2024 TSH+F REE T4 TSH 8.350 uIU/m L 0.450- 4.500 above high normal Not Available [facility] ([facility]) [address] [facility] [place], [address], 03/19/2024 06:08:21 03/18/19 25 03/19/2024 TSH+F REE T4 T4,free(dire ct) 0.59 NG/dL 0.82-1 .77 below low normal Not Available [facility] ([facility]) [address] [facility] [place], [address], 03/19/2024 06:08:21 03/18/19 25 03/19/2024 BASIC METAB OLIC PANEL (8) glucose 139 mg/dL 70-99 above high normal Not Available [facility] ([facility]) [address] [facility] [place], [address], 03/19/2024 16:06:36 03/18/19 25 03/19/2024 BASIC METAB OLIC PANEL (8) BUN 18 mg/dL 8-27 normal Not Available [facility] ([facility]) [address] [place], [address], 03/19/2024 16:06:36 03/18/19 25 03/19/2024 BASIC METAB OLIC PANEL (8) creatinine 1.05 mg/dL 0.76-1 .27 normal Not Available [facility] ([facility]) [address] [place], [address], 03/19/2024 16:06:36 03/18/19 25 03/19/2024 BASIC METAB OLIC PANEL (8) eGFR 73 mL/mi n/1.7 3 >59 normal Not Available [facility] ([facility]) [address] [place], [address], 03/19/2024 16:06:36 03/18/19 25 03/19/2024 BASIC METAB OLIC PANEL (8) BUN/creatini ne ratio 17 10-24 normal Not Available [facility] ([facility]) [address] [place], [address], 03/19/2024 16:06:36 03/18/19 25 03/19/2024 BASIC METAB OLIC PANEL (8) sodium 139 mmol/ L 134-14 4 normal Not Available [facility] ([facility]) [address] [place], [address], 03/19/2024 16:06:36 03/18/19 25 03/19/2024 BASIC METAB OLIC PANEL (8) potassium 5.4 mmol/ L 3.5-5. 2 above high normal Not Available [facility] ([facility]) [address] [place], [address], 03/19/2024 16:06:36 03/18/19 25 03/19/2024 BASIC METAB OLIC PANEL (8) chloride 102 mmol/ L 96-106 normal Not Available [facility] ([facility]) [address] [place], [address], 03/19/2024 16:06:36 03/18/19 25 03/19/2024 BASIC METAB OLIC PANEL (8) carbon dioxide, total 21 mmol/ L 20-29 normal Not Available [facility] ([facility]) [address] [place], [address], 03/19/2024 16:06:36 03/18/19 25 03/19/2024 BASIC METAB OLIC PANEL (8) calcium 10.3 mg/dL 8.6-10 .2 above high normal Not Available [facility] ([facility]) [address] [place], [address], 03/19/2024 16:06:36 03/18/19 25 03/19/2024 ALBUM IN/CR EAT RATIO , RANDO M UR creatinine, urine 115.0 mg/dL not estab. normal Not Available [facility] ([facility]) [address] [place], [address], 03/19/2024 16:06:37 03/18/19 25 03/19/2024 ALBUM IN/CR EAT RATIO , TREASURE [place] UR albumin, urine 463.8 ug/mL not estab. Resul ts confi rmed on dilut ion. Not Available [facility] ([facility]) [address] [facility], [place], [address], 03/19/2024 16:06:37 03/18/19 25 03/19/2024 ALBUM IN/CR EAT RATIO , RANDO M UR alb/creat ratio 403 mg/g_ creat 0-29 above high normal Trudy l: 0 - 29 Moder ately incre ased: 30 - 300 Sever phoebe incre ased: >300 Not Available [facility] ([facility]) [address] [facility], [place], [address], 03/19/2024 16:06:37 03/18/19 25 03/19/2024 CBC WITH DIFFE RENTI AL/PL ATELE T WBC 7.7 x10e3 /uL 3.4-10 .8 normal Not Available [facility] ([facility]) [address] [place], [address], 03/20/2024 08:07:57 03/18/19 25 03/19/2024 CBC WITH DIFFE RENTI AL/PL ATELE T RBC 4.05 x10e6 /uL 4.14-5 .80 below low normal Not Available [facility] ([facility]) [address] [place], [address], 03/20/2024 08:07:57 03/18/19 25 03/19/2024 CBC WITH DIFFE RENTI AL/PL ATELE T hemoglobin 12.0 g/dL 13.0-1 7.7 below low normal Not Available [facility] ([facility]) [address] [place], [address], 03/20/2024 08:07:57 03/18/19 25 03/19/2024 CBC WITH DIFFE RENTI AL/PL ATELE T hematocrit 37.6 % 37.5-5 1.0 normal Not Available [facility] ([facility]) [address] [place], [address], 03/20/2024 08:07:57 03/18/19 25 03/19/2024 CBC WITH DIFFE RENTI AL/PL ATELE T MCV 93 fL 79-97 normal Not Available [facility] ([facility]) [address] [place], [address], 03/20/2024 08:07:57 03/18/19 25 03/19/2024 CBC WITH DIFFE RENTI AL/PL ATELE T MCH 29.6 pg 26.6-3 3.0 normal Not Available [facility] ([facility]) [address] [place], [address], 03/20/2024 08:07:57 03/18/19 25 03/19/2024 CBC WITH DIFFE RENTI AL/PL ATELE T MCHC 31.9 g/dL 31.5-3 5.7 normal Not Available [facility] ([facility]) [address] [place], [address], 03/20/2024 08:07:57 03/18/19 25 03/19/2024 CBC WITH DIFFE RENTI AL/PL ATELE T RDW 12.7 % 11.6-1 5.4 Not Available [facility] ([facility]) [address] [place], [address], 03/20/2024 08:07:57 03/18/19 25 03/19/2024 CBC WITH DIFFE RENTI AL/PL ATELE T platelets 255 x10e3 /uL 150-45 0 normal Not Available [facility] ([facility]) [address] [place], [address], 03/20/2024 08:07:57 03/18/19 25 03/19/2024 CBC WITH DIFFE RENTI AL/PL ATELE T neutrophils 40 % not estab. normal Not Available [facility] ([facility]) [address] [facility], [place], [address], 03/20/2024 08:07:57 03/18/19 25 03/19/2024 CBC WITH DIFFE RENTI AL/PL ATELE T lymphs 44 % not estab. normal Not Available [facility] ([facility]) [address] [facility], [place], [address], 03/20/2024 08:07:57 03/18/19 25 03/19/2024 CBC WITH DIFFE RENTI AL/PL ATELE T monocytes 8 % not estab. normal Not Available [facility] ([facility]) [address] [facility], [place], [address], 03/20/2024 08:07:57 03/18/19 25 03/19/2024 CBC WITH DIFFE RENTI AL/PL ATELE T eos 7 % not estab. normal Not Available [facility] ([facility]) [address] [facility], [place], [address], 03/20/2024 08:07:57 03/18/19 25 03/19/2024 CBC WITH DIFFE RENTI AL/PL ATELE T basos 1 % not estab. normal Not Available [facility] ([facility]) [address] [facility], [place], [address], 03/20/2024 08:07:57 03/18/19 25 03/19/2024 CBC WITH DIFFE RENTI AL/PL ATELE T immature cells CAN STERILIZER Not Available [facility] ([facility]) [address] [place], [address], 03/20/2024 08:07:57 03/18/19 25 03/19/2024 CBC WITH DIFFE RENTI AL/PL ATELE T neutrophils (absolute) 3.1 x10e3 /uL 1.4-7. 0 normal Not Available [facility] ([facility]) [address] [place], [address], 03/20/2024 08:07:57 03/18/19 25 03/19/2024 CBC WITH DIFFE RENTI AL/PL ATELE T lymphs (absolute) 3.4 x10e3 /uL 0.7-3. 1 above high normal Not Available [facility] ([facility]) [address] [facility], [place], [address], 03/20/2024 08:07:57 03/18/19 25 03/19/2024 CBC WITH DIFFE RENTI AL/PL ATELE T monocytes(ab solute) 0.6 x10e3 /uL 0.1-0. 9 normal Not Available [facility] ([facility]) [address] [place], [address], 03/20/2024 08:07:57 03/18/19 25 03/19/2024 CBC WITH DIFFE RENTI AL/PL ATELE T eos (absolute) 0.5 x10e3 /uL 0.0-0. 4 above high normal Not Available [facility] ([facility]) [address] [place], [address], 03/20/2024 08:07:57 03/18/19 25 03/19/2024 CBC WITH DIFFE RENTI AL/PL ATELE T baso (absolute) 0.1 x10e3 /uL 0.0-0. 2 normal Not Available [facility] ([facility]) [address] [place], [address], 03/20/2024 08:07:57 03/18/19 25 03/19/2024 CBC WITH DIFFE RENTI AL/PL ATELE T immature granulocytes 0 % not estab. Not Available [facility] ([facility]) [address] [place], [address], 03/20/2024 08:07:57 03/18/19 25 03/19/2024 CBC WITH DIFFE RENTI AL/PL ATELE T immature grans (abs) 0.0 x10e3 /uL 0.0-0. 1 Not Available [facility] ([facility]) [address] [facility], [place], [address], 03/20/2024 08:07:57 03/18/19 25 03/19/2024 CBC WITH DIFFE RENTI AL/PL ATELE T NRBC CAN STERILIZER Not Available [facility] ([facility]) [address] [facility], [place], [address], 03/20/2024 08:07:57 03/18/19 25 03/19/2024 CBC WITH DIFFE RENTI AL/PL ATELE T hematology comments: CAN STERILIZER Not Available [facility] ([facility]) [address] [facility], [place], [address], 03/20/2024 08:07:57 03/18/19 25 03/19/2024 IRON AND TIBC iron bind.cap.(TI BC) 249 ug/dL 250-45 0 below low normal Not Available [facility] ([facility]) [address] [facility], [place], [address], 03/20/2024 08:07:58 03/18/19 25 03/19/2024 IRON AND TIBC UIBC 137 ug/dL 111-34 3 normal Not Available [facility] ([facility]) [address] [facility], [place], [address], 03/20/2024 08:07:58 03/18/19 25 03/19/2024 IRON AND TIBC iron 112 ug/dL 38-169 normal Not Available [facility] ([facility]) [address] [place], [address], 03/20/2024 08:07:58 03/18/19 25 03/19/2024 IRON AND TIBC iron saturation 45 % 15-55 normal Not Available [facility] ([facility]) [address] [facility], [place], [address], 03/20/2024 08:07:58 03/18/19 25 03/20/2024 SOLUB LE TRANS YANELY N VARNISH FILTERER TOR soluble transferrin receptor 12.1 nmol/ L 12.2-2 7.3 below low normal Not Available [facility] ([facility]) [address] [facility], [place], [address], 03/20/2024 08:07:58 03/18/19 25 03/19/2024 SEDIM ENTAT ION RATE- WESTE RGREN sedimentatio n rate-westerg anne 28 mm/HR 0-30 normal Not Available [facility] ([facility]) [address] [facility], [place], [address], 03/20/2024 08:07:59 03/18/19 25 03/19/2024 YANELY TIN ferritin 104 NG/mL 30-400 normal Not Available [facility] ([facility]) [address] [facility], [place], [address], 03/20/2024 08:08:00 03/18/19 25 03/19/2024 RETIC ULOCY TE COUNT reticulocyte count 1.6 % 0.6-2. 6 Not Available [facility] ([facility]) [address] [place], [address], 03/20/2024 08:08:01 03/18/19 25 03/19/2024 FABI BY IFA RFX TITER /ROBERT LETHA FABI by ifa rfx titer/patter n Positi ve abnormal Negat jhonny <1:80 Borde rline 1:80 Posit jhonny >1:80 Not Available [facility] ([facility]) [address] [place], [address], 03/20/2024 08:08:02 03/18/19 25 03/19/2024 FBAI BY IFA RFX TITER /ROBERT LETHA homogeneous pattern 1:320 above high normal ICAP nomen clatu re: AC-1 Not Available [facility] ([facility]) [address] [place], [address], 03/20/2024 08:08:02 03/18/19 25 03/19/2024 FABI BY IFA RFX TITER /ROBERT LETHA nucleolar pattern CAN STERILIZER Not Available [facility] ([facility]) [address] [place], [address], 03/20/2024 08:08:02 03/18/19 25 03/19/2024 FABI BY IFA RFX TITER /ROBERT LETHA speckled pattern CAN STERILIZER Not Available [facility] ([facility]) [address] [place], [address], 03/20/2024 08:08:02 03/18/19 25 03/19/2024 FABI BY IFA RFX TITER /ROBERT LETHA centromere pattern CAN STERILIZER Not Available [facility] ([facility]) [address] [place], [address], 03/20/2024 08:08:02 03/18/19 25 03/19/2024 FABI BY IFA RFX TITER /ROBERT LETHA spindle apparatus pattern CAN STERILIZER Not Available [facility] ([facility]) [address] [place], [address], 03/20/2024 08:08:02 03/18/19 25 03/19/2024 FABI BY IFA RFX TITER /ROBERT LETHA nuclear membrane pattern CAN STERILIZER Not Available [facility] ([facility]) [address] [place], [address], 03/20/2024 08:08:02 03/18/19 25 03/19/2024 FABI BY IFA RFX TITER /ROBERT LETHA midbody pattern CAN STERILIZER Not Available [facility] ([facility]) [address] [place], [address], 03/20/2024 08:08:02 03/18/19 25 03/19/2024 FABI BY IFA RFX TITER /ROBERT LETHA nuclear dot pattern CAN STERILIZER Not Available [facility] ([facility]) [address] [place], [address], 03/20/2024 08:08:02 03/18/19 25 03/19/2024 FABI BY IFA RFX TITER /ROBERT LETHA pcna pattern CAN STERILIZER Not Available [facility] ([facility]) [address] [facility], [place], [address], 03/20/2024 08:08:02 03/18/19 25 03/19/2024 FABI BY IFA RFX TITER /ROBERT LETHA centriole pattern CAN STERILIZER Not Available [facility] ([facility]) [address] [facility], [place], [address], 03/20/2024 08:08:02 03/18/19 25 03/19/2024 FABI BY [...] Syste ratna Lupus Eryth emato gato, Subac [place] Cutan eous Lupus , Neona zara Lupus , Conge nital Heart Block , Mixed Conne ctive Tissu e Disea se, Scler oderm a-dif fuse, Scler oderm a-Aut oimmu ne Myosi tis Overl ap Syndr ome, Syste ratna Lupus Eryth emato gato-S clero derma -Auto immun e Myosi tis Overl ap Syndr ome, Syste ratna Autoi mmune Rheum atic Disea se, Undif feren tiate d Conne ctive Tissu e Disea se ----- [...] ----- ----- ----- ----- Not Available [facility] ([facility]) [address] [facility], [place], [address], 03/20/2024 08:08:02 03/18/19 25 03/24/2024 ANTIH ISTON E ANTIB ODIES anti-histone abs 1.3 units 0.0-0. 9 above high normal Negat jhonny <1.0 Weak Posit jhonny 1.0 - 1.5 Moder ate Posit jhonny 1.6 - 2.5 Stron g Posit jhonny >2.5 Not Available [facility] ([facility]) [address] [facility], [place], [address], 03/24/2024 14:06:33 03/18/19 25 03/21/2024 ANTIC HROMA TIN ANTIB ODIES antichromati n antibodies <0.2 ai 0.0-0. 9 Not Available [facility] ([facility]) [address] [facility], [place], [address], 03/24/2024 14:06:33 03/18/19 25 03/21/2024 ANTI- DSDNA ANTIB ODIES anti-DNA (ds) Ab qn 1 IU/mL 0-9 Negat jhonny <5 Equiv ocal 5 - 9 Posit jhonny >9 Not Available [facility] ([facility]) [address] [facility], [place], [address], 03/24/2024 14:06:34 03/18/19 25 03/20/2024 LINN EN AUTHO RIZAT ION written authorizatio n Amada t Linn en Autho rizat ion Recei luiza. Autho rizat ion recei luiza from [facility] CHARLIE CLIFTON for Link Reque st on 03-20 Logge d by Pako Palacios Not Available [facility] ([facility]) [address] [facility], [place], [address], 03/24/2024 14:06:34 03/31/19 25 04/01/2024 POTAS SIUM, HEPAR IN PLASM A potassium, heparin plasma 4.6 mmol/ L 3.5-5. 2 Not Available [facility] ([facility]) [address] [facility], [place], [address], 04/01/2024 14:06:30 03/31/19 25 04/01/2024 MAGNE SIUM magnesium 1.8 mg/dL 1.6-2. 3 normal Not Available [facility] ([facility]) [address] [facility], [place], [address], 04/01/2024 14:06:31 01/07/20 24 01/07/2024 US abdom en aorti c aneur ysm screrolando ugarte See Note [facility] , a member of [employer] [facility] RFIDeas [facility] Name: ARIEL MOSQUEDA Date of : 1944 Reason for Exam: AAA Exam Date: 2023 [id number] EST Report Status : Final Orderi ng [facility] er: ELIZABETH CLIFTON PCP: ELIZABETH CLIFTON Histor [...] Date: 2023 12:37 ET Workst ation ID: [id number] Transc ribed By: Self Edit Transc ribed Date: 2023 12:35 ET [address], [address], 01/07/2024 17:00:06 Result Notes None recorded. Problems Name Problem SNOMED Code Status Onset Date Resolution Date Notes Provider Name and Address Organization Details Recorded Time Prieto gaffney 83553619 Completed 202312/04/2023 Mitul Clifton MD [address], [place], [address], [facility] 4 07:41:23 Hypothyr oidism 33045720 Active 2023 Mitul Clifton MD [address], [place], [address], [facility] 4 07:37:39 Renal disorder due to type 2 diabetes mellitus 261049355 Active 2023 Mitul Clifton MD [address] [facility] [address], [place], [address], [facility] 4 07:41:01 Chronic kidney disease stage 3A 671572508 Active 2023 Mitul Clifton MD [address], [place], [address], [facility] 4 07:44:02 Microalb uminuric diabetic nephropa thy 898343000 Active 2023 Mitul Clifton MD [address] [facility] [address], [place], [address], [facility] 4 07:44:25 Hyperlip idemia 16852067 Active 2023 Mitul Clifton MD [address] [facility] [address], [place], [address], [facility] 4 07:47:26 Abdomina l aortic ectasia 17074701301 9101 Active 2023 Mitul Clifton MD [address], [place], [address], [facility] 4 07:47:41 Vitamin D deficien cy 96415028 Completed 202302/28/2024 Mitul Clifton MD [address], [place], [address], [facility] 5 12:54:14 Ex-smoke r 4388532 Active 2023 Mitul Clifton MD [address] [facility] [address], [place], [address], [facility] 4 11:30:41 Obstruct jhonny sleep apnea syndrome 54639932 Active 2023 Mitul Clifton MD [address], [place], [address], [facility] 4 11:37:02 Obesity 441774751 Active 2023 Mitul Clifton MD [address] [facility] [address], [place], [address], [facility] 4 11:54:49 Neuropat hy due to diabetes mellitus 800848999 Active 2023 Mitul Clifton MD [address] [facility] [address], [place], [address], [facility] 4 11:57:37 [facility] 94688857 [facility] 17:[facility]:10 Glaucoma 12219840 Active [facility], [facility] 4 17:54:18 Loss of appetite 07328381 Active 2023 since hypoglyc emic episode caused loss of consciou sness Suri cardozo [place] null, [facility] 4 16:49:59 Generali zed anxiety disorder 34131509 Active 2023 Mitul Clifton MD [address], [facility] [place], [address], [facility] 4 11:06:38 Moderate recurren t major depressi on 58612617 Active 2023 Mitul Clifton MD [address], [facility] [place], [address], [facility] 4 11:06:40 Memory impairme nt 126770784 Active 2023 Mitul Clifton MD [address], [facility] [place], [address], [facility] 4 11:07:56 Hyperten sive renal disease 34855106 Active 2024 Mitul Clifton MD [address], [facility] [place], [address], [facility] 5 12:53:25 Problem Notes None recorded. Procedures Surgical History Date Name Laterality Status Provider Name and Address Organization Details Recorded Time Diabetic Foot Exam (Monofilament) completed Mitul Clifton MD [address] [facility] [address], [place], [address], [facility] 12/04/2023 11:50:41 excision of hydrocele completed [facility] 12/04/2023 11:21:18 Imaging Results Imaging Date Name Status LastModified by Organiz ation Details LastModified Time 01/07/2024 US abdomen aortic aneurysm screening completed [address], [address], 01/07/2024 17:00:06 Procedure Notes None recorded. Medical Equipment None Reported. Allergies Allergen ID Allergen Name Allergen Category Reaction Reaction Severity Criticality Documentation Date Start Date Code Code System Note Provider Name and Address Organization Details Recorded Time 22574 allopurin ol medicatio n other Not available Not available 12/04/2023 519 RxNorm cause d pancr eatit is SHENG Berg, [facility] 4 17:54:42 Medications Name Sig [...] 1 tablet every day by oral route. 03/19 completed Not Available Not Available Not Available metformin 1,000 mg tablet Take 1 tablet twice a day by oral route. 01/29 completed 01/27/24 patient will resume this medicati on until [facility] is delivere d to his home. [...] route at bedtime for 84 days. active for depressi on and to increase appetite Not Available Not Available Not Available ferrous sulfate 325 mg (65 mg [...] e Mini Pen Needle 31 gauge x /16 active Not Available Not Available Not Available [...] Updated DateTime 4 152.4 cm 31.8 kg/m2 94859.5 6 g 00671.3 7 g 75 /min 97 % 97 % 97.8 [degF] 162 mm[Hg] 64 mm[Hg] [facility] [place] [facility] 4 11:10:49 Date Recorded Systolic blood pressure Diastolic blood pressure Provider Name and Address Organization Details Last Updated DateTime 12/04/2023 166 mm[Hg] 60 mm[Hg] Mitul Clifton MD [address], [address] 12/04/2023 11:59:49 Date Recorded Body height Body mass index (BMI) Body weight Heart rate Oxygen saturation Oxygen saturation in Arterial blood by Pulse oximetry Body temperature Systolic blood pressure Diastolic blood pressure Provider Name and Address Organization Details Last Updated DateTime 4 152.4 cm 29.5 kg/m2 41681.4 5 g 68 /min 98 % 98 % 97.7 [degF] 156 mm[Hg] 76 mm[Hg] Suri cardozo [facility] 4 10:34:16 Date Recorded Body height Body mass index (BMI) Body weight Heart rate Oxygen saturation Oxygen saturation in Arterial blood by Pulse oximetry Body temperature Systolic blood pressure Diastolic blood pressure Provider Name and Address Organization Details Last Updated DateTime 5 152.4 cm 28.3 kg/m2 22448.8 9 g 62 /min 98 % 98 % 97.4 [degF] 158 mm[Hg] 74 mm[Hg] Suri [facility] 16:01:16 Date Recorded Systolic blood pressure Diastolic blood pressure Provider Name and Address Organization Details Last Updated DateTime 01/30/2024 147 mm[Hg] 76 mm[Hg] Suri patel [facility] 01/30/2024 17:07:19 Social History Question Answer Notes LastModified by Organizat ion Details LastModified Time Tobacco Smoking Status Former Smoker SHENG [facility] 12/04/2023 11:03:01 Do You Have An Advance [...] available 12/04/2023 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 16+yearssin celastcigar ette Information not available 12/04/2023 Do You [...] influenza, unspecified formulation 0 completed Marleny j[facility] 11/18/2023 13:25:22 influenza, unspecified formulation 7 completed Marleny jones [facility] 11/18/2023 13:25:34 influenza, unspecified formulation 8 completed Marleny Ob[place] null, [facility] 11/18/2023 13:26:00 influenza, unspecified formulation 9 completed Marleny Obregon null, [facility] 11/18/2023 13:26:09 pneumococcal, unspecified formulation 4 completed Marleny Obregon null, [facility] 11/18/2023 13:26:44 Tdap 2 completed Marleny Obregon null, [facility] 11/18/2023 13:26:50 Influenza, high-dose, quadrivalent, PF 2 completed SHENG [place], [facility] 12/04/2023 10:52:42 Influenza, adjuvanted, quadrivalent, PF 3 completed [place] null, [facility] 12/04/2023 10:52:42 COVID-19, mRNA, LNP-S, bivalent, PF, 30 mcg/0.3 mL dose 2 completed [place] null, [facility] 12/04/2023 10:52:42 Tdap 4 completed Abynando jones, [facility] 01/27/2024 15:22:21 influenza, unspecified formulation 4 completed Abynando jones, [facility] 01/27/2024 15:21:40 SARS-COV-2 (COVID-19) vaccine, UNSPECIFIED 4 completed Aby Russellnando jones, [facility] 01/27/2024 15:22:01 Tdap 4 completed SHENG Mcgee, [facility] 03/03/2024 16:00:52 Td (adult), 2 Lf tetanus toxoid, preservative free, adsorbed 6 completed Not Available [facility] 08/25/2013 13:59:04 pneumococcal polysaccharide PPV23 6 completed Not Available [facility] 08/25[facility] 13:59:05 Past Encounters Encounter ID Performer Location Encounter Start Date Encounter Closed Date Diagnosis/Indication Diagnosis SNOMED-CT Code Diagnosis ICD10 Code Diagnosis Note [id number] Mitul Clifton MD Main Office [address] [facility] [place] [address] 12/04/2023 10:35:20 12/04/2023 12:10:15 Renal disorder due to type 2 diabetes mellitus 160172860 E11.21 HBA1C [id number] done/ labs orderedOn ARBCont metformin for now, [...] today, advised to use own clippers. Follows area secretary .Yearly Ophthalmol ogy advised.John chow renalLipid profile ordered, on statin.Cou nselled about regular physical activityCo unselled on dietVaccin es discussedD ental exam discussed. Microalbum inuric diabetic nephropathy 696906539 E11.21 Hypertensi ve nephrosclerosis 084450390 N18.31 bp elevated, he is otherwise asymptomat ic, He follows renal for this and advised close follow up. My MA will call pharm to see if he has ever tried CCB. Chronic ki dney disease stage 3A 658411819 N18.31 Hyperlipidemia 52809563 E78.5 Abdominal aortic ectasia 8997540913 42395 I77.811 Patient ne w to provider [id number] 36006 Z76.89 Patient was counseled on healthy diet, exercise and nutrition due to Body mass index is ... kg/m? ? ?. Last PSADate:Re sult:Plan: past age for screening Last Colonoscop y:Date:Res ult:Plan: past age for screening Vaccines:T dAP: script givenZoste r rec: script [id number] : script givenInflu rosa: 11/05/23RSV : Script givenCovid : 11/05/23Adv ised to seperate each vaccine every 2 weeks. Routine labs today Immunizati on status reviewed. Will screen based on risk factors. Regular dental and ophtho care advised as well as seat belt and sunscreen use. Distracted driving discussed. Medication reconciled . Advance directives discussed. Varicella vaccination 68 932139 Z23 Administra tion of viral vaccine 10555131 Z29.11 Fatigue 57370750 R53.83 Z00.00 Hypothyroidism 05643418 E03.9 Administra tion of diphtheria, pertussis, and tetanus vaccine 475551586 Z23 Administra tion of pneumococcal vaccine 34467777 Z23 Long-term drug therapy 735969223 Z79.84 Metformin Use Memory impairment 113096 006 R41.3 Venereal d isease screening 018402770 Z11.3 Z72.89 F03.90 Vitamin D deficiency 347 85007 E55.9 Skin lesion 21643727 L98 .9 Right side of cheeks. Hepatitis C screening 41 1969266 Z11.59 Obstructiv e sleep apnea syndrome 12502985 G47.33 Urinary incontinence 165 727401 R32 Will get urine test first and PSA, then refer to urologist. Body mass index 30+ - obesity 314126814 Z68.30 E66.9 - Diet and exercise discussed- Patient made aware of risks of obesity- Encouraged to loose weight.- Avoid starchy and fatty food- Encouraged use of green vegetables and fruits Obesity 153190686 E66.9 [id number] Lilliam Patterson Main Office [address] [place] [address] 01/27/2024 10:09:24 01/27/2024 11:19:21 Loss of appetite 09582496 R63.0 Likely related to depression .Will start remeron follow up 1 mo. Obstructiv e sleep apnea syndrome 50804495 G47.33 Could not tolerate cpap.Decli chas further sleep eval. understand s risk. Chronic ki dney disease stage 3A 083801772 N18.31 Moderate r ecurrent major depression 45775278 F33.1 He is depressed, has low apatite will start remeron qhs.Follow up in 6 weeks.Esequiel es thoughts of self harm or harming others.Psy chotherapy encouragem ind fullness encouraged . Generalize d anxiety disorder 19325613 F41.1 Memory impairment 516039 006 R41.3 likely pseudodeme ntia will tx depression first. Hypertensi ve renal disease 97396600 I12.9 bp elevated, he is otherwise asymptomat ic, He follows renal for this and advised close follow up.BP still elevated will increase losartan 100mg follow up 1 mo to get bmp. [id number] Mitul Clifton MD Main Office [address] [facility] [address] [place] [address] 03/03/2024 15:22:56 03/03/2024 17:09:12 Hypothyroidism 46756641 E03.9 Will repeat TSH Renal diso rder due to type 2 diabetes mellitus 801912266 E11.21 E11.65 HBA1C [id number] doneOn ARBCont. mounjaro 7.5, insulin was added Tresiba for better glucose control and he has not had lows with better glucose control.Co nt. CGM.Cont. Aspirin EC 81 mg po qdailyRegu lar self feet exam advised. Also advised to use own clippers. Follows area secretary .Yearly Ophthalmol ogy advised.John chow renalLipid profile done, on statin.Cou nselled about regular physical activityCo unselled on dietVaccin es discussedD ental exam discussed. Advised regarding risks/sign s/symptoms of hypoglycem ia. Counseled to carry a snack in case of emergencie s Microalbum inuric diabetic nephropathy 027419660 E11.21 Chronic ki dney disease stage 3A 641133846 N18.31 advised regular follow up with renal. Generalize d anxiety disorder 40520654 F41.1 Hypertensi ve renal disease 56286199 I12.9 bp still elevated, will add amlodipine , advised close follow up with renal. Abdominal aortic ectasia 2467440482 58105 I77.811 will consider monitoring in 2-3 yrs as it is mild.BP control enforced and glucose control.Re gular exercise encouraged . Memory impairment 408585 006 R41.3 likely pseudodeme ntia will tx depression first. Moderate r ecurrent major depression 08315282 F33.1 He is depressed, has low apatite [...] Lyle Member ID Guarantor Name 12/04/2023 1 [facility] - DOS ON OR AFTER 2022 - ONE CARE (MEDICARE REPLACEMENT/AD VANTAGE - HMO) Ariel Gupta [id number] Ariel Gupta 01/27/2024 1 [facility] - DOS ON OR AFTER 2022 - ONE CARE (MEDICARE REPLACEMENT/AD VANTAGE - HMO) Ariel Gupta [id number] Ariel Gupta 03/03/2024 1 [facility] - DOS ON OR AFTER 2022 - ONE CARE (MEDICARE REPLACEMENT/AD VANTAGE - HMO) Ariel Gupta [id number] Ariel Gupta Notes Date Note Type Note [...] 2x week, walking. Mitul Clifton MD [address], [address], [facility] 12/04/2023 12:02:05 01/27/2024 text/html AnemiaReported bypatient.Severity:Norm ocytic [...] Lifestyle:limiting/avoi ding salt;not exercising regularly [facility] 02/13/2024 20:50:57 03/03/2024 text/html The patient pres [...] (previously low), FABI, renal function, and an jfctsii-fx-fpkaouhxwb ratio. Additionally, he was due for an [...] stabilize with recent improvements. Mitul Clifton MD [address], [address], [facility] 03/04/2024 08:02:05 03/03/2024 text/html AnemiaReported bypatient.Severity:Norm ocytic [...] Lifestyle habits:no regular exercise Mitul Clifton MD [address], [address], [facility] 03/04/2024 08:02:05
--- OUTSIDE RECORDS SUMMARY | 2024-04-21 12:27 | XMS_ITS | Data Portability ---
Author Organization [facility] [employer] [place], [place] - [facility] Address [address] [place] [address] Care Team Providers Care Truckman Name Role Phone HIM CCA OTHER Assessment No assessment recorded. Plan of Treatment Reminders Order Date Submit Date Provider Last Modified By Organization Details Last Modified Time Details Appointments None recorded. Lab None recorded. Referral None recorded. Procedures None recorded. Surgeries None recorded. [facility]23 [facility] [address] [place] [address], [address], 14:24:13 Medication Orders None recorded. Patient TargetsNo targets recorded. Patient Instructions Encounter Date Encounter Id Patient Instructions Last Modified By Organization Details Last Modified Time 11/07/2023 [id number] orthostatic vitals* gbaci Not available 11/07/2023 13:54:45 Reason for Referral None Reported. Results Created Date Observation Date Name Description Value Unit Range Abnormal Flag Note LastModifiedBy Organization Detail LastModifiedTime 11/07/1911/07/2023 elect tao veegr am No observ ation record ed. [employer] Team [address], [address], 11/07/2023 14:24:11 Result Notes None recorded. Procedures Surgical History None recorded. Imaging Results Imaging Date Name Status LastModified by Organization Details LastModified Time 11/07/2023 electrocardiogram completed [address], [address], 11/07/2023 14:24:11 Procedure Notes None recorded. Medical [...] SNOMED-CT Code Diagnosis ICD10 Code Diagnosis Note [id number] NINA ELLIOTT MD Main - [facility] [address] [place] [address] 11/07/2023 13:41:42 11/07/2023 23:19:52 Lightheadedness 452729753 R42 Evaluation in the field was performed by my service clerk colleague, as noted above, I provided real-time [...] glucose was 219 when checked by the service clerk. Family was given him sugary drink and [...] and further eval. Expect was called at [facility] Primary care, considerpr escribing glucometer since he doesn't have one while taking large dose of lantus. His lantus dose should be divided in BID dosing if >50 UI. Please consider decreasing dose of antihypert ensive meds given his age Dispositio n: [facility] ED . Expect was called. Health Concerns Section Related Observation LastModified by Organization Detai ls LastModified Time None Recorded Concern Status LastModified by Organization Details LastModified Time None Recorded Advance Directives Directive None Recorded Payers Encounter Date Sequence Insurance Name Policy Number Policy Lyle Covered Member ID Lyle Member ID Guarantor Name 11/07/2023 1 [facility] - DOS ON OR AFTER 2022 - DUAL ELIGIBLE - [employer] OPTIONS AND ONE CARE (MEDICARE REPLACEMENT/AD VANTAGE - HMO) Ariel Koromaillo [id number] Ariel MarinoCandy Notes Date Note Type Note Provider Name and Address Organization Details Recorded Time 11/07/2023 text/html E Crabbing Machine Operator Organization Information for [employer] Business Legal Name: [employer]? Address: [address] [place] [address], Tray Packer: Neil KLINE No.: [id number] Crabbing Machine Operator POC Test Results from [facility] EKG (13:53:44) EKG test performed. Attachments uploaded as part of this test result can be found under Documents section. .................. .................. .................. .................. .................. .................. .................. ............... Crabbing Machine Operator Note From [facility]: Dispatched to above address for dizziness. On arrival patient 78 y/o M, found sitting on chair, AOX4, airway patent, speaking in full sentences, good color, in no apparent distress, lethargic poor affect, Khmer speaking only. Patients sister on scene translating. [...] radial pulse, skin pink warm and dry. [facility] contacted, spoke with Dr. Elliott, advised of patient complaints and exam findings. [facility] ordered 12 lead EKG, orthostatic vital signs, IV and ISTAT check. 12 lead EKG showed sinus bradycardia. Orthostatic vital signs checked, positive. IV access attempted but unsuccessful. [facility] contacted, advised of test results. [facility] recommends transport to ER for further evaluation. Patient agrees with this. 911 contacted. [facility] responded. Verbal report given to [facility] Crabbing Machine Operator. [facility] service clerk took over patient care, transporting to [facility]. SC8 clear. EOR. .................. .................. .................. .................. .................. .................. .................. ............... Disposition: Fulfilled NINA ELLIOTT MD [address] [place] [address],[address], [place], [address], SHENG - OomnitzaMARILEE BENDER 11/07/2023 15:55:13
--- OUTSIDE RECORDS SUMMARY | 2024-04-21 12:27 | XMS_ITS | Clinical Summary ---
Author Organization [facility] Address [address] [place] [address] Phone Care Team Providers Care Traffic Or System Dispatcher Name Role Phone Basil Najera MD Primary Care Provider [phone] Social History Tobacco Use Types Packs/Day Years [...] age to complete this topic Insurance [address] [place] [address] [facility] Member Subscriber Plan / Payer (Ef fective 2019-Present) Name:Ariel Gupta Relation to Subscriber:Self Name:Ariel Gupta Payer ID:[id number] Group ID:[id number] Type:Not on file Address: [place] [address] [place] [address] Care Teams Traffic Or System Dispatcher Relationship Specialty Start Date End Date Basil Najera MD [address] [address] PCP - General Family Medicine 12/27/23
--- OUTSIDE RECORDS SUMMARY | 2024-04-21 12:27 | XMS_ITS | Clinical Summary ---
Author Organization [facility] Address [address] [place] [address] Phone Care Team Providers Care Manager Intermediate Name Role Phone Hannah Patten MD Primary Care Provider [phone] Allergies Active Allergy Reactions Criticality Noted Date [...] this topic Insurance ([id number]) ([id number]) Care Teams Manager Intermediate Relationship Specialty Start Date End Date Hannah Patten MD [address] [place] [address] PCP - General 02/22/20
== END 2024-04-21 10:50 | disposition home or self-care (01) ==
LOC: HO.HKA 10:25
PROVIDERS: PCP Family Medicine; Visit Provider Internal Medicine Hypertension Specialist
DX: I12.9 Hypertensive chronic kidney disease with stage 1 through stage 4 chronic kidney disease, or unspecified chronic kidney disease (principal); E11.22 Type 2 diabetes mellitus with diabetic chronic kidney disease; N18.2 Chronic kidney disease, stage 2 (mild); R80.9 Proteinuria, unspecified
CPT/HCPCS: 99214

== ENCOUNTER → 2024-04-21 10:24 | Outpatient (BNVA) | payer OTHER, SELFPAY | PROVIDERS: PCP Family Medicine; Visit Provider Internal Medicine Hypertension Specialist | DX: R80.9 Proteinuria, unspecified (principal); I15.0 Renovascular hypertension | CPT/HCPCS: 99212 ==

== ENCOUNTER 2024-04-30 23:41 | Emergency (ER) | payer OTHER, SELFPAY ==
--- NOTE | 2024-04-30 | ECG_ITS ---
Test Reason : CHEST PAIN Blood Pressure : */* mmHG Vent. Rate : 93 BPM Atrial Rate : 93 BPM P-R Int : 144 ms QRS Dur : 82 ms QT Int : 334 ms P-R-T Axes : -22 -26 137 degrees QTcB Int : 415 ms Normal sinus rhythm Low voltage QRS Nonspecific ST and T wave abnormality Abnormal ECG When compared with ECG of 07-Nov-2023 15:58, Vent. rate has increased by 45 bpm Nonspecific T wave abnormality now evident in Lateral leads Referred By: Generic ED Physician Electronically Signed By: Erick Stallworth
--- NOTE | ~2024-04-30 | XR_ITS ---
CLINICAL HISTORY: cp 1 view chest x-ray Comparison: None Findings: Lungs are well inflated. Cardiac silhouette is within normal limits. No focal areas of consolidation. No rib fracture, pneumothorax, or pleural effusion. Moderate degenerative change of both shoulder joints. IMPRESSION: 1. No acute findings. This document has been electronically signed by: Arnie Vidal MD on 05/01/2024 00:56:36
[2024-04-30 23:50] VITALS: BP 154/76; BP 163/77; PULSE 88; PULSE 92; RESP 20; TEMP 36.8; O2SAT 20; O2SAT 98; BMI 24.3
--- NOTE | 2024-05-01 00:02 | ED_ITS ---
HPI - Chest Pain General Chief Complaint: Chest Pain Stated Complaint: CHEST PAIN/ COUGH Time Seen by Provider: 05/01/24 00:01 Source: patient Mode of arrival: EMS Limitations: no limitations History of Present Illness ED Provider: HPI narrative: Patient is 79 years old with history of hypertension hyperlipidemia and diabetes no known coronary artery disease ex-smoker 30 years ago comes here for mid chest pain started 16:00 while at rest felt like crushing mid chest pain radiating to the upper part of the sternum no shortness a breath no cough no diaphoresis no nausea no vomiting patient never had similar pain in the past patient does take baby aspirin daily on arrival patient's blood pressure was 163/77 pulse rate 92 saturating 98% at room air Related Data Home Medications ?Medication ?Instructions ?Recorded ?Confirmed travoprost 0.004 % eye drops 0 drp ophthalmic (eye) 02/28/21 04/21/24 insulin glargine 100 unit/mL (3 12 unit subcut DAILY 03/10/24 04/21/24 mL) subcutaneous pen (Lantus Solostar U-100 Insulin) losartan 100 mg tablet 100 mg PO DAILY 03/10/24 04/21/24 mirtazapine 15 mg tablet 15 mg PO DAILY 03/10/24 04/21/24 tirzepatide 2.5 mg/0.5 mL 7.5 mg subcut QWEEK 03/10/24 04/21/24 subcutaneous pen injector (Wendy) docusate sodium 100 mg capsule mg PO 04/21/24 04/21/24 levothyroxine 112 mcg tablet 112 mcg PO DAILY 04/21/24 Previous Rx's ?Medication ?Instructions ?Recorded acetaminophen 500 mg tablet (Pain 500 mg PO Q6H PRN fever 30 days 02/26/22 Relief (acetaminophen)) #120 tabs pen needle, diabetic, safety 31 #100 ea 09/11/22 gauge x 1/4 (True Comfort Safety Pen Needle) hydralazine 50 mg tablet 50 mg PO TID 90 days #270 tabs 12/28/22 cholecalciferol (vitamin D3) 25 25 mcg PO DAILY 90 days #90 tabs 10/02/23 mcg (1,000 unit) tablet blood sugar diagnostic (FreeStyle #100 ea 11/07/23 Test strips) blood-glucose meter (FreeStyle #1 ea 11/07/23 Lite Meter kit) lancets 28 gauge (FreeStyle #100 ea 11/07/23 Lancets) aspirin 81 mg tablet,delayed 81 mg PO DAILY #90 tabs 12/25/23 release atenolol 50 mg tablet 50 mg PO DAILY 90 days #90 tabs 12/25/23 atorvastatin 10 mg tablet 10 mg PO BEDTIME 90 days #90 tabs 12/26/23 Allergies Allergy/AdvReac Type Severity Reaction Status Date / Time No Known Allergies Allergy Verified 04/30/24 23:54 Review of Systems 2 Review of Systems: Yes all other systems are reviewed and are negative [facility] Past Medical History Medical History DEVON (obstructive sleep apnea) Gout Hyperlipidemia LDL goal <100 Diabetic neuropathy Microalbuminuria Abdominal aortic ectasia High cholesterol Hypothyroid Hypertension Diabetes mellitus Surgical History History of cataract extraction History of hydrocelectomy Hx of colonoscopy Family History Family History Father Medical history unknown Mother Diabetes Hypertension Paternal Grandmother Cancer Son No problems noted. Daughter No problems noted. Sister No problems noted. Brother No problems noted. Social History Social History Housing: Apartment Are you a primary family day care worker to a significant other at home: No Do you presently have visiting nurse or other home services: Yes (SUPERVISOR OF GUIDANCE [employer] TESTING 2 x week) Alcohol intake: never Patient Tobacco Use Status: Former Tobacco user Tobacco use type: Cigarette e-Cigarette/Vaping Use: Never Used Second Hand Smoke Exposure: No Do you have a plan to hurt others: No Plan service: No Current occupational status: disabled Cognitive needs: Yes Hearing needs: No Vision needs: Yes Physical Exam 2 Vital Signs: Vital Signs: Last Vital Signs Temp 98.2 F 04/30/24 23:50 Pulse 90 05/01/24 00:59 Resp 20 05/01/24 00:22 BP 130/72 05/01/24 00:59 Pulse Ox 96 05/01/24 00:22 O2 Del Method Room Air 05/01/24 00:22 BMI result Body Mass Index 24.3 Appearance: Alert. Oriented X3. No acute distress. Eyes: PERRLA, No Nystagmus ENT: Pharynx normal. Oral Mucosa moist Neck: Normal inspection. Neck supple. CVS: Normal heart rate and rhythm. Pulses normal. No murmur rub or gallop mild sternal tenderness Respiratory: No respiratory distress. Equal air entry bilateral, no wheezing/rales/rhonchi Abdomen: Soft and nontender. Bowel sounds are present, no mass palpable, no CVA tenderness Skin: Skin warm and dry. Normal skin color. Normal skin turgor. Extremities: No lower extremity edema. No calf tenderness Neuro: Oriented X 3. No motor deficit. No sensory deficit.No cerebellar signs , cranial nerves II-XII intact Medications Administered Generic Name Dose Route Start Last Admin Trade Name Freq PRN Reason Stop Dose Admin Heparin Sodium/Sodium Chloride 25,000 unit in 250 mls @ 0 mls/hr 05/01/24 00:45 05/01/24 01:01 Heparin Sodium,Porcine/1/2ns IVCONT 12 units/kg/hr .Q0M JEANMARIE 8.2 mls/hr Administration Protocol Per Protocol Discontinued Medications Generic Name Dose Route Start Last Admin Trade Name Freq PRN Reason Stop Dose Admin Aspirin 162 mg 05/01/24 00:03 05/01/24 00:07 Aspirin 81 Mg Tab.Chew PO 05/01/24 00:04 162 mg ONCE ONE Administration Heparin Sodium (Porcine) 5,000 unit 05/01/24 00:09 05/01/24 00:17 Heparin Sodium,Porcine 5,000 Unit/Ml Vial IVPUSH 05/01/24 00:10 5,000 unit ONCE ONE Administration Nitroglycerin 0.4 mg 05/01/24 00:08 05/01/24 00:11 Nitroglycerin 0.4 Mg Tab.Subl SUBLINGUAL 05/01/24 00:09 0.4 mg ONCE ONE Administration Nitroglycerin 1 inch 05/01/24 00:51 05/01/24 00:59 Nitroglycerin 2 % Oint 1 Gm Packet TRANSDERMA 05/01/24 00:52 1 inch ONCE ONE Administration Ticagrelor 180 mg 05/01/24 00:14 05/01/24 00:18 Ticagrelor 90 Mg Tablet PO 05/01/24 00:15 180 mg ONCE ONE Administration Medical Decision Making Medical Decision Making MDM Narrative: Patient with subtle ST elevation in inferior lateral leads case discussed Dr. Stallworth robotic toy inventor would like to discuss the case with editorial project manager not sure about STEMI at this time, case discussed with Dr. Jackson editorial project manager at [facility] who saw the EKG would like the patient to come to the CCU for further evaluation does not need cardiac catheterization at this time patient received nitroglycerin sublingually heparin 5000 Brilinta 180 mg and started on heparin drip patient felt slightly better nitro paste was applied patient's initial high sensitive troponin is only 4.5. Differential Diagnosis Differential Diagnoses: The differential diagnosis associated with the presentation includes STEMI/non-STEMI/pericarditis/musculoskeletal pain Consult Healthcare Provider Management of the patient was discussed with: Certified Surgical Assistant Lab Data [facility] Lab Attestation statement: I reviewed the patient's lab results. 05/01/24 00:07 05/01/24 00:07 Labs: Lab Results 05/01/24 05/01/24 05/01/24 Range/Units 00:07 00:08 00:10 WBC 9.7 (4.8-10.8) X10*3/uL RBC 3.84 L (4.60-5.80) X10*6/uL Hgb 11.6 L (14.0-18.0) g/dl Hct 33.8 L (42.0-52.0) % MCV 88.0 (80.0-98.0) fL MCH 30.2 (27.0-33.0) pg MCHC 34.3 (31.0-36.0) g/dl RDW 13.4 (11.0-16.0) % Plt Count 165 D (160-400) X10*3/uL MPV 11.0 (9.4-12.4) fL Immature Gran % (Auto) 0.3 (0.0-0.4) % Neut % (Auto) 79.3 H (45-73) % Lymph % (Auto) 10.0 L (20-40) % Thomas % (Auto) 9.5 (2-11) % Eos % (Auto) 0.5 (0-4) % Baso % (Auto) 0.4 (0-2) % Lymph # (Auto) 1.0 L (1.2-4.9) X10*3/uL Thomas # (Auto) 0.9 (0.1-1.2) X10*3/uL Eos # (Auto) 0.1 (0.0-0.4) X10*3/uL Baso # (Auto) 0.0 (0.0-0.2) X10*3/uL Abs Immat Gran (auto) 0.03 (0.00-0.03) X10*3/uL Absolute Neuts (auto) 7.7 (2.0-8.3) x10*3/uL Absolute Nucleated RBC 0.000 (0.0-0.012) X10*3/uL Nucleated RBC % (auto) 0.0 (0.0-0.2) /100WBC PT 11.6 (10.9-12.4) SEC INR 1.0 (0.9-1.1) APTT 22.3 L D (26.0-36.8) SEC Sodium 135 (135-145) mmol/L Potassium 5.5 H D (3.3-5.1) mmol/L Chloride 105 (96-108) mmol/L Carbon Dioxide 21 L (22-29) mmol/L Anion Gap 15 (12-20) BUN 28 H (9-16) mg/dL Creatinine 1.40 (0.5-1.4) mg/dL Estim Creat Clear Calc 39.8 Estimated GFR 49 Random Glucose 236 H (60-115) mg/dL Calcium 9.7 (8.4-10.2) mg/dL Magnesium 2.0 (1.6-2.6) mg/dL Total Bilirubin 0.6 (0.0-1.0) mg/dL AST 94 H (5-37) U/L ALT 78 H (0-40) U/L Alkaline Phosphatase 155 H (39-117) U/L Troponin I High Sens 4.5 D (<3.5-35.0) ng/L B-Natriuretic Peptide 59 (<100) pg/mL Total Protein 8.6 H (6.5-8.0) g/dL Albumin 4.1 (3.5-5.0) g/dL Independent Interpretation I performed an independent interpretation of an: EKG Interpretation: Normal sinus rhythm heart rate 94 beats per minute subtle ST elevation in 1 ,II V5 and V6 normal axis occasional PVC unifocal impression possible ischemia Radiology Impression Discussion of test interpretation with radiology: I have reviewed the radiologist's reading. Radiologist Impression: NAD chest x-ray Critical Care Time Critical Care Time Critical Care Time: Yes Total Critical Care Time: 60 Attestation: The patient was critically ill with a high probability of imminent or life threatening deterioration. I spent greater than ?65??minutes of discontinuous time evaluating the patient,delivering critical care at the bedside, discussing and evaluating pertinent data with consultants. Critical care time does not include time spent performing separately billable procedures or teaching. Total time spent performing critical care was 60???minutes. Discharge Plan Discharge Clinical Impression: Acute non-ST elevation myocardial infarction (NSTEMI) Patient Disposition: [facility] Transfer Details: CCU [facility] Dr. Jackson Prescriptions: No Action acetaminophen [Pain Relief (acetaminophen)] 500 mg tablet 500 mg PO Q6H PRN (Reason: fever) 30 Days Qty: 120 1RF hydralazine 50 mg tablet 50 mg PO TID 90 Days Qty: 270 3RF cholecalciferol (vitamin D3) 25 mcg (1,000 unit) tablet 25 mcg PO DAILY 90 Days Qty: 90 0RF (DME) blood-glucose meter [FreeStyle Lite Meter] Kit See Rx Instructions .Route Qty: 1 0RF Rx Instructions: As directed (DME) lancets [FreeStyle Lancets] 28 gauge misc See Rx Instructions .Route Qty: 100 2RF Rx Instructions: As directed three times per day (DME) FreeStyle Test Strip See Rx Instructions .Route Qty: 100 2RF Rx Instructions: As directed 3 times per day aspirin 81 mg tablet,delayed release (DR/EC) 81 mg PO DAILY Qty: 90 1RF atenolol 50 mg tablet 50 mg PO DAILY 90 Days Qty: 90 1RF atorvastatin 10 mg tablet 10 mg PO BEDTIME 90 Days Qty: 90 0RF (DME) True Comfort Safety Pen Needle 31 gauge x 1/4 needle See Rx Instructions .Route Qty: 100 3RF Rx Instructions: once at bedtime As directed travoprost 0.004 % drops 0 drp ophthalmic (eye) Mounjaro 2.5 mg/0.5 mL pen injector 7.5 mg subcut QWEEK docusate sodium 100 mg capsule PO levothyroxine 112 mcg tablet 112 mcg PO DAILY losartan 100 mg tablet 100 mg PO DAILY insulin glargine [Lantus Solostar U-100 Insulin] 100 unit/mL (3 mL) insulin pen 12 unit subcut DAILY mirtazapine 15 mg tablet 15 mg PO DAILY Print Language: Lao
[2024-05-01] MEDS: Aspirin 81 MG TAB.CHEW 162 MG PO (00:07)
[2024-05-01 00:11] VITALS: BP 163/77; PULSE 97
[2024-05-01] MEDS: Nitroglycerin 0.4 MG TAB.SUBL SUBLINGUAL (00:11)
--- NOTE | 2024-05-01 00:15 | PC.NURSE ---
STATUS CONTROLLER ESTHER CALLED [facility] TO BE ON STANDBY FOR POSSIBLE STEMI TX HOWEVER [facility] STATES THEY CANNOT BE ON STANDBY THEY ONLY HAVE 1 ALS TRUCK
[2024-05-01 00:17] VITALS: BP 118/72; PULSE 97; RESP 20; O2SAT 95
[2024-05-01] MEDS: Heparin Sodium,Porcine 5,000 UNIT/ML VIAL 5000 UNIT IVPUSH (00:17)
--- NOTE | 2024-05-01 00:17 | PC.NURSE ---
RETAIL ATTENDANT CALL OUT TO INTERVENTIONAL CARDIOLOGY STEMI LINE PER MD ASTON OVALLE
[2024-05-01] MEDS: Ticagrelor 90 MG TABLET 180 MG PO (00:18)
[2024-05-01 00:20] LABS: Basophils Percent Auto 0.4 % (0-2); Eosinophils Absolute Auto 0.1 X10*3/uL (0.0-0.4); Eosinophils Percent Auto 0.5 % (0-4); Hematocrit 33.8 % (42.0-52.0); Hemoglobin 11.6 g/dl (14.0-18.0); Imm Gran Abs Auto 0.03 X10*3/uL (0.00-0.03); Imm Gran Pct Auto 0.3 % (0.0-0.4); Mean Corpuscular HGB Conc 34.3 g/dl (31.0-36.0); Mean Corpuscular Hemoglobin 30.2 pg (27.0-33.0); Monocytes Absolute Auto 0.9 X10*3/uL (0.1-1.2); Monocytes Percent Auto 9.5 % (2-11); Neutrophils Absolute Auto 7.7 x10*3/uL (2.0-8.3); Neutrophils Percent Auto 79.3 % (45-73); PLT CLUMP 1; Red Blood Count 3.84 X10*6/uL (4.60-5.80); Red Cell Distribution Width 13.4 % (11.0-16.0); SCAN SMEAR FLAG 1
[2024-05-01 00:22] VITALS: BP 110/70; PULSE 95; RESP 20; O2SAT 96
--- NOTE | 2024-05-01 00:22 | MHC.EDTECH ---
Patient was biba ,ekg taken and was read by Provider ,blood drawn ,covid swab collected all sent to lab .
[2024-05-01 00:25] LABS: MANUAL DIFF FLAG NO; White Blood Count 9.7 X10*3/uL (4.8-10.8)
--- NOTE | 2024-05-01 00:25 | PC.NURSE ---
interpreter for the deaf at bedside. pt biba from home, a&ox4, respirations even and unlabored. pt reports he has had 10/10 crushing chest pain x3 hours, pt reports the pain is radiating down his left side into the abdomen. pt reports he takes 81 of asprin daily. pt denies n/v. 20G placed in right hand, placed 20G in left ej. per , hold on sending pt to [facility] due to uncertainly of pt ekg. currently on phone with [facility] providers. pt medicated per mar at this time, tolerated well. vss.
[2024-05-01 00:26] LABS: Prothrombin Time 11.6 SEC (10.9-12.4)
[2024-05-01 00:32] LABS: Partial Thromboplastin Time 22.3 SEC (26.0-36.8)
[2024-05-01 00:36] LABS: Troponin-I High Sensitivity 4.5 ng/L (<3.5-35.0)
[2024-05-01 00:38] LABS: Alanine Aminotransferase 78 U/L (0-40); Albumin Level 4.1 g/dL (3.5-5.0); Alkaline Phosphatase 155 U/L (39-117); Anion Gap 15 (12-20); Aspartate Amino Transferase 94 U/L (5-37); Bilirubin Total 0.6 mg/dL (0.0-1.0); Blood Urea Nitrogen 28 mg/dL (9-16); Calcium 9.7 mg/dL (8.4-10.2); Carbon Dioxide 21 mmol/L (22-29); Chloride 105 mmol/L (96-108); Creatinine Clr Calc Pharmacy 39.8; Estimated Glomerular Filt Rate 49; Glucose Random 236 mg/dL (60-115); Potassium 5.5 mmol/L (3.3-5.1); Sodium 135 mmol/L (135-145); Total Protein 8.6 g/dL (6.5-8.0)
[2024-05-01 00:42] LABS: B Type Natriuretic Peptide 59 pg/mL (<100)
[2024-05-01 00:43] LABS: Platelet Count 165 X10*3/uL (160-400)
[2024-05-01 00:59] VITALS: BP 130/72; PULSE 90
[2024-05-01] MEDS: Nitroglycerin 2 % Oint 1 GM Packet 1 INCH TRANSDERMA (00:59)
[2024-05-01] MEDS: Heparin Sodium,Porcine/1/2NS 25,000 UNIT/250 ML IV.SOLN 8.2 UNIT IVCONT (01:01)
--- NOTE | 2024-05-01 01:04 | PC.NURSE ---
heparin drip started at this time with second nurse Patty Lentz.
--- NOTE | 2024-05-01 01:14 | PC.NURSE ---
ems at bedside for report.
[2024-05-01 01:16] LABS: COVID-19 Test Negative (Negative); IDNOW Serial# 55D5AD1C
--- NOTE | 2024-05-01 01:16 | PC.NURSE ---
report given to Kyle DE LA CRUZ at [facility] at [facility].
[2024-05-01 01:18] VITALS: BP 130/72; PULSE 90; RESP 20; TEMP 36.9; O2SAT 98
== END 2024-05-01 01:19 | disposition short-term general hospital (02) ==
PROVIDERS: Emergency Provider Internal Medicine
DX: I21.4 Non-ST elevation (NSTEMI) myocardial infarction (principal); R07.89 Other chest pain; R05.9 Cough, unspecified; R94.31 Abnormal electrocardiogram [ECG] [EKG]; I25.10 Atherosclerotic heart disease of native coronary artery without angina pectoris; E11.9 Type 2 diabetes mellitus without complications; Z79.4 Long term (current) use of insulin; Z11.52 Encounter for screening for COVID-19; Z87.891 Personal history of nicotine dependence; Z79.899 Other long term (current) drug therapy
CPT/HCPCS: 36415; 71045; 80053; 83735; 83880; 84484; 85025; 85610; 85730; 87635; 93005; 96374; 99285; J1644

== ENCOUNTER → 2024-04-30 23:54 | Outpatient (BNV) | payer OTHER, SELFPAY | PROVIDERS: Emergency Provider Internal Medicine; Visit Provider Internal Medicine Cardiovascular Disease | DX: R07.9 Chest pain, unspecified (principal); R94.31 Abnormal electrocardiogram [ECG] [EKG] | CPT/HCPCS: 93010 ==

== ENCOUNTER → 2024-05-01 00:03 | Outpatient (BNV) | payer OTHER, SELFPAY | PROVIDERS: Emergency Provider Internal Medicine; Visit Provider Radiology Diagnostic Radiology | DX: R07.9 Chest pain, unspecified (principal) | CPT/HCPCS: 71045 ==

== ENCOUNTER 2024-05-09 14:47 | Emergency (ER) | payer OTHER, SELFPAY ==
--- NOTE | ~2024-05-09 | CT_ITS ---
CLINICAL HISTORY: infection vs mass CT CHEST WITHOUT CONTRAST Comparison: CR - XR CHEST 2V - 05/09/24 15:34 EDT Findings: There is a pericardial effusion with 3 cm maximum thickness. Prominent coronary artery calcifications. Normal caliber thoracic aorta. Atrophic thyroid gland. Multiple nonspecific nonenlarged mediastinal lymph nodes. There are small bilateral pleural effusions, left greater than right. There are coalescent airspace opacities in the left lower lobe. There are right lower lobe and left perihilar atelectasis and/or infiltrates. No pneumothorax. Surface nodularity in the liver suggests cirrhotic morphology. The bones are intact. IMPRESSION: 1. Large pericardial effusion. 2. Small bilateral pleural effusions, left greater than right. 3. Left lower lobe compressive atelectasis and/or consolidation. 4. Right lower lobe and left perihilar atelectasis and/or infiltrates. This document has been electronically signed by: Ena Sweeney DO on 05/09/2024 18:10:19
--- NOTE | ~2024-05-09 | XR_ITS ---
CLINICAL HISTORY: left sided chest pain 2 view chest x-ray Comparison: CR - XR CHEST 1V - 05/01/24 00:23 EDT Findings: Left lower lobe pleural-parenchymal opacities. No pneumothorax. Cardiac silhouette is enlarged. No pulmonary vascular congestion. Thoracic spondylosis with multilevel endplate osteophytes. IMPRESSION: Left lower lobe compressive atelectasis and/or consolidation and/or mass with a small left pleural effusion. This document has been electronically signed by: Ena Sweeney DO on 05/09/2024 16:34:34
--- NOTE | 2024-05-09 14:55 | ECG_ITS ---
Test Reason : cp Blood Pressure : */* mmHG Vent. Rate : 84 BPM Atrial Rate : 84 BPM P-R Int : 156 ms QRS Dur : 82 ms QT Int : 374 ms P-R-T Axes : 52 -8 28 degrees QTcB Int : 441 ms Normal sinus rhythm Low voltage QRS Inferior infarct , age undetermined Abnormal ECG When compared with ECG of 30-Apr-2024 23:54, Non-specific change in ST segment in Lateral leads Referred By: Generic ED Physician Electronically Signed By: MARTIN LUONG MD
[2024-05-09 14:57] VITALS: BP 108/77; PULSE 87; RESP 22; TEMP 36.4; O2SAT 96; BMI 23.5
[2024-05-09 16:41] VITALS: BP 126/78; PULSE 80; RESP 18; TEMP 36.5; O2SAT 97
[2024-05-09 16:44] LABS: Basophils Percent Auto 0.5 % (0-2); Eosinophils Absolute Auto 0.1 X10*3/uL (0.0-0.4); Eosinophils Percent Auto 0.8 % (0-4); PLT CLUMP 1; SCAN SMEAR FLAG 1
[2024-05-09 16:46] LABS: Hematocrit 30.4 % (42.0-52.0); Hemoglobin 10.4 g/dl (14.0-18.0); Imm Gran Abs Auto 0.04 X10*3/uL (0.00-0.03); Imm Gran Pct Auto 0.5 % (0.0-0.4); Lymphocytes Absolute Auto 1.5 X10*3/uL (1.2-4.9); Lymphocytes Percent Auto 17.4 % (20-40); MANUAL DIFF FLAG SCAN; Mean Corpuscular HGB Conc 34.2 g/dl (31.0-36.0); Mean Corpuscular Hemoglobin 30.1 pg (27.0-33.0); Mean Corpuscular Volume 87.9 fL (80.0-98.0); Monocytes Absolute Auto 0.9 X10*3/uL (0.1-1.2); Neutrophils Percent Auto 70.8 % (45-73); Red Blood Count 3.46 X10*6/uL (4.60-5.80); Red Cell Distribution Width 13.4 % (11.0-16.0)
[2024-05-09 16:52] LABS: Alanine Aminotransferase 78 U/L (0-40); Albumin Level 3.4 g/dL (3.5-5.0); Alkaline Phosphatase 265 U/L (39-117); Anion Gap 12 (12-20); Aspartate Amino Transferase 94 U/L (5-37); Bilirubin Total 0.4 mg/dL (0.0-1.0); Blood Urea Nitrogen 35 mg/dL (9-16); Calcium 9.3 mg/dL (8.4-10.2); Carbon Dioxide 18 mmol/L (22-29); Chloride 109 mmol/L (96-108); Estimated Glomerular Filt Rate 48; Glucose Random 192 mg/dL (60-115); Lipase 30 U/L (8-78); Potassium 5.3 mmol/L (3.3-5.1); Sodium 134 mmol/L (135-145); Total Protein 7.4 g/dL (6.5-8.0)
[2024-05-09 17:03] LABS: Platelet Count 334 X10*3/uL (160-400); SLIDE REVIEW VERIFIED; Troponin-I High Sensitivity 19.7 ng/L (<3.5-35.0); White Blood Count 8.5 X10*3/uL (4.8-10.8)
--- NOTE | 2024-05-09 17:07 | ED_ITS ---
HPI - Chest Pain General Chief Complaint: Chest Pain Stated Complaint: SOB X 3 DAYS PER EMS Time Seen by Provider: 05/09/24 17:04 Source: patient and family Limitations: language barrier History of Present Illness ED Provider: Qi Mike PA-C HPI narrative: 79-year-old male with a history of recent NSTEMI May 01, 2024 with subsequent PCI at [facility], CAD, hypertension hyperlipidemia , diabetes , CKD, hypothyroidism, obesity who presents with chest pain x1 week. Pain over left anterior chest, is nonradiating, the patient was unable to describe the nature of his discomfort. Patient states he is also short of breath, at rest and with activity. Denies recent cough or cold symptoms. No fever. No diaphoresis with the his chest pain. Related Data Home Medications ?Medication ?Instructions ?Recorded ?Confirmed travoprost 0.004 % eye drops 0 drp ophthalmic (eye) 02/28/21 04/21/24 insulin glargine 100 unit/mL (3 12 unit subcut DAILY 03/10/24 04/21/24 mL) subcutaneous pen (Lantus Solostar U-100 Insulin) losartan 100 mg tablet 100 mg PO DAILY 03/10/24 04/21/24 mirtazapine 15 mg tablet 15 mg PO DAILY 03/10/24 04/21/24 tirzepatide 2.5 mg/0.5 mL 7.5 mg subcut QWEEK 03/10/24 04/21/24 subcutaneous pen injector (Wendy) docusate sodium 100 mg capsule mg PO 04/21/24 04/21/24 levothyroxine 112 mcg tablet 112 mcg PO DAILY 04/21/24 Previous Rx's ?Medication ?Instructions ?Recorded acetaminophen 500 mg tablet (Pain 500 mg PO Q6H PRN fever 30 days 02/26/22 Relief (acetaminophen)) #120 tabs pen needle, diabetic, safety 31 #100 ea 09/11/22 gauge x 1/4 (True Comfort Safety Pen Needle) hydralazine 50 mg tablet 50 mg PO TID 90 days #270 tabs 12/28/22 cholecalciferol (vitamin D3) 25 25 mcg PO DAILY 90 days #90 tabs 10/02/23 mcg (1,000 unit) tablet blood sugar diagnostic (FreeStyle #100 ea 11/07/23 Test strips) blood-glucose meter (FreeStyle #1 ea 11/07/23 Lite Meter kit) lancets 28 gauge (FreeStyle #100 ea 11/07/23 Lancets) aspirin 81 mg tablet,delayed 81 mg PO DAILY #90 tabs 12/25/23 release atenolol 50 mg tablet 50 mg PO DAILY 90 days #90 tabs 12/25/23 atorvastatin 10 mg tablet 10 mg PO BEDTIME 90 days #90 tabs 12/26/23 Allergies Allergy/AdvReac Type Severity Reaction Status Date / Time No Known Allergies Allergy Verified 05/09/24 14:57 Review of Systems 2 Review of Systems: Yes all other systems are reviewed and are negative Constitutional: Constitutional: Denies fatigue and Denies fever(s) Cardiovascular: Cardiovascular: Reports chest pain and Reports dyspnea Respiratory: Respiratory: Denies cough and Reports dyspnea Gastrointestinal: Gastrointestinal: Denies abdominal pain, Denies nausea and Denies vomiting Endocrine: Endocrine: Denies fatigue PMFSH Past Medical History Attestation statement: The following information was validated with the patient. Medical History DEVON (obstructive sleep apnea) Gout Hyperlipidemia LDL goal <100 Diabetic neuropathy Microalbuminuria Abdominal aortic ectasia High cholesterol Hypothyroid Hypertension Diabetes mellitus Surgical History History of cataract extraction History of hydrocelectomy Hx of colonoscopy Family History Family History Father Medical history unknown Mother Diabetes Hypertension Paternal Grandmother Cancer Son No problems noted. Daughter No problems noted. Sister No problems noted. Brother No problems noted. Social History Social History Housing: Apartment Are you a primary specialist wound care to a significant other at home: No Do you presently have visiting nurse or other home services: Yes ([employer] 2 x week) Alcohol intake: never Patient Tobacco Use Status: Former Tobacco user Tobacco use type: Cigarette e-Cigarette/Vaping Use: Never Used Second Hand Smoke Exposure: No Advance Directives: No Advance Directives Information Provided: No service: No Current occupational status: disabled Cognitive needs: Yes Hearing needs: No Vision needs: Yes Physical Exam 2 Vital Signs: Vital Signs: Last Vital Signs Temp 98.0 F 05/09/24 18:18 Pulse 79 05/09/24 18:18 Resp 16 05/09/24 18:18 BP 126/69 05/09/24 18:18 Pulse Ox 99 05/09/24 18:18 O2 Del Method Room Air 05/09/24 18:18 BMI result Body Mass Index 23.5 Const: Other: Alert Orientation/consciousness: patient oriented x3 Resp: Other: Nonlabored respirations, diminished left posterior bush, Cardio: Other: Normal peripheral perfusion no pedal edema Skin: Other: Warm dry no rash Neuro: General: patient oriented x3, gait normal, no focal motor deficits and CN's II-XI intact bilaterally Psych: Other: Cooperative Course Reevaluation(s) Reevaluation #1: Called the family to let them know that the patient was being transferred to [facility], the primary contact is Enedelia Whitaker, his sister Time: 21:05 Consultations Consultation #1: edgardo, Dr. Alexander 734 pm he is deferring to thoracic, gisella Mitchell Time: 19:11 Consultation #2: Dr. Mitchell initially he recommends admission to have an echo to rule out tamponade, if he requires pericardial centesis, this is not a procedure Dr. Mitchell performs. I also spoke with the hospitalist, Dr. Arellano, he does not feel the patient is appropriate to stay here, we do not have an ICU attending to perform a pericardiocentesis if need be. This makes sense, we will reach out to [facility] for transfer. Time: 19:37 Consultation #3: [facility].... Speaking with Dr. Eaton from Cardiology. He is accepting the patient, who will be a direct bed admit, I will upload images to radiology. will wait for bed assignment Time: 20:25 Medications Administered Generic Name Dose Route Start Last Admin Trade Name Freq PRN Reason Stop Dose Admin Azithromycin 500 mg/ Sodium 250 mls @ 125 mls/hr 05/09/24 19:12 05/09/24 19:40 Chloride IV 05/09/24 21:11 125 mls/hr ONCE ONE Administration Discontinued Medications Generic Name Dose Route Start Last Admin Trade Name Freq PRN Reason Stop Dose Admin Ceftriaxone Sodium 2 gm 05/09/24 19:12 05/09/24 19:40 Ceftriaxone Sodium 2 Gm Vial IVPUSH 05/09/24 19:13 2 gm ONCE ONE Administration Sodium Chloride 1,000 mls @ 999 mls/hr 05/09/24 17:15 05/09/24 19:52 Ns IV 05/09/24 18:15 Infused .Q1H1M JENAMARIE Infusion Sodium Zirconium Cyclosilicate 10 gm 05/09/24 17:07 05/09/24 18:00 Sodium Zirconium Cyclosilicate 10 Gm Powd.Pack PO 05/09/24 17:08 10 gm ONCE ONE Administration Medical Decision Making Medical Decision Making MDM Narrative: 79-year-old male with a history of recent NSTEMI May 01, 2024 with subsequent PCI at [facility], CAD, hypertension hyperlipidemia , diabetes , CKD, hypothyroidism, obesity who presents with chest pain x1 week. Pain over left anterior chest, is nonradiating, the patient was unable to describe the nature of his discomfort. Patient states he is also short of breath, at rest and with activity. Denies recent cough or cold symptoms. No fever. No diaphoresis with the his chest pain. Problem: Known coronary artery disease, recent cardiac event History: Per patient and family I have considered the following differential diagnoses: ACS, chest wall pain, PE, pneumonia, new heart failure Plan: ACS was considered, the patient just had an NSTEMI. Screening labs including cardiac enzymes EKG and chest x-ray will be obtained. He is diminished on the left, perhaps this is an effusion versus pneumonia. The patient has no cough he is afebrile, infection less likely. He is not overtly hypertensive, he does not appear volume overloaded on exam he is not hypoxic to suggest new failure. . Thought about PE, however he has no objective signs symptoms for DVT on exam, again he is not hypoxic, he is not tachycardic, his shortness of breath is highly subjective. I have independently reviewed the following tests: Labs: No leukocytosis, not anemic, creatinine at baseline, troponin x2 are flat, , potassium subtly elevated at 5.3 we will be giving lokelma, there are no EKG changes resulting from this minimal bump in K+ EKG: Normal sinus rhythm, rate 84, no active ischemic changes no ectopy QTC 4 4 Chest x-ray::IMPRESSION: Left lower lobe compressive atelectasis and/or consolidation and/or mass with a small left pleural effusion . CT chest: IMPRESSION: 1. Large pericardial effusion. 2. Small bilateral pleural effusions, left greater than right. 3. Left lower lobe compressive atelectasis and/or consolidation. 4. Right lower lobe and left perihilar atelectasis and/or infiltrates. Given enlarged cardiac silhouette an evidence of potential pneumonia versus a mass, I will obtain a CT of the chest, we need to get a non-con study given his underlying renal function and diabetes history. Patient has a large pericardial effusion, with the evidence of infection, adding blood cultures, lactic acid, starting ceftriaxone and azithromycin, we will be paging Cardiology for consult Lab Data 05/09/24 16:31 05/09/24 16:31 Labs: Lab Results 05/09/24 05/09/24 05/09/24 Range/Units 16:31 17:53 19:35 WBC 8.5 (4.8-10.8) X10*3/uL RBC 3.46 L (4.60-5.80) X10*6/uL Hgb 10.4 L (14.0-18.0) g/dl Hct 30.4 L (42.0-52.0) % MCV 87.9 (80.0-98.0) fL MCH 30.1 (27.0-33.0) pg MCHC 34.2 (31.0-36.0) g/dl RDW 13.4 (11.0-16.0) % Plt Count 334 D (160-400) X10*3/uL MPV 10.0 (9.4-12.4) fL Immature Gran % (Auto) 0.5 H (0.0-0.4) % Neut % (Auto) 70.8 (45-73) % Lymph % (Auto) 17.4 L (20-40) % [place] % (Auto) 10.0 (2-11) % Eos % (Auto) 0.8 (0-4) % Baso % (Auto) 0.5 (0-2) % Lymph # (Auto) 1.5 (1.2-4.9) X10*3/uL [place] # (Auto) 0.9 (0.1-1.2) X10*3/uL Eos # (Auto) 0.1 (0.0-0.4) X10*3/uL Baso # (Auto) 0.0 (0.0-0.2) X10*3/uL Abs Immat Gran (auto) 0.04 H (0.00-0.03) X10*3/uL Absolute Neuts (auto) 6.0 (2.0-8.3) x10*3/uL Absolute Nucleated RBC 0.000 (0.0-0.012) X10*3/uL Nucleated RBC % (auto) 0.0 (0.0-0.2) /100WBC Smear Tech's Comments VERIFIED Sodium 134 L (135-145) mmol/L Potassium 5.3 H (3.3-5.1) mmol/L Chloride 109 H (96-108) mmol/L Carbon Dioxide 18 L (22-29) mmol/L Anion Gap 12 (12-20) BUN 35 H (9-16) mg/dL Creatinine 1.43 H (0.5-1.4) mg/dL Estim Creat Clear Calc 39.0 Estimated GFR 48 Random Glucose 192 H (60-115) mg/dL Lactic Acid 1.5 (0.5-2.0) mmol/L Calcium 9.3 (8.4-10.2) mg/dL Magnesium 2.0 (1.6-2.6) mg/dL Total Bilirubin 0.4 (0.0-1.0) mg/dL AST 94 H (5-37) U/L ALT 78 H (0-40) U/L Alkaline Phosphatase 265 H (39-117) U/L Troponin I High Sens 19.7 D 10.2 (<3.5-35.0) ng/L Total Protein 7.4 (6.5-8.0) g/dL Albumin 3.4 L (3.5-5.0) g/dL Lipase 30 (8-78) U/L Discharge Plan Discharge Clinical Impression: Pneumonia, Acute pericardial effusion Patient Disposition: Xfer Acute Care Hospital Transfer Details: [facility] [place] 5 Prescriptions: No Action acetaminophen [Pain Relief (acetaminophen)] 500 mg tablet 500 mg PO Q6H PRN (Reason: fever) 30 Days Qty: 120 1RF hydralazine 50 mg tablet 50 mg PO TID 90 Days Qty: 270 3RF cholecalciferol (vitamin D3) 25 mcg (1,000 unit) tablet 25 mcg PO DAILY 90 Days Qty: 90 0RF (DME) blood-glucose meter [FreeStyle Lite Meter] Kit See Rx Instructions .Route Qty: 1 0RF Rx Instructions: As directed (DME) lancets [FreeStyle Lancets] 28 gauge misc See Rx Instructions .Route Qty: 100 2RF Rx Instructions: As directed three times per day (DME) FreeStyle Test Strip See Rx Instructions .Route Qty: 100 2RF Rx Instructions: As directed 3 times per day aspirin 81 mg tablet,delayed release (DR/EC) 81 mg PO DAILY Qty: 90 1RF atenolol 50 mg tablet 50 mg PO DAILY 90 Days Qty: 90 1RF atorvastatin 10 mg tablet 10 mg PO BEDTIME 90 Days Qty: 90 0RF (DME) True Comfort Safety Pen Needle 31 gauge x 1/4 needle See Rx Instructions .Route Qty: 100 3RF Rx Instructions: once at bedtime As directed travoprost 0.004 % drops 0 drp ophthalmic (eye) Mounjaro 2.5 mg/0.5 mL pen injector 7.5 mg subcut QWEEK docusate sodium 100 mg capsule PO levothyroxine 112 mcg tablet 112 mcg PO DAILY losartan 100 mg tablet 100 mg PO DAILY insulin glargine [Lantus Solostar U-100 Insulin] 100 unit/mL (3 mL) insulin pen 12 unit subcut DAILY mirtazapine 15 mg tablet 15 mg PO DAILY Print Language: Japanese
[2024-05-09] MEDS: 0.9 % Sodium Chloride 1,000 ML 999 ML IV (17:55)
[2024-05-09] MEDS: Sodium Zirconium Cyclosilicate 10 GM POWD.PACK PO (18:00)
--- NOTE | 2024-05-09 18:02 | PC.NURSE ---
US guided IV placed in left upper arm. fluids infusing, medicated per the MAR. awaiting ct scan and repeat troponin
[2024-05-09 18:16] LABS: Troponin-I High Sensitivity 10.2 ng/L (<3.5-35.0)
[2024-05-09 18:18] VITALS: BP 126/69; PULSE 79; RESP 16; TEMP 36.7; O2SAT 99
[2024-05-09] MEDS: Azithromycin 500 MG in 0.9 % Sodium Chloride 250 ML 125 MG IV (19:40)
[2024-05-09] MEDS: cefTRIAXone sodium 2 GM VIAL IVPUSH (19:40)
[2024-05-09 19:55] LABS: Lactic Acid 1.5 mmol/L (0.5-2.0)
--- NOTE | 2024-05-09 20:59 | PC.NURSE ---
Report called to Cailin DE LA CRUZ mass mutual 5 rm 20 [facility]
[2024-05-09 21:09] LABS: COVID-19 Test Negative (Negative); IDNOW Serial# 55D5AD1C
--- NOTE | 2024-05-09 21:44 | PC.NURSE ---
ambulance transport here now to bring pt to [facility]
[2024-05-09 21:47] VITALS: BP 101/60; PULSE 84; RESP 16; TEMP 36.6; O2SAT 97
[2024-05-09 21:48] VITALS: BP 101/60; PULSE 84; RESP 16; TEMP 36.6; O2SAT 97
== END 2024-05-09 21:51 | disposition short-term general hospital (02) ==
PROVIDERS: Physician Assistant Medical; Emergency Provider Emergency Medicine; PCP Family Medicine
DX: J18.9 Pneumonia, unspecified organism (principal); I31.39 Other pericardial effusion (noninflammatory); R07.89 Other chest pain; J90 Pleural effusion, not elsewhere classified; R11.0 Nausea; R06.02 Shortness of breath; I25.10 Atherosclerotic heart disease of native coronary artery without angina pectoris; Z79.899 Other long term (current) drug therapy; Z11.52 Encounter for screening for COVID-19
CPT/HCPCS: 36415; 71046; 71250; 80053; 83605; 83690; 83735; 84484; 85025; 87040; 87635; 93005; 96361; 96365; 96366; 96375; 99285; J0456; J0696

== ENCOUNTER → 2024-05-09 14:55 | Outpatient (BNV) | payer OTHER, SELFPAY | PROVIDERS: Emergency Provider Emergency Medicine; PCP Family Medicine; Visit Provider Internal Medicine Cardiovascular Disease | DX: R94.31 Abnormal electrocardiogram [ECG] [EKG] (principal); R07.9 Chest pain, unspecified | CPT/HCPCS: 93010 ==

== ENCOUNTER → 2024-05-09 15:25 | Outpatient (BNV) | payer OTHER, SELFPAY | PROVIDERS: PCP Family Medicine; Visit Provider Radiology Diagnostic Radiology | DX: J90 Pleural effusion, not elsewhere classified (principal); I31.39 Other pericardial effusion (noninflammatory); R07.9 Chest pain, unspecified | CPT/HCPCS: 71046; 71250 ==